=== PATIENT | female | born 1940 | race Caucasian/White ===

== ENCOUNTER → 2016-06-10 | Outpatient (CLI) | payer OTHER ==
[~2016-06-10] MED LIST: ASPI81TA28 PO; CHOL100010 PO; COLE625T PO; CRS/10 PO; CYCL0.05 OP; FAMO20TA11 PO; FEXO1TAB49 PO; FLUT27.5 NAE; HOME1TAB18 PO; HYDR12.55 PO; LEVO112T4 PO; MAGN400T6 PO; MELO7.5T7 PO; MULT-190 PO; MULT-506 PO; PRIM50TA29 PO; RANI300T2 PO
== END | disposition home or self-care (01) ==
LOC: C.LAB1850 12:12
PROVIDERS: ATTEND Internal Medicine
DX: E03.9 Hypothyroidism, unspecified (principal)

== ENCOUNTER → 2016-10-05 | Outpatient (CLI) | payer OTHER ==
[2016-10-05 09:35] LABS: HEMATOCRIT 38.5 % (37-47); MEAN CELL VOLUME 86.3 fL (80-100); MEAN CORPUSCULAR HGB CONC 34.8 g/dl (32-36); MEAN PLATELET VOLUME 10.1 fL (7.4-10.4); PLATELET COUNT 266 K/uL (130-400); RED BLOOD COUNT 4.46 M/uL (4.2-5.4); WHITE BLOOD COUNT 3.59 K/uL (4.8-10.8)
[2016-10-05 09:40] LABS: URINE APPEARANCE CLEAR (CLEAR); URINE BILIRUBIN NEG (NEG); URINE COLOR YELLOW; URINE EPITHELIAL CELL AUTO 0-5 /lpf (0-5); URINE NITRITE NEG (NEG); URINE PH 7.5 (4.5-7.5); URINE SPECIFIC GRAVITY 1.007 (1.000-1.030); UROBILINOGEN NEG (NEG)
[2016-10-05 09:46] LABS: MANUAL MICROSCOPIC REQUIRED? NO; REVIEW REQ? NO
[2016-10-05 10:05] LABS: URINE TOTAL PROTEIN < 5.0 mg/dl (0-11.9)
[2016-10-05 10:10] LABS: AST/SGOT 24 U/L (15-37); BLOOD UREA NITROGEN 15 mg/dl (7-18); BUN/CREATININE RATIO 17.6 (10-20); CALCIUM 9.5 mg/dl (8.5-10.1); CARBON DIOXIDE 32 mmol/L (21-32); CHLORIDE 103 mmol/L (98-107); CREATININE 0.87 mg/dl (0.60-1.20); GLUCOSE 79 mg/dl (70-99); POTASSIUM 4.1 mmol/L (3.5-5.1); SODIUM 138 mmol/L (136-145)
[2016-10-05 10:23] LABS: ALT/SGPT 24 U/L (12-78); CHOLESTEROL 187 mg/dl (0-200); CHOLESTEROL/HDL RATIO 2.4; HDL CHOLESTEROL 77 mg/dl; LDL CHOLESTEROL CALCULATED 96 mg/dl; PHOSPHORUS 3.3 mg/dl (2.5-4.9); TRIGLYCERIDES 71 mg/dl (0-150); VERY LOW DENSITY LIPOPROT CALC 14 mg/dl
== END | disposition home or self-care (01) ==
LOC: C.LAB1850 08:04
PROVIDERS: ATTEND Internal Medicine Nephrology
DX: E03.9 Hypothyroidism, unspecified (principal); E78.5 Hyperlipidemia, unspecified; I10 Essential (primary) hypertension; M32.9 Systemic lupus erythematosus, unspecified; E55.9 Vitamin D deficiency, unspecified; N18.2 Chronic kidney disease, stage 2 (mild)

== ENCOUNTER → 2016-12-14 | Outpatient (CLI) | payer OTHER ==
--- NOTE | 2016-12-14 14:06 | DIAGNOSTIC IMAGING REPORT ---
MRA HEAD WITHOUT CONTRAST HISTORY:76 [id number] SNHL (sensorineural hearing loss)H93.A1 Pulsatile tinnitus prior occipital craniotomy 1995 status post meningioma resection. COMPARISON: MRI of the brain 04/19/2016, carotid Doppler 12/07/2013 TECHNIQUE: MRA of the head was obtained without contrast utilizing 3-D [id number] sequencing with 3-D MIPS reformats. FINDINGS: Midline suboccipital craniotomy changes are redemonstrated. The bilateral internal carotid arteries appear normal and are patent terminating into normal and patent appearing M1 and A1 segments. The right A1 segment is mildly diminutive, likely congenital variation. The left vertebral artery is dominant. Basilar artery is patent and appears normal. There is origin of the left posterior cerebral artery. The bilateral posterior cerebral arteries are patent. There is no high-grade stenosis, aneurysm or proximal branch occlusion. IMPRESSION: 1. No high-grade stenosis, aneurysm or proximal branch occlusion identified. 2. Incidental note is made of origin of the left posterior cerebral artery. 3. Prior suboccipital craniotomy. The above report was generated using voice recognition software. It may contain grammatical, syntax or spelling errors. Electronically signed by: Minh Bolanos M.D. 12/14/2016 2:04 PM Dictated Date/Time: 12/14/2016 1:58 PM
--- NOTE | 2016-12-14 14:45 | DIAGNOSTIC IMAGING REPORT ---
BILATERAL CAROTID DOPPLER STUDY HISTORY: Mental status change H90.5 SNHL (sensorineural hearing loss)H93.A1 Pulsatile tinnitus COMPARISON: None. TECHNIQUE: Real-time, grayscale, and color Doppler sonography of the carotid arteries was performed. Imaging reviewed in the transverse and longitudinal planes. All measurements were calculated based on NASCET criteria. FINDINGS: Antegrade flow is seen in the bilateral vertebral arteries. The brachial pressures are hemodynamically similar. Mild plaque formation bilaterally The peak systolic velocity within the right ICA is 81. The right systolic ratio is 1.2 The peak systolic velocity within the left ICA is 81. The left systolic ratio is 1.2. IMPRESSION: No hemodynamically significant stenosis seen within the carotid arteries. Mild plaque formation bilaterally Electronically signed by: Davidson Kaur M.D. 12/14/2016 2:43 PM Dictated Date/Time: 12/14/2016 2:42 PM
--- NOTE | 2016-12-19 12:05 | CODING QUERY MEDICAL NECESSITY ---
SUPPORTING DIAGNOSIS NEEDED A supporting diagnosis is required for the test/procedure performed on this patient in order for us to be reimbursed by the patient's insurance. Please provide a supporting diagnosis for the following test/procedure listed below next to the test name along with your signature. *If there is no additional diagnosis for this patient that would support the following test/procedure please document that below next to the test/procedure. Test(s)/Procedure(s) that require a supporting diagnosis: * US CAROTID DOPPLER NECK ARTERY DIAGNOSIS: Provider Signature: Date: Thank you Rosi Menjivar [employer] Once completed, please kindly fax back to [phone] For questions please call [phone]
== END | disposition home or self-care (01) ==
LOC: C.MRI 13:09
PROVIDERS: ATTEND Physician Assistant
DX: H93.A1 Pulsatile tinnitus, right ear (principal); H90.5 Unspecified sensorineural hearing loss

== ENCOUNTER → 2017-02-07 | Outpatient (CLI) | payer OTHER ==
[2017-02-07 15:38] LABS: BASO % 0.6 %; BASO ABS # 0.03 K/uL (0-0.2); COMPLETE YES; EOS % 0.8 %; HEMATOCRIT 41.1 % (37-47); IG% 0.2 %; LYMPH % 21.3 %; LYMPH ABS # 1.02 K/uL (1.2-3.4); MEAN CELL VOLUME 84.7 fL (80-100); MEAN CORPUSCULAR HEMOGLOBIN 29.7 pg (25-34); MEAN PLATELET VOLUME 10.9 fL (7.4-10.4); MONO % 7.3 %; NEUT % 69.8 %; PLATELET COUNT 182 K/uL (130-400); RED BLOOD COUNT 4.85 M/uL (4.2-5.4)
[2017-02-07 15:41] LABS: URINE APPEARANCE CLEAR (CLEAR); URINE BILIRUBIN NEG (NEG); URINE COLOR YELLOW; URINE EPITHELIAL CELL AUTO 0-5 /lpf (0-5); URINE NITRITE NEG (NEG); URINE PH 5.5 (4.5-7.5); URINE SPECIFIC GRAVITY 1.012 (1.000-1.030); UROBILINOGEN NEG (NEG)
[2017-02-07 15:44] LABS: MANUAL MICROSCOPIC REQUIRED? NO; REVIEW REQ? NO
[2017-02-07 15:55] LABS: ALT/SGPT 23 U/L (12-78); CREATININE 0.98 mg/dl (0.60-1.20)
[2017-02-07 15:57] LABS: ALKALINE PHOSPHATASE 97 U/L (45-117); AST/SGOT 29 U/L (15-37)
[2017-02-12 05:28] LABS: ANTI-CENTROMERE AB <1.0 NEG AI (<1.0 NEG); ANTI-SS-A <1.0 NEG AI (<1.0 NEG); ANTI-SS-B <1.0 NEG AI (<1.0 NEG); DNA ds CRITHIDIA NEGATIVE (NEGATIVE); Sm Antibody <1.0 NEG AI (<1.0 NEG)
[2017-02-13 14:50] LABS: ANA TITER 1:40 TITER (<1:40)
== END | disposition home or self-care (01) ==
LOC: C.LAB1850 14:20
PROVIDERS: ATTEND Internal Medicine Rheumatology
DX: Z79.899 Other long term (current) drug therapy (principal)

== ENCOUNTER → 2017-04-13 | Outpatient (CLI) | payer OTHER ==
[~2017-04-13] MED LIST changes: +GADAVIST IV PRN
--- NOTE | 2017-04-13 08:54 | DIAGNOSTIC IMAGING REPORT ---
CERVICAL SPINE COMBO HISTORY: HEMANGIOMA,POSSIBLE CERVICAL CORD COMPROMISE TECHNIQUE: Multiplanar multisequence MRI of the cervical spine was performed both before and after the use of intravenous contrast. COMPARISON STUDY: 08/27/2009 FINDINGS: Moderate degenerative disc change throughout. Signal characteristics of the cervical cord are unremarkable. No significant postcontrast enhancement. Reversal of the normal cervical curvature consistent muscular spasm. Multilevel posterior extradural defect consistent with bulging disc components. C2-C3: No significant central canal or neural foraminal narrowing. C3-C4: Minimal central disc bulge. Contact with but no significant deformity of the cervical cord. Mild osteophytic narrowing left neuroforamina similar compared to the prior study. C4-C5: Mild broad-based bulging disc. Minimal impact anterior cervical cord. Moderate narrowing right to lesser extent left neural foramina. C5-C6: Broad-based disc herniation slightly progressive from the prior study. Mild impact anterior cervical cord. Moderate narrowing of the neuroforamina bilaterally. C6-C7: Broad-based disc herniation with mild impact anterior aspect cervical cord. Slightly progressive from the prior study. Moderate osteophytic narrowing of the right neural foramina. Left neural foramen is patent. C7-T1: No significant central canal or neural foraminal narrowing. IMPRESSION: 1. Findings consistent with a suboccipital craniotomy with postoperative encephalomalacia. 2. This is unchanged from the prior study. 3. Reversal of the normal cervical curvature consistent with mild muscular spasm progressive from the prior study. 4. Broad-based disc herniations C6-C7 and C5-C6 slightly increased in prominence in the prior study. 5. Broad-based bulging disc C4-C5 unchanged. 6. Narrowing of multiple neural foramina bilaterally stable to slightly progressive. The above report was generated using voice recognition software. It may contain grammatical, syntax or spelling errors. Electronically signed by: Davidson Kaur M.D. 04/13/2017 8:53 AM Dictated Date/Time: 04/13/2017 8:46 AM
== END | disposition home or self-care (01) ==
LOC: C.MRI 07:36
PROVIDERS: ATTEND Psychiatry & Neurology Neurology
DX: D18.03 Hemangioma of intra-abdominal structures (principal); G93.89 Other specified disorders of brain; Z98.890 Other specified postprocedural states; M50.221 Other cervical disc displacement at C4-C5 level; M50.222 Other cervical disc displacement at C5-C6 level; M50.223 Other cervical disc displacement at C6-C7 level

== ENCOUNTER → 2017-06-19 | Outpatient (CLI) | payer OTHER ==
[~2017-06-19] MED LIST changes: -GADAVIST IV PRN
== END | disposition home or self-care (01) ==
LOC: C.LAB1850 08:32
PROVIDERS: ATTEND Internal Medicine Nephrology
DX: I10 Essential (primary) hypertension (principal); M32.9 Systemic lupus erythematosus, unspecified; E78.5 Hyperlipidemia, unspecified; E55.9 Vitamin D deficiency, unspecified; D50.9 Iron deficiency anemia, unspecified; N18.2 Chronic kidney disease, stage 2 (mild)

== ENCOUNTER → 2017-09-18 | Outpatient (CLI) | payer OTHER | END | disposition home or self-care (01) | LOC: C.LAB1850 15:16 | PROVIDERS: ATTEND Physician Assistant | DX: I10 Essential (primary) hypertension (principal) ==

== ENCOUNTER → 2018-01-04 | Outpatient (CLI) | payer OTHER ==
--- NOTE | 2018-01-04 09:16 | DIAGNOSTIC IMAGING REPORT ---
L-SPINE MIN 4 VIEWS ROUTINE HISTORY: 77 years-old Female M79.605 Left leg [id number] acute left leg and low back pain COMPARISON: Lumbar spine radiographs 08/23/2013 TECHNIQUE: 5 views of the lumbar spine FINDINGS: Mild convex right curvature about the mid lumbar spine. Mildly demineralized appearance of the bones. 6 mm anterolisthesis L4 on L5 and 5 mm anterolisthesis L5 on S1 has slightly progressed from comparison (previously 4 and 3 mm respectively). Severe multilevel facet arthrosis. Multilevel spondylitic spurring. Moderate intervertebral disc space narrowing at L2-L3. No acute fracture and L5. Lumbarization of the S1 vertebral body. Calcifications of the pelvis suggest phleboliths. Moderate formed colonic stool suggests constipation. IMPRESSION: 1. No acute fracture. 2. Multilevel advanced facet arthropathy with mild multilevel spondylitic spurring. Anterolisthesis of L4 on L5 and L5 on S1 is likely secondary to long-standing facet arthropathy. 3. Moderate intervertebral disc space narrowing at L2-L3. The above report was generated using voice recognition software. It may contain grammatical, syntax or spelling errors. Electronically signed by: Minh Bolanos M.D. 01/04/2018 9:14 AM Dictated Date/Time: 01/04/2018 9:11 AM
--- NOTE | 2018-01-04 09:26 | DIAGNOSTIC IMAGING REPORT ---
SI JOINTS 3 OR MORE VIEWS CLINICAL HISTORY: M79.605 Left leg [id number] pain COMPARISON STUDY: No previous studies for comparison. FINDINGS: Mild degenerative changes of the sacroiliac joints bilaterally. Mild vacuum joints are present. No evidence of bony ankylosis. Mild sclerosis of the joint and spaces. IMPRESSION: Mild degenerative change and sclerosis. No acute process. The above report was generated using voice recognition software. It may contain grammatical, syntax or spelling errors. Electronically signed by: Davidson Kaur M.D. 01/04/2018 9:25 AM Dictated Date/Time: 01/04/2018 9:24 AM
--- NOTE | 2018-01-04 09:28 | DIAGNOSTIC IMAGING REPORT ---
LEFT HIP 2 VIEWS HISTORY: M79.605 Left leg [id number] COMPARISON: None. FINDINGS: There is no fracture or dislocation. Soft tissues are unremarkable. Left hip cartilage spaces maintained for age. Hypertrophic changes at the greater trochanter is likely chronic. IMPRESSION: No fracture or dislocation within the left hip. Electronically signed by: Andrés Davis M.D. 01/04/2018 9:27 AM Dictated Date/Time: 01/04/2018 9:26 AM
[2018-01-04 09:54] LABS: BLOOD UREA NITROGEN 20 mg/dl (7-18); CALCIUM 8.9 mg/dl (8.5-10.1); CARBON DIOXIDE 30 mmol/L (21-32); CREATININE 0.96 mg/dl (0.60-1.20); GLUCOSE 89 mg/dl (70-99); SODIUM 136 mmol/L (136-145)
== END | disposition home or self-care (01) ==
LOC: C.RAD1850 08:36
PROVIDERS: ATTEND Internal Medicine
DX: M79.605 Pain in left leg (principal); R26.81 Unsteadiness on feet

== ENCOUNTER 2018-08-31 12:01 | Observation (INO) ==
[2018-08-31 13:38] LABS: Basophils # (auto) 0.02 K/uL (0-0.2); Basophils % (auto) 0.5 %; Eosinophils # (auto) 0.15 K/uL (0-0.5); Eosinophils % (auto) 3.8 %; Hematocrit (blood only) 36.9 % (37-47); Hemoglobin 12.5 g/dL (12.0-16.0); Immature Granulocytes # (auto) 0.01 K/uL (0.00-0.02); Immature Granulocytes % (auto) 0.3 %; Lymphocytes # (auto) 1.11 K/uL (1.2-3.4); Mean Corpuscular Hgb Conc 33.9 g/dL (32-36); Mean Corpuscular Volume 87.4 fL (80-100); Mean Platelet Volume 10.8 fL (7.4-10.4); Monocytes # (auto) 0.46 K/uL (0.11-0.59); Monocytes % (auto) 11.6 %; Neutrophils # (auto) 2.21 K/uL (1.4-6.5); Neutrophils % (auto) 55.8 %; Platelet Count 182 K/uL (130-400); RDW Coefficient of Variation 13.4 % (11.5-14.5); RDW Standard Deviation 43.2 fL (36.4-46.3); Red Blood Count 4.22 M/uL (4.2-5.4); White Blood Count 3.96 K/uL (4.8-10.8)
--- NOTE | 2018-08-31 13:43 | XRay Report ---
XR chest 1V portable CLINICAL HISTORY: Palpitations COMPARISON STUDY: Chest radiograph August 15, 2018. FINDINGS: Lung volumes are normal. There is no pneumothorax or pleural effusion. There is no consolid ation or evidence for pulmonary edema. Cardiomediastinal silhouette is normal. IMPRESSION: No acute cardiopulmonary findings. Electronically signed by: Yariel Sethi M.D. 08/31/2018 1:42 PM
[2018-08-31 13:44] LABS: Partial Thromboplastin Ratio 0.9; Prothrombin Time 10.4 Seconds (9.0-12.0)
[2018-08-31 13:51] LABS: Albumin Level 3.5 gm/dl (3.4-5.0); BUN Creatinine Ratio 25.2 (10-20); Creatinine Clr Calc Pharmacy 61.7 ml/min; Est GFR (African American) 77.7; Potassium 3.6 mmol/L (3.5-5.1)
[2018-08-31 14:08] LABS: Bilirubin,Total 0.4 mg/dl (0.2-1); Globulin 3.3 gm/dl (2.5-4.0); Total Protein 6.8 gm/dl (6.4-8.2)
[2018-08-31 14:11] LABS: Troponin I 0.159 ng/ml (0-0.045)
--- NOTE | 2018-08-31 14:20 | XRay Report ---
XR chest 1V not portable CLINICAL HISTORY: just lateral view eval for pna pneumonia. Pain. COMPARISON STUDY: No previous studies for comparison. FINDINGS: Lateral view of the chest is normal. Moderate degenerative changes thoracic spine. IMPRESSION: Negative lateral film of the chest The above report was generated using voice recognition software. It may contain grammatical, syntax or spelling errors. Electronically signed by: Davidson Kaur M.D. 08/31/2018 2:19 PM
[2018-08-31 14:31] LABS: Magnesium 2.4 mg/dl (1.8-2.4)
[2018-08-31 14:44] LABS: Appearance Urine Clear (Clear); Bilirubin Urine Negative (Negative); Blood Urine Negative (Negative); Color Urine Yellow; Glucose Urine UA Negative (Negative); Ketones Urine Negative (Negative); Leukocyte Esterase Urine Negative (Negative); Nitrite Urine Negative (Negative); Protein Urine Negative (Negative); Specific Gravity Urine <= 1.005 (1.000-1.030); Urobilinogen Urine Negative (Negative)
--- NOTE | 2018-08-31 15:59 | History & Physical Report ---
Date of Service August 31, 2018 Assessment & Plan (1) CAD (coronary artery disease): (2) Chest pain: - Admit to tele for observation for r/o - Trend cardiac biomarkers, initial set was ~0.159. Pt is s/p cardiac cath on 08/[address] Argueta so this is not suprising. - EKG reviewed as above and shows no changes compared to previous. - If negative enzymes can consider a stress test tomorrow morning. - PT/OT consulted - Consult cardiology for further recommendations - PT/OT consults - Follow orthostatics - Continue asa 81 mg daily, HCTZ 12.5 mg daily, Inderal XL 80 mg HS, rosuvastatin 10 mg PO QAM (3) Chronic lumbar radiculopathy: - Stable (4) SLE (systemic lupus erythematosus): - Stable, no current flair (5) Hypothyroidism: - Continue levothyroxine with alternating dosing - Continue mag oxide (6) HTN (hypertension): - Continue inderal XL (7) DVT prophylaxis: - Teds, scds, lovenox subq History of Present Illness Chief Complaint: Chest pain Primary Care Provider: Donald Rand MD This is a 77 yo F with PMHx of mild obstructive CAD, SLE, Raynauds disease, chronic lumbar radiculopathy who presents with increased elevation in chest discomfort substernally and pressure which started this morning on her way [place] the bank. She noticed her apple watch was reading HR at 199 at its highest. She denies lightheadedness, dizziness, chest pain. She notes she has major stress going on in her life including a terminally ill sister, and a mother who is over 100 yo in a nursing facilities. Allergies Allergy/AdvReac Type Severity Reaction Status Date / Time hydroxychloroquine Allergy Intermediate TOXICITY Verified 08/31/18 12:54 OF THE RETINA ibuprofen Allergy Intermediate SWELLING Verified 08/31/18 12:54 atorvastatin AdvReac Mild "UNCOMFORTABLE" Verified 08/31/18 12:54 AND CREATININE INCREASED SLIGHTLY Home Medications Home Medications Medication Instructions Recorded Confirmed Type PreserVision AREDS 1 tab PO BID 06/25/18 08/31/18 History aspirin 81 mg PO QAM 06/25/18 08/31/18 History cholecalciferol (vitamin D3) 1,000 unit PO QAM 06/25/18 08/31/18 History [Vitamin D3] colesevelam [WelChol] 625 mg PO DAILY 06/25/18 08/31/18 History fexofenadine [Norma Allergy] 180 mg PO DAILY 06/25/18 08/31/18 History hydrochlorothiazide 12.5 mg PO DAILY 06/25/18 08/31/18 History levothyroxine 112 mcg PO 3XWK 06/25/18 08/31/18 History magnesium oxide 400 mg PO QPM 06/25/18 08/31/18 History multivitamin 1 tab PO QAM 06/25/18 08/31/18 History rosuvastatin [Crestor] 10 mg PO QPM 06/25/18 08/31/18 History Inderal XL 80 mg PO HS 08/27/18 08/31/18 History levothyroxine 100 mg PO 4XWK 08/27/18 08/31/18 History Past Med/Surg History Medical History CAD (coronary artery disease) HTN (hypertension) SLE (systemic lupus erythematosus) Chest pain (Acute 12/05/13) Chronic lumbar radiculopathy (Acute) Raynaud's disease (Chronic) Sjogren's syndrome (Chronic) Asthma EXERCISE INDUCED; RARELY USES PRN INH Chronic back pain Difficult airway for intubation Essential tremor GERD (gastroesophageal reflux disease) Hemangioma of liver History of brain tumor History of lupus Hypothyroid Idiopathic thrombocytopenia Osteoarthritis Osteoporosis PVC (premature ventricular contraction) Scoliosis Sleep apnea CPAP Temporomandibular joint disorder Valvular heart disease FOLLOWS W/ DR. FULLER Surgical History History of appendectomy (Resolved) History of hysterectomy (Resolved) History of tubal ligation (Resolved) History of brain surgery History of colonoscopy History of esophagogastroduodenoscopy (EGD) History of tonsillectomy S/P UVPP (uvulopalatopharyngoplasty) Family History Aunt Family history of pseudocholinesterase deficiency PATERNAL Social History Communication Ability: Effective Language Instructor Required: Yes Beliefs That Will Affect Care: None Current Living Situation: Spouse Other Information That Helps Us Care for You: No Feels Safe at Home: Yes Safety Concerns: Feels Safe At This Time Smoking Status: Former smoker Hx Alcohol Use: No Hx Substance Use: No Review of Systems Constitutional: No fever, sweats or chills Eyes: No diplopia, no worsening or blurred vision ENT: normal hearing, no trouble swallowing Respiratory: No cough, sputum, dyspnea at rest or on exertion Cardiovascular: As per HPI. Abdomen: No pain, nausea, vomiting, diarrhea or constipation Musculoskeletal: No joint pain, calf pain, swelling Neurologic: No weakness, numbness/tingling, or balance problems Psychiatric: No anxiety or depression Skin: No rash or itch Physical Exam Vital Signs (Past 24 Hours): Last Vital Signs Pulse 50 L 08/31/18 15:04 Resp 19 08/31/18 15:04 BP 162/112 H 08/31/18 15:04 Pulse Ox 98 08/31/18 15:04 Physical Exam: General: awake, alert, no apparent distress Head: Normocephalic, atraumatic ENT: PERRL, EOMI, no pharyngeal exudate, mucous membranes moist Chest: Clear to auscultation, on room air, no adventitious breath sounds Cardiac: Regular rate and rhythm, no murmur, no JVD, normal peripheral pulses, good capillary refill Abdominal: NABS x 4 quadrants, soft, nontender to palpation, no rebound, guarding or tenderness Extremities: Normal inspection, no peripheral edema or erythema, calfs nontender to palpation Psych: Normal mood and affect Neuro: AAO x 3, strength intact bilaterally and related 5/5, no motor deficits, speech is clear, no peripheral sensory deficits Results & Data Diagnostic Findings XR chest 1V not portable CLINICAL HISTORY: just lateral view eval for pna pneumonia. Pain. COMPARISON STUDY: No previous studies for comparison. FINDINGS: Lateral view of the chest is normal. Moderate degenerative changes thoracic spine. IMPRESSION: Negative lateral film of the chest XR chest 1V portable CLINICAL HISTORY: Palpitations COMPARISON STUDY: Chest radiograph August 15, 2018. FINDINGS: Lung volumes are normal. There is no pneumothorax or pleural effusion. There is no consolidation or evidence for pulmonary edema. Cardiomediastinal silhouette is normal. IMPRESSION: No acute cardiopulmonary findings. ECG Additional Comments: 31-AUG-2018 12:42:56 [facility] Sinus bradycardia with marked sinus arrhythmia Right bundle branch block Abnormal ECG When compared with ECG of 20-MAR-2018 12:43, Premature ventricular complexes are no longer Present 25mm/s 10mm/mV 150Hz 8.0 SP2 12SL 241 TREVOR: 10 Referred by: Unconfirmed Vent. rate 58 BPM MA interval 166 ms QRS duration 124 ms QT/QTc 416/408 ms P-R-T axes 50 49 27 Code Status & VTE Plan Code Status Full Supervising Physician Co-Signing Physician Notes Patient seen and examined, chart reviewed, case discussed with BRE David and I agree with her assessment and plan as above. Briefly, patient is a 77yo female with multiple medical problems. She had a cardiac cath recently for workup of SANTANA and decreased exercise tolerance. Found to have nonobstructive CAD. Patient reports episodes of upper chest fullness and feeling her face go numb, multiple times per day, typically associated with an elevated HR per her Apple Watch. She had an episode appx 3 weeks ago where she woke from sleep with a feeling of dread, HR at that time was 38. She denies CP. Denies syncope. On physical exam she is afebrile, bracycardic, normotensive, no respiratory distress HEENT - NC/AT, PERRL, EOMI, MMM, neck supple Heart - +S1/S2, regular with ectopy, bradycardic at 52bpm Lungs - CTA Abd - soft, NT/ND Ext - warm, 2+ pulses, no clubbing/cyanosis or edema Labs and images reviewed. WBC=3.96, pt with h/o lupus. Trop = 0.159 Assessment/Plan: 77yo female with SANTANA/decreased exercise tolerance being worked up for presyncopal event, ?arrhythmia -Observation with telemetry -Trend troponin- suspect her mild elevation is from prior cath -Remainder of plan as above
[2018-08-31] MEDS ORDERED: ONDANSETRON INJ 2 MG/ML 2 ML VIAL IV PRN (16:09)
[2018-08-31] MEDS ORDERED: ACETAMINOPHEN 325 MG TAB PO PRN (16:09)
[2018-08-31] MEDS ORDERED: ENOXAPARIN INJ 40 MG/0.4 ML SYR SQ SCH (19:00)
--- NOTE | 2018-08-31 20:43 | Emergency Department Note ---
Entered by Lima Rosales acting as a scribe for History of Present Illness General Chief complaint: Arrhythmia/Palpitations Stated complaint: IRREGULAR HEART BEAT WITH CATHETER Source: patient Limitations: no limitations History of Present Illness Onset (ago): week(s) 3 Location: chest Pain Consistency: + intermittent Quality: + other (discomfort, "gurgling movement") Associated symptoms: + denies other symptoms ( abdominal pain, difficulty urinating, and diarrhea) and + cough; no chest pain, no fever/chills and no shortness of breath The patient is a 77 year old female who presents to the Emergency Room with complaints of intermittent chest discomfort that began 3 weeks ago. She describes it as a "gurgling movement" in her upper chest and throat. The patient reports that she woke up feeling fine, but she noticed symptoms throughout the day. She states that her heart rate was as high as 160 while resting according to her Apple Watch during morning. She had another episode of the chest discomfort and noted her heart rate was 190 on her watch. The patient notes that her heart rate doesn't normally go that high even when she's exercising. Willie nava complains of episodes of tingling on the left side of her face. 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 She complains of a cough, noting that she is cough up yellow-tinged sputum. She denies any SOB, fever, abdominal pain, difficulty urinating, and diarrhea. The patient notes that she had a cardiac catheterization done 4 days ago. She does state that all her symptoms started 3 weeks ago when she developed dyspnea on exertion which prompted the EKG and consequently led to the cardiac catheterization. Home Medications Home Medications Medication Instructions Recorded Confirmed Type PreserVision AREDS 1 tab PO BID 06/25/18 08/31/18 History aspirin 81 mg PO QAM 06/25/18 08/31/18 History cholecalciferol (vitamin D3) 1,000 unit PO QAM 06/25/18 08/31/18 History [Vitamin D3] colesevelam [WelChol] 625 mg PO DAILY 06/25/18 08/31/18 History fexofenadine [Norma Allergy] 180 mg PO DAILY 06/25/18 08/31/18 History hydrochlorothiazide 12.5 mg PO DAILY 06/25/18 08/31/18 History levothyroxine 112 mcg PO 3XWK 06/25/18 08/31/18 History magnesium oxide 400 mg PO QPM 06/25/18 08/31/18 History multivitamin 1 tab PO QAM 06/25/18 08/31/18 History rosuvastatin [Crestor] 10 mg PO QPM 06/25/18 08/31/18 History Inderal XL 80 mg PO HS 08/27/18 08/31/18 History levothyroxine 100 mg PO 4XWK 08/27/18 08/31/18 History Allergies Allergy/AdvReac Type Severity Reaction Status Date / Time hydroxychloroquine Allergy Intermediate TOXICITY Verified 08/31/18 12:54 OF THE RETINA ibuprofen Allergy Intermediate SWELLING Verified 08/31/18 12:54 atorvastatin AdvReac Mild "UNCOMFORTABLE" Verified 08/31/18 12:54 AND CREATININE INCREASED SLIGHTLY Past Med/Surg History Medical History CAD (coronary artery disease) HTN (hypertension) SLE (systemic lupus erythematosus) Chest pain (Acute 12/05/13) Chronic lumbar radiculopathy (Acute) Raynaud's disease (Chronic) Sjogren's syndrome (Chronic) Asthma EXERCISE INDUCED; RARELY USES PRN INH Chronic back pain Difficult airway for intubation Essential tremor GERD (gastroesophageal reflux disease) Hemangioma of liver History of brain tumor History of lupus Hypothyroid Idiopathic thrombocytopenia Osteoarthritis Osteoporosis PVC (premature ventricular contraction) Scoliosis Sleep apnea CPAP Temporomandibular joint disorder Valvular heart disease FOLLOWS W/ DR. 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 and A total of 10 systems reviewed and were otherwise negative Physical Exam Vital Signs Vital Signs - 24 hr 08/31/18 12:34 08/31/18 12:46 08/31/18 12:47 Temperature Temperature Source Sepsis Recent Fever Within 48 Hours No Sepsis Action Taken by Nursing No Action Required Pulse Rate 58 L 53 L Pulse Rate [Finger] 58 L Pulse Rate from SpO2 Sensor 54 L Pulse Rhythm [Finger] Pulse Strength [Finger] Respiratory Rate 16 16 16 Respiratory Effort / Characteristics Respiratory Depth Respiratory Pattern Blood Pressure 159/81 H 165/81 H Blood Pressure [Left Arm] Blood Pressure [Right Arm] 165/81 H Blood Pressure Mean 107 109 Blood Pressure Mean [Left Arm] Blood Pressure Mean [Right Arm] 109 Blood Pressure Position [Left Arm] Blood Pressure Position [Right Arm] Pulse Oximetry 100 98 98 Oxygen Delivery Method Room Air Room Air 08/31/18 12:55 08/31/18 13:00 08/31/18 13:10 Temperature Temperature Source Sepsis Recent Fever Within 48 Hours Sepsis Action Taken by Nursing Pulse Rate 54 L 50 L 59 L Pulse Rate [Finger] Pulse Rate from SpO2 Sensor 51 L 49 L 59 L Pulse Rhythm [Finger] Pulse Strength [Finger] Respiratory Rate 16 14 12 Respiratory Effort / Characteristics Respiratory Depth Respiratory Pattern Blood Pressure Blood Pressure [Left Arm] Blood Pressure [Right Arm] Blood Pressure Mean Blood Pressure Mean [Left Arm] Blood Pressure Mean [Right Arm] Blood Pressure Position [Left Arm] Blood Pressure Position [Right Arm] Pulse Oximetry 98 98 97 Oxygen Delivery Method 08/31/18 13:18 08/31/18 13:20 08/31/18 13:30 Temperature Temperature Source Sepsis Recent Fever Within 48 Hours Sepsis Action Taken by Nursing Pulse Rate 51 L 53 L Pulse Rate [Finger] 51 L Pulse Rate from SpO2 Sensor 50 L 54 L Pulse Rhythm [Finger] Pulse Strength [Finger] Respiratory Rate 20 14 14 Respiratory Effort / Characteristics Respiratory Depth Respiratory Pattern Blood Pressure Blood Pressure [Left Arm] Blood Pressure [Right Arm] 165/81 H Blood Pressure Mean Blood Pressure Mean [Left Arm] Blood Pressure Mean [Right Arm] 109 Blood Pressure Position [Left Arm] Blood Pressure Position [Right Arm] Pulse Oximetry 98 97 99 Oxygen Delivery Method Room Air 08/31/18 13:40 08/31/18 13:50 08/31/18 14:00 Temperature Temperature Source Sepsis Recent Fever Within 48 Hours Sepsis Action Taken by Nursing Pulse Rate 54 L 51 L 49 L Pulse Rate [Finger] Pulse Rate from SpO2 Sensor 53 L 52 L 49 L Pulse Rhythm [Finger] Pulse Strength [Finger] Respiratory Rate 13 18 13 Respiratory Effort / Characteristics Respiratory Depth Respiratory Pattern Blood Pressure Blood Pressure [Left Arm] Blood Pressure [Right Arm] Blood Pressure Mean Blood Pressure Mean [Left Arm] Blood Pressure Mean [Right Arm] Blood Pressure Position [Left Arm] Blood Pressure Position [Right Arm] Pulse Oximetry 98 99 100 Oxygen Delivery Method 08/31/18 14:15 08/31/18 14:20 08/31/18 14:30 Temperature Temperature Source Sepsis Recent Fever Within 48 Hours Sepsis Action Taken by Nursing Pulse Rate 56 L 52 L 51 L Pulse Rate [Finger] Pulse Rate from SpO2 Sensor Pulse Rhythm [Finger] Pulse Strength [Finger] Respiratory Rate 22 20 15 Respiratory Effort / Characteristics Respiratory Depth Respiratory Pattern Blood Pressure Blood Pressure [Left Arm] Blood Pressure [Right Arm] Blood Pressure Mean Blood Pressure Mean [Left Arm] Blood Pressure Mean [Right Arm] Blood Pressure Position [Left Arm] Blood Pressure Position [Right Arm] Pulse Oximetry Oxygen Delivery Method 08/31/18 14:40 08/31/18 14:50 08/31/18 15:00 Temperature Temperature Source Sepsis Recent Fever Within 48 Hours Sepsis Action Taken by Nursing Pulse Rate 51 L 57 L 57 L Pulse Rate [Finger] Pulse Rate from SpO2 Sensor Pulse Rhythm [Finger] Pulse Strength [Finger] Respiratory Rate 16 13 18 Respiratory Effort / Characteristics Respiratory Depth Respiratory Pattern Blood Pressure Blood Pressure [Left Arm] Blood Pressure [Right Arm] Blood Pressure Mean Blood Pressure Mean [Left Arm] Blood Pressure Mean [Right Arm] Blood Pressure Position [Left Arm] Blood Pressure Position [Right Arm] Pulse Oximetry Oxygen Delivery Method 08/31/18 15:04 08/31/18 15:07 08/31/18 15:10 Temperature Temperature Source Sepsis Recent Fever Within 48 Hours Sepsis Action Taken by Nursing Pulse Rate 52 L 49 L Pulse Rate [Finger] 50 L Pulse Rate from SpO2 Sensor 51 L 51 L Pulse Rhythm [Finger] Pulse Strength [Finger] Respiratory Rate 19 12 17 Respiratory Effort / Characteristics Respiratory Depth Respiratory Pattern Blood Pressure 162/112 H Blood Pressure [Left Arm] Blood Pressure [Right Arm] 162/112 H Blood Pressure Mean 128 Blood Pressure Mean [Left Arm] Blood Pressure Mean [Right Arm] 128 Blood Pressure Position [Left Arm] Blood Pressure Position [Right Arm] Pulse Oximetry 98 98 99 Oxygen Delivery Method Room Air 08/31/18 15:20 08/31/18 15:30 08/31/18 15:40 Temperature Temperature Source Sepsis Recent Fever Within 48 Hours Sepsis Action Taken by Nursing Pulse Rate 51 L 52 L 50 L Pulse Rate [Finger] Pulse Rate from SpO2 Sensor 52 L 51 L 48 L Pulse Rhythm [Finger] Pulse Strength [Finger] Respiratory Rate 17 10 L 9 L Respiratory Effort / Characteristics Respiratory Depth Respiratory Pattern Blood Pressure 156/77 H Blood Pressure [Left Arm] Blood Pressure [Right Arm] Blood Pressure Mean 103 Blood Pressure Mean [Left Arm] Blood Pressure Mean [Right Arm] Blood Pressure Position [Left Arm] Blood Pressure Position [Right Arm] Pulse Oximetry 100 100 100 Oxygen Delivery Method 08/31/18 15:50 08/31/18 16:00 08/31/18 16:01 Temperature Temperature Source Sepsis Recent Fever Within 48 Hours Sepsis Action Taken by Nursing Pulse Rate 52 L 60 48 L Pulse Rate [Finger] Pulse Rate from SpO2 Sensor 53 L 55 L 49 L Pulse Rhythm [Finger] Pulse Strength [Finger] Respiratory Rate 13 14 11 L Respiratory Effort / Characteristics Respiratory Depth Respiratory Pattern Blood Pressure 157/88 H Blood Pressure [Left Arm] Blood Pressure [Right Arm] Blood Pressure Mean 111 Blood Pressure Mean [Left Arm] Blood Pressure Mean [Right Arm] Blood Pressure Position [Left Arm] Blood Pressure Position [Right Arm] Pulse Oximetry 99 98 99 Oxygen Delivery Method 08/31/18 16:10 08/31/18 16:11 08/31/18 16:20 Temperature Temperature Source Sepsis Recent Fever Within 48 Hours Sepsis Action Taken by Nursing Pulse Rate 51 L 56 L Pulse Rate [Finger] 51 L Pulse Rate from SpO2 Sensor 52 L Pulse Rhythm [Finger] Pulse Strength [Finger] Respiratory Rate 14 16 19 Respiratory Effort / Characteristics Respiratory Depth Respiratory Pattern Blood Pressure Blood Pressure [Left Arm] Blood Pressure [Right Arm] 157/88 H Blood Pressure Mean Blood Pressure Mean [Left Arm] Blood Pressure Mean [Right Arm] 111 Blood Pressure Position [Left Arm] Blood Pressure Position [Right Arm] Pulse Oximetry 99 100 Oxygen Delivery Method Room Air 08/31/18 16:30 08/31/18 16:31 08/31/18 16:40 Temperature Temperature Source Sepsis Recent Fever Within 48 Hours Sepsis Action Taken by Nursing Pulse Rate 55 L 51 L 52 L Pulse Rate [Finger] Pulse Rate from SpO2 Sensor Pulse Rhythm [Finger] Pulse Strength [Finger] Respiratory Rate 28 H 12 14 Respiratory Effort / Characteristics Respiratory Depth Respiratory Pattern Blood Pressure 174/100 H Blood Pressure [Left Arm] Blood Pressure [Right Arm] Blood Pressure Mean 124 Blood Pressure Mean [Left Arm] Blood Pressure Mean [Right Arm] Blood Pressure Position [Left Arm] Blood Pressure Position [Right Arm] Pulse Oximetry Oxygen Delivery Method 08/31/18 16:50 08/31/18 17:00 08/31/18 17:01 Temperature Temperature Source Sepsis Recent Fever Within 48 Hours Sepsis Action Taken by Nursing Pulse Rate 50 L 52 L 50 L Pulse Rate [Finger] Pulse Rate from SpO2 Sensor Pulse Rhythm [Finger] Pulse Strength [Finger] Respiratory Rate 17 10 L 17 Respiratory Effort / Characteristics Respiratory Depth Respiratory Pattern Blood Pressure 157/96 H Blood Pressure [Left Arm] Blood Pressure [Right Arm] Blood Pressure Mean 116 Blood Pressure Mean [Left Arm] Blood Pressure Mean [Right Arm] Blood Pressure Position [Left Arm] Blood Pressure Position [Right Arm] Pulse Oximetry Oxygen Delivery Method 08/31/18 17:10 08/31/18 17:20 08/31/18 17:30 Temperature Temperature Source Sepsis Recent Fever Within 48 Hours Sepsis Action Taken by Nursing Pulse Rate 54 L 56 L 97 H Pulse Rate [Finger] Pulse Rate from SpO2 Sensor Pulse Rhythm [Finger] Pulse Strength [Finger] Respiratory Rate 13 18 16 Respiratory Effort / Characteristics Respiratory Depth Respiratory Pattern Blood Pressure Blood Pressure [Left Arm] Blood Pressure [Right Arm] Blood Pressure Mean Blood Pressure Mean [Left Arm] Blood Pressure Mean [Right Arm] Blood Pressure Position [Left Arm] Blood Pressure Position [Right Arm] Pulse Oximetry Oxygen Delivery Method 08/31/18 17:31 08/31/18 17:37 08/31/18 17:39 Temperature Temperature Source Sepsis Recent Fever Within 48 Hours Sepsis Action Taken by Nursing Pulse Rate 59 L Pulse Rate [Finger] 76 Pulse Rate from SpO2 Sensor Pulse Rhythm [Finger] Pulse Strength [Finger] Respiratory Rate 17 23 23 Respiratory Effort / Characteristics Respiratory Depth Respiratory Pattern Blood Pressure 137/76 Blood Pressure [Left Arm] Blood Pressure [Right Arm] 137/76 Blood Pressure Mean 96 Blood Pressure Mean [Left Arm] Blood Pressure Mean [Right Arm] 96 Blood Pressure Position [Left Arm] Blood Pressure Position [Right Arm] Pulse Oximetry 98 98 Oxygen Delivery Method Room Air Room Air 08/31/18 18:05 08/31/18 18:21 08/31/18 19:40 Temperature 36.6 C 36.5 C Temperature Source Oral Oral Sepsis Recent Fever Within 48 Hours Sepsis Action Taken by Nursing Pulse Rate 58 L Pulse Rate [Finger] 57 L 54 L Pulse Rate from SpO2 Sensor Pulse Rhythm [Finger] Regular Pulse Strength [Finger] Normal Respiratory Rate 16 16 Respiratory Effort / Characteristics Non-Labored Spontaneous Non-Labored Respiratory Depth Normal Normal Respiratory Pattern Regular Blood Pressure Blood Pressure [Left Arm] 129/75 Blood Pressure [Right Arm] 136/78 Blood Pressure Mean Blood Pressure Mean [Left Arm] 93 Blood Pressure Mean [Right Arm] 97 Blood Pressure Position [Left Arm] Lying Blood Pressure Position [Right Arm] Lying Pulse Oximetry 96 96 Oxygen Delivery Method Room Air Room Air Constitutional: Vital signs reviewed. Eyes: Pupils are equal round reactive to light. Conjunctiva are noninjected. ENT: Pharynx is clear without erythema or exudate. Mucous membranes are moist. Neck supple without meningeal signs. Respiratory: Clear to auscultation bilaterally. Breath sounds are equal bilaterally. Cardiovascular: Regular rate and rhythm. No rubs or gallops. GI: Soft, nondistended and nontender. Bowel sounds are present. Musculoskeletal: No peripheral edema. No lower extremity tenderness. Integumentary: No cyanosis. Neurological: The patient is awake and alert. No focal deficits. Psychiatric: Normal affect. Course 1342: Past medical records reviewed. The patient was evaluated in room A09A, and a complete history and physical examination were performed. 1426: I spoke with Dr. Parra, cardiology, about the patient's case. He said that he wouldn't give anticoagulants to her. He recommended hospitalizing her and monitoring her for a dysrhythmia. 1431: I spoke with the patient about her results and treatment plan. She said she took an aspirin today. 1437: I spoke with Dr. Monica Christensen, [facility] hospitalist, about the patient's case. She will evaluate the patient further. Consultations Consultation #1: I spoke with Dr. Parra, cardiology, about the patient's case. He said that he wouldn't executive assistant to president anticoagulants to her. He recommended hospitalizing her and monitoring her for a dysrhythmia. Time: 14:26 Consultation #2: I spoke with Dr. Monica Christensen, [facility] hospitalist, about the patient's case. She will evaluate the patient further. Time: 14:37 Administered Medications Enoxaparin Sodium (Lovenox) 40 mg SQ Q24H RILEY Stop: 09/30/18 18:59 Last Admin: 08/31/18 20:22 Dose: 40 mg Documented by: [id number] Magnesium Oxide (Mag-Ox) 400 mg PO QPM RILEY Stop: 09/30/18 20:59 Last Admin: 08/31/18 20:22 Dose: 400 mg Documented by: [id number] Propranolol HCl (Inderal La) 80 mg PO HS RILEY Stop: 09/30/18 20:59 Last Admin: 08/31/18 20:22 Dose: 80 mg Documented by: [id number] Rosuvastatin Calcium (Crestor) 10 mg PO QPM RILEY Stop: 09/30/18 20:59 Last Admin: 08/31/18 20:22 Dose: 10 mg Documented by: [id number] Medical Decision Making Differential Diagnosis The differential diagnosis includes: dysrhythmia, A fib, metabolic derangement, electrolyte abnormality, and PNA. Medical Records Attestation: I reviewed the patient's medical records. The medical records reports that the patient had a cardiac catheterization on 08/27/2018. She has minimal non obstructive coronary artery disease. Home Medications Current Medication List: was personally reviewed by me Laboratory Data Attestation: I reviewed the patient's lab results. Result diagrams: 08/31/18 12:50 08/31/18 12:50 Lab Results 08/31/18 08/31/18 08/31/18 Range/Units 12:50 12:50 12:50 WBC 3.96 L (4.8-10.8) K/uL RBC 4.22 (4.2-5.4) M/uL Hgb 12.5 (12.0-16.0) g/dL Hct 36.9 L (37-47) % MCV 87.4 (80-100) fL MCH 29.6 (25-34) pg MCHC 33.9 (32-36) g/dL RDW Std Deviation 43.2 (36.4-46.3) fL RDW Coeff of Mal 13.4 (11.5-14.5) % Plt Count 182 (130-400) K/uL MPV 10.8 H (7.4-10.4) fL Immature Gran % (Auto) 0.3 % Neut % (Auto) 55.8 % Lymph % (Auto) 28.0 % [place] % (Auto) 11.6 % Eos % (Auto) 3.8 % Baso % (Auto) 0.5 % Immature Gran # (Auto) 0.01 (0.00-0.02) K/uL Neut # (Auto) 2.21 (1.4-6.5) K/uL Lymph # (Auto) 1.11 L (1.2-3.4) K/uL [place] # (Auto) 0.46 (0.11-0.59) K/uL Eos # (Auto) 0.15 (0-0.5) K/uL Baso # (Auto) 0.02 (0-0.2) K/uL PT 10.4 (9.0-12.0) Seconds INR 1.0 (0.9-1.1) APTT 25.0 (21.0-31.0) Seconds PTT Ratio 0.9 Sodium 142 (136-145) mmol/L Potassium 3.6 (3.5-5.1) mmol/L Chloride 109 H (98-107) mmol/L Carbon Dioxide 30 (21-32) mmol/L Anion Gap 3.0 (3-11) BUN 21 H (7-18) mg/dl Creatinine 0.85 (0.6-1.2) mg/dl Est Cr Clr Drug Dosing 61.7 ml/min Est GFR ( Amer) 77.7 Est GFR (Non-Af Amer) 67.0 BUN/Creatinine Ratio 25.2 H (10-20) Glucose 79 (70-99) mg/dl Calcium 9.0 (8.5-10.1) mg/dl Magnesium (1.8-2.4) mg/dl Total Bilirubin 0.4 (0.2-1) mg/dl AST 22 (15-37) U/L ALT 24 (12-78) U/L Alkaline Phosphatase 68 (45-117) U/L Troponin I 0.159 H* (0-0.045) ng/ml Total Protein 6.8 (6.4-8.2) gm/dl Albumin 3.5 (3.4-5.0) gm/dl Globulin 3.3 (2.5-4.0) gm/dl Albumin/Globulin Ratio 1.0 (0.9-2) TSH (0.300-4.500) uIu/ml Urine Color Urine Appearance (Clear) Urine pH (4.5-7.5) Ur Specific Ringle (1.000-1.030) Urine Protein (Negative) Urine Glucose (UA) (Negative) Urine Ketones (Negative) Urine Blood (Negative) Urine Nitrite (Negative) Urine Bilirubin (Negative) Urine Urobilinogen (Negative) Ur Leukocyte Esterase (Negative) 08/31/18 08/31/18 Range/Units 12:50 14:00 WBC (4.8-10.8) K/uL RBC (4.2-5.4) M/uL Hgb (12.0-16.0) g/dL Hct (37-47) % MCV (80-100) fL MCH (25-34) pg MCHC (32-36) g/dL RDW Std Deviation (36.4-46.3) fL RDW Coeff of Mal (11.5-14.5) % Plt Count (130-400) K/uL MPV (7.4-10.4) fL Immature Gran % (Auto) % Neut % (Auto) % Lymph % (Auto) % [place] % (Auto) % Eos % (Auto) % Baso % (Auto) % Immature Gran # (Auto) (0.00-0.02) K/uL Neut # (Auto) (1.4-6.5) K/uL Lymph # (Auto) (1.2-3.4) K/uL [place] # (Auto) (0.11-0.59) K/uL Eos # (Auto) (0-0.5) K/uL Baso # (Auto) (0-0.2) K/uL PT (9.0-12.0) Seconds INR (0.9-1.1) APTT (21.0-31.0) Seconds PTT Ratio Sodium (136-145) mmol/L Potassium (3.5-5.1) mmol/L Chloride (98-107) mmol/L Carbon Dioxide (21-32) mmol/L Anion Gap (3-11) BUN (7-18) mg/dl Creatinine (0.6-1.2) mg/dl Est Cr Clr Drug Dosing ml/min Est GFR ( Amer) Est GFR (Non-Af Amer) BUN/Creatinine Ratio (10-20) Glucose (70-99) mg/dl Calcium (8.5-10.1) mg/dl Magnesium 2.4 (1.8-2.4) mg/dl Total Bilirubin (0.2-1) mg/dl AST (15-37) U/L ALT (12-78) U/L Alkaline Phosphatase (45-117) U/L Troponin I (0-0.045) ng/ml Total Protein (6.4-8.2) gm/dl Albumin (3.4-5.0) gm/dl Globulin (2.5-4.0) gm/dl Albumin/Globulin Ratio (0.9-2) TSH 1.400 (0.300-4.500) uIu/ml Urine Color Yellow Urine Appearance Clear (Clear) Urine pH 7.0 (4.5-7.5) Ur Specific Ringle <= 1.005 (1.000-1.030) Urine Protein Negative (Negative) Urine Glucose (UA) Negative (Negative) Urine Ketones Negative (Negative) Urine Blood Negative (Negative) Urine Nitrite Negative (Negative) Urine Bilirubin Negative (Negative) Urine Urobilinogen Negative (Negative) Ur Leukocyte Esterase Negative (Negative) Imaging Data Radiologist's Impression: Radiology results as stated below per my review and the radiologist's interpretation: XR chest 1V portable CLINICAL HISTORY: Palpitations COMPARISON STUDY: Chest radiograph August 15, 2018. FINDINGS: Lung volumes are normal. There is no pneumothorax or pleural effusion. There is no consolidation or evidence for pulmonary edema. Cardiomediastinal silhouette is normal. IMPRESSION: No acute cardiopulmonary findings. Electronically signed by: Yariel Sethi M.D. 08/31/2018 1:42 PM XR chest 1V not portable CLINICAL HISTORY: just lateral view eval for pna pneumonia. Pain. COMPARISON STUDY: No previous studies for comparison. FINDINGS: Lateral view of the chest is normal. Moderate degenerative changes thoracic spine. IMPRESSION: Negative lateral film of the chest The above report was generated using voice recognition software. It may contain grammatical, syntax or spelling errors. Electronically signed by: Davidson Kaur M.D. 08/31/2018 2:19 PM ECG Data Attestation: I personally reviewed and interpreted this ECG as follows: Indication: palpitations Rate (beats per minute): 58 Rhythm: sinus bradycardia Findings: + RBBB; no PVC Comparison ECG Date: from (March 2018) Change: no significant change Blood Pressure Blood Pressure Findings: Elevated blood pressure Blood Pressure Disposition: Referred to patients primary care provider MDM Narrative I did evaluate the patient as noted above. The patient is presenting with a near syncopal episode. She also had episodes of chest discomfort which she describes as a gurgling movement in her upper chest into her jaw with tingling to her face. She had 2 episodes each associated with tachycardia based on the measurement on her watch. While in the ED she had a near syncopal episode. Currently she is asymptomatic. IV access was established. The patient was placed on a continuous telemetry monitor. I did order and personally review the patient's 12-lead EKG and chest x-ray as described above. Her twelve-lead EKG shows a right bundle branch block. There is no evidence of acute ischemia. I did order and review the patient's blood work as noted in the electronic medical record. Her white count is slightly low. Her troponin is slightly elevated. I did discuss the case with the jewelry bench worker on-call. He did not feel the patient was having a true acute coronary syndrome and did not recommend heparinization. I did discuss the test results with the patient and her family. I did recommend hospitalization for further evaluation of possible dysrhythmia as well as workup for near syncope and repeat cardiac enzymes. I did discuss case with the hospitalist and oil field caser. Impression & Plan Near syncope, Palpitations, Elevated troponin Discharge Plan Visit Data *Final* Discharge Date/Time: 08/31/18 17:39 Chief Complaint: Arrhythmia/Palpitations Stated Complaint: IRREGULAR HEART BEAT WITH CATHETER ED Provider: Pepito Bowles Discharge Problem: Near syncope, Palpitations, Elevated troponin Patient Disposition: Admitted As Inpatient Discharge Instructions Interventions: ED Discharge Assessment Last Done: 08/31/18 17:39 The scribe's documentation has been prepared under my direction and personally reviewed by me in its entirety. I confirm that the note above accurately reflects all work, treatment, procedures, and medical decision making performed by me.
[2018-08-31] MEDS ORDERED: ROSUVASTATIN CALCIUM 10 MG TAB PO SCH (21:00)
[2018-08-31] MEDS ORDERED: MAGNESIUM OXIDE 400 MG TAB PO SCH (21:00)
[2018-08-31] MEDS ORDERED: PROPRANOLOL HCL LA 80 MG CAPCR PO SCH (21:00)
[2018-08-31] MEDS ORDERED: NON-FORMULARY MEDICATION (Vitamins A,C,E-Zinc-Copper [Preservision Areds] 1 TAB) PO SCH (21:00)
[2018-09-01 06:25] LABS: Hematocrit (blood only) 35.4 % (37-47); Hemoglobin 11.9 g/dL (12.0-16.0); Mean Corpuscular Hgb Conc 33.6 g/dL (32-36); Mean Corpuscular Volume 87.4 fL (80-100); Mean Platelet Volume 10.4 fL (7.4-10.4); Platelet Count 163 K/uL (130-400); RDW Coefficient of Variation 13.4 % (11.5-14.5); RDW Standard Deviation 43.2 fL (36.4-46.3); Red Blood Count 4.05 M/uL (4.2-5.4); White Blood Count 3.72 K/uL (4.8-10.8)
[2018-09-01] MEDS ORDERED: LEVOTHYROXINE SODIUM 100 MCG TABLET PO SCH (06:30)
[2018-09-01 07:03] LABS: BUN Creatinine Ratio 22.9 (10-20); Calcium 8.5 mg/dl (8.5-10.1); Creatinine Clr Calc Pharmacy 58.8 ml/min; Est GFR (African American) 70.6; Est GFR (Non-African American) 60.9; Magnesium 2.1 mg/dl (1.8-2.4); Potassium 3.9 mmol/L (3.5-5.1)
[2018-09-01 07:15] LABS: Bilirubin,Total 0.5 mg/dl (0.2-1); Phosphorus 3.9 mg/dl (2.5-4.9); Troponin I 0.152 ng/ml (0-0.045)
[2018-09-01] MEDS ORDERED: MULTIVITAMIN TAB PO SCH (09:00)
[2018-09-01] MEDS ORDERED: FEXOFENADINE HCL 180 MG TAB PO SCH (09:00)
[2018-09-01] MEDS ORDERED: ASPIRIN 81 MG ECTAB PO SCH (09:00)
[2018-09-01] MEDS ORDERED: hydroCHLOROthiazide 25 MG TAB PO SCH (09:00)
[2018-09-01] MEDS ORDERED: CHOLECALCIFEROL 1,000 UNITS TAB PO SCH (09:00)
--- NOTE | 2018-09-01 16:25 | Cardiology Consultation ---
Date of Consultation September 01, 2018 Assessment & Plan (1) Elevated troponin: The patient has a mildly elevated troponin with a peak value of 0.16. If our suspicion is correct, this could be related to her elevated heart rate response noted on her noninvasive monitor. Possibility of an SVT or atrial fibrillation entertained. Fortunately, recent cardiac catheterization showed minimal coronary artery disease. (2) Palpitations: Although the patient did not experience palpitations, she did noted elevated heart rate on her monitor. As above, this could represent a supraventricular tachycardia or paroxysm of atrial fibrillation. Suggest a 7 day event monitor followed by in a plan 1. Loop recorder if necessary. (3) CAD (coronary artery disease): Minimal coronary artery disease noted time for cardiac catheterization on August 27. (4) HTN (hypertension): Blood pressure adequately controlled at this time. History of Present Illness Attending Physician: Brian Lugo DO History of Present Illness Mrs. Hinds is a 77-year-old female admitted yesterday with a chest pain syndrome and elevated heart rate. This consultation was ordered to assist in her management. The patient was in her usual state of health until the day of presentation. While driving to the back, she began to note a vague sensation in her upper chest. She checked her heart rate monitor and noted her pulse to be 150 to 170 beats per minute. She was not experiencing palpitations at that time. She became quite concerned and then traveled home. This occurred several more times throughout the day and therefore, she presented to the emergency room for further care. The patient just underwent a cardiac catheterization with Dr. Argueta on August 27. She was found to have luminal irregularities in the proximal LAD and mid RCA. There is a 20-30% distal RCA stenosis. Results discussed in detail. That catheterization was done because she had an indeterminate stress echocardiogram at 97% of her maximum predicted heart rate with exercise induced chest discomfort. The patient has never been diagnosed with atrial fibrillation. Currently, the patient is resting comfortably in bed without complaints. Past medical and surgical history 1. Nonobstructive coronary artery disease-see above 2. Hypertension 3. Diastolic dysfunction 4. Mild mitral regurgitation 5. Symptomatic PVCs 6. Hypothyroidism 7. GERD 8. Systemic lupus 9. Raynaud's phenomenon 10. Sjogren's syndrome 11. Essential tremor 12. Asthma 13. Liver hemangioma 14. History of brain tumor resection 15. Obstructive sleep apnea 16. Appendectomy 17. Hysterectomy 18. Tonsillectomy 19. Tubal ligation Social history and lives with her No tobacco or alcohol Family history Noncontributory Review of systems A 10 point review of systems was undertaken and negative except for that described above. Allergies Allergy/AdvReac Type Severity Reaction Status Date / Time hydroxychloroquine Allergy Intermediate TOXICITY Verified 08/31/18 12:54 OF THE RETINA ibuprofen Allergy Intermediate SWELLING Verified 08/31/18 12:54 atorvastatin AdvReac Mild "UNCOMFORTABLE" Verified 08/31/18 12:54 AND CREATININE INCREASED SLIGHTLY Home Medications Home Medications Medication Instructions Recorded Confirmed Type PreserVision AREDS 1 tab PO BID 06/25/18 08/31/18 History aspirin 81 mg PO QAM 06/25/18 08/31/18 History cholecalciferol (vitamin D3) 1,000 unit PO QAM 06/25/18 08/31/18 History [Vitamin D3] colesevelam [WelChol] 625 mg PO DAILY 06/25/18 08/31/18 History fexofenadine [Norma Allergy] 180 mg PO DAILY 06/25/18 08/31/18 History hydrochlorothiazide 12.5 mg PO DAILY 06/25/18 08/31/18 History levothyroxine 112 mcg PO 3XWK 06/25/18 08/31/18 History magnesium oxide 400 mg PO QPM 06/25/18 08/31/18 History multivitamin 1 tab PO QAM 06/25/18 08/31/18 History rosuvastatin [Crestor] 10 mg PO QPM 06/25/18 08/31/18 History Inderal XL 80 mg PO HS 08/27/18 08/31/18 History levothyroxine 100 mg PO 4XWK 08/27/18 08/31/18 History Patient History Medical History CAD (coronary artery disease) HTN (hypertension) SLE (systemic lupus erythematosus) Chest pain (Acute 12/05/13) Chronic lumbar radiculopathy (Acute) Raynaud's disease (Chronic) Sjogren's syndrome (Chronic) Asthma EXERCISE INDUCED; RARELY USES PRN INH Chronic back pain Difficult airway for intubation Essential tremor GERD (gastroesophageal reflux disease) Hemangioma of liver History of brain tumor History of lupus Hypothyroid Idiopathic thrombocytopenia Osteoarthritis Osteoporosis PVC (premature ventricular contraction) Scoliosis Sleep apnea CPAP Temporomandibular joint disorder Valvular heart disease FOLLOWS W/ DR. FULLER Surgical History History of appendectomy (Resolved) History of hysterectomy (Resolved) History of tubal ligation (Resolved) History of brain surgery History of colonoscopy History of esophagogastroduodenoscopy (EGD) History of tonsillectomy S/P UVPP (uvulopalatopharyngoplasty) Family History Aunt Family history of pseudocholinesterase deficiency PATERNAL Social History Preferred Language: Mohawk Beliefs That Will Affect Care: None Current Living Situation: Spouse Other Information That Helps Us Care for You: No Feels Safe at Home: Yes Safety Concerns: Feels Safe At This Time Smoking Status: Former smoker Hx Alcohol Use: No Hx Substance Use: No Physical Exam Vital Signs (Past 24 Hours): Last Vital Signs Temp 36.7 C 09/01/18 14:48 Pulse 58 L 09/01/18 14:48 Resp 20 09/01/18 14:48 BP 137/81 09/01/18 14:48 Pulse Ox 95 09/01/18 14:48 Physical Exam: In general this is a well-developed well-nourished white female in no acute distress. HEENT exam is negative. Neck is supple with full carotid upstrokes. There are no carotid bruits. Jugular venous pressure is flat at 90. There is no thyromegaly. Cardiovascular exam reveals a regular rhythm with a normal S1 and S2. No S3, S4, or murmurs are noted. Lungs are clear without rales, rhonchi, or wheezes. Abdomen is soft and nontender without bruits. Extremities reveal intact radial artery and posterior tibial pulses bilaterally. There is no peripheral edema. Results & Data Laboratory Results Laboratory Results - last 24 hr 08/31/18 09/01/18 09/01/18 21:00 05:58 05:58 WBC 3.72 L RBC 4.05 L Hgb 11.9 L Hct 35.4 L MCV 87.4 MCH 29.4 MCHC 33.6 RDW Std Deviation 43.2 RDW Coeff of Mal 13.4 Plt Count 163 MPV 10.4 Sodium 139 Potassium 3.9 Chloride 109 H Carbon Dioxide 29 Anion Gap 1.0 L BUN 21 H Creatinine 0.92 Est Cr Clr Drug Dosing 58.8 Est GFR ( Amer) 70.6 Est GFR (Non-Af Amer) 60.9 BUN/Creatinine Ratio 22.9 H Glucose 99 Calcium 8.5 Phosphorus 3.9 Magnesium 2.1 Total Bilirubin 0.5 AST 16 ALT 19 Alkaline Phosphatase 61 Troponin I 0.160 H* 0.152 H* Total Protein 6.0 L Albumin 3.0 L Globulin 3.0 Albumin/Globulin Ratio 1.0 Diagnostic Findings EKG notes normal sinus rhythm with frequent PACs and incomplete right bundle- branch block. conveyor monitor notes no atrial fibrillation. Chest x-ray shows no acute disease.
--- NOTE | 2018-09-01 16:40 | Discharge Summary ---
Date of Service September 01, 2018 Admission HPI Per Admitting Provider This is a 77 yo F with PMHx of mild obstructive CAD, SLE, Raynauds disease, chronic lumbar radiculopathy who presents with increased elevation in chest discomfort substernally and pressure which started this morning on her way to the bank. She noticed her apple watch was reading HR at 199 at its highest. She denies lightheadedness, dizziness, chest pain. She notes she has major stress going on in her life including a terminally ill sister, and a mother who is over 100 yo in a nursing facilities. Principal Diagnosis Chest discomfort Discharge Exam NSR on monitor, nad breathing unlabored no accessory muscle use, no focal neuro deficits. Discharge Data Allergies Allergy/AdvReac Type Severity Reaction Status Date / Time hydroxychloroquine Allergy Intermediate TOXICITY Verified 08/31/18 12:54 OF THE RETINA ibuprofen Allergy Intermediate SWELLING Verified 08/31/18 12:54 atorvastatin AdvReac Mild "UNCOMFORTABLE" Verified 08/31/18 12:54 AND CREATININE INCREASED SLIGHTLY Consultations 08/31/18 14:37 ED Decision to Admit Stat 08/31/18 16:07 Consult Cardiology Routine 09/01/18 14:43 Consult [facility] [employer] unix engineer Routine Hospital Course (1) Palpitations: Given her relatively clean left heart cath, some sort of tachyarrhythmia appears to be the most likely culprit here. This would explain her chest discomfort, near syncope, palpitations, and based on potentially inappropriately fast rates, a mild demand spill of troponin. Currently she has not shown any arrhythmia on the monitor. She is stable for discharge to home. We will set her up with an event monitor, and ongoing outpatient follow-up. We also discussed how this could potentially tied together with undertreated sleep apnea, she does note its been a while since her CPAP is been adjusted, however she does note that it feels good and she misses it whenever she does not use it (such as when the power goes out) -she has follow-up with pulmonary in the near future, we will ask for this to be moved up so that she can discuss her CPAP settings as well. Otherwise stable for all (2) Near syncope: (3) Elevated troponin: Total Time Total Time Spent Total Time Spent (In Minutes): >30 Discharge Plan Discharge Items Patient Disposition: Home - Self-Care Reason For Visit: CHEST PAIN, ELEVATED TROPONIN Discharge Diagnosis: chest pain - likely a fast heart rhythm (see below) Discharge Goals: Diagnostic testing Activity: Resume your previous activity Non-emergency contact: Primary Care Provider and Director Recreation Call non-emergency contact if: you have any medication questions Follow-up/Referrals: Donald Rand MD [Primary Care Provider] - Diet: Regular Addtl Provider Instructions: it appears that your chest symptoms are most likely due to a fast heart rhythm -- this would fit with the sensation you're getting in your chest (especially if your heart is going inappropriately fast when you're otherwise "supposed" to be at rest) - and also a heart "on a treadmill" too long would easily account for the slight elevations in troponin. the next step will be to capture what the rhythm is so as to better know how to treat it. the main two things we'd be expecting to see are atrial fibrillation (a common racing rhythm that typically is fairly easily managed with medications) or SVT (supraventricular tachycardia - a fast bursting rhythm that can be managed with medications and sometimes requires an ablation procedure) -- because both are typically easily managed, but both are quite different, we'll want to see what rhythm it is to determine what to do next. Dr Heck's office is setting you up with a 7-day environmental monitoring specialist --> if that doesn't capture what is going on (ie if you don't have any events while you're wearing the monitor) the next step would simply be to repeat the monitor (and possibly for a longer period of time). this could all also possibly, in an indirect way, relate to your sleep apnea. untreated sleep apnea can easily lead to these types of heart rhythms, and this, along with a degree of high blood pressure in your lungs, could both suggest a tie to sleep apnea. what is in question with this is whether it is from having had sleep apnea prior to treatment, or if this would be suggestive of needing the settings on your CPAP adjusted. we'll ask Dr Medina to give some insight into this - and will be asking our nurse navigator to get you set up with him for sooner than the previously scheduled november appointment. Prescriptions: Continued multivitamin Tablet 1 tab PO QAM RF: 0 fexofenadine [Norma Allergy] 180 mg Tablet 180 mg PO DAILY RF: 0 aspirin 81 mg Tablet,Delayed Release (Dr/Ec) 81 mg PO QAM RF: 0 colesevelam [WelChol] 625 mg Tablet 625 mg PO DAILY RF: 0 levothyroxine 112 mcg Tablet 112 mcg PO 3XWK RF: 0 rosuvastatin [Crestor] 10 mg Tablet 10 mg PO QPM RF: 0 cholecalciferol (vitamin D3) [Vitamin D3] 1,000 unit Tablet 1,000 unit PO QAM RF: 0 hydrochlorothiazide 12.5 mg Tablet 12.5 mg PO DAILY RF: 0 PreserVision AREDS [id number],160-113-100 [id number] Tablet 1 tab PO BID RF: 0 magnesium oxide 400 mg Capsule 400 mg PO QPM RF: 0 levothyroxine 100 mcg Tablet 100 mg PO 4XWK RF: 0 Inderal XL 80 mg Capsule,Extended Release 24hr 80 mg PO HS RF: 0 Stand-Alone Forms: [facility] Discharge Orders: Discharge Order (Routine); Ordered 09/01/18 Ordered By: Brian Lugo Admission Data Admit Date/Time: 08/31/18 16:06 Attending Provider: Brian Lugo Admit Provider: Reyna Christensen Primary Care Provider: Donald Rand Other Providers: Reyna Christensen ; Sohan Parra Service: Telemetry Other Interventions: Discharge Summary Assessment (RN) Last Done: 09/01/18 14:48 DC Date/Time DO NOT enter until pt leaves facility: 09/01/18 15:23
[2018-09-01] MEDS ORDERED: COLESEVELAM HCL 625 MG PO SCH (17:00)
[2018-09-03] MEDS ORDERED: LEVOTHYROXINE SODIUM 112 MCG TABLET PO SCH (06:30)
== END 2018-09-01 15:23 | disposition home or self-care (01) ==
LOC: 2S 12:01 → ED 12:01 → SUATTDRO 16:06 → 2S 17:39

== ENCOUNTER 2022-04-08 16:15 | Inpatient (IN) ==
[2022-04-08 18:02] LABS: Basophils # (auto) 0.02 K/uL (0-0.2); Basophils % (auto) 0.4 %; Eosinophils # (auto) 0.06 K/uL (0-0.50); Eosinophils % (auto) 1.3 %; Hematocrit (blood only) 37.4 % (34.1-44.9); Hemoglobin 13.7 g/dl (12.0-16.0); Immature Granulocytes # (auto) 0.01 K/uL (0.00-0.02); Immature Granulocytes % (auto) 0.2 %; Lymphocytes % (auto) 26.3 %; Mean Corpuscular Hemoglobin 30.1 pg (25.0-34.0); Mean Corpuscular Hgb Conc 36.6 g/dL (32.0-36.0); Mean Corpuscular Volume 82.2 fL (80.0-100.0); Mean Platelet Volume 10.1 fL (9.4-12.3); Monocytes # (auto) 0.58 K/uL (0.24-0.82); Monocytes % (auto) 12.7 %; Neutrophils # (auto) 2.69 K/uL (1.4-6.5); Neutrophils % (auto) 59.1 %; Platelet Count 232 K/uL (130-400); RDW Coefficient of Variation 12.2 % (11.5-14.5); RDW Standard Deviation 36.9 fL (36.4-46.3); Red Blood Count 4.55 M/uL (3.93-5.22); White Blood Count 4.56 K/ul (4.8-10.8)
--- NOTE | 2022-04-08 18:03 | XRay Report ---
XR chest 1V portable CLINICAL HISTORY: palpitations TECHNIQUE: Single frontal radiograph of the chest was obtained. Comparison: Comparison is made to chest radiograph 03/13/2019 FINDINGS: No lines and tubes are seen. Calcified aortic knob is seen. The lungs are clear and again noted to be mildly hyperinflated. No evidence of pleural effusion or pneumothorax. Degenerative changes are seen in the bilateral shoulder joints. IMPRESSION: No acute chest disease. ACT 112: Negative or not required by law. Electronically signed by: Magen Ceron M.D. 04/08/2022 6:01 PM
[2022-04-08 18:24] LABS: Albumin Globulin Ratio 1.6 (0.9-2); Albumin Level 4.2 gm/dl (3.4-5.0); Bilirubin,Total 0.5 mg/dl (0.2-1.0); Calcium 9.4 mg/dl (8.5-10.1); Creatinine Clr Calc Pharmacy 60.3 ml/min; Est GFR (African American) 76.6 ml/min; Est GFR (Non-African American) 66.1 ml/min; Globulin 2.7 gm/dl (2.5-4.0); Magnesium 2.2 mg/dl (1.7-2.4); Potassium 3.7 mmol/L (3.5-5.1); Total Protein 6.9 gm/dl (6.0-8.3)
[2022-04-08 18:29] LABS: Troponin I High Sensitivity 11.3 pg/ml (0-14)
[2022-04-08] MEDS ORDERED: SODIUM CHLORIDE 0.9% 1000ML 500 ML IV ONE (21:04)
[2022-04-08] MEDS ORDERED: hydroCHLOROthiazide 25 MG TAB PO STA (21:04)
[2022-04-08] MEDS ORDERED: lisinopril 20 MG TAB PO STA (21:04)
[2022-04-08] MEDS ORDERED: carvediloL 3.125 MG TAB PO ONE (21:07)
--- NOTE | 2022-04-08 21:12 | Emergency Department Note ---
Impression & Plan Dizziness, Chest tightness, Acute hyponatremia, Atrial flutter with rapid ventricular response ED Provider Note NAME: DENNYS HILLIARD AGE: 81 SEX: F : 1940 ARRIVES VIA: Walk-In INFORMANT: [Patient] ED PROVIDER(S): [Jose Maria Bueno MD] CHIEF COMPLAINT: Arrhythmia, weakness HISTORY OF PRESENT ILLNESS: The patient is a 81-year-old female who has had issues with her heart rhythm for some time. She states that she has had SVT, V. tach. She has been on some dif ferent medications over time, she is currently on Coreg. The patient states that for the last few months, she has felt unwell intermittently. Things seemed to come and go. In the last several days, she has been dizzy, she has been short of breath and fatigued with any exertion. If she is not active, she does not feel too bad. She has had some tightness in her throat and chest. The chest tightness has been very mild in severity. No fever, no cough or cold. She is not on any blood thinning agents. She was referred today by cardiology REVIEW OF SYSTEMS: See HPI for pertinent positives and negatives. A total of ten systems were reviewed and were otherwise negative. PMHx/PSHx: See Below SOCIAL HISTORY: See Below. PHYSICAL EXAM: GENERAL: Patient is in no acute distress. HEENT: No acute trauma, normocephalic atraumatic, mucous membranes moist, no nasal congestion, no scleral icterus. NECK: No stridor, no adenopathy, no meningismus, trachea is midline. LUNGS: Clear to auscultation bilaterally, no wheeze, no rhonchi, breath sounds equal. HEART: No murmurs, heart tones fairly distant. Mildly tachycardic, rhythm is irregular. ABDOMEN: Soft, nontender, bowel sounds positive, no peritonitis. EXTREMITIES: No cyanosis or edema, full range of motion of all the joints without pain or difficulty, no signs for acute trauma. NEUROLOGIC: Oriented x 3, no acute motor or sensory deficits, no focal weakness. SKIN: No rash, no jaundice, no diaphoresis. DIFFERENTIAL DIAGNOSIS: Atrial fibrillation, atrial flutter, SVT, V. tach, dysrhythmia, electrolyte imbalance, anemia, OH, among others. EMERGENCY DEPARTMENT COURSE/PROCEDURES: ECG: Indication was palpitations and weakness. The ECG shows atrial flutter with a variable AV block. There is a rate of 93. There is a right bundle branch block. No ST elevation. No PVCs. The QTc is 467. Compared to an ECG from 06 September 2018, the a-flutter is new. The rate has increased. Continuous Cardiac Monitoring: An order was placed for continuous cardiac monitoring. The monitor shows a rate of 102 with atrial fibrillation. MEDICAL DECISION MAKING: There is no leukocytosis or concerning anemia. There is a normal platelet count. Sodium was low at 130, this is a drop for her. There was no renal failure. No concerning liver enzyme elevation. The patient appeared to be in a euthyroid state. ECG showed atrial flutter. No acute ischemia. Cardiac enzyme testing x1 is not consistent with acute cardiac injury. COVID test returned negative. Chest x-ray did not show pneumonia or CHF. On exam, the patient was at times tachycardic. She was not in any significant distress. Patient received IV saline, 500 cc. She was due for some nighttime medications. She received oral Coreg, oral hydrochlorothiazide, oral lisinopril. The above medication regimen seemed to keep the heart rate and blood pressure controlled. Given the patient's complaints, given the low sodium, given the new onset atrial flutter/A. fib, I do think a hospital stay is warranted. I did speak with the patient and case management. The on-call hospitalist was consulted. Past Med/Surg History Medical History Asthma EXERCISE INDUCED; RARELY USES PRN INH CAD (coronary artery disease) Chronic back pain Chronic kidney disease, stage II (mild) Chronic lumbar radiculopathy Chronic obstructive pulmonary disease Difficult airway for intubation 1995 when she had brain tumor([facility]) she was told she has small airway and last few times she has not had any trouble Essential tremor GERD (gastroesophageal reflux disease) Hemangioma of liver History of brain tumor HTN (hypertension) Hypothyroid Idiopathic thrombocytopenia Left hip pain Macular degeneration Muscle cramping Near syncope Osteoarthritis Osteoporosis PVC (premature ventricular contraction) Bundle branch block follow Dr Sewell Raynaud's disease Scoliosis Sjogren's syndrome SLE (systemic lupus erythematosus) Sleep apnea CPAP Systemic lupus erythematosus Temporomandibular joint disorder Valvular heart disease FOLLOWS W/ DR. Sewell Vitamin D deficiency Surgical History History of appendectomy History of brain surgery History of colonoscopy History of esophagogastroduodenoscopy (EGD) History of hysterectomy History of tonsillectomy History of tubal ligation S/P UVPP (uvulopalatopharyngoplasty) Family History Aunt Family history of pseudocholinesterase deficiency PATERNAL Breast cancer Father Myocardial infarction Prostate cancer Brother Prostate cancer Denies family history of Ovarian cancer Colorectal cancer Social History Smoking Status: Never smoker Second Hand Exposure: No; Hx Alcohol Use: No Hx Substance Use: No Preferred Language: Hebrew Communication Ability: Effective College Intern Required: No Beliefs That Will Affect Care: None marital status: Current Living Situation: Spouse current occupational status: retired Feels Safe at Home: Yes Childhood Exposure to Second-Hand Smoke: Yes Dental Care, Regularly: Yes Physical Activity Frequency: Daily Seatbelt Use: always Sunscreen Use: Yes Assistive Devices: CPAP and Glasses Allergies Allergies Allergy/AdvReac Type Severity Reaction Status Date / Time hydroxychloroquine Allergy Intermediate TOXICITY Verified 04/08/22 22:29 OF THE RETINA ibuprofen Allergy Intermediate SWELLING Verified 04/08/22 22:29 atorvastatin AdvReac Mild "UNCOMFORTABLE" Verified 04/08/22 22:29 AND CREATININE INCREASED SLIGHTLY Home Meds Home Medications Medication Instructions Recorded Confirmed cholecalciferol (vitamin D3) 25 2,000 unit PO QAM 06/25/18 04/08/22 mcg (1,000 unit) tablet (Vitamin D3) multivitamin 1 tab PO QAM 06/25/18 04/08/22 vitamins A,C,L-jcmq-yincap 2,148 1 tab PO BID 06/25/18 04/08/22 mcg-113 mg-45 mg-17.4 mg tablet (PreserVision AREDS) magnesium citrate 100 mg tablet 100 mg PO DAILY 04/02/19 04/08/22 potassium chloride 10 mEq 10 meq PO QAM 04/02/19 04/08/22 capsule,extended release aspirin 81 mg tablet,delayed 81 mg PO BID 08/17/20 04/08/22 release levothyroxine 112 mcg tablet 112 mcg PO QAM 02/10/21 04/08/22 sucralfate 1 gram tablet (Carafate) 1 g PO UD PRN .. 02/10/21 04/08/22 carvedilol 3.125 mg tablet (Coreg) 3.125 mg PO BID 01/31/22 04/08/22 hydrochlorothiazide 12.5 mg capsule 12.5 mg PO BID 01/31/22 04/08/22 lisinopril 20 mg tablet 20 mg PO BID 01/31/22 04/08/22 primidone 50 mg tablet 25 mg PO BID 01/31/22 04/08/22 Previous Rx's Medication Instructions Recorded montelukast 5 mg chewable tablet 5 mg PO QPM #90 tabs 06/09/21 colesevelam 625 mg tablet (WelChol) 1,875 mg PO BID #540 tabs 12/17/21 rosuvastatin 20 mg tablet 20 mg PO QAM #90 tabs 02/15/22 CPAP Machine See Rx Instructions .Route 03/24/22 .COMPLEX #1 ea Results & Data (ED) Vital Signs Vital Signs - 24 hr 04/08/22 17:04 04/08/22 21:49 04/08/22 20:16 Temperature 36.6 C Temperature Source Temporal Artery Scan Pulse Rate 100 H Pulse Rate [Right Finger] 82 Pulse Rhythm [Right Finger] Irregular Pulse Strength [Right Finger] Normal Respiratory Rate 16 20 Respiratory Effort / Characteristics Non-Labored Spontaneous Non-Labored Respiratory Depth Normal Normal Respiratory Pattern Regular Regular Blood Pressure 112/72 Blood Pressure Mean 85 Blood Pressure Position Sitting Pulse Oximetry 97 98 Oxygen Delivery Method Room Air Room Air Room Air Sepsis Recent Fever Within 48 Hours No Sepsis New/Unexplained Change in Mental Status No Sepsis Action Taken by Nursing No Action Required Home Medications Current Medication List: was personally reviewed by me Laboratory Data Attestation: I reviewed the patient's lab results. Result diagrams: 04/08/22 17:48 04/08/22 17:48 Lab Results 04/08/22 04/08/22 04/08/22 Range/Units 17:48 17:48 17:48 WBC 4.56 L (4.8-10.8) K/ul RBC 4.55 (3.93-5.22) M/uL Hgb 13.7 (12.0-16.0) g/dl Hct 37.4 (34.1-44.9) % MCV 82.2 (80.0-100.0) fL MCH 30.1 (25.0-34.0) pg MCHC 36.6 H (32.0-36.0) g/dL RDW Std Deviation 36.9 (36.4-46.3) fL RDW Coeff of Mal 12.2 (11.5-14.5) % Plt Count 232 (130-400) K/uL MPV 10.1 (9.4-12.3) fL Immature Gran % (Auto) 0.2 % Neut % (Auto) 59.1 % Lymph % (Auto) 26.3 % [place] % (Auto) 12.7 % Eos % (Auto) 1.3 % Baso % (Auto) 0.4 % Neut # (Auto) 2.69 (1.4-6.5) K/uL Lymph # (Auto) 1.20 (1.2-3.4) K/uL [place] # (Auto) 0.58 (0.24-0.82) K/uL Eos # (Auto) 0.06 (0-0.50) K/uL Baso # (Auto) 0.02 (0-0.2) K/uL Immature Gran # (Auto) 0.01 (0.00-0.02) K/uL Sodium 130 L (136-145) mmol/L Potassium 3.7 (3.5-5.1) mmol/L Chloride 99 (98-107) mmol/L Carbon Dioxide 25 (21-32) mmol/L Anion Gap 6 (3-11) BUN 21 (6-23) mg/dl Creatinine 0.84 (0.6-1.2) mg/dl Est Cr Clr Drug Dosing 60.3 ml/min Est GFR ( Amer) 76.6 ml/min Est GFR (Non-Af Amer) 66.1 ml/min BUN/Creatinine Ratio 25.0 H (10-20) Glucose 95 (70-99(Fasting)) mg/dl Calcium 9.4 (8.5-10.1) mg/dl Magnesium 2.2 (1.7-2.4) mg/dl Total Bilirubin 0.5 (0.2-1.0) mg/dl AST 32 (13-39) U/L ALT 19 (7-52) U/L Alkaline Phosphatase 58 (34-104) U/L Troponin I High Sens 11.3 (0-14) pg/ml Total Protein 6.9 (6.0-8.3) gm/dl Albumin 4.2 (3.4-5.0) gm/dl Globulin 2.7 (2.5-4.0) gm/dl Albumin/Globulin Ratio 1.6 (0.9-2) TSH 1.681 (0.300-4.500) uIu/ml SARS-CoV-2, RNA, NAAT (NEGATIVE) 04/08/22 Range/Units 22:15 WBC (4.8-10.8) K/ul RBC (3.93-5.22) M/uL Hgb (12.0-16.0) g/dl Hct (34.1-44.9) % MCV (80.0-100.0) fL MCH (25.0-34.0) pg MCHC (32.0-36.0) g/dL RDW Std Deviation (36.4-46.3) fL RDW Coeff of Mal (11.5-14.5) % Plt Count (130-400) K/uL MPV (9.4-12.3) fL Immature Gran % (Auto) % Neut % (Auto) % Lymph % (Auto) % [place] % (Auto) % Eos % (Auto) % Baso % (Auto) % Neut # (Auto) (1.4-6.5) K/uL Lymph # (Auto) (1.2-3.4) K/uL [place] # (Auto) (0.24-0.82) K/uL Eos # (Auto) (0-0.50) K/uL Baso # (Auto) (0-0.2) K/uL Immature Gran # (Auto) (0.00-0.02) K/uL Sodium (136-145) mmol/L Potassium (3.5-5.1) mmol/L Chloride (98-107) mmol/L Carbon Dioxide (21-32) mmol/L Anion Gap (3-11) BUN (6-23) mg/dl Creatinine (0.6-1.2) mg/dl Est Cr Clr Drug Dosing ml/min Est GFR ( Amer) ml/min Est GFR (Non-Af Amer) ml/min BUN/Creatinine Ratio (10-20) Glucose (70-99(Fasting)) mg/dl Calcium (8.5-10.1) mg/dl Magnesium (1.7-2.4) mg/dl Total Bilirubin (0.2-1.0) mg/dl AST (13-39) U/L ALT (7-52) U/L Alkaline Phosphatase (34-104) U/L Troponin I High Sens (0-14) pg/ml Total Protein (6.0-8.3) gm/dl Albumin (3.4-5.0) gm/dl Globulin (2.5-4.0) gm/dl Albumin/Globulin Ratio (0.9-2) TSH (0.300-4.500) uIu/ml SARS-CoV-2, RNA, NAAT NEGATIVE (NEGATIVE) Administered Medications Discontinued Medications Carvedilol (Carvedilol 3.125 Mg Tab) 3.125 mg PO NOW ONE Stop: 04/08/22 21:08 Last Admin: 04/08/22 21:39 Dose: 3.125 mg Documented By: ASHWINI Hydrochlorothiazide (Hydrochlorothiazide 25 Mg Tab) 12.5 mg PO NOW STA Stop: 04/08/22 21:05 Last Admin: 04/08/22 21:38 Dose: 12.5 mg Documented By: ASHWINI Sodium Chloride (Nss 1000ml) 500 mls @ 999 mls/hr IV .Q31M ONE Stop: 04/08/22 21:34 Last Infusion: 04/08/22 22:51 Dose: 0 mls/hr Documented By: Admin: 04/08/22 21:41 Dose: 999 mls/hr Documented By: ASHWINI Lisinopril (Lisinopril 20 Mg Tab) 20 mg PO NOW STA Stop: 04/08/22 21:05 Last Admin: 04/08/22 21:39 Dose: 20 mg Documented By: ASHWINI Imaging Data Radiologist's Impression: Chest X-Ray 04/08/22 16:49 XR chest 1V portable CLINICAL HISTORY: palpitations TECHNIQUE: Single frontal radiograph of the chest was obtained. Comparison: Comparison is made to chest radiograph 03/13/2019 FINDINGS: No lines and tubes are seen. Calcified aortic knob is seen. The lungs are clear and again noted to be mildly hyperinflated. No evidence of pleural effusion or pneumothorax. Degenerative changes are seen in the bilateral shoulder joints. IMPRESSION: No acute chest disease. ACT 112: Negative or not required by law. Electronically signed by: Magen Cerno M.D. 04/08/2022 6:01 PM Discharge Plan Visit Data Chief Complaint: Arrhythmia/Palpitations Stated Complaint: POSSIBLE AFIB-REF BY ED Provider: Jose Maria Bueno Discharge Problem: Dizziness, Chest tightness, Acute hyponatremia, Atrial flutter with rapid ventricular response Patient Disposition: Admitted As Inpatient Condition: Good Forms Stand Alone Forms: My [employer] Prescriptions Prescriptions: No Action montelukast 5 mg tablet,chewable 5 mg PO QPM Qty: 90 3RF colesevelam [WelChol] 625 mg tablet 1,875 mg PO BID Qty: 540 3RF rosuvastatin 20 mg tablet 20 mg PO QAM Qty: 90 1RF carvedilol [Coreg] 3.125 mg tablet 3.125 mg PO BID CPAP Machine Misc See Rx Instructions .ROUTE .COMPLEX Qty: 1 0RF Rx Instructions: New CPAP unit as the patient's current unit is dysfunctional. 12 cm of water, tubing mask filters and supplies for lifetime need. T&B medical; potassium chloride 10 mEq capsule, extended release 10 meq PO QAM magnesium citrate 100 mg tablet 100 mg PO DAILY primidone 50 mg tablet 25 mg PO BID Rx Instructions: PATIENT STATES SHE TAKES 37.5MG DAILY multivitamin Tablet 1 tab PO QAM cholecalciferol (vitamin D3) [Vitamin D3] 1,000 unit Tablet 2,000 unit PO QAM PreserVision AREDS [id number] [id number] Tablet 1 tab PO BID aspirin 81 mg tablet,delayed release (DR/EC) 81 mg PO BID sucralfate [Carafate] 1 gram tablet 1 g PO UD PRN (Reason: ..) levothyroxine 112 mcg tablet 112 mcg PO QAM hydrochlorothiazide 12.5 mg capsule 12.5 mg PO BID Rx Instructions: PATIENT STATES SHE TAKES THIS BID lisinopril 20 mg tablet 20 mg PO BID Rx Instructions: PATIENT STATES SHE TAKES THIS BID Referrals Referrals: Pro,Donald Swan MD [Primary Care Provider] -
--- NOTE | 2022-04-08 22:11 | History & Physical Report ---
Date of Service April 08, 2022 Assessment & Plan (1) Atrial flutter with rapid ventricular response: Plan: Patient with new atrial flutter. Rate is presently controlled at 90bpm. BP is mildly elevated, 156/90. TSH with WNL. Mild hyponatremia, otherwise electrolytes are WNL. Troponin=11.3 -Admit to medical with telemetry -Check 2D echo -Continue Carvedilol 3.125mg po BID -CHADS-2Vasc score of 4-5. Anticoagulation recommended -Will initiate heparin gtt for now with plan to switch to DOAC tomorrow pending Cardiology input -Cardiology consultation appreciated -Hold ASA for now pending Cardiology review (2) Acute hyponatremia: Plan: Mild hyponatremia, Qg=121. Patient is on HCTZ -Hold HCTZ -Check urine and serum osmolality, urine Na -Repeat chemistry in AM (3) Hypertension: Plan: Blood pressure mildly elevated at present, 156/90. Labile per history -Continue Lisinopril 20mg po BID -Hold HCTZ for mild hyponatremia -Monitor (4) Obstructive sleep apnea syndrome: Plan: Chronic. Patient is compliant with CPAP -CPAP qHS (5) Systemic lupus erythematosus: Plan: Stable. Patient follows with Rheumatology at [facility]. States she has not been on any treatment for lupus for "years" -noted (6) Hypothyroidism: Plan: Normal TSH -Continue Synthroid (7) Tremor: Plan: Chronic -Continue Primidone History of Present Illness Chief Complaint: atrial fibrillation Primary Care Provider: Donald Rand MD Pam Hinds is a pleasant 81yo female with history of HTN, GERD and diastolic CHF presenting with new onset atrial fibrillation. Patient has been worked up for palpitations in the past. She has been told that she has had frequent PVCs and SVT. She is on Carvedilol. No blood thinners. No diagnosis of AF or flutter. 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 She has had recent nuclear stress testing and exercise stress testing 11/17/21 which was negative. She follows with [facility]. They have been adjusting her Carvedilol and Lisinopril for management of labile blood pressures. She reports 3 days of episodic dizziness as well as feeling of fullness and tightness in her throat and head as well as fatigue. Her symptoms have become more severe and constant today. Occasional feeling of near-syncope. She tried to check her pulse on several occasions and noted that it was quite faint, rapid and irregular. Patient is very active. She goes to the [facility] and uses the gym frequently. Also takes [employer] classes. She became concerned when her symptoms made it difficult for her to complete her daily activities. Patient denies chest pain. Denies SOB/orthopnea or edema. In the ER she was found to be in atrial fibrillation. Rates have been fairly well controlled, presently 90bpm ER Course: HCTZ 12.5mg, Lisinopril 20mg, Carvedilol 3.125mg, NSS x 1L Allergies Allergy/AdvReac Type Severity Reaction Status Date / Time hydroxychloroquine Allergy Intermediate TOXICITY Verified 04/08/22 22:29 OF THE RETINA ibuprofen Allergy Intermediate SWELLING Verified 04/08/22 22:29 atorvastatin AdvReac Mild "UNCOMFORTABLE" Verified 04/08/22 22:29 AND CREATININE INCREASED SLIGHTLY Home Medications Medication Instructions Recorded Confirmed Type cholecalciferol (vitamin D3) 25 2,000 unit PO QAM 06/25/18 04/08/22 History mcg (1,000 unit) tablet (Vitamin D3) multivitamin 1 tab PO QAM 06/25/18 04/08/22 History vitamins A,C,R-eaau-rtktxk 2,148 1 tab PO BID 06/25/18 04/08/22 History mcg-113 mg-45 mg-17.4 mg tablet (PreserVision AREDS) magnesium citrate 100 mg tablet 100 mg PO DAILY 04/02/19 04/08/22 History potassium chloride 10 mEq 10 meq PO QAM 04/02/19 04/08/22 History capsule,extended release aspirin 81 mg tablet,delayed 81 mg PO BID 08/17/20 04/08/22 History release levothyroxine 112 mcg tablet 112 mcg PO QAM 02/10/21 04/08/22 History sucralfate 1 gram tablet (Carafate) 1 g PO UD PRN .. 02/10/21 04/08/22 History montelukast 5 mg chewable tablet 5 mg PO QPM #90 tabs 06/09/21 04/08/22 Rx colesevelam 625 mg tablet (WelChol) 1,875 mg PO BID #540 tabs 12/17/21 04/08/22 Rx carvedilol 3.125 mg tablet (Coreg) 3.125 mg PO BID 01/31/22 04/08/22 History hydrochlorothiazide 12.5 mg capsule 12.5 mg PO BID 01/31/22 04/08/22 History lisinopril 20 mg tablet 20 mg PO BID 01/31/22 04/08/22 History primidone 50 mg tablet 25 mg PO BID 01/31/22 04/08/22 History rosuvastatin 20 mg tablet 20 mg PO QAM #90 tabs 02/15/22 04/08/22 Rx CPAP Machine See Rx Instructions .Route 03/24/22 03/24/22 Rx .COMPLEX #1 ea Past Med/Surg History Medical History Asthma EXERCISE INDUCED; RARELY USES PRN INH CAD (coronary artery disease) Chronic back pain Chronic kidney disease, stage II (mild) Chronic lumbar radiculopathy Chronic obstructive pulmonary disease Difficult airway for intubation 1995 when she had brain tumor([facility]) she was told she has small airway and last few times she has not had any trouble Essential tremor GERD (gastroesophageal reflux disease) Hemangioma of liver History of brain tumor HTN (hypertension) Hypothyroid Idiopathic thrombocytopenia Left hip pain Macular degeneration Muscle cramping Near syncope Osteoarthritis Osteoporosis PVC (premature ventricular contraction) Bundle branch block follow Dr Sewell Raynaud's disease Scoliosis Sjogren's syndrome SLE (systemic lupus erythematosus) Sleep apnea CPAP Systemic lupus erythematosus Temporomandibular joint disorder Valvular heart disease FOLLOWS W/ DR. Sewell Vitamin D deficiency Surgical History History of appendectomy History of brain surgery History of colonoscopy History of esophagogastroduodenoscopy (EGD) History of hysterectomy History of tonsillectomy History of tubal ligation S/P UVPP (uvulopalatopharyngoplasty) Family History Aunt Family history of pseudocholinesterase deficiency PATERNAL Breast cancer Father Myocardial infarction Prostate cancer Brother Prostate cancer Denies family history of Ovarian cancer Colorectal cancer Social History Smoking Status: Former smoker Second Hand Exposure: No; Hx Alcohol Use: No Hx Substance Use: No Preferred Language: Uzbek Communication Ability: Effective Senior Javascript Engineer Required: No Beliefs That Will Affect Care: None marital status: Current Living Situation: Spouse current occupational status: retired Feels Safe at Home: Yes Childhood Exposure to Second-Hand Smoke: Yes Dental Care, Regularly: Yes Physical Activity Frequency: Daily Seatbelt Use: always Sunscreen Use: Yes Assistive Devices: CPAP, Glasses and Hearing Aid - Bilateral Review of Systems Review of Systems: All systems reviewed & are unremarkable except as noted in HPI & below Physical Exam Physical Exam: General: patient resting comfortably, NAD, non-toxic in appearance, AA&O x 4 Skin: warm, dry, intact, no rashes or lesions HEENT: NC/AT, PERRL, EOMI, anicteric sclera, conjunctiva without injection, external ear normal to inspection and nontender, nares patent, moist mucus membranes, dentition intact, no oropharyngeal lesions, neck supple, trachea midline, no LAD, no thyromegaly, no JVD Heart: +S1/S2, irregularly irregular, no m/r/g Lungs: equal air entry bilaterally, no rales/rhonchi/wheezes Abd: +BS, soft, NT/ND, no masses/organomegaly/ascites Ext: warm, 2+ pulses in UE/LE bilaterally, no clubbing/cyanosis or edema Neuro: nonfocal, patient AA&O x 4, speech intact, no facial droop, moving all extremities on command with equal strength 5/5 Results & Data Results & Data ([facility]) Vital Signs (Past 12 Hours) Vital Signs Temp Pulse Pulse Resp BP Pulse Ox O2 Del Method 04/08/22 20:16 82 20 98 Room Air 04/08/22 21:49 Room Air 04/08/22 17:04 36.6 C 100 H 16 112/72 97 Room Air Laboratory Results Laboratory Results WBC 4.56 K/ul (4.8-10.8) L 04/08/22 17:48 RBC 4.55 M/uL (3.93-5.22) 04/08/22 17:48 Hgb 13.7 g/dl (12.0-16.0) 04/08/22 17:48 Hct 37.4 % (34.1-44.9) 04/08/22 17:48 MCV 82.2 fL (80.0-100.0) 04/08/22 17:48 MCH 30.1 pg (25.0-34.0) 04/08/22 17:48 MCHC 36.6 g/dL (32.0-36.0) H 04/08/22 17:48 RDW Std Deviation 36.9 fL (36.4-46.3) 04/08/22 17:48 RDW Coeff of Mal 12.2 % (11.5-14.5) 04/08/22 17:48 Plt Count 232 K/uL (130-400) 04/08/22 17:48 MPV 10.1 fL (9.4-12.3) 04/08/22 17:48 Immature Gran % (Auto) 0.2 % 04/08/22 17:48 Neut % (Auto) 59.1 % 04/08/22 17:48 Lymph % (Auto) 26.3 % 04/08/22 17:48 [place] % (Auto) 12.7 % 04/08/22 17:48 Eos % (Auto) 1.3 % 04/08/22 17:48 Baso % (Auto) 0.4 % 04/08/22 17:48 Neut # (Auto) 2.69 K/uL (1.4-6.5) 04/08/22 17:48 Lymph # (Auto) 1.20 K/uL (1.2-3.4) 04/08/22 17:48 [place] # (Auto) 0.58 K/uL (0.24-0.82) 04/08/22 17:48 Eos # (Auto) 0.06 K/uL (0-0.50) 04/08/22 17:48 Baso # (Auto) 0.02 K/uL (0-0.2) 04/08/22 17:48 Immature Gran # (Auto) 0.01 K/uL (0.00-0.02) 04/08/22 17:48 Sodium 130 mmol/L (136-145) L 04/08/22 17:48 Potassium 3.7 mmol/L (3.5-5.1) 04/08/22 17:48 Chloride 99 mmol/L (98-107) 04/08/22 17:48 Carbon Dioxide 25 mmol/L (21-32) 04/08/22 17:48 Anion Gap 6 (3-11) 04/08/22 17:48 BUN 21 mg/dl (6-23) 04/08/22 17:48 Creatinine 0.84 mg/dl (0.6-1.2) 04/08/22 17:48 Est Cr Clr Drug Dosing 60.3 ml/min 04/08/22 17:48 Est GFR ( Amer) 76.6 ml/min 04/08/22 17:48 Est GFR (Non-Af Amer) 66.1 ml/min 04/08/22 17:48 BUN/Creatinine Ratio 25.0 (10-20) H 04/08/22 17:48 Glucose 95 mg/dl (70-99(Fasting)) 04/08/22 17:48 Calcium 9.4 mg/dl (8.5-10.1) 04/08/22 17:48 Magnesium 2.2 mg/dl (1.7-2.4) 04/08/22 17:48 Total Bilirubin 0.5 mg/dl (0.2-1.0) 04/08/22 17:48 AST 32 U/L (13-39) 04/08/22 17:48 ALT 19 U/L (7-52) 04/08/22 17:48 Alkaline Phosphatase 58 U/L (34-104) 04/08/22 17:48 Troponin I High Sens 11.3 pg/ml (0-14) 04/08/22 17:48 Total Protein 6.9 gm/dl (6.0-8.3) 04/08/22 17:48 Albumin 4.2 gm/dl (3.4-5.0) 04/08/22 17:48 Globulin 2.7 gm/dl (2.5-4.0) 04/08/22 17:48 Albumin/Globulin Ratio 1.6 (0.9-2) 04/08/22 17:48 TSH 1.681 uIu/ml (0.300-4.500) 04/08/22 17:48 SARS-CoV-2, RNA, NAAT NEGATIVE (NEGATIVE) 04/08/22 22:15 Impressions Chest X-Ray 04/08/22 16:49 XR chest 1V portable CLINICAL HISTORY: palpitations TECHNIQUE: Single frontal radiograph of the chest was obtained. Comparison: Comparison is made to chest radiograph 03/13/2019 FINDINGS: No lines and tubes are seen. Calcified aortic knob is seen. The lungs are clear and again noted to be mildly hyperinflated. No evidence of pleural effusion or pneumothorax. Degenerative changes are seen in the bilateral shoulder joints. IMPRESSION: No acute chest disease. ACT 112: Negative or not required by law. Electronically signed by: Magen Ceron M.D. 04/08/2022 6:01 PM ECG Additional Comments: EKG with atrial flutter wtih variable AV block, RBBB, rate of 93 PG Care Time/CCT Total # of Minutes Spent Total Time Spent with Patient: Total time spent is greater than 50% in coordination of care (as documented) at patient's floor/unit and/or counseling patient: Coding Level of Care Code 01223 Initial Inpt Care Lvl 3 Diagnoses Atrial flutter with rapid ventricular response I48.92 Acute hyponatremia E87.1 Hypertension I10 Obstructive sleep apnea syndrome G47.33 Systemic lupus erythematosus M32.9 Hypothyroidism E03.9 Tremor R25.1
[2022-04-09] MEDS ORDERED: ONDANSETRON INJ 2 MG/ML 2 ML VIAL IV PRN (00:44)
[2022-04-09] MEDS ORDERED: ACETAMINOPHEN 325 MG TAB PO PRN (00:44)
[2022-04-09] MEDS: Heparin IV Adult Wt-Based Standard *NO* Bolus Protocol IV SCH ×4 (02:44→05:04)
[2022-04-09] MEDS: HEPARIN SODIUM/DEXTROSE 25,000 UNITS/500 ML BAG IV SCH ×2 (03:10→22:47)
[2022-04-09 03:12] LABS: Basophils # (auto) 0.03 K/uL (0-0.2); Basophils % (auto) 0.7 %; Eosinophils # (auto) 0.06 K/uL (0-0.50); Eosinophils % (auto) 1.5 %; Hematocrit (blood only) 36.1 % (34.1-44.9); Hemoglobin 12.7 g/dl (12.0-16.0); Immature Granulocytes # (auto) 0.01 K/uL (0.00-0.02); Immature Granulocytes % (auto) 0.2 %; Lymphocytes # (auto) 1.14 K/uL (1.2-3.4); Lymphocytes % (auto) 28.4 %; Mean Corpuscular Hemoglobin 29.5 pg (25.0-34.0); Mean Corpuscular Hgb Conc 35.2 g/dL (32.0-36.0); Mean Platelet Volume 9.9 fL (9.4-12.3); Monocytes # (auto) 0.45 K/uL (0.24-0.82); Monocytes % (auto) 11.2 %; Neutrophils # (auto) 2.33 K/uL (1.4-6.5); Platelet Count 196 K/uL (130-400); RDW Coefficient of Variation 12.4 % (11.5-14.5); RDW Standard Deviation 37.8 fL (36.4-46.3); White Blood Count 4.02 K/ul (4.8-10.8)
[2022-04-09 03:24] LABS: INR 1.1 (0.9-1.1); Partial Thromboplastin Time 27.9 Seconds (21.0-31.0); Prothrombin Time 11.4 Seconds (9.0-12.0)
[2022-04-09 03:36] LABS: BUN Creatinine Ratio 21.3 (10-20); Creatinine Clr Calc Pharmacy 63.1 ml/min; Est GFR (African American) 81.3 ml/min; Est GFR (Non-African American) 70.1 ml/min; Potassium 3.4 mmol/L (3.5-5.1)
[2022-04-09 03:38] LABS: Troponin I High Sensitivity 11.4 pg/ml (0-14)
[2022-04-09] MEDS: LEVOTHYROXINE SODIUM 112 MCG TABLET PO SCH (05:58)
[2022-04-09] MEDS: carvediloL 3.125 MG TAB PO SCH ×2 (08:18→20:12)
[2022-04-09] MEDS: lisinopril 20 MG TAB PO SCH ×2 (08:19→20:12)
[2022-04-09] MEDS: ROSUVASTATIN CALCIUM 20 MG TAB PO SCH (08:19)
[2022-04-09] MEDS: PRIMIDONE 50 MG TAB PO SCH (08:19)
[2022-04-09 11:21] LABS: Partial Thromboplastin Time 54.4 Seconds (21.0-31.0)
--- NOTE | 2022-04-09 12:14 | Cardiology Consultation ---
Date of Consultation April 09, 2022 Assessment & Plan (1) Hypertension: (2) Obstructive sleep apnea syndrome: (3) Tremor: (4) Gait disturbance: (5) Balance problem: (6) Chronic obstructive pulmonary disease: (7) Systemic lupus erythematosus: (8) Chronic kidney disease, stage II (mild): (9) CAD (coronary artery disease): (10) PAF (paroxysmal atrial fibrillation): Plan It was my pleasure to see the patient in cardiac consultation today. She been having a long course of worsening nonspecific symptoms and an unremarkable outpatient work-up including ambulatory telemetry monitoring. However, upon presentation she was found to be on no onset atrial fibrillation. The pathophysiology and treatment options for which were discussed with her great lengths today. In the short-term: I believe the most prudent course of action would be to continue with IV heparin drip for now and perform a VINAY cardioversion on Monday. Long-term: I believe she would benefit from watchman device placement plus or minus pulmonary vein isolation Given her balance difficulties I do not believe she is a long-term anticoagulation candidate Given her age and balance issues I believe warfarin would be the preferred anticoagulation agents given its ease of reversibility and this will be started today Electrolytes should be followed and repleted as necessary. Will make n.p.o. after midnight for Monday morning anticipation of VINAY and cardioversion. Given the description of her dizzy spells I believe she is also suffering from an element of benign positional vertigo and will ask our physical therapy colleagues to evaluate and treat. History of Present Illness Reason for Consultation: New onset atrial fibrillation Requesting Physician: [facility] hospitalist group Attending Physician: Taqueria Meenzes MD History of Present Illness It was my pleasure to see the patient in cardiac consultation today April 09, 2022. She is a very pleasant 81-year-old woman who is been followed very closely with Belle of our cardiology practice for history of difficult to control hypertension and fatigue. She presented to [facility] emergency department on 04/08/2022 with complaints of worsening fatigue, dizziness and a fullness sensation in her chest. These are very similar symptoms that she is been having off and on for several months now but after attempting to do some yard work yesterday they particularly worsened and she came to the emergency department. Upon arrival, she was found to be in atrial fibrillation rate controlled which is a new diagnosis for her. She was started on heparin anticoagulation and maintained on her outpatient carvedilol dose. Since admission, she still notes that she feels significant dizziness particularly when looking upwards or with certain head movements. Otherwise, she states that she feels well at rest. The patient is a very active lifestyle at baseline including horseback riding but has having worsening issues with balance. She is not had any jaimee falls as of late but she states that she has to be very careful where she might fall. History is very complex which includes: obtained from most recent outpatient cardiology visit. 1. Systemic lupus erythematosus 2. Longstanding labile hypertension, diastolic dysfunction 3. Obstructive sleep apnea on CPAP supplementation 4. Chronic essential tremor 5. Diagnostic cardiac catheterization August 2018 with minimal coronary athero sclerosis and no obstruction, elevated end-diastolic pressure 6. Hyperlipidemia 7. Chronic renal insufficiency stage 3 8. Hypothyroidism Allergies Allergy/AdvReac Type Severity Reaction Status Date / Time hydroxychloroquine Allergy Intermediate TOXICITY Verified 04/08/22 22:29 OF THE RETINA ibuprofen Allergy Intermediate SWELLING Verified 04/08/22 22:29 atorvastatin AdvReac Mild "UNCOMFORTABLE" Verified 04/08/22 22:29 AND CREATININE INCREASED SLIGHTLY Home Medications Medication Instructions Recorded Confirmed Type cholecalciferol (vitamin D3) 25 2,000 unit PO QAM 06/25/18 04/08/22 History mcg (1,000 unit) tablet (Vitamin D3) multivitamin 1 tab PO QAM 06/25/18 04/08/22 History vitamins A,C,G-fela-wfvmaf 2,148 1 tab PO BID 06/25/18 04/08/22 History mcg-113 mg-45 mg-17.4 mg tablet (PreserVision AREDS) magnesium citrate 100 mg tablet 100 mg PO DAILY 04/02/19 04/08/22 History potassium chloride 10 mEq 10 meq PO QAM 04/02/19 04/08/22 History capsule,extended release aspirin 81 mg tablet,delayed 81 mg PO BID 08/17/20 04/08/22 History release levothyroxine 112 mcg tablet 112 mcg PO QAM 02/10/21 04/08/22 History sucralfate 1 gram tablet (Carafate) 1 g PO UD PRN .. 02/10/21 04/08/22 History montelukast 5 mg chewable tablet 5 mg PO QPM #90 tabs 06/09/21 04/08/22 Rx colesevelam 625 mg tablet (WelChol) 1,875 mg PO BID #540 tabs 12/17/21 04/08/22 Rx carvedilol 3.125 mg tablet (Coreg) 3.125 mg PO BID 01/31/22 04/08/22 History hydrochlorothiazide 12.5 mg capsule 12.5 mg PO BID 01/31/22 04/08/22 History lisinopril 20 mg tablet 20 mg PO BID 01/31/22 04/08/22 History primidone 50 mg tablet 25 mg PO BID 01/31/22 04/08/22 History rosuvastatin 20 mg tablet 20 mg PO QAM #90 tabs 02/15/22 04/08/22 Rx CPAP Machine See Rx Instructions .Route 03/24/22 03/24/22 Rx .COMPLEX #1 ea Patient History Medical History Asthma EXERCISE INDUCED; RARELY USES PRN INH CAD (coronary artery disease) NONOBSTRUCTIVE Diagnostic cardiac catheterization August 2018 with minimal coronary atherosclerosis and no obstruction, elevated end-diastolic pressure Chronic back pain Chronic kidney disease, stage II (mild) Chronic lumbar radiculopathy Chronic obstructive pulmonary disease Difficult airway for intubation 1995 when she had brain tumor([facility]) she was told she has small airway and last few times she has not had any trouble Essential tremor GERD (gastroesophageal reflux disease) Hemangioma of liver History of brain tumor HTN (hypertension) Hypothyroid Idiopathic thrombocytopenia Left hip pain Macular degeneration Muscle cramping Near syncope Osteoarthritis Osteoporosis PVC (premature ventricular contraction) Bundle branch block follow Dr Sewell Raynaud's disease Scoliosis Sjogren's syndrome SLE (systemic lupus erythematosus) Sleep apnea CPAP Systemic lupus erythematosus Temporomandibular joint disorder Valvular heart disease FOLLOWS W/ DR. Sewell Vitamin D deficiency Surgical History History of appendectomy History of brain surgery History of colonoscopy History of esophagogastroduodenoscopy (EGD) History of hysterectomy History of tonsillectomy History of tubal ligation S/P UVPP (uvulopalatopharyngoplasty) Family History Aunt Family history of pseudocholinesterase deficiency PATERNAL Breast cancer Father Myocardial infarction Prostate cancer Brother Prostate cancer Denies family history of Ovarian cancer Colorectal cancer Social History Smoking Status: Former smoker Second Hand Exposure: No; Hx Alcohol Use: No Hx Substance Use: No Preferred Language: German Communication Ability: Effective Agricultural Systems Specialist Required: No Beliefs That Will Affect Care: None marital status: Current Living Situation: Spouse current occupational status: retired Feels Safe at Home: Yes Childhood Exposure to Second-Hand Smoke: Yes Dental Care, Regularly: Yes Physical Activity Frequency: Daily Seatbelt Use: always Sunscreen Use: Yes Assistive Devices: CPAP, Glasses and Hearing Aid - Bilateral Review of Systems Review of Systems: All systems reviewed & are unremarkable except as noted in HPI & below Physical Exam Physical Exam: General: Awake, alert and oriented x 3. No acute distress. HEENT: Normocephalic, atraumatic. Pupils equal, round and reactive to light and accommodation. Extraocular muscles are intact. Anicteric sclera. Moist mucous membranes. Neck: No JVD. No bruit. Cardiovascular: irregularly irregular, unable to appreciate murmur, rub or gallop. Pulmonary: Clear to auscultation bilaterally. No rales, rhonchi, or wheezing. Abdomen: Bowel sounds x 4, soft. No rebound, guarding or tenderness. No organomegaly. Extremities: No clubbing, cyanosis or edema. +2 pedal pulses bilaterally. Skin: Warm and dry. Results & Data ([facility]) Vital Signs (Past 12 Hours) Vital Signs Temp Pulse Pulse Resp BP Pulse Ox O2 Del Method 04/09/22 11:41 36.7 C 80 19 111/73 96 Room Air 04/09/22 08:00 85 04/09/22 07:53 36.7 C 80 21 115/73 94 Room Air 04/09/22 00:31 82 04/09/22 03:38 36.7 C 75 18 98/63 L 96 Room Air 04/09/22 01:12 36.4 C L 90 18 156/90 H 98 Room Air Diagnostic Findings Nuclear stress test report reviewed dated Feb 2022: Interpretation Summary The combined low intensity exercise/Lexiscan myocardial perfusion imaging study reveals normal perfusion without evidence of infarction or inducible ischemia. Symptoms noted as described below. Gated SPECT imaging reveals normal myocardial thickening and wall motion. The left ventricular ejection fraction was calculated to be 73% (normal). Exercise stress ECHO report reviewed dated November 17, 2021: Interpretation Summary The primary indication after review was deemed appropriate and the examination was performed. The stress echo is negative for inducible ischemia. No arrhythmias. Hypertensive blood pressure response to exercise. Below average exercise tolerance. At rest, normal LV chamber size and wall thickness. Normal LV systolic function without regional wall motion abnormalities, EF 60 to 65%. Grade 2 diastolic dysfunction. No significant valvular pathology. Mild left atrial enlargement. EKG reviewed from 11/09/21: Normal sinus rhythm with sinus arrhythmia Right bundle branch block ST & T wave abnormality, consider anterolateral ischemia Abnormal ECG When compared with ECG of 02-SEP-2020 14:42, QT has lengthened QT/QTc: 444/461 ms 7 day Zio report from 02/22/22: Patient had a min HR of 44 bpm, max HR of 184 bpm, and avg HR of 62 bpm. Predominant underlying rhythm was Sinus Rhythm. 19 atrial Tachycardia /atrial flutter runs occurred, the run with the fastest interval lasting 18 beats with a max rate of 184 bpm, the longest lasting 18 beats with an avg rate of 115 bpm. Some episodes of Supraventricular Tachycardia may be possible Atrial Tachycardia with variable block. Isolated SVEs were rare (<1.0%), SVE Couplets were rare (<1.0%), and SVE Triplets were rare (<1.0%). Isolated VEs were occasional (3.4%, [id number]), VE Couplets were rare (<1.0%, 50), and no VE Triplets were present. Ventricular Bigeminy and Trigeminy were present. The patient recorded 7 event markers and 12 diary entries which correlated predominantly with sensed ventricular ectopic beats
--- NOTE | 2022-04-09 12:46 | Electrocardiogram Report ---
Test Reason : Blood Pressure : / mmHG Vent. Rate : 093 BPM Atrial Rate : 340 BPM P-R Int : 000 ms QRS Dur : 130 ms QT Int : 376 ms P-R-T Axes : 000 039 -21 degrees QTc Int : 467 ms Atrial fibrillation Right bundle branch block T wave abnormality, consider lateral ischemia Abnormal ECG When compared with ECG of 06-SEP-2018 21:58, afib has replaced Sinus rhythm Vent. rate has increased BY 33 BPM Nonspecific T wave abnormality now evident in Inferior leads and lateral leads Confirmed by Bola Cardenas ([id number]) on 04/09/2022 12:45:50 PM Referred By: Belle Joaquin Confirmed By:Bola Cardenas
--- NOTE | 2022-04-09 13:58 | Hospitalist Progress Note ---
Date of Service April 09, 2022 Assessment & Plan (1) Atrial flutter with rapid ventricular response: Plan: Patient with new atrial flutter. Rate is presently controlled at 90bpm. BP is mildly elevated, 156/90. TSH with WNL. Mild hyponatremia, otherwise electrolytes are WNL. Troponin=11.3 -Admit to medical with telemetry -Check 2D echo -Continue Carvedilol 3.125mg po BID -CHADS-2Vasc score of 4-5. Anticoagulation recommended -Will initiate heparin gtt for now with plan to switch to DOAC tomorrow pending Cardiology input -Cardiology consultation appreciated -Hold ASA for now pending Cardiology review (2) Acute hyponatremia: Plan: Mild hyponatremia, Eo=961. Patient is on HCTZ -Hold HCTZ -Check urine and serum osmolality, urine Na -Repeat chemistry in AM (3) Hypertension: Plan: Blood pressure mildly elevated at present, 156/90. Labile per history -Continue Lisinopril 20mg po BID -Hold HCTZ for mild hyponatremia -Monitor (4) Obstructive sleep apnea syndrome: Plan: Chronic. Patient is compliant with CPAP -CPAP qHS (5) Systemic lupus erythematosus: Plan: Stable. Patient follows with Rheumatology at [facility]. States she has not been on any treatment for lupus for "years" -noted (6) Hypothyroidism: Plan: Normal TSH -Continue Synthroid (7) Tremor: Plan: Chronic -Continue Primidone Admission and Anticipated Discharge Date Admission Date: April 08, 2022 Subjective Patient denies any acute complaints now No chest pain reported reports generalized weakness Physical Exam Physical Exam: Head and ENT no thyroid enlargement trachea midline Cardiovascular S1-S2 are normal no S3 Lungs bilateral air entry fair no wheezing Abdomen soft nondistended positive bowel sounds no rebound tenderness Extremity shows trace edema Neurologically no focal deficits Skin shows no rash no cyanosis Results & Data Results & Data ([facility]) Vital Signs (Past 12 Hours) Vital Signs Temp Pulse Pulse Resp BP Pulse Ox O2 Del Method 04/09/22 11:41 36.7 C 80 19 111/73 96 Room Air 04/09/22 08:00 85 04/09/22 07:53 36.7 C 80 21 115/73 94 Room Air 04/09/22 03:38 36.7 C 75 18 98/63 L 96 Room Air Laboratory Results Short CBC 04/08/22 04/09/22 Range/Units 17:48 02:57 WBC 4.56 L 4.02 L (4.8-10.8) K/ul Hgb 13.7 12.7 (12.0-16.0) g/dl Hct 37.4 36.1 (34.1-44.9) % Plt Count 232 196 (130-400) K/uL BMP 04/08/22 04/09/22 17:48 02:57 Sodium 130 L 134 L Potassium 3.7 3.4 L Chloride 99 103 Carbon Dioxide 25 24 BUN 21 17 Creatinine 0.84 0.80 Glucose 95 100 H Calcium 9.4 9.0 Liver Function 04/08/22 Range/Units 17:48 Total Bilirubin 0.5 (0.2-1.0) mg/dl AST 32 (13-39) U/L ALT 19 (7-52) U/L Alkaline Phosphatase 58 (34-104) U/L Albumin 4.2 (3.4-5.0) gm/dl Diagnostic Findings Chest X-Ray 04/08/22 16:49 XR chest 1V portable CLINICAL HISTORY: palpitations TECHNIQUE: Single frontal radiograph of the chest was obtained. Comparison: Comparison is made to chest radiograph 03/13/2019 FINDINGS: No lines and tubes are seen. Calcified aortic knob is seen. The lungs are clear and again noted to be mildly hyperinflated. No evidence of pleural effusion or pneumothorax. Degenerative changes are seen in the bilateral shoulder joints. IMPRESSION: No acute chest disease. ACT 112: Negative or not required by law. Electronically signed by: Magen Ceron M.D. 04/08/2022 6:01 PM PG Care Time/CCT Total # of Minutes Spent Total Time Spent with Patient: Total time spent is greater than 50% in coordination of care (as documented) at patient's floor/unit and/or counseling patient: Coding Level of Care Code 64192 Subseq Hosp Care Lvl 2 Diagnoses Atrial flutter with rapid ventricular response I48.92 Acute hyponatremia E87.1 Hypertension I10 Obstructive sleep apnea syndrome G47.33 Systemic lupus erythematosus M32.9 Hypothyroidism E03.9 Tremor R25.1
[2022-04-09] MEDS: MONTELUKAST SOD 5 MG CHEWABLE TAB PO SCH (20:12)
[2022-04-10] MEDS: Heparin IV Adult Wt-Based Standard *NO* Bolus Protocol IV SCH (03:35)
[2022-04-10] MEDS: LEVOTHYROXINE SODIUM 112 MCG TABLET PO SCH (06:03)
[2022-04-10 07:28] LABS: Basophils # (auto) 0.04 K/uL (0-0.2); Eosinophils # (auto) 0.08 K/uL (0-0.50); Eosinophils % (auto) 1.9 %; Hemoglobin 13.9 g/dl (12.0-16.0); Immature Granulocytes # (auto) 0.01 K/uL (0.00-0.02); Immature Granulocytes % (auto) 0.2 %; Lymphocytes # (auto) 1.24 K/uL (1.2-3.4); Lymphocytes % (auto) 29.7 %; Mean Corpuscular Hemoglobin 30.1 pg (25.0-34.0); Mean Corpuscular Hgb Conc 35.6 g/dL (32.0-36.0); Mean Corpuscular Volume 84.4 fL (80.0-100.0); Mean Platelet Volume 9.9 fL (9.4-12.3); Monocytes % (auto) 9.6 %; Neutrophils % (auto) 57.6 %; Platelet Count 203 K/uL (130-400); RDW Coefficient of Variation 12.6 % (11.5-14.5); RDW Standard Deviation 38.1 fL (36.4-46.3); Red Blood Count 4.62 M/uL (3.93-5.22); White Blood Count 4.17 K/ul (4.8-10.8)
[2022-04-10 07:49] LABS: BUN Creatinine Ratio 22.3 (10-20); Calcium 9.2 mg/dl (8.5-10.1); Creatinine Clr Calc Pharmacy 53.6 ml/min; Est GFR (African American) 66.9 ml/min; Est GFR (Non-African American) 57.7 ml/min; Potassium 3.8 mmol/L (3.5-5.1)
[2022-04-10] MEDS: PRIMIDONE 50 MG TAB PO SCH (07:55)
[2022-04-10] MEDS: carvediloL 3.125 MG TAB PO SCH ×2 (07:55→21:21)
[2022-04-10] MEDS: lisinopril 20 MG TAB PO SCH ×2 (07:55→21:21)
[2022-04-10] MEDS: ROSUVASTATIN CALCIUM 20 MG TAB PO SCH (07:57)
[2022-04-10 08:21] LABS: Partial Thromboplastin Ratio 3.3
[2022-04-10 08:27] LABS: Partial Thromboplastin Time 91.5 Seconds (21.0-31.0)
--- NOTE | 2022-04-10 14:14 | Cardiology Progress Note ---
Date of Service April 10, 2022 Assessment & Plan (1) Hypertension: (2) Obstructive sleep apnea syndrome: (3) Tremor: (4) Gait disturbance: (5) Balance problem: (6) Chronic obstructive pulmonary disease: (7) Systemic lupus erythematosus: (8) Chronic kidney disease, stage II (mild): (9) CAD (coronary artery disease): (10) PAF (paroxysmal atrial fibrillation): Plan Patient remains in rate controlled atrial fibrillation but feeling well. We will proceed with VINAY guided cardioversion in the a.m. Long-term: I believe she would benefit from watchman device placement plus or minus pulmonary vein isolation Given her balance difficulties I do not believe she is a long-term a nticoagulation candidate Given her age and balance issues I believe warfarin would be the preferred anticoagulation agents given its ease of reversibility and this will be started today Electrolytes should be followed and repleted as necessary. Will make n.p.o. after midnight for VINAY and cardioversion. Given the description of her dizzy spells I believe she is also suffering from an element of benign positional vertigo and will ask our physical therapy colleagues to evaluate and treat. Admission and Anticipated Discharge Date Admission Date: April 08, 2022 Subjective Patient seen and examined. Chart reviewed. Telemetry reviewed. States that she is feeling better today. Feels more steady on her feet. Has not been seen by physical therapy as of yet. Review of Systems Review of Systems: All systems reviewed & are unremarkable except as noted in HPI & below Physical Exam Physical Exam: General: Awake, alert and oriented x 3. No acute distress. HEENT: Normocephalic, atraumatic. Pupils equal, round and reactive to light and accommodation. Extraocular muscles are intact. Anicteric sclera. Moist mucous membranes. Neck: No JVD. No bruit. Cardiovascular: irregularly irregular, unable to appreciate murmur, rub or gallop. Pulmonary: Clear to auscultation bilaterally. No rales, rhonchi, or wheezing. Abdomen: Bowel sounds x 4, soft. No rebound, guarding or tenderness. No organomegaly. Extremities: No clubbing, cyanosis or edema. +2 pedal pulses bilaterally. Skin: Warm and dry. Results & Data ([facility]) Vital Signs (Past 12 Hours) Vital Signs Temp Pulse Pulse Resp BP BP Pulse Ox 04/10/22 11:50 36.9 C 68 20 103/69 91 04/10/22 08:00 73 04/10/22 07:51 36.5 C 80 20 118/75 99 04/10/22 03:00 80 18 95/62 L 97 04/10/22 03:11 79 16 97 O2 Del Method FiO2 04/10/22 11:50 Room Air 04/10/22 08:00 04/10/22 07:51 Room Air 04/10/22 03:00 CPAP 04/10/22 03:11 21
[2022-04-10 16:42] LABS: Partial Thromboplastin Ratio 2.1
[2022-04-10 16:49] LABS: Partial Thromboplastin Time 58.8 Seconds (21.0-31.0)
--- NOTE | 2022-04-10 19:46 | Hospitalist Progress Note ---
Date of Service April 10, 2022 Assessment & Plan (1) Atrial flutter with rapid ventricular response: Plan: Patient with new onset A. fib with controlled heart rate between 80-110 TSH with WNL. Mild hyponatremia, otherwise electrolytes are WNL. Troponin=11.3 -Continue Carvedilol 3.125mg po BID -CHADS-2Vasc score of 4-5. Anticoagulation recommended -Cardiology consultation appreciated patient for cardioversion in a.m. Watchman procedure to be done as an outpatient Discussed with cardiology and they want the patient to be started on anticoagulation with Coumadin today Patient chosen on Coumadin compared to DOAC's due to patient's instability occasionally and need for reversal of anticoagulation as needed Risk of benefits discussed with patient by cardiology regarding anticoagulation and patient agrees to it (2) Acute hyponatremia: Plan: Mild hyponatremia continue to monitor -Hold HCTZ -Check urine and serum osmolality, urine Na -Repeat chemistry in AM (3) Hypertension: Plan: Blood pressure mildly elevated at present, 156/90. Labile per history -Continue Lisinopril 20mg po BID -Hold HCTZ for mild hyponatremia -Monitor (4) Obstructive sleep apnea syndrome: Plan: Chronic. Patient is compliant with CPAP -CPAP qHS (5) Systemic lupus erythematosus: Plan: Stable. Patient follows with Rheumatology at [facility]. States she has not been on any treatment for lupus for "years" -noted (6) Hypothyroidism: Plan: Normal TSH -Continue Synthroid (7) Tremor: Plan: Chronic -Continue Primidone Admission and Anticipated Discharge Date Admission Date: April 08, 2022 Subjective Patient seen and examined. Chart reviewed. Telemetry reviewed. Patient maintained on IV heparin No chest pain reports that she is feeling better today. For cardioversion in a.m. Physical Exam Physical Exam: Head and ENT no thyroid enlargement trachea midline Cardiovascular S1-S2 are normal no S3 irregular heartbeat Lungs bilateral air entry fair no wheezing Abdomen soft nondistended positive bowel sounds no rebound tenderness Extremity shows trace edema Neurologically no focal deficits Skin shows no rash no cyanosis Results & Data Results & Data ([facility]) Vital Signs (Past 12 Hours) Vital Signs Temp Pulse Pulse Resp BP BP Pulse Ox 04/10/22 16:00 89 04/10/22 15:41 36.9 C 111 H 20 105/71 95 04/10/22 11:50 36.9 C 68 20 103/69 91 04/10/22 08:00 73 04/10/22 07:51 36.5 C 80 20 118/75 99 O2 Del Method 04/10/22 16:00 04/10/22 15:41 Room Air 04/10/22 11:50 Room Air 04/10/22 08:00 04/10/22 07:51 Room Air PG Care Time/CCT Total # of Minutes Spent Total Time Spent with Patient: Total time spent is greater than 50% in coordination of care (as documented) at patient's floor/unit and/or counseling patient: Coding Level of Care Code 13141 Subseq Hosp Care Lvl 2 Diagnoses Atrial flutter with rapid ventricular response I48.92 Acute hyponatremia E87.1 Hypertension I10 Obstructive sleep apnea syndrome G47.33 Systemic lupus erythematosus M32.9 Hypothyroidism E03.9 Tremor R25.1
[2022-04-10] MEDS: HEPARIN SODIUM/DEXTROSE 25,000 UNITS/500 ML BAG IV SCH (21:16)
[2022-04-10] MEDS: MONTELUKAST SOD 5 MG CHEWABLE TAB PO SCH (21:17)
[2022-04-10] MEDS ORDERED: WARFARIN SOD 5 MG TAB PO ONE ×2 (21:21→21:30)
[2022-04-11] MEDS: LEVOTHYROXINE SODIUM 112 MCG TABLET PO SCH (06:18)
[2022-04-11 07:19] LABS: Hemoglobin 12.7 g/dl (12.0-16.0); Mean Corpuscular Hgb Conc 35.3 g/dL (32.0-36.0); Mean Corpuscular Volume 84.9 fL (80.0-100.0); Mean Platelet Volume 10.2 fL (9.4-12.3); Platelet Count 203 K/uL (130-400); RDW Coefficient of Variation 12.7 % (11.5-14.5); RDW Standard Deviation 38.6 fL (36.4-46.3); Red Blood Count 4.24 M/uL (3.93-5.22); White Blood Count 3.61 K/ul (4.8-10.8)
[2022-04-11 07:50] LABS: Partial Thromboplastin Ratio 2.5
[2022-04-11 07:56] LABS: BUN Creatinine Ratio 23.4 (10-20); Calcium 8.9 mg/dl (8.5-10.1); Creatinine Clr Calc Pharmacy 53.6 ml/min; Est GFR (African American) 66.9 ml/min; Est GFR (Non-African American) 57.7 ml/min; Potassium 4.1 mmol/L (3.5-5.1)
--- NOTE | 2022-04-11 08:00 | Electrocardiogram Report ---
Test Reason : Blood Pressure : / mmHG Vent. Rate : 090 BPM Atrial Rate : 340 BPM P-R Int : 000 ms QRS Dur : 132 ms QT Int : 396 ms P-R-T Axes : 000 008 060 degrees QTc Int : 484 ms Atrial fibrillation with premature ventricular or aberrantly conducted complexes Right bundle branch block Abnormal ECG When compared with ECG of 08-APR-2022 17:19, No significant change was found Confirmed by Geoffrey Hummel ([id number]) on 04/11/2022 8:00:28 AM Referred By: Belle Joaquin Confirmed By:Geoffrey Hummel
--- NOTE | 2022-04-11 08:14 | Electrocardiogram Report ---
Test Reason : Blood Pressure : / mmHG Vent. Rate : 092 BPM Atrial Rate : 166 BPM P-R Int : 000 ms QRS Dur : 134 ms QT Int : 402 ms P-R-T Axes : 000 020 -04 degrees QTc Int : 497 ms Atrial fibrillation Right bundle branch block Abnormal ECG When compared with ECG of 10-APR-2022 13:05, No significant change was found Confirmed by Geoffrey Hummel ([id number]) on 04/11/2022 8:14:28 AM Referred By: Belle Joaquin Confirmed By:Geoffrey Hummel
[2022-04-11] MEDS: PRIMIDONE 50 MG TAB PO SCH (08:29)
[2022-04-11] MEDS: carvediloL 3.125 MG TAB PO SCH ×2 (08:29→20:14)
[2022-04-11] MEDS: ROSUVASTATIN CALCIUM 20 MG TAB PO SCH (08:29)
[2022-04-11] MEDS: lisinopril 20 MG TAB PO SCH ×2 (08:30→20:14)
[2022-04-11] MEDS ORDERED: MIDAZOLAM HCL 5 MG/ML 1 ML VIAL ONE ×2 (09:46→10:06)
[2022-04-11] MEDS ORDERED: fentaNYL citrate 100 MCG/2 ML VIAL ONE ×3 (09:47→10:57)
[2022-04-11] MEDS ORDERED: BENZOCAINE/TETRACAIN/BUTAM 50 APPLN/5 GM CAN EXT ONE (09:47)
--- NOTE | 2022-04-11 10:27 | Pre Anesthesia Assessment ---
Date of Service April 11, 2022 Pre Sedation Assessment Vital Signs Temp Pulse Pulse Resp BP BP Pulse Ox 04/11/22 08:31 85 04/11/22 07:36 36.4 C L 56 L 18 108/72 95 04/11/22 07:20 101 H 04/11/22 04:26 36.6 C 53 L 18 98/64 L 96 04/11/22 03:20 79 16 98 04/10/22 22:20 92 H 04/10/22 22:45 36.3 C L 90 18 105/70 96 04/10/22 23:08 88 23 97 04/10/22 21:07 101 H 101/69 04/10/22 19:32 36.8 C 88 20 90/60 L 94 04/10/22 16:00 89 04/10/22 15:41 36.9 C 111 H 20 105/71 95 04/10/22 11:50 36.9 C 68 20 103/69 91 O2 Del Method FiO2 04/11/22 08:31 04/11/22 07:36 Room Air 04/11/22 07:20 04/11/22 04:26 CPAP 04/11/22 03:20 21 04/10/22 22:20 04/10/22 22:45 Room Air 04/10/22 23:08 21 04/10/22 21:07 04/10/22 19:32 Room Air 04/10/22 16:00 04/10/22 15:41 Room Air 04/10/22 11:50 Room Air Pre-Sedation Airway Assessment Smoking Status: Former smoker Hx Sleep Apnea: No Hx Difficult Intubation: No Short, Thick Neck: No Thyromental Distance: > or= 3.5 Finger Breadths Oral Cavity: + WNL Mallampati Class: III ASA: ASA3 NPO Status Date of Last Intake of Fluids: 04/10/22 Date of Last Intake of Solid Food: 04/10/22 Notes The planned sedation has been discussed with the patient. Informed Consent was obtained. I have identified the patient, determined the appropriateness of sedation and have assessed the patient immediately prior to the procedure. All medicine(s) and interventions are by my order.
--- NOTE | 2022-04-11 11:13 | Post Anesthesia Assessment ---
Date of Service April 11, 2022 Post Sedation Assessment Vital Signs Temp Pulse Pulse Resp BP BP Pulse Ox 04/11/22 08:31 85 04/11/22 07:36 36.4 C L 56 L 18 108/72 95 04/11/22 07:20 101 H 04/11/22 04:26 36.6 C 53 L 18 98/64 L 96 04/11/22 03:20 79 16 98 04/10/22 22:20 92 H 04/10/22 22:45 36.3 C L 90 18 105/70 96 04/10/22 23:08 88 23 97 04/10/22 21:07 101 H 101/69 04/10/22 19:32 36.8 C 88 20 90/60 L 94 04/10/22 16:00 89 04/10/22 15:41 36.9 C 111 H 20 105/71 95 04/10/22 11:50 36.9 C 68 20 103/69 91 O2 Del Method FiO2 04/11/22 08:31 04/11/22 07:36 Room Air 04/11/22 07:20 04/11/22 04:26 CPAP 04/11/22 03:20 21 04/10/22 22:20 04/10/22 22:45 Room Air 04/10/22 23:08 21 04/10/22 21:07 04/10/22 19:32 Room Air 04/10/22 16:00 04/10/22 15:41 Room Air 04/10/22 11:50 Room Air Discharge Sedation Level of Care: Fast Track Phase II Post Sedation Plan On clinical assessment, the patient appears to have tolerated the sedation without complications. Patient is recovering as anticipated. Patient will continue to be monitored by nursing and may be discharged when sedation discharge criteria are met per below protocol. Upon Completions of procedure up to 15 minutes continue every 5 minute vital signs and the P.A.R. score; then discharge to a Phase I or Fast Track to Phase II per the following guidelines: * Discharge Patient to appropriate Phase II area if PAR is 8 or greater or return to pre- procedure baseline. The post - procedure orders will be as directed. * If PAR score is less than 8 or not return to pre-procedure baseline then patient will follow Phase I monitoring till PAR is reached for Phase II. The Phase I may be done in procedure room or may call to secure a Phase I area. * If naloxone or flumazenil are used for reversal, hold in Phase I for continued monitoring from when last reversal dose was given for a minimum of 60 minutes or longer pending the nurse and/or physician discretion of patient condition before discharge to Phase II. Please call the Sedation Physician to re-evaluate and complete post-note for discharge to Phase II area. Do NOT discharge from procedure sedation or Phase 1 until post- sedation evaluation note is complete by procedure /sedation MD Sedation Discharge Instructions to be given to the patient at discharge to home.
--- NOTE | 2022-04-11 12:10 | Operative Report ---
Post Operative Report Pre & Post Diagnosis Operation Date: 04/11/22 10:00 <No data on this case meets the specified criteria> I identified the patient and participated in the time-out.: Yes Procedure Operation Date: 04/11/22 10:00 Actual Procedures p Echo Transesophageal - Abhi Webb DO s Echo Color Flow - DO gavin James Doppler Echo Limited/Follow Up - DO gavin James Cardioversion - Abhi Webb DO Surgeon Abhi Webb DO [employer] Lance HANSEN Estimated Blood Loss 0 Findings Consistent with Post-Op Diagnosis as above Specimens none Description of Procedure Informed consent obtained. Patient prepped. Adequate moderate sedation achieved with a total of 4 mg of Versed and 125 mcg of fentanyl. VINAY performed which revealed no left atrial appendage thrombus. VINAY completed, patient repositioned and further sedated. 360 J of synchronized energy was delivered with successful cardioversion to normal sinus rhythm. Patient tolerated well. To be recovered per protocol. Plan: Return to telemetry and continue heparin bridge along with Coumadin I attest to the content of the Intraoperative Record and any orders documented therein. Any exceptions are noted below.
--- NOTE | 2022-04-11 13:11 | Cardiology Progress Note ---
Date of Service April 11, 2022 Assessment & Plan (1) Hypertension: (2) Obstructive sleep apnea syndrome: (3) Tremor: (4) Gait disturbance: (5) Balance problem: (6) Chronic obstructive pulmonary disease: (7) Systemic lupus erythematosus: (8) Chronic kidney disease, stage II (mild): (9) CAD (coronary artery disease): (10) PAF (paroxysmal atrial fibrillation): Plan Status post successful cardioversion to normal sinus rhythm. Patient tolerated well. Will likely monitor overnight. Will ask case management for their aid in obtaining home Lovenox bridging until INR therapeutic Long-term: I believe she would benefit from watchman device placement plus or minus pulmonary vein isolation Given the description of her dizzy spells I believe she is also suffering from an element of benign positional vertigo and will ask our physical therapy colleagues to evaluate and treat. Admission and Anticipated Discharge Date Admission Date: April 08, 2022 Subjective Patient seen and examined. Chart reviewed. Telemetry reviewed. States that she feels well. Review of Systems Review of Systems: All systems reviewed & are unremarkable except as noted in HPI & below Physical Exam Physical Exam: General: Awake, alert and oriented x 3. No acute distress. HEENT: Normocephalic, atraumatic. Pupils equal, round and reactive to light and accommodation. Extraocular muscles are intact. Anicteric sclera. Moist mucous membranes. Neck: No JVD. No bruit. Cardiovascular: irregularly irregular, unable to appreciate murmur, rub or gallop. Pulmonary: Clear to auscultation bilaterally. No rales, rhonchi, or wheezing. Abdomen: Bowel sounds x 4, soft. No rebound, guarding or tenderness. No organomegaly. Extremities: No clubbing, cyanosis or edema. +2 pedal pulses bilaterally. Skin: Warm and dry. Results & Data ([facility]) Vital Signs (Past 12 Hours) Vital Signs Temp Pulse Pulse Resp BP BP Pulse Ox 04/11/22 12:23 62 04/11/22 11:38 57 L 18 92/58 L 94 04/11/22 11:30 60 18 105/66 93 04/11/22 11:20 60 18 91/55 L 93 04/11/22 11:12 69 18 108/78 99 04/11/22 11:08 68 18 129/90 99 04/11/22 08:31 85 04/11/22 07:36 36.4 C L 56 L 18 108/72 95 04/11/22 07:20 101 H 04/11/22 04:26 36.6 C 53 L 18 98/64 L 96 04/11/22 03:20 79 16 98 O2 Del Method FiO2 04/11/22 12:23 04/11/22 11:38 Room Air 04/11/22 11:30 Room Air 04/11/22 11:20 Room Air 04/11/22 11:12 Room Air 04/11/22 11:08 Room Air 04/11/22 08:31 04/11/22 07:36 Room Air 04/11/22 07:20 04/11/22 04:26 CPAP 04/11/22 03:20 21
[2022-04-11 15:13] LABS: Partial Thromboplastin Ratio 1.9
[2022-04-11 15:59] LABS: Partial Thromboplastin Time 53.4 Seconds (21.0-31.0)
--- NOTE | 2022-04-11 16:07 | Electrocardiogram Report ---
Test Reason : Blood Pressure : / mmHG Vent. Rate : 064 BPM Atrial Rate : 064 BPM P-R Int : 168 ms QRS Dur : 134 ms QT Int : 458 ms P-R-T Axes : 032 016 016 degrees QTc Int : 472 ms Sinus rhythm with occasional Premature ventricular complexes Right bundle branch block T wave abnormality, consider lateral ischemia Abnormal ECG When compared with ECG of 10-APR-2022 22:23, Sinus rhythm has replaced Atrial fibrillation Confirmed by Geoffrey Hummel ([id number]) on 04/11/2022 4:07:02 PM Referred By: Belle Joaquin Confirmed By:Geoffrey Hummel
[2022-04-11] MEDS: WARFARIN SOD 5 MG TAB PO SCH (16:37)
[2022-04-11] MEDS: MONTELUKAST SOD 5 MG CHEWABLE TAB PO SCH (20:13)
--- NOTE | 2022-04-11 21:14 | Hospitalist Progress Note ---
Date of Service April 11, 2022 Assessment & Plan (1) Atrial flutter with rapid ventricular response: Plan: Patient with new onset A. fib with controlled heart rate between 80-110 TSH with WNL. Mild hyponatremia, otherwise electrolytes are WNL. Troponin=11.3 -Continue Carvedilol 3.125mg po BID -CHADS-2Vasc score of 4-5. Anticoagulation recommended -Cardioverted today Watchman procedure to be done as an outpatient Discussed with cardiology and they want the patient to be started on anticoagulation with Coumadin with bridging. Warfarin 5 mg today daily PTs plan discharge home tomorrow after Lovenox bridge arranged by case management Patient chosen on Coumadin compared to DOAC's due to patient's instability occasionally and need for reversal of anticoagulation as needed Risk of benefits discussed with patient by cardiology regarding anticoagulation and patient agrees to it (2) Acute hyponatremia: Plan: Mild hyponatremia continue to monitor STOPPED HCTZ. -Check urine and serum osmolality, urine Na -Repeat chemistry in AM (3) Hypertension: Plan: Blood pressure mildly elevated at present, 156/90. Labile per history -Continue Lisinopril 20mg po BID -Hold HCTZ for mild hyponatremia -Monitor (4) Obstructive sleep apnea syndrome: Plan: Chronic. Patient is compliant with CPAP -CPAP 14 CM qHS (5) Systemic lupus erythematosus: Plan: Stable. Patient follows with Rheumatology at [facility]. States she has not been on any treatment for lupus for "years" -noted Mild baseline leukopenia 3-4000 since 2020 (6) Hypothyroidism: Plan: Normal TSH -Continue Synthroid (7) Tremor: Plan: Chronic -Continue Primidone . Has an outpatient neurologist who is retiring and is getting a new one. Plan Discharge home anticipated tomorrow after Lovenox bridge arranged by case management. Patient and daughter as well as explained the plan Admission and Anticipated Discharge Date Admission Date: April 08, 2022 Subjective Seen around 5 PM. at bedside. Patient feels well and clear after cardioversion. Ambulating to the bathroom on her own. Mood is good. No palpitations or chest pain. No shortness of breath. 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 gait not tested Results & Data Results & Data ([facility]) Vital Signs (Past 12 Hours) Vital Signs Temp Pulse Pulse Resp BP BP Pulse Ox 04/11/22 19:25 36.6 C 70 18 103/60 98 04/11/22 16:47 69 04/11/22 16:10 62 112/67 04/11/22 15:43 36.5 C 83 18 84/50 L 78/45 L 93 04/11/22 12:23 62 04/11/22 11:38 57 L 18 92/58 L 94 04/11/22 11:30 60 18 105/66 93 04/11/22 11:20 60 18 91/55 L 93 04/11/22 11:12 69 18 108/78 99 04/11/22 11:08 68 18 129/90 99 O2 Del Method 04/11/22 19:25 Room Air 04/11/22 16:47 04/11/22 16:10 04/11/22 15:43 Room Air 04/11/22 12:23 04/11/22 11:38 Room Air 04/11/22 11:30 Room Air 04/11/22 11:20 Room Air 04/11/22 11:12 Room Air 04/11/22 11:08 Room Air Laboratory Results Abnormal lab results 04/11/22 04/11/22 04/11/22 Range/Units 06:52 06:52 06:52 WBC 3.61 L (4.8-10.8) K/ul APTT 69.0 H* (21.0-31.0) Seconds Sodium 133 L (136-145) mmol/L BUN/Creatinine Ratio 23.4 H (10-20) Glucose 108 H (70-99(Fasting)) mg/dl 04/11/22 Range/Units 14:33 WBC (4.8-10.8) K/ul APTT 53.4 H* (21.0-31.0) Seconds Sodium (136-145) mmol/L BUN/Creatinine Ratio (10-20) Glucose (70-99(Fasting)) mg/dl PG Care Time/CCT Total # of Minutes Spent Total Time Spent with Patient: Total time spent is greater than 50% in coordination of care (as documented) at patient's floor/unit and/or counseling patient: Coding Level of Care Code 62336 Subseq Hosp Care Lvl 3 Diagnoses Atrial flutter with rapid ventricular response I48.92 Acute hyponatremia E87.1 Hypertension I10 Obstructive sleep apnea syndrome G47.33 Systemic lupus erythematosus M32.9 Hypothyroidism E03.9 Tremor R25.1
[2022-04-11] MEDS: HEPARIN SODIUM/DEXTROSE 25,000 UNITS/500 ML BAG IV SCH (21:27)
[2022-04-12] MEDS: LEVOTHYROXINE SODIUM 112 MCG TABLET PO SCH (06:19)
[2022-04-12 07:36] LABS: Hematocrit (blood only) 35.9 % (34.1-44.9); Hemoglobin 12.2 g/dl (12.0-16.0); Mean Corpuscular Hemoglobin 29.9 pg (25.0-34.0); Mean Platelet Volume 10.2 fL (9.4-12.3); Platelet Count 188 K/uL (130-400); RDW Standard Deviation 41.7 fL (36.4-46.3); Red Blood Count 4.08 M/uL (3.93-5.22); White Blood Count 4.34 K/ul (4.8-10.8)
[2022-04-12 08:03] LABS: INR 1.4 (0.9-1.1); Partial Thromboplastin Ratio 2.3; Prothrombin Time 14.4 Seconds (9.0-12.0)
[2022-04-12 08:04] LABS: Partial Thromboplastin Time 63.6 Seconds (21.0-31.0)
[2022-04-12 08:05] LABS: BUN Creatinine Ratio 20.3 (10-20); Creatinine Clr Calc Pharmacy 39.4 ml/min; Est GFR (Non-African American) 39.7 ml/min; Potassium 4.5 mmol/L (3.5-5.1)
[2022-04-12] MEDS: lisinopril 20 MG TAB PO SCH (08:18)
[2022-04-12] MEDS: ROSUVASTATIN CALCIUM 20 MG TAB PO SCH (08:18)
[2022-04-12] MEDS: PRIMIDONE 50 MG TAB PO SCH (08:18)
[2022-04-12] MEDS: carvediloL 3.125 MG TAB PO SCH ×2 (08:18→19:27)
--- NOTE | 2022-04-12 14:17 | Cardiology Progress Note ---
Date of Service April 12, 2022 Assessment & Plan (1) Hypertension: (2) Obstructive sleep apnea syndrome: (3) Tremor: (4) Gait disturbance: (5) Balance problem: (6) Chronic obstructive pulmonary disease: (7) Systemic lupus erythematosus: (8) Chronic kidney disease, stage II (mild): (9) CAD (coronary artery disease): (10) PAF (paroxysmal atrial fibrillation): Plan Status post successful cardioversion to normal sinus rhythm. Okay to DC to home. Will require Lovenox bridge until INR is therapeutic and outpatient consultation with [facility] clinic. Slight bump in renal function today along with relative hypotension so I have decreased her lisinopril to 20 mg daily. Continue current carvedilol dose. Long-term: I believe she would benefit from watchman device placement plus or minus pulmonary vein isolation My office will call to arrange cardiac follow-up as an outpatient in 1 month. Given the description of her dizzy spells I believe she is also suffering from an element of benign positional vertigo and will ask our physical therapy colleagues to evaluate and treat. Admission and Anticipated Discharge Date Admission Date: April 08, 2022 Subjective Patient seen and examined. Chart reviewed. Telemetry reviewed. States that she feels well. Actually states that she feels better than she has in a long time Review of Systems Review of Systems: All systems reviewed & are unremarkable except as noted in HPI & below Physical Exam Physical Exam: General: Awake, alert and oriented x 3. No acute distress. HEENT: Normocephalic, atraumatic. Pupils equal, round and reactive to light and accommodation. Extraocular muscles are intact. Anicteric sclera. Moist mucous membranes. Neck: No JVD. No bruit. Cardiovascular: Regular. Positive S4. Normal S1 and S2. No S3. No murmurs or rubs Pulmonary: Clear to auscultation bilaterally. No rales, rhonchi, or wheezing. Abdomen: Bowel sounds x 4, soft. No rebound, guarding or tenderness. No organomegaly. Extremities: No clubbing, cyanosis or edema. +2 pedal pulses bilaterally. Skin: Warm and dry. Results & Data ([facility]) Vital Signs (Past 12 Hours) Vital Signs Temp Pulse Pulse Resp BP BP Pulse Ox 04/12/22 11:16 36 C L 78 18 101/62 92 04/12/22 07:50 63 04/12/22 07:29 36.7 C 82 20 106/66 93 04/12/22 04:00 36.9 C 62 18 109/67 98 04/12/22 04:05 16 04/12/22 03:08 66 O2 Del Method FiO2 04/12/22 11:16 Room Air 04/12/22 07:50 04/12/22 07:29 Room Air 04/12/22 04:00 CPAP 04/12/22 04:05 21 04/12/22 03:08
--- NOTE | 2022-04-12 14:40 | Electrocardiogram Report ---
Test Reason : Blood Pressure : / mmHG Vent. Rate : 067 BPM Atrial Rate : 067 BPM P-R Int : 154 ms QRS Dur : 124 ms QT Int : 448 ms P-R-T Axes : 077 043 041 degrees QTc Int : 473 ms Poor data quality, interpretation may be adversely affected Sinus rhythm with occasional Premature ventricular complexes Right bundle branch block Abnormal ECG When compared with ECG of 11-APR-2022 11:19, No significant change was found Confirmed by Donald Heck ([id number]) on 04/12/2022 2:40:40 PM Referred By: Belle Joaquin Confirmed By:Donald Heck
[2022-04-12] MEDS: HEPARIN SODIUM/DEXTROSE 25,000 UNITS/500 ML BAG IV SCH ×2 (14:52→20:33)
[2022-04-12] MEDS: WARFARIN SOD 5 MG TAB PO SCH (16:08)
[2022-04-12] MEDS ORDERED: WARFARIN SOD 2 MG TAB PO STA (19:05)
--- NOTE | 2022-04-12 19:18 | Hospitalist Progress Note ---
Date of Service April 12, 2022 Assessment & Plan (1) Atrial flutter with rapid ventricular response: Plan: Patient with new onset A. fib with controlled heart rate between 80-110 TSH with WNL. Troponin=11.3 -Continue Carvedilol 3.125mg po BID -CHADS-2Vasc score of 4-5. Anticoagulation begun w chelsie, now status post cardioversion and rate controlled. INR 1.4 today. Continue IV heparin till INR gets to 2. 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 (2) Acute hyponatremia: Plan: Hypoosmolar hyponatremia in euvolemic state. Hyponatremia continue to monitor- has had a low sodium in the past. Has been fluid restricted but does not follow it because starts to cramp. STOPPED HCTZ. Impaired thirst mechanism and excessive thirst likely related to cerebellar surgery for tumor excision in 1995. (3) Hypertension: Plan: Generally normotensive. Labile per history -Continue Lisinopril 20mg po BID Hydrochlorothiazide stopped -Monitor (4) Obstructive sleep apnea syndrome: Plan: Chronic. Patient is compliant with CPAP -CPAP 14 CM qHS (5) Systemic lupus erythematosus: Plan: Stable. Patient follows with Rheumatology at [facility]. States she has not been on any treatment for lupus for "years" -noted Mild baseline leukopenia 3-4000 since 2020 (6) Hypothyroidism: Plan: Normal TSH -Continue Synthroid (7) Tremor: Plan: Chronic -Continue Primidone . Has an outpatient neurologist who is retiring and is getting a new one. Plan Plan was to discharge today with a Lovenox bridge at home but patient prefers side INR, up to optimum here because it is already creeping up. Given 7 mg of Coumadin today instead of 5. Admission and Anticipated Discharge Date Admission Date: April 08, 2022 Subjective Patient seen and examined at 1345 today. Chart reviewed. Telemetry reviewed at 930 am. States that she feels well. Has had balance problems for many years. 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 Has been doing line dancing and Adriana in the gym 3-4 times a week fort many years. Walks unassisted. Says lying down and standing helps her balance. Fell few days ago. Has had recurrent falls. Tries to be careful Says her fluid restriction was restricted in November of this year after an abnormal lab and does not know which lab that was. has always felt quite thirsty for many years and has been told by her doctor to check her fluid intake. She gets crampy. 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 gait not tested Psych normal affect, excellent insight Results & Data Results & Data ([facility]) Vital Signs (Past 12 Hours) Vital Signs Temp Pulse Pulse Resp BP BP Pulse Ox 04/12/22 15:00 68 04/12/22 15:42 36.9 C 93 H 18 128/73 93 04/12/22 11:16 36 C L 78 18 101/62 92 04/12/22 07:50 63 04/12/22 07:29 36.7 C 82 20 106/66 93 O2 Del Method 04/12/22 15:00 04/12/22 15:42 Room Air 04/12/22 11:16 Room Air 04/12/22 07:50 04/12/22 07:29 Room Air Laboratory Results Abnormal lab results 04/12/22 04/12/22 04/12/22 Range/Units 06:51 06:51 06:51 WBC 4.34 L (4.8-10.8) K/ul PT 14.4 H (9.0-12.0) Seconds INR 1.4 H (0.9-1.1) APTT 63.6 H* (21.0-31.0) Seconds Sodium 131 L (136-145) mmol/L BUN 26 H (6-23) mg/dl Creatinine 1.28 H D (0.6-1.2) mg/dl BUN/Creatinine Ratio 20.3 H (10-20) PG Care Time/CCT Total # of Minutes Spent Total Time Spent with Patient: Total time spent is greater than 50% in coordination of care (as documented) at patient's floor/unit and/or counseling patient: Coding Level of Care Code 62063 Subseq Hosp Care Lvl 3 Diagnoses Atrial flutter with rapid ventricular response I48.92 Acute hyponatremia E87.1 Hypertension I10 Obstructive sleep apnea syndrome G47.33 Systemic lupus erythematosus M32.9 Hypothyroidism E03.9 Tremor R25.1
[2022-04-12] MEDS: MONTELUKAST SOD 5 MG CHEWABLE TAB PO SCH (19:27)
[2022-04-13] MEDS: LEVOTHYROXINE SODIUM 112 MCG TABLET PO SCH (06:19)
[2022-04-13 06:58] LABS: Basophils # (auto) 0.03 K/uL (0-0.2); Basophils % (auto) 0.8 %; Eosinophils # (auto) 0.08 K/uL (0-0.50); Hematocrit (blood only) 32.6 % (34.1-44.9); Hemoglobin 11.2 g/dl (12.0-16.0); Immature Granulocytes # (auto) 0.01 K/uL (0.00-0.02); Immature Granulocytes % (auto) 0.3 %; Lymphocytes # (auto) 0.89 K/uL (1.2-3.4); Lymphocytes % (auto) 22.6 %; Mean Corpuscular Hgb Conc 34.4 g/dL (32.0-36.0); Mean Corpuscular Volume 87.4 fL (80.0-100.0); Mean Platelet Volume 10.3 fL (9.4-12.3); Monocytes # (auto) 0.37 K/uL (0.24-0.82); Monocytes % (auto) 9.4 %; Neutrophils # (auto) 2.56 K/uL (1.4-6.5); Neutrophils % (auto) 64.9 %; Platelet Count 191 K/uL (130-400); RDW Coefficient of Variation 13.2 % (11.5-14.5); RDW Standard Deviation 41.8 fL (36.4-46.3); Red Blood Count 3.73 M/uL (3.93-5.22); White Blood Count 3.94 K/ul (4.8-10.8)
[2022-04-13 07:20] LABS: INR 2.5 (0.9-1.1); Partial Thromboplastin Ratio 3.1; Prothrombin Time 25.1 Seconds (9.0-12.0)
[2022-04-13 07:25] LABS: Partial Thromboplastin Time 84.8 Seconds (21.0-31.0)
[2022-04-13 07:35] LABS: BUN Creatinine Ratio 25.5 (10-20); Calcium 8.7 mg/dl (8.5-10.1); Creatinine Clr Calc Pharmacy 53.9 ml/min; Est GFR (African American) 66.9 ml/min; Est GFR (Non-African American) 57.7 ml/min; Potassium 4.5 mmol/L (3.5-5.1)
[2022-04-13] MEDS: carvediloL 3.125 MG TAB PO SCH (08:32)
[2022-04-13] MEDS: ROSUVASTATIN CALCIUM 20 MG TAB PO SCH (08:33)
[2022-04-13] MEDS: PRIMIDONE 50 MG TAB PO SCH (08:33)
[2022-04-13] MEDS ORDERED: lisinopril 20 MG TAB PO SCH (09:00)
--- NOTE | 2022-04-13 14:10 | Cardiology Progress Note ---
Date of Service April 13, 2022 Assessment & Plan (1) Hypertension: (2) Obstructive sleep apnea syndrome: (3) Tremor: (4) Gait disturbance: (5) Balance problem: (6) Chronic obstructive pulmonary disease: (7) Systemic lupus erythematosus: (8) Chronic kidney disease, stage II (mild): (9) CAD (coronary artery disease): (10) PAF (paroxysmal atrial fibrillation): Plan Status post successful cardioversion to normal sinus rhythm. Okay to DC to home. INR therapeutic at 2.5 today. Will need referral to [facility] clinic as an outpatient Continue current carvedilol dose. Long-term: I believe she would benefit from watchman device placement plus or minus pulmonary vein isolation My office will call to arrange cardiac follow-up as an outpatient in 1 month and EP referral for watchman device. Admission and Anticipated Discharge Date Admission Date: April 08, 2022 Subjective Patient seen and examined. Chart reviewed. Telemetry reviewed. States that she feels well. Review of Systems Review of Systems: All systems reviewed & are unremarkable except as noted in HPI & below Physical Exam Physical Exam: General: Awake, alert and oriented x 3. No acute distress. HEENT: Normocephalic, atraumatic. Pupils equal, round and reactive to light and accommodation. Extraocular muscles are intact. Anicteric sclera. Moist mucous membranes. Neck: No JVD. No bruit. Cardiovascular: Regular. Positive S4. Normal S1 and S2. No S3. No murmurs or rubs Pulmonary: Clear to auscultation bilaterally. No rales, rhonchi, or wheezing. Abdomen: Bowel sounds x 4, soft. No rebound, guarding or tenderness. No organomegaly. Extremities: No clubbing, cyanosis or edema. +2 pedal pulses bilaterally. Skin: Warm and dry. ENMT: Mallampati Class: III Results & Data ([facility]) Vital Signs (Past 12 Hours) Vital Signs Temp Pulse Pulse Resp BP BP Pulse Ox 04/13/22 11:28 36.7 C 66 20 104/63 97 04/13/22 11:08 04/13/22 07:32 55 L 04/13/22 06:25 36.4 C L 92 H 18 117/62 94 04/13/22 04:04 36.5 C 63 16 116/66 97 11/09/22 03:47 60 17 95 O2 Del Method 04/13/22 11:28 Room Air 04/13/22 11:08 Room Air 04/13/22 07:32 04/13/22 06:25 Room Air 04/13/22 04:04 BiPAP 04/13/22 03:47
[2022-04-13 15:10] LABS: Partial Thromboplastin Ratio 1.2; Partial Thromboplastin Time 34.2 Seconds (21.0-31.0)
[2022-04-13] MEDS: WARFARIN SOD 5 MG TAB PO SCH (16:21)
--- NOTE | 2022-04-13 17:41 | Discharge Summary ---
Date of Service April 13, 2022 Admission HPI Per Admitting Provider Pam Hinds is a pleasant 81yo female with history of HTN, GERD and diastolic CHF presenting with new onset atrial fibrillation. Patient has been worked up for palpitations in the past. She has been told that she has had frequent PVCs and SVT. She is on Carvedilol. No blood thinners. No diagnosis of AF or flutter. 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 She has had recent nuclear stress testing and exercise stress testing 11/17/21 which was negative. She follows with [facility]. They have been adjusting her Carvedilol and Lisinopril for management of labile blood pressures. She reports 3 days of episodic dizziness as well as feeling of fullness and tightness in her throat and head as well as fatigue. Her symptoms have become more severe and constant today. Occasional feeling of near-syncope. She tried to check her pulse on several occasions and noted that it was quite faint, rapid and irregular. Patient is very active. She goes to the [facility] and uses the gym frequently. Also takes [employer] classes. She became concerned when her symptoms made it difficult for her to complete her daily activities. Patient denies chest pain. Denies SOB/orthopnea or edema. In the ER she was found to be in atrial fibrillation. Rates have been fairly well controlled, presently 90bpm ER Course: HCTZ 12.5mg, Lisinopril 20mg, Carvedilol 3.125mg, NSS x 1L Principal Diagnosis Atrial fibrillation new diagnosis status post cardioversion, watchman procedure planned in future Chronic mild hyponatremia SLE Discharge Exam Alert pleasant and conversant, excellent insight and recalls a detailed history . 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 Psych cheerful, excellent insight Discharge Data Allergies Allergy/AdvReac Type Severity Reaction Status Date / Time hydroxychloroquine Allergy Intermediate TOXICITY Verified 04/08/22 22:29 OF THE RETINA ibuprofen Allergy Intermediate SWELLING Verified 04/08/22 22:29 atorvastatin AdvReac Mild "UNCOMFORTABLE" Verified 04/08/22 22:29 AND CREATININE INCREASED SLIGHTLY Consultations 04/08/22 21:08 ED Decision to Admit Stat 04/09/22 00:44 Consult Cardiology Routine Procedures Performed Operation Date: 04/11/22 10:00 Actual Procedures p Echo Transesophageal - DO gavin James Echo Color Flow - DO gavin James Doppler Echo Limited/Follow Up - DO gavin James Cardioversion - Abhi Webb DO Hospital Course (1) Atrial flutter with rapid ventricular response: Patient with new onset A. fib with controlled heart rate between 80-110 TSH with WNL. Troponin=11.3 -Continue Carvedilol 3.125mg po BID -CHADS-2Vasc score of 4-5. Anticoagulation begun w chelsie, now status post cardioversion and rate controlled. Feels clearer in her head after cardioversion. INR 2.5-7 mg Coumadin yesterday. Will get 6 mg starting tomorrow. I have given her 6 pills. Anticoagulation clinic referral made but I saw the patient after 4:30 PM. She is to ensure she gets an INR in a couple of days. 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 (2) Acute hyponatremia: Hypoosmolar hyponatremia in euvolemic state- has had a low sodium dating back to chanel this year in February 2021 had a sodium of 138. Has been fluid restricted but does not follow it because starts to cramp. STOPPED HCTZ here. Impaired thirst mechanism and excessive thirst likely related to cerebellar surgery for tumor excision in 1995. We had a detailed discussion the day before discharge Advised total of 1500 mL a day fluid restriction out of visual not more than 1 L of water to be drunk. Sodium was normal in February 2021 but has been low after that between 07 05-1 34. TSH 1.68 here. (3) Hypertension: Generally normotensive. Labile per history -Continue Lisinopril 20mg po BID Hydrochlorothiazide stopped -Monitor (4) Obstructive sleep apnea syndrome: Chronic. Patient is compliant with CPAP -CPAP 14 CM qHS (5) Systemic lupus erythematosus: Stable. Patient follows with Rheumatology at [facility]. States she has not been on any treatment for lupus for "years" -noted Mild baseline leukopenia 3-4000 since 2020 (6) Hypothyroidism: Normal TSH 1.68. -Continue Synthroid (7) Tremor: Chronic -Continue Primidone home dose 25 3 times daily. Has an outpatient neurologist who is retiring and is getting a new one. Plan Follow-up with PCP within a week to check BMP. Keep fluid restriction 1500 ml which was just started yesterday. She is quite hesitant because she cramps when she does not drink a lot of water but has been drinking up to a gallon of water a day for several years. Euvolemic here and not orthostatic last night. Well educated about atrial fibrillation and upcoming versus watchman procedure. 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 Discharge home. Avoid line line dancing because she is now on warfarin and has fallen while dancing in the past. She does the distancing to maintain her balance since she had a cerebellar tumor removed in 1995. Total Time Total Time Spent Total Time Spent (In Minutes): 45 Discharge Plan Discharge Items Patient Disposition: Home - Self-Care Reason For Visit: AF Discharge Diagnosis: Newly diagnosed atrial fibrillation status post cardioversion Chronic hyponatremiafluid restriction 1500 mL started SLE Status post cerebellar tumor excision 1995 with ongoing balance problems occasionally Chronic tremor on primidone and under the care of a neurologist Condition on Discharge: Good Activity: Resume your previous activity Activity Comment: but no line dancing as fall risk needs minimised with warfarin Bathing: No limitations Non-emergency contact: Primary Care Provider Call non-emergency contact if: you have any medication questions Follow-up/Referrals: ProDonald MD [Primary Care Provider] - (needs BMP and INR checks. Being referred to anticoagulation clinic See patient by Apr 20 please.) Diet: Heart Healthy Fluids: 1500ml (6 cups) Diet Comment: not more than one litre free water, rest solute drinks. Addtl Attending Provider Instructions: As discussed, please get INR checked by MondayApr 15 keep May 2022 appointment with cardiology Pending Studies at Discharge: No Stand-Alone Forms: My [facility] Skilled Items Patient informed of condition?: Yes DNR: No Discharge Level of Care: Other Communicable Disease: No Discharge Prognosis: Stable Medications and DC Order Prescriptions: New warfarin 5 mg Tablet 6 mg PO DAILY@1600 Qty: 5 1RF Continued montelukast 5 mg tablet,chewable 5 mg PO QPM Qty: 90 3RF colesevelam [WelChol] 625 mg tablet 1,875 mg PO BID Qty: 540 3RF rosuvastatin 20 mg tablet 20 mg PO QAM Qty: 90 1RF carvedilol [Coreg] 3.125 mg tablet 3.125 mg PO BID CPAP Machine Misc See Rx Instructions .ROUTE .COMPLEX Qty: 1 0RF Rx Instructions: New CPAP unit as the patient's current unit is dysfunctional. 12 cm of water, tubing mask filters and supplies for lifetime need. T&B medical; primidone 50 mg tablet 25 mg PO BID Rx Instructions: PATIENT STATES SHE TAKES 37.5MG DAILY multivitamin Tablet 1 tab PO QAM cholecalciferol (vitamin D3) [Vitamin D3] 1,000 unit Tablet 2,000 unit PO QAM PreserVision AREDS [id number] Tablet 1 tab PO BID aspirin 81 mg tablet,delayed release (DR/EC) 81 mg PO BID sucralfate [Carafate] 1 gram tablet 1 g PO UD PRN (Reason: ..) levothyroxine 112 mcg tablet 112 mcg PO QAM lisinopril 20 mg tablet 20 mg PO BID Rx Instructions: PATIENT STATES SHE TAKES THIS BID Discontinued potassium chloride 10 mEq capsule, extended release 10 meq PO QAM magnesium citrate 100 mg tablet 100 mg PO DAILY hydrochlorothiazide 12.5 mg capsule 12.5 mg PO BID Rx Instructions: PATIENT STATES SHE TAKES THIS BID Discharge Orders: Discharge Order (Routine); Ordered 04/13/22 Ordered By: José Miguel Chris Admission Data Admit Date/Time: 04/08/22 22:11 Attending Provider: José Miguel Chris Admit Provider: Reyna Christensen Primary Care Provider: Donald Rand Other Providers: Reyna Christensen ; Abhi Webb Coding Level of Care Code D/C DAY MANAGEMENT >30 MINS Diagnoses Atrial flutter with rapid ventricular response I48.92 Acute hyponatremia E87.1 Hypertension I10 Obstructive sleep apnea syndrome G47.33 Systemic lupus erythematosus M32.9 Hypothyroidism E03.9 Tremor R25.1
--- NOTE | 2022-04-14 12:40 | Communication Note ---
Date of Service: April 14, 2022 Notified by coagulation clinic that referral for coagulation clinic did not go through. Patient with rising INR, but no INR check/follow-up until Monday. Reviewed case, given anticoagulation but rising INR with therapeutic range yesterday and relatively high-dose will order an INR check today and hold 1 dose if supratherapeutic. INR ordered, discussed with coagulation clinic. Completed coagulation referral form and faxed to clinic. Message left with PCP Dr. Rand's office with an update on care, dosing, and INR check.
== END 2022-04-13 19:22 | disposition home or self-care (01) | DRG 309 ==
LOC: ED 16:15 → 2N 22:11 → SUATTDRO 22:11 → 2N 23:44

== ENCOUNTER 2024-01-07 08:52 | Inpatient (IN) ==
--- OUTSIDE RECORDS SUMMARY | 2024-01-07 08:57 | External Medical Summary | Summary of Care ---
Author Name Unknown Organization [facility] Address [address] [place] [address] Phone [phone] Care Team Providers Care Transformer Mechanic Name Role Phone Diane Montenegro MD Primary Care Provider [phone] Reason for Visit * Reason Comments Emergency Department Follow-Up [facility] ED . This morning when waking to use bathroom her watch alerted her she may be in Afib. HR was high. Was not having any symptoms at that time. Encounter Details Date Type Department Care Team (Late st Contact Info) Description 01/05/2024 3:30 PM EDT Office Visit Cardiology, [facility] [address] [place] [address] Marko Estrada, [address] [place] [address] Paroxysmal atrial fibrillation (HCC)*; RBBB (right bundle branch block); Chronic diastolic congestive heart failure (HCC) Allergies Active Allergy Reactions Criticality Noted Date Comments Ibuprofen 07/31/2007 Atorvastatin Muscle pain 09/18/2014 Naproxen Sodium High 12/10/2012 Other reaction(s): Other (see comments), Shortness of breath, Swelling Neck and Chest Pain dizziness nausea, severe cramping Hydroxychloroquine Sulfate Other (Please comment) 03/19/2014 Visual disturbance with peripheral vision, eye damage documented as of this encounter (statuses as of 01/05/2024) Medications Medication Sig Dispensed Refills Start Date End Date Status MULTIVITAMINS PO TABSIndications:Heman gioma of intra-abdominal structure once daily Active ICAPS AREDS FORMULA PO TABSIndications:Heman gioma of intra-abdominal structure 1 tablet twice daily Active Cholecalciferol (VITAMIN D-3) 5000 units Tablet Take 1,000 Units by mouth daily. Active Probiotic Acidophilus BioBeads Oral Capsule Take 1 Capsule by mouth in the morning. Active CPAP every night at bedtime. Active B-12 500 MCG Oral Tablet Take 1 Tablet by mouth at bedtime. Active Warfarin Sodium 1 MG Oral Tablet (Coumadin) Take 1 Tablet by mouth every evening. As directed by coumadin clinic 90 Tablet 3 10/28/2022 Active Spironolactone 25 MG Oral Tablet (Aldactone)Indication s:Heart failure, diastolic, with acute decompensation (HCC) TAKE 1/2 TABLET BY MOUTH ON MONDAY, MONDAY AND MONDAY ONLY 40 Tablet 3 03/27/2023 Active Baclofen 10 MG Oral Tablet (Lioresal)Indications :Spastic quadriparesis (HCC) TAKE 1 TABLET BY MOUTH TWICE A DAY 60 Tablet 3 05/11/2023 Active Primidone 50 MG Oral Tablet (Mysoline)Indications :Tremor TAKE 1 TABLET BY MOUTH IN THE MORNING AND 1 TABLET BY MOUTH IN THE AFTERNOON 180 Tablet 1 05/31/2023 Active Rosuvastatin Calcium 40 MG Oral Tablet (Crestor)Indications: Dyslipidemia, goal to be determined TAKE 1 TABLET BY MOUTH IN THE MORNING 90 Tablet 3 05/31/2023 Active Furosemide 20 MG Oral Tablet (Lasix)Indications:Pa roxysmal atrial fibrillation (HCC) TAKE 1 TABLET BY MOUTH IN THE MORNING 90 Tablet 3 07/31/2023 Active Flecainide Acetate 50 MG Oral Tablet (Tambocor)Indications :Paroxysmal atrial fibrillation (HCC) TAKE 1 TABLET BY MOUTH IN THE MORNING AND 1 TABLET BEFORE BEDTIME 180 Tablet 3 07/31/2023 Active Levothyroxine Sodium 88 MCG Oral Tablet (Levoxyl) Take 1 Tablet by mouth daily first thing in the morning. 10/14/2023 Active Montelukast Sodium 5 MG Oral Tablet Chewable (Singulair) Take 1 Tablet by mouth at bedtime. 09/21/2023 Active Lisinopril 10 MG Oral Tablet (Prinivil)Indications :Essential hypertension with goal blood pressure less than 140/90 Take 1 Tablet by mouth 2 times a day. 180 Tablet 3 11/02/2023 Active Metoprolol Succinate ER 25 MG Oral Tablet Extended Release 24 Hour (toPROL XL)Indications:Paroxy smal atrial fibrillation (HCC),HTN, goal below 140/90 Take 1 Tablet by mouth in the morning. 11/27/2023 Active Warfarin Sodium 3 MG Oral Tablet (Coumadin) Take 1 Tablet by mouth. As directed by anti coag clinic 11/22/2023 Active documented as of this encounter (statuses as of 01/05/2024) Active Problems Problem Noted Date Diagnosed Date Chronic diastolic congestive heart failure 06/07 Bradycardia, sinus 04/19/2022 Paroxysmal atrial fibrillation 04/19/2022 PVC (premature ventricular contraction) 06/22/19 22 RAINER (obstructive sleep apnea) 10/04/2020 Dyslipidemia, goal LDL below 70 09/06/2019 Essential hypertension with goal blood pressure less than 140/90 09/06/2019 Closed fracture of nasal bone 03/21/2018 Deviated nasal septum 03/21/2018 Hypothyroidism 07/31/2007 Dyslipidemia, goal to be determined 07/31/2007 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 SUMMARY: Goal: Establish test characteristics (sensitivity, specificity, PPV, NPV) of a circulating tumor DNA (ctDNA)-based test for cancer. Hypothesis: Circulating tumor DNA (ctDNA) and elevated protein biomarkers (together, the marker panel) can be detected in asymptomatic individuals with early cancer. Specific Aim 1: Determine the prevalence of a positive marker panel test in a prospective clinical cohort of 10,000 asymptomatic women ages 65 to 75 years. Specific Aim 2: Determine the sensitivity, specificity, positive predictive value (PPV) and negative predictive value (NPV) of a marker panel test to identify histologically proven cancers that develop within 5-years of the marker panel evaluation. CONTACTS: During normal business hours, contact study staff at ; after hours Continuous Improvement Facilitator via the [facility] rubber production machine operator . Please contact study team before resolving/deleting from patients problem list. Study phone number: [phone]. Diagnosis changed due to Research Module. Go to Snapshot for study details. Encounter for examination fo r normal comparison and control in clinical research program 02/26/2018 02/03/2022 Overview: DO NOT DELETE - [facility] Study: Project # [id number], Continuous Improvement Facilitator: Jered Robertson, MS, MPH. SUMMARY: Goal: Establish test characteristics (sensitivity, specificity, PPV, NPV) of a circulating tumor DNA (ctDNA)-based test for cancer. - Hypothesis: Circulating tumor DNA (ctDNA) and elevated protein biomarkers (together, the marker panel) can be detected in asymptomatic individuals with early cancer. - Specific Aim 1: Determine the prevalence of a positive marker panel test in a prospective clinical cohort of 10,000 asymptomatic women ages 65 to 75 years. - Specific Aim 2: Determine the sensitivity, specificity, positive predictive value (PPV) and negative predictive value (NPV) of a marker panel test to identify histologically proven cancers that develop within 5-years of the marker panel evaluation. - CONTACTS: During normal business hours, contact study staff at ; after hours Continuous Improvement Facilitator via the [facility] rubber production machine operator . - Please contact study team before resolving/deleting from patients problem list. Study phone number: [phone]. Diagnosis changed due to Research Module. Go to YourStreet for study details. 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 10/28/2010 documented as of this encounter (statuses as of 01/05/2024) Immunizations Name Administration Dates Next Due COVID-19 mRNA, LNP-s, No Pre serve, 2-Dose Series (Moderna) 08/03/2020,06/30/2020 Pneumococcal Polysaccharide PPV23 (Pneumovax) Seasonal Influenza, Quadrivalent Hd (Fluzone Hd) 03/02/2022 Seasonal Influenza, Split, IIV3, With Preserve, Inj 03/19/2013 documented as of this encounter Social History Tobacco Use Types Packs/Day Years Used Date Smoking Tobacco: Former Cigarettes 1 2 0 07/31/1962 - 07/31/1964 Smokeless Tobacco: Never Alcohol Use Standard Drinks/Week Comments No 0 (1 standard drink = 0.6 oz pur e alcohol) Sex and Gender Information Value Date Recorded Sex Assigned at Not on file Gender Identity Not on file Sexual Orientation Not on file Job Start Date Occupation Industry Not on file Not on file Not on file documented as of this encounter Last Filed Vital Signs Vital Sign Reading Time Taken Comments Blood Pressure 132/74 01/05/2024 3:43 PM EDT Pulse 88 01/05/2024 3:43 PM EDT Temperature - - Respiratory Rate 15 01/05/2024 3:43 PM EDT Oxygen Saturation 96% 01/05/2024 3:43 PM EDT Room Air Inhaled Oxygen Concentration - - Weight 83.9 kg (185 lb) 01/05/2024 3:43 PM EDT Height - - Body Mass Index 30.32 02/20/2020 12:20 PM EDT documented in this encounter Progress Notes * Marko Estrada, - 01/05/2024 4:06 PM EDT 01/05/2024 Cardiology Follow Up PCP: DIANE MONTENEGRO [address] [place] [address] [phone] CHIEF COMPLAINT: paroxysmal atrial fibrillation , fatigue, dyspnea on exertion, transient visual disturbances SUBJECTIVE: 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 She was accompanied by her daughter. She was seen for similar concernsby the undersigned on 12/04/2023. She was states that in the aorta in the morning hours this morning she got up to use the restroom. She felt fine. Her Apple watch however allergic to her that she was in atrial fibrillation and that her heart rate was 120 beats per minute. She waited and this did not improve. Although she was asymptomatic, she sought the advice of the nursing staff at [facility] and subsequently was seen in the emergency department. On arrival, an EKG performed in the emergency department at 4:26 a.m. this morning revealed atrial fibrillation at 106 beats per minute with right bundle branch block morphology. Lab work reveals stable findings including therapeutic INR of 2.5. Her heart rate improved without intervention with the exception of administration of normal saline solution and she was discharged with follow-up today. During my assessment, her heart rate was regular in the 80s. She is on anticoagulation utilizing Coumadin, managed by the [facility] anticoagulation clinic. As previously noted, she has a past history of falling episodes, and she has a tentative consultation planned with the structural heart Disease Clinic to discuss percutaneous left atrial appendage occlusion/Watchman device. History: Systemic lupus erythematosus Longstanding labile hypertension, diastolic dysfunction Obstructive sleep apnea on CPAP supplementation Chronic essential tremor Diagnostic cardiac catheterization August 2018 with minimal coronary atherosclerosis and no obstruction, elevated end-diastolic pressure Hyperlipidemia Chronic renal insufficiency stage 3 Hypothyroidism Paroxysmal atrial fibrillation Dagnosed in April 2022 requiring VINAY/CV. Beta faith limited due to sinus bradycardia. Anticoagulated with coumadin, managed via [facility] EP visit with [facility]/Dr. Albarran on 05/11/2022, RE: treatment options for PAF, ? Watchman implantation. Ongoing beta faith was recommended. [facility] opinion at [facility]. Prescribed flecainide 50 mg BID for rhythm control on 05/18/2022. (Multaq was considered but not covered by insurance). Future LINQ recorder discussed along with Watchman implantation 10. 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 Extensive ROS: All systems reviewed & are unremarkable except as noted in HPI & below Cardiovascular (chest pain/palpitations/fluttering/diaphoresis/dyspnea on exertion/paroxysmally nocturnal dyspnea):Negative Review of patient's allergies indicates: Allergen Reactions Naproxen Sodium Other reaction(s): Other (see comments), Shortness of breath, Swelling Neck and Chest Pain dizziness nausea, severe cramping Advil [Ibuprofen] Lipitor [Atorvastatin] Muscle pain Plaquenil [Hydroxychloroquine Sulfate] Other (Please comment) Visual disturbance with peripheral vision, eye damage Current Outpatient Medications Medication Sig Dispense Refill MULTIVITAMINS PO TABS once daily ICAPS AREDS FORMULA PO TABS 1 tablet twice daily Cholecalciferol (VITAMIN D-3) 5000 units Tablet Take 1,000 Units by mouth daily. Probiotic Acidophilus BioBeads Oral Capsule Take 1 Capsule by mouth in the morning. CPAP every night at bedtime. B-12 500 MCG Oral Tablet Take 1 Tablet by mouth at bedtime. Warfarin Sodium 1 MG Oral Tablet (Coumadin) Take 1 Tablet by mouth every evening. As directed by coumadin clinic 90 Tablet 3 Spironolactone 25 MG Oral Tablet (Aldactone) TAKE 1/2 TABLET BY MOUTH ON MONDAY, MONDAY AND MONDAY ONLY 40 Tablet 3 Baclofen 10 MG Oral Tablet (Lioresal) TAKE 1 TABLET BY MOUTH TWICE A DAY 60 Tablet 3 Primidone 50 MG Oral Tablet (Mysoline) TAKE 1 TABLET BY MOUTH IN THE MORNING AND 1 TABLET BY MOUTH IN THE AFTERNOON 180 Tablet 1 Rosuvastatin Calcium 40 MG Oral Tablet (Crestor) TAKE 1 TABLET BY MOUTH IN THE MORNING 90 Tablet 3 Furosemide 20 MG Oral Tablet (Lasix) TAKE 1 TABLET BY MOUTH IN THE MORNING 90 Tablet 3 Flecainide Acetate 50 MG Oral Tablet (Tambocor) TAKE 1 TABLET BY MOUTH IN THE MORNING AND 1 TABLET BEFORE BEDTIME 180 Tablet 3 Levothyroxine Sodium 88 MCG Oral Tablet (Levoxyl) Take 1 Tablet by mouth daily first thing in the morning. Montelukast Sodium 5 MG Oral Tablet Chewable (Singulair) Take 1 Tablet by mouth at bedtime. Lisinopril 10 MG Oral Tablet (Prinivil) Take 1 Tablet by mouth 2 times a day. 180 Tablet 3 Metoprolol Succinate ER 25 MG Oral Tablet Extended Release 24 Hour (toPROL XL) Take 1 Tablet by mouth in the morning. Warfarin Sodium 3 MG Oral Tablet (Coumadin) Take 1 Tablet by mouth. As directed by anti coag clinic No current facility-administered medications for this visit. OBJECTIVE/PHYSICAL EXAMINATION: BP 132/74 | Pulse 88 | Resp 15 | Wt 83.9 kg (185 lb) | SpO2 96% Comment: Room Air | BMI 30.32 kg/m | BSA 1.97 m BP Readings from Last 4 Encounters: 01/05/24 132/74 12/05/23 112/58 11/02/23 110/56 04/24/23 132/76 General: no acute distress and stated age Eyes: conjunctiva are pink and non-injected, sclera clear Neck: normal jugular venous pulse, no hepatojugular reflux Chest: normal shape and normal respiratory effort Lungs: clear to auscultation , no rales rhonchi or wheezing Cardiac Exam: - regular heart sounds, no murmurs, rubs, or gallops Abdomen: abdomen soft, non-tender, no abnormal masses and no hepatosplenomegaly Musculoskeletal: no gait disturbance, no weakness Extremities: no edema and no cyanosis Neuro: Resting tremor noted Psych: appropriate affect and insight. Data: EKG performed today 12/05/2023 and interpreted independently: Sinus bradycardia 54 beats per minutewith right bundle branch block, QRS duration 172 milliseconds, T-wave inversions noted in the inferior and lateral leads, unchanged compared to 09/07/2022, also unchanged compared to the previous trac ing dating back to 02/09/2022 with nuclear stress test performed shortly thereafter Summary of Zio patch monitor worn in March, Duration: 6 days, 21 hours Patient had a min HR of 38 bpm, max HR of 171 bpm, and avg HR of 57 bpm. Predominant underlying rhythm was Sinus Rhythm. Bundle Branch Block/IVCD was present. 27 Supraventricular Tachycardia runs occurred, the run with the fastest interval lasting 9 beats with a max rate of 171 bpm, the longest lasting 14 beats with an avg rate of 101 bpm. Isolated SVEs were rare (<1.0%), SVE Couplets were rare (<1.0%), and SVE Triplets were rare (<1.0%). Isolated VEs were occasional (3.4%, [id number]), VE Couplets were rare (<1.0%, 91), and no VE Triplets were present. Ventricular Bigeminy and Trigeminy were present. Symptoms correlate with sensed ventricular ectopy and sinus rhythm. Exercise stress echo November 17, 2021: Interpretation Summary: The stress echo is negative for inducible ischemia. No arrhythmias. Hypertensive blood pressure response to exercise. Below average exercise tolerance. At rest, normal LV chamber size and wall thickness. Normal LV systolic function withoutregional wall motion abnormalities, EF 60 to 65%. Grade 2 diastolic dysfunction. No significant valvular pathology. Mild left atrial enlargement. Echocardiogram completed at [facility] dated April 09, 2022: LV is normal in size. Mild concentric LVH.LV systolic function is normal. Ejection fraction 60-65%. LV wall motion is normal. RV is normal insize and function. Left atrium is mildly dilated. RV systolic pressure is normal. Trace posterior pericardial effusion. Grade 2 diastolic dysfunction. Nuclear stress test report reviewed dated Feb 2022: Interpretation Summary The combined low intensity exercise/Lexiscan myocardial perfusion imaging study reveals normal perfusion without evidence of infarction or inducible ischemia. Symptoms noted as described below. Gated SPECT imaging reveals normal myocardial thickening and wall motion. The left ventricular ejection fraction was calculated to be 73% (normal). Results for orders placed or performed in visit on 09/07/22 LIPID PANEL WITH DIRECT LDL IF TG IS HIGH Result Value Ref Range Triglycerides 127 <=174 mg/dL Cholesterol 150 <200 mg/dL HDL Cholesterol 55 >49 mg/dL Non-HDL Cholesterol 95 <=159 mg/dL LDL Cholesterol 70 <=129 mg/dL ASSESSMENT / PLAN: 82 year old year old female History of paroxysmal atrial fibrillation/flutter, SVT, conduction system disease in the form of underlying right bundle branch block and borderline tachycardia bradycardia syndrome Chronic gait instability, dizziness, falls Nonobstructive coronary heart disease on diagnostic cardiac catheterization, August,, negative nuclear stress test 2021 Preserved LVEF Continue current medications including metoprolol, flecainide, warfarin. The patient's upcoming consultation to discuss Watchman is not until April, she states that she would be willing to drive to [place] if a sooner appointment is available, and I will have scheduling look into this. Otherwise continue current medication for rhythm and rate control with regards to the flecainide and metoprolol. Continue with plan to have a repeat Zio patch monitor next month in advance of her next follow-up visit. DISPOSITION: Follow Up: Return in about 8 weeks (around 03/04/2024) for Clinic Visit. | For: Clinic Visit | Check-out note: Pt to have Zio placed in early February so that data is back for 03/[address] to [place] to see Dr Cifuentes earlier it alternative appointment available before her April visit. Patient is seen in longitudinal follow-up of the above chronic concerns with the assessment and plan as noted. Marko Estrada, DO Cardiology, [address] [place] [address] This chart was completed in part utilizing [employer] Speech Voice Recognition Software. Grammatical errors, random word insertions, prounoun errors, and incomplete sentences are an occasional consequence of this system due to software limitations, ambient noise, and hardware issues. Any formal questions or concerns about the content, text, or information contained within the body of this dictation should be directly addressed to the provider for clarification. documented in this encounter Nursing Notes * Camacho Rojas LPN - 01/05/2024 3:43 PM EDT Patient identified by full name and date of Chief Complaint Patient presents with Emergency Department Follow-Up [facility] ED 01/05/24. This morning when waking to use bathroom her watch alerted her she may be in Afib. HR was high. Was not having any symptoms at that time. Examination Room: 12 Name: Pam Hinds Date of : (1940). Reason for Visit: ED follow up Interim Hospitalization(s): [facility] ED 01/05/24 Problems/Concerns: See chief complaint Chest Pain/SOB: Denies [facility] Discussed: Not applicable [facility] is a way you can talk to your provider online through e-mail. Would you like to sign up? I can activate it for you? ALREADY ACTIVE Patient was instructed to not get up on the exam table until directed and assisted by their provider; patient is to remain seated in the chair/ wheelchair/ exam table for fall prevention and safety reasons. Patient is aware to have assistance to step down off exam table with personnel. Patient voiced full comprehension of instructions. documented in this encounter Plan of Treatment Upcoming Encounters Date Type Department Care Team (Late st Contact Info) Description 02/08/2024 1:00 PM EDT Cardiac Studies Cardiac Studies, [facility] [address] [facility] [place] [address] 02/20/2024 11:20 AM EDT Office Visit Neurology [facility] [address] [facility] [place] [address] Chris Krishnan MD [address] [place] [address] 03/04/2024 2:00 PM EDT Office Visit Cardiology, [facility] [address] [place] [address] Davidson James PA-C [address] [place] [address] 03/08/2024 10:30 AM EDT Office Visit Cardiology, [facility] [address] [place] [address] Marko Estrada DO [address] [place] [address] 04/17/2024 1:00 PM EST Office Visit Cardiology, [facility] [address] [place] [address] Vel Cifuentes MD [address] [place] [address] Health Maintenance Due Date Last Done Comments Depression Screening 1952 DTaP,Tdap,and Td Vaccines (1 - Tdap) 1961 Albumin/Creatinine Ratio 01/14/2011 01/15/2008 COVID-19 Vaccine ( season) 2023 03/22/2023, 08/03/2020, 06/30/2020 TSH 07/28/2023 07/28/2022, 020 07/2020, 09/17/2019, Additional history exists GFR 09/22/2023 09/21/2022, 040 10/2022, 07/28/2022, Additional history exists Influenza Vaccine (FLU shot) (#1) 2024 03/02/2022, 03/19/2013, 03/11/2010, Additional history exists Pneumococcal Vaccine: 65+ Years Completed 03/02/2017, 08/25/2016, 06/09/2015, Additional history exists Zoster Vaccines Completed 08/27/2020, 02/2021, 08/18/2015, Additional history exists HPV (Gardasil) Vaccine Aged Out No lo nger eligible based on patient's age to complete this topic Hepatitis B Vaccine Aged Out No longe r eligible based on patient's age to complete this topic MENINGOCOCCAL (MENACTRA/MENVEO) Aged Out No longer eligible based on patient's age to complete this topic documented as of this encounter Medical Devices Not on filedocumented as of this encounter Visit Diagnoses Diagnosis Paroxysmal atrial fibrillation (HCC)- Primary Atrial fibrillation RBBB (right bundle branch block) Right bundle branch block Chronic diastolic congestive heart failure (HCC) Chronic diastolic heart failure documented in this encounter Care Teams Transformer Mechanic Relationship Specialty Start Date End Date Dinae Montenegro MD [address] [place] [place] [address] PCP - General Internal Medicine 11/27/23 documented as of this encounter"
--- NOTE | 2024-01-07 09:31 | Emergency Department Note ---
Impression & Plan Atrial fibrillation with rapid ventricular response ED Provider Note Name: DENNYS HILLIARD Age: 83 Sex: Female Arrives Via: Walk-In Informant: Patient & Daughter ED Provider: Chandler Foreman MD Chief Complaint: Tachycardia Impression: As per impressions above Medical Decision Makin-year-old female arrives for evaluation of tachycardia. Associated with fatigue and weakness. Ongoing last few days gradually worsening. She did have some right-sided chest discomfort into her arm neck shoulder earlier but that has resolved. Initial troponin within normal range. EKG A-fib without ischemia. She is therapeutic INR 2.5. No evidence of infectious etiology. Reviewed with cardiology who agree with plan for bringing in and further control. Triage/Nursing Notes reviewed by Me Differential:Premature contractions, electrolyte abnormality, cardiac dysrhythmia, thyroid dysfunction, pulmonary embolism, infection, gastrointestinal, as well as other pathologies. Vital Signs: reviewed and remarkable for tachy Interventions: Lopressor 5 mg IV x 2, normal saline bolus Labs:ED labs Reviewed by me and remarkable for INR therapeutic Imagin view chest x-ray mild congestive findings no overt infiltrate appreciated. EKG:As per my interpretation. Indication: Palpitations. A-fib RVR 103 bpm no ischemia noticed. Right bundle branch block. QTc 474. Compared to EKG January 05, 2024 no significant change. Cardiac/Tele Monitoring: Cardiac Monitoring: An Order was placed for continuous cardiac monitoring. The monitor shows a rate of 130 with a afib rvr rhythm. Consults:Dr Donato Cerrato Hospitalist discussed over phone and agrees with plan for hospitalization and further workup and management of rate issues. Discussed with Reggie Velásquez hospitalist will bring in for further management. Plan: Disposition:Hospitalization. Condition: Good History of Present Illness: 83-year-old female arrives for evaluation of tachycardia. Patient notes history of paroxysmal A-fib for which she is on 25 mg daily metoprolol and Coumadin. Patient states that for the last few days increasing episodes of tachycardia, generalized weakness and fatigue. Associate with some shortness of breath on exertion. Did start having some right-sided chest discomfort with radiation to right shoulder and right neck. Pain was more sharp in nature rather than dull. It has resolved currently. She has been seen by PCP, ER, network designer in the last 72 hours for similar symptoms and notes heart rate improved after seeing ER but has once again returned to regular and tachycardic. Though she is feeling quite symptomatic once heart rate increases. Has previously required cardioversion. Currently in the process of determining if pacemaker should be implanted given she gets significant episodes of bradycardia as well. Also currently trying to get a Watchman device but that is not scheduled till April. Past Medical History:See Below Home Medications:See Below Allergies: Hydroxychloroquine, ibuprofen, atorvastatin Vitals:Blood Pressure: 128/95, Pulse 130, RR 20, T 36.6C, O2 98% on RA Physical Exam: GENERAL: Patient is anxious appearing and in minimal distress. RESPIRATORY: No dyspnea. Clear to auscultation and equal bilaterally. CARDIOVASCULAR: Tach and irregular.No murmur appreciated. GASTROINTESTINAL: Abdomen soft, non-tender, no peritonitis. EXTREMITIES: Normal motion all extremities, no cyanosis, no edema. NEUROLOGIC: Alert and oriented. No focal neurologic deficits appreciated SKIN: No rash, no jaundice, no diaphoresis. PSYCH: Appropriate GCS: 15 ED Course: Times/Reassessments: Heart rate has come down significantly though patient is still having some lightheaded symptoms and not feeling right. Agreeable to hospitalization Critical Care: I have personally spent 35 minutes of critical care time in the direct management of this patient. A-fib RVR requiring multiple rounds of rate control medication IV. This was a life/limb threatening event. This 35 minutes is in excess of all separately billable procedures. Chandler Foreman MD Past Med/Surg History Problem List (Updated 01/07/24 @ 18:17 by Chandler Foreman MD) Atrial fibrillation with rapid ventricular response (Acute) Chest pain Atrial fibrillation with rapid ventricular response (Acute) Routine gynecological examination Injury of ear canal Chronic anticoagulation (Acute) Hyponatremia PAF (paroxysmal atrial fibrillation) Dizziness (Acute) Chest tightness (Acute) Acute hyponatremia (Acute) Atrial flutter with rapid ventricular response (Acute) Irritable bowel syndrome with diarrhea Tubular adenoma Diarrhea Encounter for pre-operative examination Kidney stones (Chronic) Hypothyroidism Palpitations (Acute) Vitamin D deficiency (Chronic) Hypertension (Chronic) Anemia (Chronic) Obstructive sleep apnea syndrome cpap Tremor (Acute) Gait disturbance Fall Balance problem Vitamin D deficiency (Acute) Chronic obstructive pulmonary disease Systemic lupus erythematosus (Chronic) Chronic kidney disease, stage II (mild) (Chronic) CAD (coronary artery disease) NONOBSTRUCTIVE Diagnostic cardiac catheterization August 2018 with minimal coronary atherosclerosis and no obstruction, elevated end-diastolic pressure HTN (hypertension) Chronic lumbar radiculopathy (Acute) Raynaud's disease (Chronic) Sjogren's syndrome (Chronic) Medical History Asthma CAD (coronary artery disease) Chronic back pain Chronic kidney disease, stage II (mild) Chronic lumbar radiculopathy Chronic obstructive pulmonary disease Difficult airway for intubation Essential tremor GERD (gastroesophageal reflux disease) Hemangioma of liver History of brain tumor HTN (hypertension) Hypothyroid Idiopathic thrombocytopenia Left hip pain Macular degeneration Muscle cramping Near syncope Osteoarthritis Osteoporosis PVC (premature ventricular contraction) Raynaud's disease Scoliosis Sjogren's syndrome SLE (systemic lupus erythematosus) Sleep apnea Systemic lupus erythematosus Temporomandibular joint disorder Valvular heart disease Vitamin D deficiency Surgical History History of appendectomy History of brain surgery History of colonoscopy History of esophagogastroduodenoscopy (EGD) History of hysterectomy History of tonsillectomy History of tubal ligation S/P UVPP (uvulopalatopharyngoplasty) Family History Aunt Family history of pseudocholinesterase deficiency PATERNAL Breast cancer Father Myocardial infarction Prostate cancer Brother Prostate cancer Denies family history of Ovarian cancer Colorectal cancer Social History Smoking Status: Never smoker Second Hand Exposure: No; Do You Dip or Chew Tobacco: No; Hx Alcohol Use: No Hx Substance Use: No Preferred Language: Kiswahili Communication Ability: Effective Bread 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 Baker Required: No Beliefs That Will Affect Care: None marital status: Current Living Situation Comment: [facility] current occupational status: retired Other Information That Helps Us Care for You: No Feels Safe at Home: Yes Childhood Exposure to Second-Hand Smoke: Yes Dental Care, Regularly: Yes Physical Activity Frequency: Daily Seatbelt Use: always Sunscreen Use: Yes Assistive Devices: Glasses Allergies Allergies Allergy/AdvReac Type Severity Reaction Status Date / Time hydroxychloroquine Allergy Intermediate TOXICITY Verified 06/08/23 08:20 OF THE RETINA ibuprofen Allergy Intermediate SWELLING Verified 06/08/23 08:20 atorvastatin AdvReac Mild "UNCOMFORTABLE" Verified 06/08/23 08:20 AND CREATININE INCREASED SLIGHTLY Home Meds Home Medications Medication Instructions Recorded Confirmed cholecalciferol (vitamin D3) 25 2,000 unit PO QAM 06/25/18 01/07/24 mcg (1,000 unit) tablet (Vitamin D3) multivitamin 1 tab PO QAM 06/25/18 01/07/24 vitamins A,C,P-uizs-cstdup 2,148 1 tab PO BID 06/25/18 01/07/24 mcg-113 mg-45 mg-17.4 mg tablet (PreserVision AREDS) baclofen 10 mg tablet 10 mg PO BID 04/20/22 01/07/24 flecainide 50 mg tablet 50 mg PO BID 05/20/22 01/07/24 metoprolol succinate 25 mg 37.5 mg PO DAILY 08/19/22 01/07/24 tablet,extended release 24 hr furosemide 20 mg tablet 20 mg PO DAILY 09/22/22 01/07/24 primidone 50 mg tablet 50 mg PO BID 09/22/22 01/07/24 rosuvastatin 40 mg tablet 40 mg PO QAM 12/22/22 01/07/24 levothyroxine 88 mcg capsule 88 mcg PO DAILY 04/24/23 01/07/24 acetaminophen 500 mg tablet 500 - 1,000 mg PO HS PRN pain/fever 10/02/23 01/07/24 lisinopril 10 mg tablet 10 mg PO BID 11/14/23 01/07/24 warfarin 3 mg tablet 3 mg PO UD 11/24/23 01/07/24 cyanocobalamin (vitamin B-12) 500 See Rx Instructions PO DAILY 12/04/23 01/07/24 mcg tablet spironolactone 25 mg tablet See Rx Instructions PO MONWEDFRI 12/21/23 01/07/24 Previous Rx's Medication Instructions Recorded montelukast 5 mg chewable tablet 5 mg PO QPM #90 tabs 05/30/23 Results & Data (ED) Vital Signs Vital Signs - 24 hr 01/07/24 08:53 01/07/24 08:53 01/07/24 09:12 Temperature 36.6 C Temperature Source Temporal Artery Scan Pulse Rate 102 H 105 H Pulse Rate [Apical] Pulse Rhythm [Apical] Respiratory Rate 18 Respiratory Effort / Characteristics Respiratory Depth Respiratory Pattern Blood Pressure 120/83 Blood Pressure [Right Arm] Blood Pressure Mean 95 Blood Pressure Mean [Right Arm] Pulse Oximetry 97 Oxygen Delivery Method Room Air Sepsis Recent Fever Within 48 Hours No Sepsis New/Unexplained Change in Mental Status N/A Sepsis Action Taken by Nursing No Action Required 01/07/24 09:14 01/07/24 09:33 01/07/24 09:51 Temperature Temperature Source Pulse Rate 100 H Pulse Rate [Apical] 99 H Pulse Rhythm [Apical] Respiratory Rate 20 Respiratory Effort / Characteristics Non-Labored Spontaneous Spontaneous Respiratory Depth Normal Respiratory Pattern Blood Pressure 122/87 Blood Pressure [Right Arm] 128/95 Blood Pressure Mean Blood Pressure Mean [Right Arm] 106 Pulse Oximetry 98 Oxygen Delivery Method Room Air Room Air Sepsis Recent Fever Within 48 Hours Sepsis New/Unexplained Change in Mental Status Sepsis Action Taken by Nursing 01/07/24 10:00 01/07/24 10:34 01/07/24 10:48 Temperature Temperature Source Pulse Rate 106 H 100 H Pulse Rate [Apical] 88 Pulse Rhythm [Apical] Respiratory Rate 19 Respiratory Effort / Characteristics Non-Labored Spontaneous Respiratory Depth Normal Respiratory Pattern Blood Pressure 125/104 H 161/117 H Blood Pressure [Right Arm] 122/79 Blood Pressure Mean Blood Pressure Mean [Right Arm] 93 Pulse Oximetry 94 Oxygen Delivery Method Room Air Sepsis Recent Fever Within 48 Hours Sepsis New/Unexplained Change in Mental Status Sepsis Action Taken by Nursing 01/07/24 10:48 01/07/24 11:00 01/07/24 11:12 Temperature Temperature Source Pulse Rate 100 H Pulse Rate [Apical] 96 H 108 H Pulse Rhythm [Apical] Irregular Irregular Respiratory Rate 21 21 Respiratory Effort / Characteristics Non-Labored Spontaneous Non-Labored Spontaneous Respiratory Depth Normal Normal Respiratory Pattern Regular Blood Pressure 151/93 H Blood Pressure [Right Arm] 161/117 H 161/116 H Blood Pressure Mean Blood Pressure Mean [Right Arm] 131 131 Pulse Oximetry 96 95 Oxygen Delivery Method Room Air Room Air Sepsis Recent Fever Within 48 Hours Sepsis New/Unexplained Change in Mental Status Sepsis Action Taken by Nursing Laboratory Data 01/07/24 09:14 01/07/24 09:14 Lab Results 01/07/24 01/07/24 01/07/24 Range/Units 09:14 09:37 10:04 WBC 6.02 (4.8-10.8) K/ul RBC 4.38 (4.20-5.40) M/uL Hgb 12.4 (12.0-16.0) g/dl Hct 37.3 (37.0-47.0) % MCV 85.2 (80.0-100.0) fL MCH 28.3 (25.0-34.0) pg MCHC 33.2 (32.0-36.0) g/dL RDW Std Deviation 43.8 (36.4-46.3) fL RDW Coeff of Mal 14.0 (11.5-14.5) % Plt Count 189 (130-400) K/uL MPV 10.7 (9.4-12.4) fL Immature Gran % (Auto) 0.3 % Neut % (Auto) 76.2 % Lymph % (Auto) 13.5 % [place] % (Auto) 9.8 % Eos % (Auto) 0.0 % Baso % (Auto) 0.2 % Neut # (Auto) 4.59 (1.40-6.50) K/uL Lymph # (Auto) 0.81 L (1.20-3.40) K/uL [place] # (Auto) 0.59 (0.11-0.59) K/uL Eos # (Auto) 0.00 (0.00-0.50) K/uL Baso # (Auto) 0.01 (0.00-0.20) K/uL Immature Gran # (Auto) 0.02 (0.01-0.20) K/uL PT 25.2 H (9.0-12.0) Seconds INR 2.5 H (0.9-1.1) Sodium 137 (136-145) mmol/L Potassium 4.0 (3.5-5.1) mmol/L Chloride 103 (98-107) mmol/L Carbon Dioxide 27 (21-32) mmol/L Anion Gap 7 (3-11) BUN 20 (6-23) mg/dl Creatinine 1.17 (0.6-1.2) mg/dl Est Cr Clr Drug Dosing 41.3 ml/min Est GFR ( Amer) 50.6 ml/min Est GFR (Non-Af Amer) 43.7 ml/min BUN/Creatinine Ratio 17.1 (10-20) Glucose 100 H (70-99(Fasting)) mg/dl Calcium 9.5 (8.6-10.3) mg/dl Magnesium 2.1 (1.7-2.4) mg/dl Total Bilirubin 0.7 (0.2-1.0) mg/dl Direct Bilirubin 0.1 (0-0.2) mg/dl AST 20 (13-39) U/L ALT 14 (7-52) U/L Alkaline Phosphatase 83 (34-104) U/L Troponin I High Sens 10.3 (0-14) pg/ml B-Natriuretic Peptide 819 H (0-100) pg/ml Total Protein 7.5 (6.0-8.3) gm/dl Albumin 4.3 (3.4-5.0) gm/dl TSH 3.284 (0.300-4.500) uIu/ml Urine Color Yellow Urine Appearance Clear (Clear) Urine pH 6.5 (4.5-7.5) Ur Specific [place] 1.006 (1.000-1.030) Urine Protein Trace H (Negative) Urine Glucose (UA) Negative (Negative) Urine Ketones Negative (Negative) Urine Blood 3+ H (Negative) Urine Nitrite Negative (Negative) Urine Bilirubin Negative (Negative) Urine Urobilinogen Negative (Negative) Ur Leukocyte Esterase Negative (Negative) Urine WBC (Auto) 0-5 (0-5) /hpf Urine RBC (Auto) >20 H (0-2) /hpf U Hyaline Cast (Auto) 0-2 (0-2) /lpf U Epithel Cells (Auto) 0-2 (0-2) /hpf Urine Bacteria (Auto) None Seen (None Seen) SARS-CoV-2 (PCR) NEGATIVE (Negative) Influenza Type A (PCR) Negative (Neg) Influenza Type B (PCR) Negative (Neg) RSV (RT-PCR) Negative (Neg) Administered Medications Warfarin Sodium (Warfarin Sod 3 Mg Tab) 3 mg PO DAILY@1600 RILEY Stop: 02/06/24 15:59 Last Admin: 01/07/24 16:28 Dose: 3 mg Documented By: KTS Discontinued Medications Sodium Chloride (Nss) 500 mls @ 999 mls/hr IV .Q31M ONE Stop: 01/07/24 09:58 Last Infusion: 01/07/24 10:45 Dose: Infused Documented By: Admin: 01/07/24 09:53 Dose: 999 mls/hr Documented By: CEF Metoprolol Tartrate (Metoprolol Tartrate 1 Mg/Ml Vial) 5 mg IV NOW STA Stop: 01/07/24 09:29 Last Admin: 01/07/24 09:51 Dose: 5 mg Documented By: CEF Metoprolol Tartrate (Metoprolol Tartrate 1 Mg/Ml Vial) 5 mg IV NOW STA Stop: 01/07/24 10:43 Last Admin: 01/07/24 10:48 Dose: 5 mg Documented By: CEF Imaging Data Radiologist's Impression: Chest X-Ray 01/07/24 09:28 XR chest 1V portable HISTORY: tachycardia, sob with exertion COMPARISON: Chest 01/05/2024. FINDINGS: No pneumothorax. The cardiac silhouette is mildly enlarged. A few bibasilar linear densities favor subsegmental atelectasis or scarring. There is mild central pulmonary vascular congestion without overt edema. Suspect trace bilateral pleural effusions. IMPRESSION: Cardiomegaly with mild congestive change and trace bilateral pleural effusions. ACT 112: Negative or not required by law. Electronically signed by: Andrés Davis M.D. 01/07/2024 10:16 AM Discharge Plan Visit Data Chief Complaint: Cardiac Assessment Stated Complaint: CHEST PAIN, A-FIB, TACHYCARDIA ED Provider: Chandler Foreman Discharge Problem: Atrial fibrillation with rapid ventricular response Patient Disposition: Admitted As Inpatient Discharge Instructions Interventions: ED Discharge Assessment Last Done: 01/07/24 13:16
--- NOTE | 2024-01-07 09:45 | Electrocardiogram Report ---
Test Reason : Blood Pressure : / mmHG Vent. Rate : 103 BPM Atrial Rate : 000 BPM P-R Int : 000 ms QRS Dur : 136 ms QT Int : 362 ms P-R-T Axes : 000 032 -20 degrees QTc Int : 474 ms Atrial fibrillation with rapid ventricular response with premature ventricular or aberrantly conducte d complexes Right bundle branch block Abnormal ECG When compared with ECG of 05-JAN-2024 04:36, No significant change was found Confirmed by Fernando Parra ([id number]) on 01/07/2024 9:44:43 AM Referred By: Confirmed By:Chidi Parra
[2024-01-07] MEDS: METOPROLOL TARTRATE 1 MG/ML VIAL IV STA ×2 (09:51→10:48)
[2024-01-07] MEDS: SODIUM CHLORIDE 0.9% 500 ML IV ONE (09:53)
[2024-01-07 09:58] LABS: Appearance Urine Clear (Clear); Bacteria Urine Automated None Seen (None Seen); Bilirubin Urine Negative (Negative); Blood Urine 3+ (Negative); Cast Urine Automated 0-2 /lpf (0-2); Color Urine Yellow; Epithelial Cell Urine Auto 0-2 /hpf (0-2); Glucose Urine UA Negative (Negative); Ketones Urine Negative (Negative); Leukocyte Esterase Urine Negative (Negative); Nitrite Urine Negative (Negative); Protein Urine Trace (Negative); RBC Urine Automated >20 /hpf (0-2); Specific Gravity Urine 1.006 (1.000-1.030); Urobilinogen Urine Negative (Negative); WBC Urine Automated 0-5 /hpf (0-5); pH Urine 6.5 (4.5-7.5)
[2024-01-07 10:02] LABS: Basophils # (auto) 0.01 K/uL (0.00-0.20); Basophils % (auto) 0.2 %; Hematocrit (blood only) 37.3 % (37.0-47.0); Hemoglobin 12.4 g/dl (12.0-16.0); Immature Granulocytes # (auto) 0.02 K/uL (0.01-0.20); Immature Granulocytes % (auto) 0.3 %; Lymphocytes # (auto) 0.81 K/uL (1.20-3.40); Lymphocytes % (auto) 13.5 %; Mean Corpuscular Hemoglobin 28.3 pg (25.0-34.0); Mean Corpuscular Hgb Conc 33.2 g/dL (32.0-36.0); Mean Corpuscular Volume 85.2 fL (80.0-100.0); Mean Platelet Volume 10.7 fL (9.4-12.4); Monocytes # (auto) 0.59 K/uL (0.11-0.59); Monocytes % (auto) 9.8 %; Neutrophils # (auto) 4.59 K/uL (1.40-6.50); Neutrophils % (auto) 76.2 %; Platelet Count 189 K/uL (130-400); RDW Standard Deviation 43.8 fL (36.4-46.3); Red Blood Count 4.38 M/uL (4.20-5.40); White Blood Count 6.02 K/ul (4.8-10.8)
[2024-01-07 10:09] LABS: Albumin Level 4.3 gm/dl (3.4-5.0); BUN Creatinine Ratio 17.1 (10-20); Bilirubin Direct 0.1 mg/dl (0-0.2); Bilirubin,Total 0.7 mg/dl (0.2-1.0); Calcium 9.5 mg/dl (8.6-10.3); Creatinine Clr Calc Pharmacy 41.3 ml/min; Est GFR (African American) 50.6 ml/min; Est GFR (Non-African American) 43.7 ml/min; Magnesium 2.1 mg/dl (1.7-2.4); Total Protein 7.5 gm/dl (6.0-8.3)
[2024-01-07 10:14] LABS: Troponin I High Sensitivity 10.3 pg/ml (0-14)
--- NOTE | 2024-01-07 10:17 | XRay Report ---
XR chest 1V portable HISTORY: tachycardia, sob with exertion COMPARISON: Chest 01/05/2024. FINDINGS: No pneumothorax. The cardiac silhouette is mildly enlarged. A few bibasilar linear densitie s favor subsegmental atelectasis or scarring. There is mild central pulmonary vascular congestion wit hout overt edema. Suspect trace bilateral pleural effusions. IMPRESSION: Cardiomegaly with mild congestive change and trace bilateral pleural effusions. ACT 112: Negative or not required by law. Electronically signed by: Andrés Davis M.D. 01/07/2024 10:16 AM
[2024-01-07 10:24] LABS: Thyroid Stimulating Hormone 3.284 uIu/ml (0.300-4.500)
[2024-01-07 10:32] LABS: INR 2.5 (0.9-1.1); Prothrombin Time 25.2 Seconds (9.0-12.0)
[2024-01-07 10:53] LABS: Influenza A virus by PCR Negative (Neg); Influenza B virus by PCR Negative (Neg); RSV by PCR Negative (Neg); SARS CoV2 RNA(COVID-19) Ceph NEGATIVE (Negative)
--- NOTE | 2024-01-07 11:33 | History & Physical Report ---
Date of Service January 07, 2024 Assessment & Plan (1) Atrial fibrillation with rapid ventricular response: Plan: Patient presented for tachycardia and SANTANA on 01/06 A-fib RVR on arrival TSH WNL Continue flecainide, metoprolol, warfarin Lopressor 5 mg IV q6h as needed for A-fib with RVR >140bpm Patient has reportedly required cardioversion for this in the past; will make n.p.o. at midnight (can discontinue if needed) [facility] Continue telemetry monitoring A.m. CBC, BMP, mag, PT/INR (2) Chest pain: Plan: Patient also notes right-sided chest pain with radiation to the back x 2 days Negative troponin on arrival, repeat pending Given multiple hours of chest pain without concomitant rise of troponin, lower suspicion for cardiac etiology The setting of recent pool exercises, and pain reproducible on palpation, suspect some component of MSK Continuous telemetry monitoring (3) Obstructive sleep apnea syndrome: Plan: CPAP HS Plan Disposition: Admit to PCU telemetry Full code Heart healthy diet VTE PPx: Warfarin History of Present Illness Chief Complaint: Cardiac assessment Primary Care Provider: Horace Lopez MD Pam is a pleasant 83-year-old female with PMH of Sjogren's syndrome, Raynaud's disease, HTN, CAD, systemic lupus erythematous, COPD, tremor, hypothyroidism, kidney stones, IBS, paroxysmal A-fib (on warfarin), and atrial flutter. She presented on 01/06 for SOB and right-sided chest pain. She reports that her pain is located midline at her right breast, with radiation to the right scapula. The pain started 2 days ago, and has been constant but intermittently gets worse. She describes it as a sharp stabbing pain. Worse with movements and deep breaths. She has been taking Tylenol x 4 tablets, which helped with the pain somewhat. She rates the pain 5/10 at present, 8/10 at worst. Patient also reports increased respiratory distress; SOB both at rest and with exertion; worsened with deep breaths and coughing. No orthopnea, or SOB when she lies flat on her back. Patient is a [facility] resident. Patient's daughter is at the bedside and provides additional history. Nursing at [facility] advised patient come in for ongoing right-sided chest pain, tachycardia, and SOB. Patient uses a CPAP at night. No other supplemental oxygen at baseline. She took her regular morning medications. Only recent change was that she cut her metoprolol in half due to bradycardia. No history of DVT/PE. Remote history of 2 UTIs within the past month. No recent injuries to the chest wall. No recent falls. Patient does note she was exercising in the pool last Monday, and thought she might of strained a muscle on her right side. She is up-to-date on her shingles vaccine. She denies noticing any rashes or bruising on the right chest wall. Patient denies smoking, tobacco use, and recent alcohol use. Patient is hypertensive at 151/93 and tachycardic around 100 bpm at time of admission. ED course: Lopressor 5 mg IV x 2 NSS 500 mL IV ROS: Patient endorses mild MOSS, right-sided CP, pleuritic CP, SOB at rest and with exertion, nausea, Patient denies fever, chills, night-sweats, lightheadedness, dizziness, chest palpitations (unable to feel when her heart is racing), coughing, hemoptysis, abdominal pain, vomiting, diarrhea, changes in urinary/bowel habits, burning with urination, blood in the urine/stool, or numbness/tingling in the arms or legs. Allergies Allergy/AdvReac Type Severity Reaction Status Date / Time hydroxychloroquine Allergy Intermediate TOXICITY Verified 06/08/23 08:20 OF THE RETINA ibuprofen Allergy Intermediate SWELLING Verified 06/08/23 08:20 atorvastatin AdvReac Mild "UNCOMFORTABLE" Verified 06/08/23 08:20 AND CREATININE INCREASED SLIGHTLY Home Medications Medication Instructions Recorded Confirmed Type cholecalciferol (vitamin D3) 25 2,000 unit PO QAM 06/25/18 01/07/24 History mcg (1,000 unit) tablet (Vitamin D3) multivitamin 1 tab PO QAM 06/25/18 01/07/24 History vitamins A,C,A-advs-symcsf 2,148 1 tab PO BID 06/25/18 01/07/24 History mcg-113 mg-45 mg-17.4 mg tablet (PreserVision AREDS) baclofen 10 mg tablet 10 mg PO BID 04/20/22 01/07/24 History flecainide 50 mg tablet 50 mg PO BID 05/20/22 01/07/24 History metoprolol succinate 25 mg 37.5 mg PO DAILY 08/19/22 01/07/24 History tablet,extended release 24 hr furosemide 20 mg tablet 20 mg PO DAILY 09/22/22 01/07/24 History primidone 50 mg tablet 50 mg PO BID 09/22/22 01/07/24 History rosuvastatin 40 mg tablet 40 mg PO QAM 12/22/22 01/07/24 History levothyroxine 88 mcg capsule 88 mcg PO DAILY 04/24/23 01/07/24 History montelukast 5 mg chewable tablet 5 mg PO QPM #90 tabs 05/30/23 01/07/24 Rx acetaminophen 500 mg tablet 500 - 1,000 mg PO HS PRN pain/fever 10/02/23 01/07/24 History lisinopril 10 mg tablet 10 mg PO BID 11/14/23 01/07/24 History warfarin 3 mg tablet 3 mg PO UD 11/24/23 01/07/24 History cyanocobalamin (vitamin B-12) 500 See Rx Instructions PO DAILY 12/04/23 01/07/24 History mcg tablet spironolactone 25 mg tablet See Rx Instructions PO MONWEDFRI 12/21/23 01/07/24 History Past Med/Surg History Problem List (Updated 01/07/24 @ 18:17 by Chandler Foreman MD) Atrial fibrillation with rapid ventricular response (Acute) Chest pain Atrial fibrillation with rapid ventricular response (Acute) Routine gynecological examination Injury of ear canal Chronic anticoagulation (Acute) Hyponatremia PAF (paroxysmal atrial fibrillation) Dizziness (Acute) Chest tightness (Acute) Acute hyponatremia (Acute) Atrial flutter with rapid ventricular response (Acute) Irritable bowel syndrome with diarrhea Tubular adenoma Diarrhea Encounter for pre-operative examination Kidney stones (Chronic) Hypothyroidism Palpitations (Acute) Vitamin D deficiency (Chronic) Hypertension (Chronic) Anemia (Chronic) Obstructive sleep apnea syndrome cpap Tremor (Acute) Gait disturbance Fall Balance problem Vitamin D deficiency (Acute) Chronic obstructive pulmonary disease Systemic lupus erythematosus (Chronic) Chronic kidney disease, stage II (mild) (Chronic) CAD (coronary artery disease) NONOBSTRUCTIVE Diagnostic cardiac catheterization August 2018 with minimal coronary atherosclerosis and no obstruction, elevated end-diastolic pressure HTN (hypertension) Chronic lumbar radiculopathy (Acute) Raynaud's disease (Chronic) Sjogren's syndrome (Chronic) Medical History Asthma CAD (coronary artery disease) Chronic back pain Chronic kidney disease, stage II (mild) Chronic lumbar radiculopathy Chronic obstructive pulmonary disease Difficult airway for intubation Essential tremor GERD (gastroesophageal reflux disease) Hemangioma of liver History of brain tumor HTN (hypertension) Hypothyroid Idiopathic thrombocytopenia Left hip pain Macular degeneration Muscle cramping Near syncope Osteoarthritis Osteoporosis PVC (premature ventricular contraction) Raynaud's disease Scoliosis Sjogren's syndrome SLE (systemic lupus erythematosus) Sleep apnea Systemic lupus erythematosus Temporomandibular joint disorder Valvular heart disease Vitamin D deficiency Surgical History History of appendectomy History of brain surgery History of colonoscopy History of esophagogastroduodenoscopy (EGD) History of hysterectomy History of tonsillectomy History of tubal ligation S/P UVPP (uvulopalatopharyngoplasty) Family History Aunt Family history of pseudocholinesterase deficiency PATERNAL Breast cancer Father Myocardial infarction Prostate cancer Brother Prostate cancer Denies family history of Ovarian cancer Colorectal cancer Social History Smoking Status: Never smoker Second Hand Exposure: No; Do You Dip or Chew Tobacco: No; Hx Alcohol Use: No Hx Substance Use: No Preferred Language: Hebrew Communication Ability: Effective Corporate Officer Required: No Beliefs That Will Affect Care: None marital status: Current Living Situation Comment: [facility] current occupational status: retired Other Information That Helps Us Care for You: No Feels Safe at Home: Yes Childhood Exposure to Second-Hand Smoke: Yes Dental Care, Regularly: Yes Physical Activity Frequency: Daily Seatbelt Use: always Sunscreen Use: Yes Assistive Devices: Glasses Review of Systems Review of Systems: See HPI above Physical Exam Physical Exam: General: no acute distress; non-toxic appearing; well-nourished; cooperative; SpO2 95% on RA HEENT: normocephalic, atraumatic; no scleral icterus; PERRLA w/ EOMs intact; vision and hearing grossly intact Neck: supple; no lymphadenopathy; no JVD; trachea midline Skin: warm, dry without signs of tenting; no cyanosis; patient's fingers are white and cold to touch; no rashes, bruising, lesions, or erythema noted CV: chest wall is tender to palpation on the right side just above the right breast; no rashes or vesicles noted along the abdomen, chest wall, or flanks; irregularly irregular rhythm around [id number] bpm; S1/S2 normal; no murmurs/rubs/gallops; pulses intact and symmetric at radial, DP, and PT Lungs: no acute respiratory distress; symmetrical chest wall expansion; clear breath sounds across all lung anderson w/o adventitious sounds; no wheezing ABD: Soft, NTP; BS present; no rebound/guarding; no distention MSK: no tics or fasciculations; no edema noted in the LEs b/l, nonerythematous Neuro: A&Ox3; normal mood and affect; fluent speech; no focal deficits; sensation grossly intact in the LEs b/l Results & Data Results & Data Vital Signs (Past 12 Hours) Vital Signs Temp Pulse Pulse Resp BP BP Pulse Ox 01/07/24 11:12 100 H 151/93 H 01/07/24 11:00 108 H 21 161/116 H 95 01/07/24 10:48 96 H 21 161/117 H 96 01/07/24 10:48 100 H 161/117 H 01/07/24 10:34 106 H 125/104 H 01/07/24 10:00 88 19 122/79 94 01/07/24 09:51 100 H 122/87 01/07/24 09:33 01/07/24 09:14 99 H 20 128/95 98 01/07/24 09:12 105 H 01/07/24 08:53 01/07/24 08:53 36.6 C 102 H 18 120/83 97 O2 Del Method 01/07/24 11:12 01/07/24 11:00 Room Air 01/07/24 10:48 Room Air 01/07/24 10:48 01/07/24 10:34 01/07/24 10:00 Room Air 01/07/24 09:51 01/07/24 09:33 Room Air 01/07/24 09:14 Room Air 01/07/24 09:12 01/07/24 08:53 Room Air 01/07/24 08:53 Laboratory Results Abnormal lab results 01/07/24 01/07/24 Range/Units 09:14 09:37 Lymph # (Auto) 0.81 L (1.20-3.40) K/uL PT 25.2 H (9.0-12.0) Seconds INR 2.5 H (0.9-1.1) Glucose 100 H (70-99(Fasting)) mg/dl B-Natriuretic Peptide 819 H (0-100) pg/ml Urine Protein Trace H (Negative) Urine Blood 3+ H (Negative) Urine RBC (Auto) >20 H (0-2) /hpf Diagnostic Findings Chest X-Ray 01/07/24 09:28 XR chest 1V portable HISTORY: tachycardia, sob with exertion COMPARISON: Chest 01/05/2024. FINDINGS: No pneumothorax. The cardiac silhouette is mildly enlarged. A few bibasilar linear densities favor subsegmental atelectasis or scarring. There is mild central pulmonary vascular congestion without overt edema. Suspect trace bilateral pleural effusions. IMPRESSION: Cardiomegaly with mild congestive change and trace bilateral pleural effusions. ACT 112: Negative or not required by law. Electronically signed by: Andrés Davis M.D. 01/07/2024 10:16 AM ECG Additional Comments: ECG revealed atrial fibrillation with RVR at 103 bpm; QTc 474 Code Status & VTE Plan Code Status Full code VTE Prophylaxis Plan VTE Prophylaxis will be ordered: Yes Supervising Physician Co-Signing Physician Notes Attending addendum: I have physically seen this patient, have supervised the MARIAELENA's activities, and agree with the H&P unless as otherwise noted. Assessment and Plan: Atrial fibrillation with RVR/hypertension- Continue metoprolol succinate, flecainide, warfarin, lisinopril The patient will be admitted to telemetry for serial cardiac enzymes, serial EKG's, cardiac rhythm monitoring Potassium 4.0, magnesium 2.1 Coumadin therapeutic INR 2.5 Consult [facility] cardiology ED conversation with cardiology suggest possible cardioversion tomorrow as during previous admissions RAINER- Continue CPAP at bedtime PG Care Time/CCT Total # of Minutes Spent Total Time Spent with Patient: Total time spent is greater than 50% in coordination of care (as documented) at patient's floor/unit and/or counseling patient: Coding [place] [address] INT INP/OBS CARE 255MIN Patient Type Established Medical Decision Making Moderate Complexity Diagnoses Atrial fibrillation with rapid ventricular response I48.91 Chest pain R07.9 Obstructive sleep apnea syndrome G47.33
[2024-01-07] MEDS ORDERED: METOPROLOL TARTRATE 1 MG/ML VIAL IV PRN (13:10)
[2024-01-07] MEDS ORDERED: ONDANSETRON INJ 2 MG/ML 2 ML VIAL IV PRN (13:10)
[2024-01-07] MEDS: WARFARIN SOD 3 MG TAB PO SCH (16:28)
[2024-01-07] MEDS: MONTELUKAST SOD 5 MG CHEWABLE TAB PO SCH (21:06)
[2024-01-07] MEDS: PRIMIDONE 50 MG TAB PO SCH (21:06)
[2024-01-07] MEDS: FLECAINIDE ACETATE 100 MG TABLET PO SCH (21:07)
[2024-01-07] MEDS: BACLOFEN 10 MG TAB PO SCH (21:07)
[2024-01-07] MEDS: lisinopril 10 MG TAB PO SCH (21:07)
[2024-01-08] MEDS: FUROSEMIDE 40 MG/4 ML VIAL IV ONE (03:18)
[2024-01-08] MEDS: LEVOTHYROXINE SODIUM 88 MCG TABLET PO SCH (05:41)
[2024-01-08 07:39] LABS: Basophils # (auto) 0.01 K/uL (0.00-0.20); Basophils % (auto) 0.1 %; Hematocrit (blood only) 35.6 % (37.0-47.0); Immature Granulocytes # (auto) 0.03 K/uL (0.01-0.20); Immature Granulocytes % (auto) 0.4 %; Lymphocytes # (auto) 0.49 K/uL (1.20-3.40); Lymphocytes % (auto) 6.5 %; Mean Corpuscular Hemoglobin 28.4 pg (25.0-34.0); Mean Corpuscular Hgb Conc 33.7 g/dL (32.0-36.0); Mean Corpuscular Volume 84.4 fL (80.0-100.0); Mean Platelet Volume 11.3 fL (9.4-12.4); Monocytes # (auto) 0.55 K/uL (0.11-0.59); Monocytes % (auto) 7.3 %; Neutrophils # (auto) 6.46 K/uL (1.40-6.50); Neutrophils % (auto) 85.7 %; Platelet Count 180 K/uL (130-400); RDW Coefficient of Variation 13.9 % (11.5-14.5); RDW Standard Deviation 43.1 fL (36.4-46.3); Red Blood Count 4.22 M/uL (4.20-5.40); White Blood Count 7.54 K/ul (4.8-10.8)
[2024-01-08 08:58] LABS: Potassium 3.7 mmol/L (3.5-5.1)
[2024-01-08 09:00] LABS: Prothrombin Time 29.2 Seconds (9.0-12.0)
[2024-01-08 09:03] LABS: BUN Creatinine Ratio 20.7 (10-20); Creatinine Clr Calc Pharmacy 43.6 ml/min; Est GFR (African American) 53.9 ml/min; Est GFR (Non-African American) 46.5 ml/min
[2024-01-08] MEDS: ROSUVASTATIN CALCIUM 20 MG TAB PO SCH (10:37)
[2024-01-08] MEDS: FUROSEMIDE 20 MG TAB PO SCH (10:37)
[2024-01-08] MEDS: SPIRONOLACTONE 25 MG TAB PO SCH (10:38)
[2024-01-08] MEDS: METOPROLOL SUCC 25MG EXT REL TAB PO SCH (10:38)
[2024-01-08 12:36] LABS: C Reactive Protein 18.97 mg/dl (0-0.5)
[2024-01-08] MEDS: ACETAMINOPHEN 325 MG TAB PO PRN (13:04)
--- NOTE | 2024-01-08 15:12 | Cardiology Consultation ---
Date of Consultation January 08, 2024 Assessment & Plan (1) Atrial fibrillation with rapid ventricular response: (2) Pleuritic chest pain: (3) Nonobstructive atherosclerosis of coronary artery: (4) Tachy-donnie syndrome: (5) RAINER on CPAP: (6) Labile hypertension: (7) Lupus: Plan Agree with cautious titration of metoprolol succinate back to 37.5 mg/day Supplement potassium orally, after IV furosemide early this AM One-time dose of flecainide, 100 mg, after ensure normokalemia NPO after midnight for possible direct-current cardioversion in AM. Resting echocardiography pending Possible pacemaker and future Watchman discussed with patient and daughter who was present for the consultation. Supervising Physician Co-Signing Physician Notes Attending attestation: Case reviewed with the advanced practitioner. I have personally performed a history and physical examination on the patient. I have reviewed the advanced practitioner's documentation on the date of service referenced in note, and I agree with, and take responsibility for the plan of care. Subjective: Pleuritic chest discomfort noted this morning, which is new compared to when I had seen her just 3 days ago. Patient definitely has difficulty taking a deep breath in and this reproduces her presenting symptoms. EKG without changes to suggest pericarditis. Exam: Musculoskeletal: No reproduction of chest wall pain on palpitation of the costal sternal margin Cardiovascular: Irregular rhythm, 1/6 systolic murmur, no edema Data: Echocardiogram performed today revealed mild concentric left ventricular perjury, LVEF in the range of 55 to 60%, with no regional wall motion abnormalities, mild aortic valve sclerosis without stenosis C-reactive protein elevated 18.97 mg/dL Mild erythrocyte sedimentation elevation 59 mm/h Impression/ Plan: Patient is chronically anticoagulated, INR on presentation 3, and therefore I think the likelihood of her having pulmonary embolism is low. With noted elevation in inflammatory markers, no EKG evidence of pericarditis, no pericardial effusion, question if her symptoms are related to pleuritis -Proceed with trial of prednisone 20 mg daily, along with Protonix for GI prophylaxis Replace potassium Future considerations include increasing flecainide dose for better rate and rhythm control, holding Coumadin for INR of 3 and possible consideration of pacemaker this admission or near future. Depending upon course, may start heparin bridge for INR less than 2 if pacemaker planned this admission. I spent a total of 20 minutes coordinating, documenting, and providing care for this patient excluding time spent in the performance of separately billed services or time spent by another provider. Marko Estrada, History of Present Illness Reason for Consultation: Atrial fibrillation with a rapid ventricular response, cardiac assessment. Requesting Physician: Andrés Miller PA-C Attending Physician: Kemal Quigley History of Present Illness Monday and Monday she felt well, exercised in the pool both days without difficulty. Started to feel weird on . Evaluated at the [facility] ER on Monday, worried about her heart after being alerted to elevated rates via her Apple Watch. Experiencing increased fatigue, tiredness, a harder time getting around - shortness of breath when walking [place] the [place] (not enough to stop, just slow down) Over the weekend she developed right-sided chest discomfort worse with inspiration and lying down, radiating below the right shoulder Return to the ER on January 07, 2024. EKG revealed atrial fibrillation with a ventricular rate of 103 bpm, without acute ST segment change compared to prior. Chest x-ray with cardiomegaly and mild congestive change, trace bilateral pleural effusions. Received 40 mg of IV furosemide in administrative services assistant hours of January 08, 2024 without expected increased urinary output, without improvement in dyspnea. Laboratory work with normal white blood cell count. H&H were 12.0 and 35.6. INR therapeutic on presentation, 2.5, 3.0 this morning. Metabolic panel with mild hyponatremia (134), low normal potassium (3.7), normal BUN and creatinine. Inflammatory markers elevated with a CRP of 18.97, erythrocyte sedimentation rate 59. High-sensitivity troponin negative x 2 on January 07, 2024 (10.3 then 13.6) Patient denies recent colds or illnesses, sick contacts, subjective fevers, chills, night sweats, dizziness, near-syncope, syncope, rash, overt palpitations, vomiting, or diarrhea Problem List Systemic lupus erythematosus Longstanding labile hypertension, diastolic dysfunction Pulmonary hypertension Obstructive sleep apnea on CPAP supplementation since 1995 Chronic essential tremor Diagnostic cardiac catheterization August 2018 with minimal coronary atherosclerosis and no obstruction, elevated end-diastolic pressure Hyperlipidemia Chronic renal insufficiency stage 3 Hypothyroidism Paroxysmal atrial fibrillation. Dagnosed in April 2022 requiring VINAY/CV. Beta faith limited due to sinus bradycardia. Anticoagulated with coumadin, managed via [facility] with labile INR's, coumadin felt to be anticoagulant of choice noting the chronic use of Primidone. Palpitations documented to occur in association with sinus rhythm, sinus tachycardia, supraventricular ectopy, ventricular ectopy, and paroxysmal atrial fibrillation/flutter. Asymptomatic atrial tachycardia Chronic mild resting bradycardia Borderline Tachy-Donnie Syndrome. EP visit with [facility]/Dr. Albarran on 05/11/2022, RE: treatment options for PAF, ? Watchman implantation. Ongoing beta faith was recommended. Second opinion at [facility]. Prescribed flecainide 50 mg BID for rhythm control on 05/18/2022. (Multaq was considered but not covered by i nsurance). Chronic gait instability/dizziness/falls Anxiety Allergies Allergy/AdvReac Type Severity Reaction Status Date / Time hydroxychloroquine Allergy Intermediate TOXICITY Verified 06/08/23 08:20 OF THE RETINA ibuprofen Allergy Intermediate SWELLING Verified 06/08/23 08:20 atorvastatin AdvReac Mild "UNCOMFORTABLE" Verified 06/08/23 08:20 AND CREATININE INCREASED SLIGHTLY Home Medications Medication Instructions Recorded Confirmed Type cholecalciferol (vitamin D3) 25 2,000 unit PO QAM 06/25/18 01/07/24 History mcg (1,000 unit) tablet (Vitamin D3) multivitamin 1 tab PO QAM 06/25/18 01/07/24 History vitamins A,C,C-ntks-nekeqe 2,148 1 tab PO BID 06/25/18 01/07/24 History mcg-113 mg-45 mg-17.4 mg tablet (PreserVision AREDS) baclofen 10 mg tablet 10 mg PO BID 04/20/22 01/07/24 History flecainide 50 mg tablet 50 mg PO BID 05/20/22 01/07/24 History metoprolol succinate 25 mg 37.5 mg PO DAILY 08/19/22 01/07/24 History tablet,extended release 24 hr furosemide 20 mg tablet 20 mg PO DAILY 09/22/22 01/07/24 History primidone 50 mg tablet 50 mg PO BID 09/22/22 01/07/24 History rosuvastatin 40 mg tablet 40 mg PO QAM 12/22/22 01/07/24 History levothyroxine 88 mcg capsule 88 mcg PO DAILY 04/24/23 01/07/24 History montelukast 5 mg chewable tablet 5 mg PO QPM #90 tabs 05/30/23 01/07/24 Rx acetaminophen 500 mg tablet 500 - 1,000 mg PO HS PRN pain/fever 10/02/23 4 History lisinopril 10 mg tablet 10 mg PO BID 11/14/23 01/07/24 History warfarin 3 mg tablet 3 mg PO UD 11/24/23 01/07/24 History cyanocobalamin (vitamin B-12) 500 See Rx Instructions PO DAILY 12/04/23 01/07/24 History mcg tablet spironolactone 25 mg tablet See Rx Instructions PO MONWEDFRI 12/21/23 01/07/24 History Patient History Medical History Macular degeneration Muscle cramping SLE (systemic lupus erythematosus) Scoliosis Osteoporosis Osteoarthritis Hemangioma of liver Chronic back pain GERD (gastroesophageal reflux disease) Hypothyroid 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 Sewell PVC (premature ventricular contraction) Bundle branch block follow Dr Sewell Near syncope Left hip pain Surgical History History of esophagogastroduodenoscopy (EGD) History of colonoscopy S/P UVPP (uvulopalatopharyngoplasty) History of tonsillectomy History of brain surgery History of tubal ligation History of hysterectomy History of appendectomy Family History Aunt Family history of pseudocholinesterase deficiency PATERNAL Breast cancer Father Myocardial infarction Prostate cancer Brother Prostate cancer Denies family history of Ovarian cancer Colorectal cancer Social History Smoking Status: Never smoker Second Hand Exposure: No; Do You Dip or Chew Tobacco: No; Hx Alcohol Use: No Hx Substance Use: No Preferred Language: Kiswahili Communication Ability: Effective Manager Enrollment Required: No Beliefs That Will Affect Care: None marital status: Current Living Situation Comment: [facility] [employer] current occupational status: retired Other Information That Helps Us Care for You: No Feels Safe at Home: Yes Childhood Exposure to Second-Hand Smoke: Yes Dental Care, Regularly: Yes Physical Activity Frequency: Daily Seatbelt Use: always Sunscreen Use: Yes Assistive Devices: Cane, CPAP and Walker Review of Systems Review of Systems: Complete Review of Systems is as stated above, negative, or noncontributory. Physical Exam Physical Exam: General: Alert, no distress, comfortable and cooperative Eyes: PER. Conjunctiva pink, sclera clear. HENT: Normocephalic. Atraumatic. Neck: No carotid bruits. No JVD. Heart: Irregularly irregular at 100 bpm. Soft systolic murmur. No rub. Lungs: Clear to auscultation. No rales. No wheeze. Abdomen: +BS. Soft. Nontender. No masses. No organomegaly. Extremities: No edema. No clubbing. No cyanosis. Pulses: radial=2/4, posterior tibial=2/4. Limited neurological examination: No focal deficit. Results & Data Vital Signs (Past 12 Hours) Vital Signs Temp Pulse Resp BP Pulse Ox O2 Del Method 01/08/24 11:54 36.6 C 102 H 18 113/76 94 Room Air 01/08/24 09:24 Room Air 01/08/24 07:16 36.8 C 87 18 95/60 L 92 Room Air 01/08/24 04:08 36.6 C 18 106/68 94 CPAP Laboratory Results Cardiac Enzymes 01/07/24 Range/Units 16:49 Troponin I High Sens 13.6 (0-14) pg/ml Coagulation 01/08/24 Range/Units 06:41 PT 29.2 H (9.0-12.0) Seconds CBC 01/08/24 Range/Units 06:41 WBC 7.54 (4.8-10.8) K/ul RBC 4.22 (4.20-5.40) M/uL Hgb 12.0 (12.0-16.0) g/dl Hct 35.6 L (37.0-47.0) % Plt Count 180 (130-400) K/uL Neut # (Auto) 6.46 (1.40-6.50) K/uL Lymph # (Auto) 0.49 L (1.20-3.40) K/uL [place] # (Auto) 0.55 (0.11-0.59) K/uL Eos # (Auto) 0.00 (0.00-0.50) K/uL Baso # (Auto) 0.01 (0.00-0.20) K/uL Comprehensive Metabolic Panel 01/08/24 Range/Units 06:41 Sodium 134 L (136-145) mmol/L Potassium 3.7 (3.5-5.1) mmol/L Chloride 101 (98-107) mmol/L Carbon Dioxide 24 (21-32) mmol/L BUN 23 (6-23) mg/dl Creatinine 1.11 (0.6-1.2) mg/dl Glucose 121 H (70-99(Fasting)) mg/dl Calcium 9.0 (8.6-10.3) mg/dl Intake and Output 01/08/24 01/08/24 01/08/24 06:59 14:59 22:59 Intake Total 240 / 240 Output Total 300 / 1300 Balance -300 / -675 240 / 240 Intake: Oral 240 / 240 Output: Urine 300 / 1300 Diagnostic Findings Cardiac cath report reviewed dated August 2018: findings: LM -angiographically normal LAD -moderate caliber vessel, gives off moderate caliber first diagonal. Luminal irregularities proximally and as wraps around the apex. Circumflex -moderate caliber vessel, gives off large left PLB. Angiographically normal. RCA -dominant, moderate caliber, mid segment luminal irregularities, 20-30% distal disease. Small right PDA with mild diffuse disease. RA 4 RV 43/8 PA 44/11 (26) PAWP 13 LV 14 PaSat 64% AoSat 94% Jean CO/CI 4.4/2.3 Thermo CO/CI 4.6/2.4 TPG 13 PVR 2.88 Summary: Minimal nonobstructive coronary artery disease. Borderline pulmonary hypertension. Normal left and right-sided filling pressures. Normal cardiac output. Exercise stress ECHO report reviewed dated November 17, 2021: Interpretation Summary: The stress echo is negative for inducible ischemia. No arrhythmias. Hypertensive blood pressure response to exercise. Below average exercise tolerance. At rest, normal LV chamber size and wall thickness. Normal LV systolic function without regional wall motion abnormalities, EF 60 to 65%. Grade 2 diastolic dysfunction. No significant valvular pathology. Mild left atrial enlargement. Echocardiogram completed at [facility] dated April 09, 2022: LV is normal in size. Mild concentric LVH. LV systolic function is normal. Ejection fraction 60- 65%. LV wall motion is normal. RV is normal in size and function. Left atrium is mildly dilated. RV systolic pressure is normal. Trace posterior pericardial effusion. Grade 2 diastolic dysfunction. Nuclear stress test report reviewed dated Feb 2022: Interpretation Summary The combined low intensity exercise/Lexiscan myocardial perfusion imaging study reveals normal perfusion without evidence of infarction or inducible ischemia. Symptoms noted as described below. Gated SPECT imaging reveals normal myocardial thickening and wall motion. The left ventricular ejection fraction was calculated to be 73% (normal). July 2022 Zio Monitor: Patient had a min HR of 43 bpm, max HR of 167 bpm, and avg HR of 65 bpm. Predominant underlying rhythm was Sinus Rhythm. Bundle Branch Block/IVCD was present. 1 run of Ventricular Tachycardia occurred lasting 9 beats with a max rate of 111 bpm (avg 103 bpm). 39 Supraventricular Tachycardia runs occurred, the run with the fastest interval lasting 9 beats with a max rate of 167 bpm, the longest lasting 16.1 secs with an avg rate of 125 bpm. Some episodes of Supraventricular Tachycardia may be possible Atrial Tachycardia with variable block. Isolated SVEs were rare (<1.0%), SVE Couplets were rare (<1.0%), and SVE Triplets were rare (<1.0%). Isolated VEs were occasional (2.8%, [id number]), VE Couplets were rare (<1.0%, 177), and VE Triplets were rare (<1.0%, 29). Ventricular Bigeminy and Trigeminy were present. March 2023 7-day Zio Monitor (while on metoprolol 37.5 mg/day and Flecainide): Patient had a min HR of 38 bpm, max HR of 171 bpm, and avg HR of 57 bpm. Predominant underlying rhythm was Sinus Rhythm. Bundle Branch Block/IVCD was present. 27 Supraventricular Tachycardia runs occurred, the run with the fastest interval lasting 9 beats with a max rate of 171 bpm, the longest lasting 14 beats with an avg rate of 101 bpm. Isolated SVEs were rare (<1.0%), SVE Couplets were rare (<1.0%), and SVE Triplets were rare (<1.0%). Isolated VEs were occasional (3.4%, [id number]), VE Couplets were rare (<1.0%, 91), and no VE Triplets were present. Ventricular bigeminy and Trigeminy were present. Symptoms correlate with sensed ventricular ectopy and sinus rhythm. EKG on January 07, 2024 revealed atrial fibrillation with with a ventricular rate of 103 bpm with premature ventricular or aberrantly conducted complexes, right bundle branch block, QTc of 474 ms Telemetry: Atrial fibrillation with heart rates predominantly in the 1 teens, ranging from 90 to 140 bpm. TTE: Pending this admission
[2024-01-08] MEDS: POTASSIUM CHLORIDE CRTAB 20 MEQ TABCR PO ONE (16:30)
[2024-01-08 16:32] LABS: BUN Creatinine Ratio 20.5 (10-20); Creatinine Clr Calc Pharmacy 38.1 ml/min; Est GFR (African American) 45.8 ml/min; Est GFR (Non-African American) 39.5 ml/min; Potassium 3.2 mmol/L (3.5-5.1)
[2024-01-08] MEDS: predniSONE 20 MG TAB PO SCH (17:32)
[2024-01-08] MEDS: POTASSIUM CHLORIDE CRTAB 20 MEQ TABCR PO STA (17:32)
[2024-01-08] MEDS: PANTOprazole 40 MG TAB PO SCH (17:32)
--- NOTE | 2024-01-08 22:01 | Hospitalist Progress Note ---
Date of Service January 08, 2024 Assessment & Plan (1) Atrial fibrillation with rapid ventricular response: Plan: Patient presented for tachycardia and SANTANA on 01/06 A-fib RVR on arrival TSH WNL Continue flecainide, metoprolol, warfarin Lopressor 5 mg IV q6h as needed for A-fib with RVR >140bpm Patient has reportedly required cardioversion for this in the past; [facility] cardiology consulted Continue telemetry monitoring appreciate input. holding off cardioversion. (2) Chest pain: Plan: Patient also notes right-sided chest pain with radiation to the back x 2 days Negative troponin on arrival, repeat pending Given multiple hours of chest pain without concomitant rise of troponin, lower suspicion for cardiac etiology The setting of recent pool exercises, and pain reproducible on palpation, s uspect some component of MSK Continuous telemetry monitoring Unsure of cause of pleuritis chest pain. WIll monitor inflammatory markers. (3) Obstructive sleep apnea syndrome: Plan: CPAP HS Plan Disposition: Admit to PCU telemetry Full code Heart healthy diet VTE PPx: Warfarin Admission and Anticipated Discharge Date Admission Date: January 07, 2024 Subjective 83 yo female reports breathing slightly better today. She continues to have pain when she takes deep breaths and reports not being close to baseline. Review of Systems Review of Systems: All systems reviewed & are unremarkable except as noted in HPI & below Physical Exam 2 Physical Exam: General: no acute distress; non-toxic appearing; well-nourished; cooperative; eating dinner Head: NC/AT Chest: not using accessory muscles to breath. Results & Data Results & Data Vital Signs (Past 12 Hours) Vital Signs Temp Pulse Resp BP Pulse Ox O2 Del Method 01/08/24 21:58 36.7 C 105 H 18 130/87 94 Room Air 01/08/24 19:10 36.6 C 101 H 18 102/68 93 Room Air 01/08/24 16:39 36.7 C 106 H 18 102/70 94 Room Air 01/08/24 11:54 36.6 C 102 H 18 113/76 94 Room Air PG Care Time/CCT Total # of Minutes Spent Total Time Spent with Patient: Total time spent is greater than 50% in coordination of care (as documented) at patient's floor/unit and/or counseling patient: Coding Level of Care Code 23718 SUB INP/OBS CARE 2/35MIN Diagnoses Atrial fibrillation with rapid ventricular response I48.91 Chest pain R07.9 Obstructive sleep apnea syndrome G47.33
[2024-01-09 06:35] LABS: Hemoglobin 11.7 g/dl (12.0-16.0); Immature Granulocytes # (auto) 0.01 K/uL (0.01-0.20); Immature Granulocytes % (auto) 0.2 %; Lymphocytes # (auto) 0.59 K/uL (1.20-3.40); Lymphocytes % (auto) 10.9 %; Mean Corpuscular Hemoglobin 28.3 pg (25.0-34.0); Mean Corpuscular Hgb Conc 33.4 g/dL (32.0-36.0); Mean Corpuscular Volume 84.7 fL (80.0-100.0); Mean Platelet Volume 11.1 fL (9.4-12.4); Monocytes # (auto) 0.49 K/uL (0.11-0.59); Neutrophils # (auto) 4.34 K/uL (1.40-6.50); Neutrophils % (auto) 79.9 %; Platelet Count 204 K/uL (130-400); RDW Coefficient of Variation 13.9 % (11.5-14.5); RDW Standard Deviation 43.2 fL (36.4-46.3); Red Blood Count 4.13 M/uL (4.20-5.40); White Blood Count 5.43 K/ul (4.8-10.8)
[2024-01-09 06:47] LABS: BUN Creatinine Ratio 21.1 (10-20); C Reactive Protein 20.9 mg/dl (0-0.5); Calcium 9.1 mg/dl (8.6-10.3); Creatinine Clr Calc Pharmacy 43.2 ml/min; Est GFR (African American) 52.2 ml/min; Est GFR (Non-African American) 45.1 ml/min; Magnesium 2.2 mg/dl (1.7-2.4); Potassium 3.9 mmol/L (3.5-5.1)
[2024-01-09 06:57] LABS: INR 3.2 (0.9-1.1); Prothrombin Time 31.7 Seconds (9.0-12.0)
--- NOTE | 2024-01-09 12:34 | Cardiology Progress Note ---
Date of Service January 09, 2024 Assessment & Plan (1) Atrial fibrillation with rapid ventricular response: (2) Pleuritic chest pain: (3) Nonobstructive atherosclerosis of coronary artery: (4) Tachy-jj syndrome: (5) RAINER on CPAP: (6) Labile hypertension: (7) Lupus: Plan Chest discomfort noted on presentation consistent with pleuritis. Continue prednisone 20 mg with plans of a tapering dose over 3 weeks. Continue Protonix for GI prophylaxis while on prednisone. Patient is tolerated mild increase in metoprolol dose. While on telemetry, I think it is reasonable to proceed with increasing her flecainide to 100 mg twice daily for rate and rhythm control. First dose of 50 mg now, for a total of 100 mg this morning, and then 100 mg tonight at 2100. Continue to hold Coumadin for now, INR still above 3. Daughter at bedside during visit today. Questions answered to her satisfaction. Admission and Anticipated Discharge Date Admission Date: January 07, 2024 Subjective Patient seen in cardiology follow-up. Pleuritic chest pain has not resolved completely, but certainly much better. Telemetry reveals atrial fibrillation, ventricular rate for the most part between 80 and 110 bpm, brief episode with rate up to 160 bpm with activity. Underlying right bundle branch block noted. Physical Exam Physical Exam: General: Alert, no distress, comfortable and cooperative Eyes: PER. Conjunctiva pink, sclera clear. HENT: Normocephalic. Atraumatic. Neck: No carotid bruits. No JVD. Heart: Irregularly irregular at 100 bpm. Soft systolic murmur. No rub. Lungs: Clear to auscultation. No rales. No wheeze. Abdomen: +BS. Soft. Nontender. No masses. No organomegaly. Extremities: No edema. No clubbing. No cyanosis. Limited neurological examination: No focal deficit. Results & Data Vital Signs (Past 12 Hours) Vital Signs Temp Pulse Pulse Resp BP Pulse Ox O2 Del Method 01/09/24 10:48 36.6 C 93 H 18 154/98 H 92 Room Air 01/09/24 08:10 79 01/09/24 07:35 36.2 C L 91 H 20 119/77 98 CPAP 01/09/24 04:26 36.7 C 91 H 18 102/73 95 BiPAP Laboratory Results Cardiac Enzymes 01/09/24 Range/Units 05:23 B-Natriuretic Peptide 312 H (0-100) pg/ml Coagulation 01/09/24 Range/Units 05:23 PT 31.7 H (9.0-12.0) Seconds B-Natriuretic Peptide 312 H (0-100) pg/ml INR: 3.2 CBC 01/09/24 Range/Units 05:23 WBC 5.43 (4.8-10.8) K/ul RBC 4.13 L (4.20-5.40) M/uL Hgb 11.7 L (12.0-16.0) g/dl Hct 35.0 L (37.0-47.0) % Plt Count 204 (130-400) K/uL Neut # (Auto) 4.34 (1.40-6.50) K/uL Lymph # (Auto) 0.59 L (1.20-3.40) K/uL [place] # (Auto) 0.49 (0.11-0.59) K/uL Eos # (Auto) 0.00 (0.00-0.50) K/uL Baso # (Auto) 0.00 (0.00-0.20) K/uL Comprehensive Metabolic Panel 01/08/24 01/09/24 Range/Units 15:56 05:23 Sodium 135 L 135 L (136-145) mmol/L Potassium 3.2 L 3.9 D (3.5-5.1) mmol/L Chloride 99 102 (98-107) mmol/L Carbon Dioxide 28 27 (21-32) mmol/L BUN 26 H 24 H (6-23) mg/dl Creatinine 1.27 H 1.14 (0.6-1.2) mg/dl Glucose 99 135 H (70-99(Fasting)) mg/dl Calcium 9.0 9.1 (8.6-10.3) mg/dl Intake and Output 01/08/24 01/09/24 01/09/24 22:59 06:59 14:59 Intake Total 400 / 740 100 / 740 Balance 400 / 740 100 / 740 Intake: Oral 400 / 740 100 / 740 Other: # Unmeasured Voids 1 Weight 87.7 kg
[2024-01-09] MEDS: FLECAINIDE ACETATE 100 MG TABLET PO ONE (13:42)
[2024-01-09] MEDS: FLECAINIDE ACETATE 100 MG TABLET PO SCH (19:54)
--- NOTE | 2024-01-09 21:14 | Hospitalist Progress Note ---
Date of Service January 09, 2024 Assessment & Plan (1) Atrial fibrillation with rapid ventricular response: Plan: Patient presented for tachycardia and SANTANA on 01/06 A-fib RVR on arrival TSH WNL Continue flecainide, metoprolol, warfarin Lopressor 5 mg IV q6h as needed for A-fib with RVR >140bpm Patient has reportedly required cardioversion for this in the past; [facility] cardiology consulted Continue telemetry monitoring appreciate input. holding off cardioversion. Increased flecainide (2) Chest pain: Plan: Patient also notes right-sided chest pain with radiation to the back x 2 days Negative troponin on arrival, repeat pending Given multiple hours of chest pain without concomitant rise of troponin, lower suspicion for cardiac etiology The setting of recent pool exercises, and pain reproducible on palpation, suspect some component of MSK Continuous telemetry monitoring Unsure of cause of pleuritis chest pain. WIll monitor inflammatory markers. continue prednisone (3) Obstructive sleep apnea syndrome: Plan: CPAP HS Plan Disposition: Admit to PCU telemetry Full code Heart healthy diet VTE PPx: Warfarin Admission and Anticipated Discharge Date Admission Date: January 07, 2024 Subjective 83 yo female reports feeling better. Still not at baseline, and continues to have pleuritic chest pain, but the intensity has improved. Review of Systems Review of Systems: All systems reviewed & are unremarkable except as noted in HPI & below Physical Exam Physical Exam: General: no acute distress; non-toxic appearing; well-nourished; cooperative; eating dinner Head: NC/AT Chest: not using accessory muscles to breath. Results & Data Results & Data Vital Signs (Past 12 Hours) Vital Signs Temp Pulse Pulse Resp BP Pulse Ox O2 Del Method 01/09/24 19:25 36.9 C 94 H 18 128/91 95 Room Air 01/09/24 15:14 93 H 01/09/24 14:20 100 H 18 129/81 94 Room Air 01/09/24 10:48 36.6 C 93 H 18 154/98 H 92 Room Air PG Care Time/CCT Total # of Minutes Spent Total Time Spent with Patient: Total time spent is greater than 50% in coordination of care (as documented) at patient's floor/unit and/or counseling patient: Coding Level of Care Code 29451 SUB INP/OBS CARE 2/35MIN Diagnoses Atrial fibrillation with rapid ventricular response I48.91 Chest pain R07.9 Obstructive sleep apnea syndrome G47.33
[2024-01-10 06:06] LABS: Basophils # (auto) 0.01 K/uL (0.00-0.20); Basophils % (auto) 0.2 %; Eosinophils # (auto) 0.01 K/uL (0.00-0.50); Eosinophils % (auto) 0.2 %; Hematocrit (blood only) 31.5 % (37.0-47.0); Hemoglobin 10.5 g/dl (12.0-16.0); Immature Granulocytes # (auto) 0.02 K/uL (0.01-0.20); Immature Granulocytes % (auto) 0.4 %; Lymphocytes # (auto) 1.26 K/uL (1.20-3.40); Lymphocytes % (auto) 22.2 %; Mean Corpuscular Hemoglobin 28.3 pg (25.0-34.0); Mean Corpuscular Hgb Conc 33.3 g/dL (32.0-36.0); Mean Corpuscular Volume 84.9 fL (80.0-100.0); Mean Platelet Volume 10.9 fL (9.4-12.4); Monocytes # (auto) 0.51 K/uL (0.11-0.59); Neutrophils # (auto) 3.87 K/uL (1.40-6.50); Platelet Count 238 K/uL (130-400); RDW Coefficient of Variation 13.9 % (11.5-14.5); RDW Standard Deviation 43.3 fL (36.4-46.3); Red Blood Count 3.71 M/uL (4.20-5.40); White Blood Count 5.68 K/ul (4.8-10.8)
[2024-01-10 06:10] LABS: BUN Creatinine Ratio 24.3 (10-20); C Reactive Protein 10.01 mg/dl (0-0.5); Calcium 8.9 mg/dl (8.6-10.3); Creatinine Clr Calc Pharmacy 34.4 ml/min; Est GFR (African American) 39.4 ml/min; Magnesium 2.2 mg/dl (1.7-2.4); Potassium 3.9 mmol/L (3.5-5.1)
[2024-01-10 06:23] LABS: INR 3.1 (0.9-1.1); Prothrombin Time 30.1 Seconds (9.0-12.0)
--- NOTE | 2024-01-10 11:26 | Cardiology Progress Note ---
Date of Service January 10, 2024 Assessment & Plan (1) Pleuritis: Plan: * Today is day 3 of a planned tapering dose of prednisone. She is currently on 20 mg daily, and will reduce down to 15 mg after 7 days. * Continue Protonix for GI prophylaxis (2) Atrial fibrillation with rapid ventricular response: Plan: * Patient has remained in atrial fibrillation since the babbitter hours of 01/05/2024. * Doses of metoprolol succinate and flecainide consciously increased given age, kidney function, and history of borderline tachycardia-bradycardia syndrome, but remains in atrial fibrillation. * INR remains Therapeutic at 3.1, Coumadin has been on hold. * Plan for direct-current cardioversion tomorrow Admission and Anticipated Discharge Date Admission Date: January 07, 2024 Subjective Patient seen in cardiology follow-up. Her chest discomfort with deep inspiration has improved significantly on prednisone, but she is not back to her normal baseline as of yet. She remains in atrial fibrillation. Rates are in the 80s at rest, and faster up to about 150 bpm with ambulation to the restroom. Physical Exam Physical Exam: General: Alert, no distress, comfortable and cooperative Eyes: PER. Conjunctiva pink, sclera clear. HENT: Normocephalic. Atraumatic. Neck: No carotid bruits. No JVD. Heart: Irregularly irregular at 100 bpm. Soft systolic murmur. No rub. Lungs: Clear to auscultation. No rales. No wheeze. Abdomen: +BS. Soft. Nontender. No masses. No organomegaly. Extremities: No edema. No clubbing. No cyanosis. Limited neurological examination: No focal deficit. Results & Data Vital Signs (Past 12 Hours) Vital Signs Temp Pulse Resp BP Pulse Ox O2 Del Method 01/10/24 10:29 36.4 C L 107 H 17 120/75 96 Room Air 01/10/24 07:54 36.5 C 87 18 122/87 97 Room Air 01/10/24 02:58 36.7 C 71 18 122/83 96 CPAP 01/09/24 23:45 36.7 C 91 H 18 118/83 96 Nasal Cannula, CPAP
--- NOTE | 2024-01-10 20:37 | Hospitalist Progress Note ---
Date of Service January 10, 2024 Assessment & Plan (1) Atrial fibrillation with rapid ventricular response: Plan: Patient presented for tachycardia and SANTANA on 01/06 A-fib RVR on arrival TSH WNL Continue flecainide, metoprolol, warfarin Lopressor 5 mg IV q6h as needed for A-fib with RVR >140bpm Patient has reportedly required cardioversion for this in the past; [facility] cardiology consulted Continue telemetry monitoring appreciate input. cardioversion scheduled for tomorrow. Increased flecainide (2) Chest pain: Plan: Patient also notes right-sided chest pain with radiation to the back x 2 days Negative troponin on arrival, repeat pending Given multiple hours of chest pain without concomitant rise of troponin, lower suspicion for cardiac etiology The setting of recent pool exercises, and pain reproducible on palpation, suspect some component of MSK Continuous telemetry monitoring Unsure of cause of pleuritis chest pain. WIll monitor inflammatory markers. continue prednisone (3) Obstructive sleep apnea syndrome: Plan: CPAP HS Plan Disposition: Admit to PCU telemetry Full code Heart healthy diet VTE PPx: Warfarin Admission and Anticipated Discharge Date Admission Date: January 07, 2024 Subjective 83 yo female reports feeling even better. Continues to have pain but it is much better. Review of Systems Review of Systems: All systems reviewed & are unremarkable except as noted in HPI & below Physical Exam Physical Exam: General: no acute distress; non-toxic appearing; well-nourished; cooperative; eating dinner Head: NC/AT Chest: not using accessory muscles to breath. Heart: irregularly, irregular. Results & Data Results & Data Vital Signs (Past 12 Hours) Vital Signs Temp Pulse Resp BP Pulse Ox O2 Del Method 01/10/24 19:01 36.5 C 98 H 18 132/89 94 Room Air 01/10/24 14:31 36.6 C 85 18 130/84 93 Room Air 01/10/24 10:29 36.4 C L 107 H 17 120/75 96 Room Air PG Care Time/CCT Total # of Minutes Spent Total Time Spent with Patient: Total time spent is greater than 50% in coordination of care (as documented) at patient's floor/unit and/or counseling patient: Coding Level of Care Code 11686 SUB INP/OBS CARE 2/35MIN Diagnoses Atrial fibrillation with rapid ventricular response I48.91 Chest pain R07.9 Obstructive sleep apnea syndrome G47.33
[2024-01-10 21:27] LABS: Hematocrit (blood only) 37.6 % (37.0-47.0); Hemoglobin 12.2 g/dl (12.0-16.0)
[2024-01-11 06:29] LABS: Hematocrit (blood only) 33.1 % (37.0-47.0); Hemoglobin 11.1 g/dl (12.0-16.0); Mean Corpuscular Hemoglobin 28.4 pg (25.0-34.0); Mean Corpuscular Hgb Conc 33.5 g/dL (32.0-36.0); Mean Corpuscular Volume 84.7 fL (80.0-100.0); Mean Platelet Volume 10.1 fL (9.4-12.4); Platelet Count 233 K/uL (130-400); RDW Coefficient of Variation 14.1 % (11.5-14.5); RDW Standard Deviation 43.6 fL (36.4-46.3); Red Blood Count 3.91 M/uL (4.20-5.40); White Blood Count 5.22 K/ul (4.8-10.8)
[2024-01-11 06:52] LABS: BUN Creatinine Ratio 28.2 (10-20); Creatinine Clr Calc Pharmacy 37.4 ml/min; Est GFR (African American) 44.1 ml/min; Est GFR (Non-African American) 38.1 ml/min; Potassium 3.8 mmol/L (3.5-5.1)
[2024-01-11] MEDS ORDERED: PROPOFOL IV EMULSION 10 MG/ML 20 ML VIAL IV ONE (06:59)
--- NOTE | 2024-01-11 07:16 | History & Physical Bridge Note ---
Date of Service January 11, 2024 History & Physical Bridge Note I have examined the patient, reviewed the History & Physical and in the interval since the performance of the History & Physical I have noted the following changes of clinical significance: no changes noted. Proceed with direct current cardioversion.
--- NOTE | 2024-01-11 07:32 | Anesthesiology Consultation ---
Date of Service January 11, 2024 Assessment & Plan Chart Review Chart Review: Acceptable Risk for Surgery and Patient NOT seen in Pre Admission Testing Consults Requested none ASA ASA3 Proposed Anesthesia Anesthesia Type: MAC Risk / Benefits Reviewed With: PT / POA / Parent / Guardian, Accepts Plan and Informed Consent Obtained History Surgery Operation Date: 01/11/24 07:30 Proposed Procedures p Cardioversion w/Anesthesia Sedation - Marko Estrada DO Height/Weight Height: 5 ft 6 in Weight: 86.8 kg Allergies Allergy/AdvReac Type Severity Reaction Status Date / Time hydroxychloroquine Allergy Intermediate TOXICITY Verified 06/08/23 08:20 OF THE RETINA ibuprofen Allergy Intermediate SWELLING Verified 06/08/23 08:20 atorvastatin AdvReac Mild "UNCOMFORTABLE" Verified 06/08/23 08:20 AND CREATININE INCREASED SLIGHTLY Medications Home Medications Medication Instructions Recorded Confirmed Last Taken cholecalciferol (vitamin D3) 25 2,000 unit PO QAM 06/25/18 01/07/24 02/14/21 18:00 mcg (1,000 unit) tablet (Vitamin D3) multivitamin 1 tab PO QAM 06/25/18 01/07/24 02/14/21 08:00 vitamins A,C,Y-tail-oefegi 2,148 1 tab PO BID 06/25/18 01/07/24 02/14/21 18:00 mcg-113 mg-45 mg-17.4 mg tablet (PreserVision AREDS) baclofen 10 mg tablet 10 mg PO BID 04/20/22 01/07/24 Unknown flecainide 50 mg tablet 50 mg PO BID 05/20/22 01/07/24 Unknown metoprolol succinate 25 mg 37.5 mg PO DAILY 08/19/22 01/07/24 Unknown tablet,extended release 24 hr furosemide 20 mg tablet 20 mg PO DAILY 09/22/22 01/07/24 Unknown primidone 50 mg tablet 50 mg PO BID 09/22/22 01/07/24 Unknown rosuvastatin 40 mg tablet 40 mg PO QAM 12/22/22 01/07/24 Unknown levothyroxine 88 mcg capsule 88 mcg PO DAILY 04/24/23 01/07/24 Unknown montelukast 5 mg chewable tablet 5 mg PO QPM #90 tabs 05/30/23 01/07/24 Unknown acetaminophen 500 mg tablet 500 - 1,000 mg PO HS PRN pain/fever 10/02/23 01/07/24 Unknown lisinopril 10 mg tablet 10 mg PO BID 11/14/23 01/07/24 Unknown warfarin 3 mg tablet 3 mg PO UD 11/24/23 01/07/24 Unknown cyanocobalamin (vitamin B-12) 500 See Rx Instructions PO DAILY 12/04/23 01/07/24 Unknown mcg tablet spironolactone 25 mg tablet See Rx Instructions PO MONWEDFRI 12/21/23 01/07/24 Unknown Active Medications Generic Name Dose Route Start Last Admin Trade Name Freq PRN Reason Stop Dose Admin Acetaminophen 650 mg 01/07/24 13:10 01/11/24 06:55 Acetaminophen 325 Mg Tab PO 02/06/24 13:09 650 mg Q4H PRN Administration Pain or Fever Baclofen 10 mg 01/07/24 21:00 01/10/24 21:09 Baclofen 10 Mg Tab PO 02/06/24 20:59 10 mg BID RILEY Administration Flecainide Acetate 100 mg 01/09/24 21:00 01/10/24 21:09 Flecainide Acetate 100 Mg Tablet PO 02/08/24 20:59 100 mg Q12 RILEY Administration Furosemide 20 mg 01/08/24 09:00 01/10/24 08:17 Furosemide 20 Mg Tab PO 02/07/24 08:59 20 mg DAILY RILEY Administration Levothyroxine Sodium 88 mcg 01/08/24 06:30 01/11/24 06:27 Levothyroxine Sodium 88 Mcg Tablet PO 02/07/24 06:29 88 mcg DAILYBB RILEY Administration Lisinopril 10 mg 01/07/24 21:00 01/10/24 21:10 Lisinopril 10 Mg Tab PO 02/06/24 20:59 10 mg BID RILEY Administration Metoprolol Succinate 37.5 mg 01/08/24 09:00 01/10/24 08:18 Metoprolol Succ 25mg Ext Rel Tab PO 02/07/24 08:59 37.5 mg DAILY RILEY Administration Montelukast Sodium 5 mg 01/07/24 21:00 01/10/24 21:10 Montelukast Sod 5 Mg Chewable Tab PO 02/06/24 20:59 5 mg QPM RILEY Administration Pantoprazole Sodium 40 mg 01/08/24 16:45 01/10/24 08:18 Pantoprazole 40 Mg Tab PO 02/07/24 16:44 40 mg QAM RILEY Administration Prednisone 20 mg 01/08/24 16:45 01/10/24 08:18 Prednisone 20 Mg Tab PO 02/07/24 16:44 20 mg DAILY RILEY Administration Primidone 50 mg 01/07/24 21:00 01/10/24 21:10 Primidone 50 Mg Tab PO 02/06/24 20:59 50 mg BID RILEY Administration Rosuvastatin Calcium 40 mg 01/08/24 09:00 01/10/24 08:19 Rosuvastatin Calcium 20 Mg Tab PO 02/07/24 08:59 40 mg QAM RILEY Administration Spironolactone 12.5 mg 01/08/24 09:00 01/10/24 08:19 Spironolactone 25 Mg Tab PO 02/07/24 08:59 12.5 mg [id number] RILEY Administration NPO Date Last Intake of Fluids: 01/11/24 Time Last Intake of Fluids: 06:00 Date Last Intake of Solids: 01/10/24 Time Last Intake of Solids: 19:00 Past Medical History Medical History Macular degeneration Muscle cramping SLE (systemic lupus erythematosus) Scoliosis Osteoporosis Osteoarthritis Hemangioma of liver Chronic back pain GERD (gastroesophageal reflux disease) Hypothyroid 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 Sewell PVC (premature ventricular contraction) Bundle branch block follow Dr Sewell Near syncope Left hip pain Exercise / Class Metabolic Activity III < 4 Walking/Shop/Light housework Past Family History Family History Aunt Family history of pseudocholinesterase deficiency PATERNAL Breast cancer Father Myocardial infarction Prostate cancer Brother Prostate cancer Denies family history of Ovarian cancer Colorectal cancer Past Surgical History Surgical History History of esophagogastroduodenoscopy (EGD) History of colonoscopy S/P UVPP (uvulopalatopharyngoplasty) History of tonsillectomy History of brain surgery History of tubal ligation History of hysterectomy History of appendectomy Past Anesthesia History No Hx of Anesthesia Complications and No Family Hx of Anesthesia Complications History of PONV No Hx of PONV and No Hx of Motion Sickness Social History Smoking Status: Never smoker tobacco type: cigarettes Do You Dip or Chew Tobacco: No Hx Alcohol Use: No Hx Substance Use: No substance use type: does not use Review of Systems ROS Unobtainable: All systems reviewed & are unremarkable except as noted in HPI & below Physical Exam Vital Signs Last Vital Signs Temp 36.7 C 01/11/24 07:04 Pulse 70 01/11/24 07:20 Resp 18 01/11/24 07:20 BP 154/85 H 01/11/24 07:20 Pulse Ox 92 01/11/24 07:20 O2 Del Method Room Air 01/11/24 07:20 ENMT Mouth: no TMJ abnormality Thyromental Distance: > or= 3.5 Finger Breadths Mallampati Class: II Neck normal visual inspection and trachea midline; neck extension not limited Respiratory normal respiratory effort Auscultation: lungs clear to auscultation bilaterally Cardiovascular Rate/Rhythm: regular rate and regular rhythm Heart Sounds: no murmur Musculoskeletal Spine: normal cervical ROM Extremities: full ROM of extremities Neurologic moves all extremities Psychiatric Orientation: alert and oriented x 3 Testing Laboratory Results 01/11/24 06:16 01/11/24 06:16 PT 30.1 Seconds (9.0-12.0) H 01/10/24 05:25 INR 3.1 (0.9-1.1) H 01/10/24 05:25 Urine Color Yellow 01/07/24 09:37 Urine Appearance Clear (Clear) 01/07/24 09:37 Urine pH 6.5 (4.5-7.5) 01/07/24 09:37 Ur Specific [place] 1.006 (1.000-1.030) 01/07/24 09:37 Urine Protein Trace (Negative) H 01/07/24 09:37 Urine Glucose (UA) Negative (Negative) 01/07/24 09:37 Urine Ketones Negative (Negative) 01/07/24 09:37 Urine Nitrite Negative (Negative) 01/07/24 09:37 Ur Leukocyte Esterase Negative (Negative) 01/07/24 09:37 Urine WBC (Auto) 0-5 /hpf (0-5) 01/07/24 09:37 Urine RBC (Auto) >20 /hpf (0-2) H 01/07/24 09:37 U Hyaline Cast (Auto) 0-2 /lpf (0-2) 01/07/24 09:37 U Epithel Cells (Auto) 0-2 /hpf (0-2) 01/07/24 09:37 Urine Bacteria (Auto) None Seen (None Seen) 01/07/24 09:37 Electrocardiogram Date: 01/07/24 Atrial fibrillation with rapid ventricular response with premature ventricular or aberrantly conducted complexes Right bundle branch block Abnormal ECG When compared with ECG of 05-JAN-2024 04:36, No significant change was found Confirmed by Fernando Parra ([id number]) on 01/07/2024 9:44:43 AM Echocardiogram Date: 01/08/24 EF: 55-60 LV Function: normal
[2024-01-11] MEDS: METOPROLOL TARTRATE 1 MG/ML VIAL IV STA (08:10)
--- NOTE | 2024-01-11 08:24 | Anesthesiology Progress Note ---
Date of Service January 11, 2024 Anesthesia Post Procedure Vital Signs Vital Signs: Temp Pulse Resp BP Pulse Ox O2 Del Method 01/11/24 08:00 107 H 18 106/85 96 Room Air 01/11/24 07:20 70 18 154/85 H 92 Room Air 01/11/24 07:04 36.7 C 86 19 148/99 H 93 Room Air 01/11/24 04:21 74 18 132/85 95 Room Air 01/10/24 22:58 36.6 C 87 18 111/71 95 Room Air 01/10/24 19:01 36.5 C 98 H 18 132/89 94 Room Air 01/10/24 14:31 36.6 C 85 18 130/84 93 Room Air 01/10/24 10:29 36.4 C L 107 H 17 120/75 96 Room Air Pain Intensity Medial Chest: Pain Intensity: 4 Transfer of Care Handoff Completed per policy Notes Mental Status: alert / awake / arousable Patient Amnestic to Procedure: Yes Nausea / Vomiting: adequately controlled Pain: adequately controlled Airway Patency, RR, SpO2: stable & adequate BP & HR: stable & adequate Hydration State: stable & adequate Anesthetic Complications: no major complications apparent and Pt Satisfied with anesthetic care
[2024-01-11] MEDS ORDERED: PHENYLEPHRINE HCL 10 MG/ML VIAL ONE (08:36)
--- NOTE | 2024-01-11 08:54 | Post Operative Brief Note ---
Cardiology Brief Post Op Date of Surgery January 11, 2024 Pre & Post Diagnosis Operation Date: 01/11/24 07:30 Procedure Preprocedure diagnosis: Symptomatic atrial fibrillation Postprocedure diagnosis: Unsuccessful direct-current cardioversion Direct-current cardioversion procedure: The patient's vital signs were monitored via the standard fashion. After informed consent was obtained a timeout was performed the patient underwent attempts at direct-current cardioversion receiving doses of synchronized biphasic energy of 150 J and 200 J respectively. After each dose of energy, patient was transiently in sinus rhythm for a brief amount of time and then reverted to a rate controlled atrial fibrillation. [employer] Marko Estrada, DO Se[employer] None Estimated Blood Loss 0 Findings Consistent with Post-Op Diagnosis As noted above Anesthesia Type MAC Complications No complications were immediately apparent
--- NOTE | 2024-01-11 14:47 | Electrocardiogram Report ---
Test Reason : Blood Pressure : */* mmHG Vent. Rate : 73 BPM Atrial Rate : * BPM P-R Int : * ms QRS Dur : 140 ms QT Int : 416 ms P-R-T Axes : * 62 -62 degrees QTcB Int : 458 ms Atrial fibrillation transitioning to sinus bradycardia Right bundle branch block T wave abnormality, consider inferolateral ischemia Abnormal ECG When compared with ECG of 07-Jan-2024 09:04, No significant change was found Confirmed by Fernando Parra ([id number]) on 01/11/2024 2:46:58 PM Referred By: REFERRED SELF Confirmed By: Fernando Parra
[2024-01-11 16:38] LABS: INR 1.6 (0.9-1.1); Prothrombin Time 16.9 Seconds (9.0-12.0)
--- NOTE | 2024-01-11 17:17 | Cardiology Progress Note ---
Date of Service January 11, 2024 Assessment & Plan (1) Pleuritis: Plan: * Today is day 4 of a planned tapering dose of prednisone. She is currently on 20 mg daily, and will reduce down to 15 mg after 7 days. * Continue Protonix for GI prophylaxis (2) Atrial fibrillation with rapid ventricular response: Plan: * tachy / jj syndrome noted. Two doses of energy delivered for cardioversion. Briefly , sinus jj noted then reverted to AF RVR. * INR was 2 this am, 1.6 on repeat. * Start heparin infusion for bridge therapy, hold 01/12/24 at 2 am * coumadin 3 mg tonight * Repeat INR in am * for dual chamber pacemaker in am. * Pt and daughter agreeable to pacemaker. Admission and Anticipated Discharge Date Admission Date: January 07, 2024 Subjective Patient reassessed s/p unsuccessful cardioversion this am. Currently in AF with ventricular rates in the 80s at rest. Physical Exam Physical Exam: General: Alert, no distress, comfortable and cooperative Eyes: PER. Conjunctiva pink, sclera clear. HENT: Normocephalic. Atraumatic. Neck: No carotid bruits. No JVD. Heart: Irregularly irregular at 100 bpm. Soft systolic murmur. No rub. Lungs: Clear to auscultation. No rales. No wheeze. Abdomen: +BS. Soft. Nontender. No masses. No organomegaly. Extremities: No edema. No clubbing. No cyanosis. Limited neurological examination: No focal deficit. Results & Data Vital Signs (Past 12 Hours) Vital Signs Temp Pulse Pulse Resp BP BP Pulse Ox 01/11/24 14:31 36.6 C 90 19 108/71 92 01/11/24 11:53 89 18 96/62 L 92 01/11/24 11:26 36.7 C 96 H 18 100/63 93 01/11/24 10:57 114 H 17 116/81 94 01/11/24 10:30 36.6 C 73 17 125/87 98 01/11/24 09:54 112 H 18 155/80 H 93 01/11/24 09:40 85 18 140/90 94 01/11/24 09:24 86 18 139/84 96 01/11/24 09:01 88 17 144/84 H 92 01/11/24 08:30 64 18 142/86 H 98 01/11/24 08:15 72 18 139/83 96 01/11/24 08:10 107 H 136/88 01/11/24 08:00 107 H 18 106/85 96 01/11/24 07:20 70 18 154/85 H 92 01/11/24 07:04 36.7 C 86 19 148/99 H 93 O2 Del Method 01/11/24 14:31 Room Air 01/11/24 11:53 Room Air 01/11/24 11:26 Room Air 01/11/24 10:57 Room Air 01/11/24 10:30 Room Air 01/11/24 09:54 Room Air 01/11/24 09:40 Room Air 01/11/24 09:24 Room Air 01/11/24 09:01 Room Air 01/11/24 08:30 Room Air 01/11/24 08:15 Room Air 01/11/24 08:10 01/11/24 08:00 Room Air 01/11/24 07:20 Room Air 01/11/24 07:04 Room Air Laboratory Results Coagulation 01/11/24 Range/Units 15:43 PT 16.9 H (9.0-12.0) Seconds CBC 01/10/24 01/11/24 Range/Units 21:02 06:16 WBC 5.22 (4.8-10.8) K/ul RBC 3.91 L (4.20-5.40) M/uL Hgb 12.2 11.1 L (12.0-16.0) g/dl Hct 37.6 33.1 L (37.0-47.0) % Plt Count 233 (130-400) K/uL Comprehensive Metabolic Panel 01/11/24 Range/Units 06:16 Sodium 139 (136-145) mmol/L Potassium 3.8 (3.5-5.1) mmol/L Chloride 107 (98-107) mmol/L Carbon Dioxide 26 (21-32) mmol/L BUN 37 H (6-23) mg/dl Creatinine 1.31 H (0.6-1.2) mg/dl Glucose 85 (70-99(Fasting)) mg/dl Calcium 9.0 (8.6-10.3) mg/dl Intake and Output 01/11/24 01/11/24 01/11/24 06:59 14:59 22:59 Intake Total 480 / 480 Balance 480 / 480 Intake: Oral 480 / 480 Other: Other Intake Source npo Weight 86.8 kg 86.8 kg Weight Measurement Method Built in [facility] Patient Weight 01/12/24 06:59 Weight 86.8 kg
[2024-01-11] MEDS: WARFARIN SOD 3 MG TAB PO ONE (17:40)
[2024-01-11] MEDS: HEPARIN SODIUM/DEXTROSE 25,000 UNITS/500 ML BAG IV SCH (17:49)
[2024-01-11] MEDS: Heparin IV Adult Wt-Based Standard *NO* INITIAL Bolus Protocol IV STA (17:50)
--- NOTE | 2024-01-11 22:42 | Hospitalist Progress Note ---
Date of Service January 11, 2024 Assessment & Plan (1) Atrial fibrillation with rapid ventricular response: Plan: Patient presented for tachycardia and SANTANA on 01/06 A-fib RVR on arrival TSH WNL Continue flecainide, metoprolol, warfarin Lopressor 5 mg IV q6h as needed for A-fib with RVR >140bpm Patient has reportedly required cardioversion for this in the past; [facility] cardiology consulted Continue telemetry monitoring appreciate input. cardioversion failed on 01/10. continue flecainide will have pacemaker placed on 01/11 (2) Chest pain: Plan: Patient also notes right-sided chest pain with radiation to the back x 2 days Negative troponin on arrival, repeat pending Given multiple hours of chest pain without concomitant rise of troponin, lower suspicion for cardiac etiology The setting of recent pool exercises, and pain reproducible on palpation, suspect some component of MSK Continuous telemetry monitoring Unsure of cause of pleuritis chest pain. WIll monitor inflammatory markers. continue prednisone (3) Obstructive sleep apnea syndrome: Plan: CPAP HS Plan Disposition: Admit to PCU telemetry Full code Heart healthy diet VTE PPx: Warfarin Admission and Anticipated Discharge Date Admission Date: January 07, 2024 Subjective Patient reports having intermittent pain. Patient states though it is less frequent. Review of Systems Review of Systems: All systems reviewed & are unremarkable except as noted in HPI & below Physical Exam Physical Exam: General: no acute distress; non-toxic appearing; well-nourished; cooperative; eating dinner Head: NC/AT Chest: not using accessory muscles to breath. Heart: irregularly, irregular. Results & Data Results & Data Vital Signs (Past 12 Hours) Vital Signs Temp Pulse Pulse Resp BP Pulse Ox O2 Del Method 01/11/24 19:00 36.7 C 71 18 127/84 94 Room Air 01/11/24 14:31 36.6 C 90 19 108/71 92 Room Air 01/11/24 11:53 89 18 96/62 L 92 Room Air 01/11/24 11:26 36.7 C 96 H 18 100/63 93 Room Air 01/11/24 10:57 114 H 17 116/81 94 Room Air PG Care Time/CCT Total # of Minutes Spent Total Time Spent with Patient: Total time spent is greater than 50% in coordination of care (as documented) at patient's floor/unit and/or counseling patient: Coding Level of Care Code 28255 SUB INP/OBS CARE 2/35MIN Diagnoses Atrial fibrillation with rapid ventricular response I48.91 Chest pain R07.9 Obstructive sleep apnea syndrome G47.33
[2024-01-12] MEDS: HOLD HEPARIN DRIP ORDER ONE (02:00)
[2024-01-12 05:21] LABS: Hematocrit (blood only) 32.9 % (37.0-47.0); Hemoglobin 10.9 g/dl (12.0-16.0); Mean Corpuscular Hemoglobin 28.5 pg (25.0-34.0); Mean Corpuscular Hgb Conc 33.1 g/dL (32.0-36.0); Mean Corpuscular Volume 85.9 fL (80.0-100.0); Platelet Count 251 K/uL (130-400); RDW Coefficient of Variation 13.9 % (11.5-14.5); RDW Standard Deviation 43.5 fL (36.4-46.3); Red Blood Count 3.83 M/uL (4.20-5.40); White Blood Count 5.05 K/ul (4.8-10.8)
[2024-01-12 05:25] LABS: Calcium 8.9 mg/dl (8.6-10.3); Creatinine Clr Calc Pharmacy 37.4 ml/min; Est GFR (African American) 44.1 ml/min; Est GFR (Non-African American) 38.1 ml/min; Potassium 3.9 mmol/L (3.5-5.1)
[2024-01-12 05:31] LABS: INR 1.5 (0.9-1.1); Prothrombin Time 15.8 Seconds (9.0-12.0)
--- NOTE | 2024-01-12 07:23 | History & Physical Bridge Note ---
Date of Service January 12, 2024 History & Physical Bridge Note I have examined the patient, reviewed the History & Physical and in the interval since the performance of the History & Physical I have noted the following changes of clinical significance: Pt with TBS and recommended a ppm prior to hospital discharge; discussed the procedure and potential risks with the pt she expressed an understanding and consents signed.
--- NOTE | 2024-01-12 07:23 | Pre Anesthesia Assessment ---
Date of Service January 12, 2024 Pre Sedation Assessment Vital Signs Temp Pulse Pulse Pulse Resp BP BP 01/12/24 07:20 72 14 146/96 H 01/12/24 03:00 36.6 C 68 16 149/75 H 01/11/24 22:34 36.4 C L 69 17 113/78 01/11/24 22:05 86 01/11/24 19:00 36.7 C 71 18 127/84 01/11/24 14:31 36.6 C 90 19 108/71 01/11/24 11:53 89 18 96/62 L 01/11/24 11:26 36.7 C 96 H 18 100/63 01/11/24 10:57 114 H 17 116/81 01/11/24 10:30 36.6 C 73 17 125/87 01/11/24 09:54 112 H 18 155/80 H 01/11/24 09:40 85 18 140/90 01/11/24 09:24 86 18 139/84 01/11/24 09:01 88 17 144/84 H 01/11/24 08:30 64 18 142/86 H 01/11/24 08:15 72 18 139/83 01/11/24 08:10 107 H 136/88 01/11/24 08:00 107 H 18 106/85 Pulse Ox O2 Del Method 01/12/24 07:20 94 Room Air 01/12/24 03:00 95 Room Air 01/11/24 22:34 94 Room Air 01/11/24 22:05 01/11/24 19:00 94 Room Air 01/11/24 14:31 92 Room Air 01/11/24 11:53 92 Room Air 01/11/24 11:26 93 Room Air 01/11/24 10:57 94 Room Air 01/11/24 10:30 98 Room Air 01/11/24 09:54 93 Room Air 01/11/24 09:40 94 Room Air 01/11/24 09:24 96 Room Air 01/11/24 09:01 92 Room Air 01/11/24 08:30 98 Room Air 01/11/24 08:15 96 Room Air 01/11/24 08:10 01/11/24 08:00 96 Room Air Cardiovascular RRR, no murmur, no edema Respiratory normal respiratory effort, lungs clear to auscultation Pre-Sedation Airway Assessment Smoking Status: Never smoker Hx Sleep Apnea: No Hx Difficult Intubation: No Short, Thick Neck: No Thyromental Distance: > or= 3.5 Finger Breadths Oral Cavity: + WNL Mallampati Class: II ASA: ASA2 NPO Status Date of Last Intake of Fluids: 01/11/24 Time of Last Intake of Fluids: 22:00 Date of Last Intake of Solid Food: 01/11/24 Time of Last Intake of Solid Foods: 22:00 Procedure Planning Contraindications for Sedation: none Current Medications Reviewed: Yes Notes The planned sedation has been discussed with the patient. Informed Consent was obtained. I have identified the patient, determined the appropriateness of sedation and have assessed the patient immediately prior to the procedure. All medicine(s) and interventions are by my order.
[2024-01-12] MEDS: LIDOCAINE 1% LOCAL 20 ML VIAL ONE (08:28)
[2024-01-12] MEDS: BUPIVACAINE 0.25% PF 30 ML VIAL ONE (08:28)
[2024-01-12] MEDS: ceFAZolin 330 MG/ML 1 GM VIAL ONE (08:29)
[2024-01-12] MEDS: VANCOMYCIN HCL 1000MG/20ML VIAL ONE (08:29)
[2024-01-12] MEDS: fentaNYL citrate PF 100 MCG/2 ML VIAL ONE (08:29)
[2024-01-12] MEDS: WATER, STERILE FOR INJ 10 ML VIAL ONE (08:29)
[2024-01-12] MEDS: MIDAZOLAM HCL 5 MG/ML 1 ML VIAL ONE (08:30)
--- NOTE | 2024-01-12 08:58 | Communication Note ---
Date of Service: January 12, 2024 s/p dual chamber PPM. Remains in AF. Flecainide discontinued. Increase metoprolol. Metoprolol tartrate 50 mg x 1 now, then succinate 100 mg BID starting tonight. INR down to 1.5 today. Avoiding additional heparin infusion, lovenox or SQ heparin to reduce risk of pocket hematoma. Will prescribe dose of coumadin for today after results of post device CXR are available to ensure no pneumothorax. Reduce prednisone to 15 mg daily. Pt to be reassessed after CXR. Inder Estrada DO
[2024-01-12] MEDS: METOPROLOL TARTRATE 50 MG TAB PO STA (10:02)
[2024-01-12] MEDS: predniSONE 5 MG TAB PO SCH (10:02)
--- NOTE | 2024-01-12 10:54 | XRay Report ---
XR chest 1V not portable CLINICAL HISTORY: s/p ppm ensure no ptx TECHNIQUE: Single frontal radiograph of the chest was obtained. Comparison: Comparison is made to chest radiograph 01/07/2024 FINDINGS: Interval placement of a pacemaker with the leads in satisfactory position. Cardiomegaly is noted. Mil d atelectasis is in the left lower lobe. No evidence of pleural effusion or pneumothorax. IMPRESSION: Interval placement of a pacemaker with the leads in satisfactory position. No evidence of pneumothora x. ACT 112: Negative or not required by law. Electronically signed by: Magen Ceron M.D. 01/12/2024 10:53 AM
[2024-01-12] MEDS: METOPROLOL SUCC 50MG EXT REL TAB PO SCH (11:28)
[2024-01-12] MEDS: WARFARIN SOD 5 MG TAB PO ONE (13:52)
--- NOTE | 2024-01-12 14:45 | Electrocardiogram Report ---
Test Reason : Blood Pressure : */* mmHG Vent. Rate : 90 BPM Atrial Rate : 394 BPM P-R Int : * ms QRS Dur : 152 ms QT Int : 424 ms P-R-T Axes : * 50 -71 degrees QTcB Int : 518 ms Atrial fibrillation with occasional ventricular-paced complexes and with premature ventricular or jaimee rrantly conducted complexes Right bundle branch block T wave abnormality, consider inferolateral ischemia Abnormal ECG When compared with ECG of 11-Jan-2024 08:01, Electronic ventricular pacemaker has replaced Atrial fibrillation Confirmed by Fernando Parra ([id number]) on 01/12/2024 2:45:27 PM Referred By: REFERRED SELF Confirmed By: Fernando Parra
--- NOTE | 2024-01-12 18:41 | Cardiology Progress Note ---
Date of Service January 12, 2024 Assessment & Plan (1) Pleuritis: Plan: * Today is day 5 of a planned tapering dose of prednisone. Reduce dose to 15 mg. * Will taper down to 10 mg, 5 mg, and then off over 2 weeks. * Continue Protonix for GI prophylaxis (2) Tachy-jj syndrome: (3) Atrial fibrillation with rapid ventricular response: Plan: * tachy / jj syndrome noted. Two doses of energy delivered for cardioversion on 01/11/24. Briefly , sinus jj noted then reverted to AF RVR. * s/p dual chamber Zimmer pacemaker on 01/11/24 * Avoid additional heparin infusion, lovenox or SQ heparin to reduce risk of pocket hematoma. * INR 1.5 today, 5 mg coumadin today, then resume SUPER[employer]OR TILE [employer] MOTTLE dose of 3 mg daily.Check daily INR level x 3. * Increase metoprolol succinate to 100 mg daily on 01/13/24 (SUPER[employer] TILE [employer] MOTTLE dose was 25 mg , titrated to 37.5 mg prior to pacemaker) * last dose of flecainide was on am of 01/11/24 * consider adding amiodarone as an outpatient on evening of 01/14/24 after she has been off flecainide x 72 hours * she is on levothyroxine with normal TSH on 01/06, normal LFTs on 01/06, CXR stable * Coumadin managed [facility] anticoagulation clinic * Has upcoming oupt consult to discuss Watchman , due to fall risk. * Pt preferred to stay in hospital today for PT, reassess candidacy for discharge on 01/12. * Dr Toussaint non cdl driver for cardiology this weekend. Admission and Anticipated Discharge Date Admission Date: January 07, 2024 Subjective Patient seen in cardiology follow-up. Tolerated pacemaker procedure well. Postprocedure chest x-ray without evidence of pneumothorax. Telemetry reveals atrial fibrillation in the 80s. Very rare paced QRS complexes. Pleuritic chest discomfort that prompted her to come to the hospital has improved. Atrial fibrillation symptom is generalized weakness especially leg weakness. Review of Systems Review of Systems: All systems reviewed & are unremarkable except as noted in HPI & below Physical Exam Physical Exam: General: Alert, no distress, comfortable and cooperative Eyes: PER. Conjunctiva pink, sclera clear. HENT: Normocephalic. Atraumatic. Neck: No carotid bruits. No JVD. Heart: Irregularly irregular at 85 bpm. Soft systolic murmur. No rub. -Left chest, bandage over the pacemaker pocket Lungs: Clear to auscultation. No rales. No wheeze. Abdomen: +BS. Soft. Nontender. No masses. No organomegaly. Extremities: No edema. No clubbing. No cyanosis. Limited neurological examination: No focal deficit. Results & Data Vital Signs (Past 12 Hours) Vital Signs Temp Pulse Pulse Resp BP Pulse Ox O2 Del Method 01/12/24 15:59 36.7 C 89 18 128/63 94 Room Air 01/12/24 13:00 36.6 C 74 18 123/87 92 Room Air 01/12/24 11:31 36.7 C 80 18 111/72 94 Room Air 01/12/24 10:23 82 18 142/87 H 95 Room Air 01/12/24 09:25 36.6 C 68 18 144/86 H 95 Room Air 01/12/24 09:05 68 12 144/95 H 94 Room Air 01/12/24 08:50 67 16 143/93 H 94 Room Air 01/12/24 07:20 72 14 146/96 H 94 Room Air Laboratory Results Coagulation 01/12/24 Range/Units 04:00 PT 15.8 H (9.0-12.0) Seconds CBC 01/12/24 Range/Units 04:00 WBC 5.05 (4.8-10.8) K/ul RBC 3.83 L (4.20-5.40) M/uL Hgb 10.9 L (12.0-16.0) g/dl Hct 32.9 L (37.0-47.0) % Plt Count 251 (130-400) K/uL Comprehensive Metabolic Panel 01/12/24 Range/Units 04:00 Sodium 138 (136-145) mmol/L Potassium 3.9 (3.5-5.1) mmol/L Chloride 106 (98-107) mmol/L Carbon Dioxide 24 (21-32) mmol/L BUN 38 H (6-23) mg/dl Creatinine 1.31 H (0.6-1.2) mg/dl Glucose 92 (70-99(Fasting)) mg/dl Calcium 8.9 (8.6-10.3) mg/dl Intake and Output 08/02/2601/12/24 01/12/24 06:59 14:59 22:59 Intake Total 172.083 / 1134.583 0 / 0 Balance 172.083 / 1134.583 0 / 0 Intake: IV 172.083 / 204.583 0 / 0 Heparin Sodium/Dextrose 25,000 172.083 / 204.583 0 / 0 units In 500 ml @ 0 UNITS/HR IV .Q0M RILEY Rx#:[id number] Oral 0 930 Other: Other Intake Source NPO # Unmeasured Voids 2 1 Weight 85.7 kg 85.7 kg Weight Measurement Method Built in [facility] Patient Weight 01/13/24 06:59 Weight 85.7 kg
[2024-01-12] MEDS: METOPROLOL TARTRATE 50 MG TAB PO ONE (20:03)
[2024-01-12] MEDS ORDERED: METOPROLOL SUCC 50MG EXT REL TAB PO SCH (21:00)
--- NOTE | 2024-01-12 21:57 | Hospitalist Progress Note ---
Date of Service January 12, 2024 Assessment & Plan (1) Atrial fibrillation with rapid ventricular response: Plan: Patient presented for tachycardia and SANTANA on 01/06 A-fib RVR on arrival TSH WNL Continue flecainide, metoprolol, warfarin Lopressor 5 mg IV q6h as needed for A-fib with RVR >140bpm Patient has reportedly required cardioversion for this in the past; [facility] cardiology consulted Continue telemetry monitoring appreciate input. cardioversion failed on 01/10. continue flecainide pacemaker placed on 01/11 increased warfarin to 5 mg. (2) Chest pain: Plan: Patient also notes right-sided chest pain with radiation to the back x 2 days Negative troponin on arrival, repeat pending Given multiple hours of chest pain without concomitant rise of troponin, lower suspicion for cardiac etiology The setting of recent pool exercises, and pain reproducible on palpation, suspect some component of MSK Continuous telemetry monitoring Unsure of cause of pleuritis chest pain. WIll monitor inflammatory markers. continue prednisone now titrated down to 15 mg. (3) Obstructive sleep apnea syndrome: Plan: CPAP HS Plan Disposition: Admit to PCU telemetry Full code Heart healthy diet VTE PPx: Warfarin Admission and Anticipated Discharge Date Admission Date: January 07, 2024 Subjective 83 yo female reports no new symptoms. She continues to have chest pain, but again is showing improvement. Review of Systems Review of Systems: All systems reviewed & are unremarkable except as noted in HPI & below Physical Exam Physical Exam: General: no acute distress; non-toxic appearing; well-nourished; cooperative; eating dinner Head: NC/AT Chest: not using accessory muscles to breath. Heart: irregularly, irregular. Results & Data Results & Data Vital Signs (Past 12 Hours) Vital Signs Temp Pulse Pulse Resp BP Pulse Ox O2 Del Method 01/12/24 19:26 36.9 C 96 H 20 113/74 93 Room Air 01/12/24 15:59 36.7 C 89 18 128/63 94 Room Air 01/12/24 13:00 36.6 C 74 18 123/87 92 Room Air 01/12/24 11:31 36.7 C 80 18 111/72 94 Room Air 01/12/24 10:23 82 18 142/87 H 95 Room Air PG Care Time/CCT Total # of Minutes Spent Total Time Spent with Patient: Total time spent is greater than 50% in coordination of care (as documented) at patient's floor/unit and/or counseling patient: Coding Level of Care Code 01617 SUB INP/OBS CARE 2/35MIN Diagnoses Atrial fibrillation with rapid ventricular response I48.91 Chest pain R07.9 Obstructive sleep apnea syndrome G47.33
[2024-01-13 04:56] LABS: Hematocrit (blood only) 33.9 % (37.0-47.0); Hemoglobin 11.4 g/dl (12.0-16.0); Mean Corpuscular Hemoglobin 28.8 pg (25.0-34.0); Mean Corpuscular Hgb Conc 33.6 g/dL (32.0-36.0); Mean Corpuscular Volume 85.6 fL (80.0-100.0); Mean Platelet Volume 10.1 fL (9.4-12.4); Platelet Count 254 K/uL (130-400); RDW Coefficient of Variation 13.7 % (11.5-14.5); RDW Standard Deviation 42.9 fL (36.4-46.3); Red Blood Count 3.96 M/uL (4.20-5.40); White Blood Count 5.94 K/ul (4.8-10.8)
[2024-01-13 05:13] LABS: BUN Creatinine Ratio 28.5 (10-20); Calcium 8.9 mg/dl (8.6-10.3); Creatinine Clr Calc Pharmacy 33.8 ml/min; Est GFR (African American) 39.4 ml/min; Potassium 3.9 mmol/L (3.5-5.1)
[2024-01-13 05:26] LABS: INR 2.3 (0.9-1.1); Prothrombin Time 23.2 Seconds (9.0-12.0)
[2024-01-13 07:58] VITALS: RESP 16
[2024-01-13] MEDS: METOPROLOL SUCC 50MG EXT REL TAB PO SCH (08:51)
[2024-01-13 11:10] VITALS: BP 119/83; PULSE 81; TEMP 97.7; O2SAT 94
[2024-01-13] MEDS ORDERED: WARFARIN SOD 3 MG TAB PO SCH (16:00)
--- NOTE | 2024-01-14 08:52 | Discharge Summary ---
Discharge Summary Date of Service January 13, 2024 Principal Dx & Hospital Course #1 = Principal Diagnosis (1) Atrial fibrillation with rapid ventricular response: Patient presented for tachycardia and SANTANA on 01/06 A-fib RVR on arrival TSH SANDRO Cerrato was consulted. Two doses of energy delivered for cardioversion: only breifly in jj but then cardioverted back to AF RVR. Last dose of flecainide was 01/10 s/p dual chamber Zimmer pacemaker on 01/11/24 Increased metoprolol t0 100mg after pacemaker. Concern over using amiodarone as this interacts with warfarin and may make it difficult to maintain her INR in therapeutic range. * Coumadin managed [facility] anticoagulation clinic * Has upcoming oupt consult to discuss Watchman , due to fall risk. (2) Chest pain: Patient also notes right-sided chest pain with radiation to the back x 2 days Negative troponin Given multiple hours of chest pain without concomitant rise of troponin, lower suspicion for cardiac etiology The setting of recent pool exercises, and pain reproducible on palpation, suspect some component of MSK Patient symptoms for pleuritic chest pain improved with corticosteroids, will complete 2 week taper. (3) Obstructive sleep apnea syndrome: CPAP HS Notes For Next Care Provider Increase beta faith if needed as patient has pacemaker. Admission HPI Per Admitting Provider Pam is a pleasant 83-year-old female with PMH of Sjogren's syndrome, Raynaud's disease, HTN, CAD, systemic lupus erythematous, COPD, tremor, hypothyroidism, kidney stones, IBS, paroxysmal A-fib (on warfarin), and atrial flutter. She presented on 01/06 for SOB and right-sided chest pain. She reports that her pain is located midline at her right breast, with radiation to the right scapula. The pain started 2 days ago, and has been constant but intermittently gets worse. She describes it as a sharp stabbing pain. Worse with movements and deep breaths. She has been taking Tylenol x 4 tablets, which helped with the pain somewhat. She rates the pain 5/10 at present, 8/10 at worst. Patient also reports increased respiratory distress; SOB both at rest and with exertion; worsened with deep breaths and coughing. No orthopnea, or SOB when she lies flat on her back. Patient is a [facility] resident. Patient's daughter is at the bedside and provides additional history. Nursing at [facility] advised patient come in for ongoing right-sided chest pain, tachycardia, and SOB. Patient uses a CPAP at night. No other supplemental oxygen at baseline. She took her regular morning medications. Only recent change was that she cut her metoprolol in half due to bradycardia. No history of DVT/PE. Remote history of 2 UTIs within the past month. No recent injuries to the chest wall. No recent falls. Patient does note she was exercising in the pool last Monday, and thought she might of strained a muscle on her right side. She is up-to-date on her shingles vaccine. She denies noticing any rashes or bruising on the right chest wall. Patient denies smoking, tobacco use, and recent alcohol use. Patient is hypertensive at 151/93 and tachycardic around 100 bpm at time of admission. ED course: Lopressor 5 mg IV x 2 NSS 500 mL IV ROS: Patient endorses mild MOSS, right-sided CP, pleuritic CP, SOB at rest and with exertion, nausea, Patient denies fever, chills, night-sweats, lightheadedness, dizziness, chest palpitations (unable to feel when her heart is racing), coughing, hemoptysis, abdominal pain, vomiting, diarrhea, changes in urinary/bowel habits, burning with urination, blood in the urine/stool, or numbness/tingling in the arms or legs. Discharge Exam General: no acute distress; non-toxic appearing; well-nourished; cooperative; eating dinner Head: NC/AT Chest: not using accessory muscles to breath. Heart: irregularly, irregular. Updated Medication List Medication Instructions Recorded Confirmed Type cholecalciferol (vitamin D3) 25 2,000 unit PO QAM 06/25/18 01/07/24 History mcg (1,000 unit) tablet (Vitamin D3) multivitamin 1 tab PO QAM 06/25/18 01/07/24 History vitamins A,C,V-sziz-lxdmpv 2,148 1 tab PO BID 06/25/18 01/07/24 History mcg-113 mg-45 mg-17.4 mg tablet (PreserVision AREDS) baclofen 10 mg tablet 10 mg PO BID 04/20/22 01/07/24 History furosemide 20 mg tablet 20 mg PO DAILY 09/22/22 01/07/24 History primidone 50 mg tablet 50 mg PO BID 09/22/22 01/07/24 History rosuvastatin 40 mg tablet 40 mg PO QAM 12/22/22 01/07/24 History levothyroxine 88 mcg capsule 88 mcg PO DAILY 04/24/23 01/07/24 History montelukast 5 mg chewable tablet 5 mg PO QPM #90 tabs 05/30/23 01/07/24 Rx acetaminophen 500 mg tablet 500 - 1,000 mg PO HS PRN pain/fever 10/02/23 01/07/24 History lisinopril 10 mg tablet 10 mg PO BID 11/14/23 01/07/24 History warfarin 3 mg tablet 3 mg PO UD 11/24/23 01/07/24 History cyanocobalamin (vitamin B-12) 500 See Rx Instructions PO DAILY 12/04/23 01/07/24 History mcg tablet spironolactone 25 mg tablet See Rx Instructions PO MONWEDFRI 12/21/23 01/07/24 History metoprolol succinate 100 mg 100 mg PO DAILY #30 tabs 01/13/24 Rx tablet,extended release 24 hr pantoprazole 40 mg tablet,delayed 40 mg PO QAM #30 tabs 01/13/24 Rx release prednisone 5 mg tablet See Rx Instructions .Route 01/13/24 Rx .COMPLEX #18 tabs Hospital Stay Data Consultations 01/07/24 11:32 ED Decision to Admit Stat 01/07/24 13:10 Consult Cardiology Routine 01/10/24 11:20 Consult Anesthesiology Routine Procedures Performed Operation Date: 01/12/24 07:30 Actual Procedures p Pacer with A/V Leads (Dual) - Radha Toussaint DO s Venogram, Unilateral - Radha Toussaint DO Diagnostic Imagining Performed 01/12/24 06:45 EP Lab Images for PACS ONCE Pending Results Patient Have Any Pending Studies at Discharge: No Discharge Instructions Given to Patient (Per Discharging Provider) device and wound check at [facility] cardiology next week if you notice any swelling at the device site call [facility] cardiology immediately Recommend followup with PCP in 1-2 weeks. Continue pantoprazole while on prednisone. Total Time Total Time Spent Total Time Spent (In Minutes): 32 Coding Level of Care Code 95072 INP/OBS DISCH >30 MIN Diagnoses Atrial fibrillation with rapid ventricular response I48.91 Chest pain R07.9 Obstructive sleep apnea syndrome G47.33
--- NOTE | 2024-01-31 13:29 | Operative Report ---
Post Operative Report DICTATED BY:Radha Toussaint D.O. DATE OF PROCEDURE: 01/12/2024. PREOPERATIVE DIAGNOSES: TBS POSTOPERATIVE DIAGNOSIS: Same PROCEDURE: A dual-chamber rate responsive permanent pacemaker and along with a peripheral venogram under fluoroscopic guidance. SURGEON: Radha Toussaint DO ASSISTANTS: None. ANESTHESIA: Monitored conscious sedation administered under my supervision by Lamont Guerrero. Start time 07:40, end time 08:39, a total of 5 mg of Versed and 100 mcg of fentanyl. INTRAVENOUS FLUIDS: 112 mL. CONTRAST: 12 mL. ANTIBIOTICS: 2 grams of Ancef. ADDITIONAL MEDICATIONS: none BLOOD LOSS: 50 mL. URINE OUTPUT: Not applicable. SPECIMENS: None. FINDINGS: See below. DRAINS: None. COMPLICATIONS: None. CONDITION: Stable. INDICATIONS: This is a 83-year-old female who has a past medical history Systemic lupus erythematosus Longstanding labile hypertension, diastolic dysfunction, Pulmonary hypertension, Obstructive sleep apnea on CPAP supplementation since 1995, Chronic essential tremor, Diagnostic cardiac catheterization August 2018 with minimal coronary atherosclerosis and no obstruction, elevated end-diastolic pressure, Hyperlipidemia, Chronic renal insufficiency stage 3, Hypothyroidism, Paroxysmal atrial fibrillation. Diagnosed in April 2022 requiring VINAY/CV. Beta faith limited due to sinus bradycardia. Anticoagulated with coumadin, managed via [facility] with labile INR's, coumadin felt to be anticoagulant of choice noting the chronic use of Primidone, PAT, TBS, Chronic gait instability/dizziness/falls, Anxiety. Pt is admitted to [facility] and having evidence of TBS and recommended a ppm prior to discharge. CONSENT: Consent was obtained prior to the patient going into the electrophysiology lab. The patient was informed of the risks, benefits, and alternatives to the procedure. Risks include, but not limited to, sudden cardiac , cardiac arrhythmias, cerebrovascular accident, myocardial infarction, injury to his blood vessels, chamber of the heart and lung, bleeding and infection. The patient understood these risks and agreed to the procedure as planned. Informed consent was obtained. DESCRIPTION OF PROCEDURE: The patient was brought into electrophysiology lab in a fasting state. She was connected to continuous cardiac monitoring. A timeout was performed to ensure the patient's identity and procedure correctly. She was prepped and draped in the left infraclavicular space in normal surgical standard fashion. Monitored conscious sedation was given throughout the procedure for the patient's comfort level. [place] precautions were maintained throughout the procedure. Prophylactic antibiotics were given prior to incision. A 20 mL of 1% lidocaine and bupivacaine mixture were given in the left deltopectoral groove. An incision was made in the left deltopectoral groove. Blunt dissection was performed down to the pectoralis muscle. Then, using blunt dissection over the pectoralis muscle within the pectoral fascia, a pacemaker pocket was created. Then, a peripheral venogram was performed to identify the axillary vein. Venous axillary access was obtained through a needlestick without any problems. A guidewire was inserted without any resistance. A 6- Stateless sheath was inserted over the guidewire without any resistance. Dilator was removed and a second guidewire was inserted through the sheath to allow for retained venous access. Then a 9 Stateless sheath was inserted over one of the guidewires. The guidewire and dilator were removed. Then, the [employer] Worker 3D medium sheath was inserted through the 9-Stateless sheath over a Glidewire into the right ventricle. The Glidewire and dilator were removed. Then, the left bundle lead was advanced through the sheath and intracardiac electrogram His bundle recordings were estimated as pt was in AF/flutter during the procedure so no distinct HIS was found. I then moved the camera to ARDON 30 and marked where I believed the His bundle was on my fluoroscopy screen. I came down about 2 cm from this in a line that would extend out to the apex and then started coming on pacing. Once I found an area where I had a nice W formed pace complex in my lead V1, I then moved the camera to SYRIAC 30. Then the helix was extended into the septum. Then the helix locking tool was placed. Then the lead was screwed further into the septum while pacing by giving slow clockwise turns. The paced complex changed to a nice R' in V1 and the pacing stim to peak QRS in V6 was good. I then gave contrast through the sheath to see how far the lead was into the septum and then I slit the [employer] Worker 3D medium sheath under fluoroscopic guidance and left the 9-Stateless sheath in while I positioned the right atrial lead. A 6-Stateless sheath was inserted over the retained guidewire, the guidewire and dilator removed. The right atrial lead was then advanced into right atrium and positioned into right atrial appendage under fluoroscopic guidance. There was adequate sensing of the fib waves. The 6-Stateless sheath was peeled away and the lead was fixated to the pectoralis muscle using 0 silk suture. The 9-Stateless sheath around the left bundle lead was peeled away and the lead was fixated to pectoralis muscle using 0 silk suture. The pocket was flushed with copious amounts of vancomycin and saline wash and inspected for hemostasis. The leads were then attached to the pulse generator m aking sure the pins were in appropriate position, passed set screws, and set screws were all tightened. Pulse generator was then placed in the pocket, making sure the leads were lying flat beneath the device. The incision was closed in a 3-layer fashion using 2-0 Vicryl interrupted suture, followed by 3-0 Vicryl interrupted suture, followed by 4-0 Monocryl running stitch. Then a primaseal dressing was placed EQUIPMENT: 1. Pulse generator is a [employer] MRI Model Number [id number] SN: [id number]. 2. Right atrial lead, Zimmer SJM Tendril STS [id number] SN: [id number] 3. Left bundle lead, Zimmer SJM Tendril STS [id number] SN: [id number] INTRAPROCEDURAL FINDINGS: 1. Right atrial lead, flutter waves 3.7 millivolts, impedance 450 ohms, threshold N/A pt in flutter. 3. Left bundle lead, R waves 5.9 millivolts, impedance 941 ohms, threshold 0.8 volts at 0.4 milliseconds. FINAL MEASUREMENTS THROUGH THE DEVICE: 1. Right atrial lead, flutter waves 4.1 millivolts, impedance 550 ohms, thresh old N/A pt in flutter 2. Left bundle lead, R waves 9.6 millivolts, impedance 790 ohms, threshold 0.75 volts at 0.4 milliseconds. FINAL PARAMETERS: DDD 60/120, right atrial amplitude 3.5 volts, pulse width 0.4 milliseconds, sensitivity 0.5 millivolts. Left bundle lead amplitude 3.5 volts, pulse width 0.4 milliseconds, sensitivity 2 millivolts. IMPRESSION: Successful dual chamber rate responsive permanent pacemaker under fluoroscopic guidance along with peripheral venogram , all under fluoroscopic guidance secondary to TBS PLAN: Monitor the patient post-procedure. A 12-lead ECG, chest x-ray. She is not to lift the left elbow or left shoulder for 1 month. She cannot lift more than 10 pounds with the left arm for 2 weeks. She is to keep the dressing on and dry until her wound check next week.
== END 2024-01-13 12:58 | disposition home or self-care (01) | DRG 244 ==
LOC: ED 08:52 → SUATTDRO 11:59 → 4W 11:59

== ENCOUNTER 2024-02-27 09:47 | Inpatient (IN) ==
[2024-02-27 10:36] LABS: Basophils # (auto) 0.01 K/uL (0.00-0.20); Basophils % (auto) 0.2 %; Hematocrit (blood only) 31.7 % (37.0-47.0); Hemoglobin 10.7 g/dl (12.0-16.0); Immature Granulocytes # (auto) 0.02 K/uL (0.01-0.20); Immature Granulocytes % (auto) 0.3 %; Lymphocytes # (auto) 0.73 K/uL (1.20-3.40); Lymphocytes % (auto) 11.1 %; Mean Corpuscular Hemoglobin 28.7 pg (25.0-34.0); Mean Corpuscular Hgb Conc 33.8 g/dL (32.0-36.0); Mean Platelet Volume 10.6 fL (9.4-12.4); Monocytes # (auto) 0.73 K/uL (0.11-0.59); Monocytes % (auto) 11.1 %; Neutrophils # (auto) 5.11 K/uL (1.40-6.50); Neutrophils % (auto) 77.3 %; Platelet Count 243 K/uL (130-400); RDW Coefficient of Variation 14.8 % (11.5-14.5); Red Blood Count 3.73 M/uL (4.20-5.40)
--- NOTE | 2024-02-27 10:36 | XRay Report ---
SINGLE VIEW CHEST CLINICAL HISTORY: Atypical chest pain. FINDINGS: A PA chest radiograph is compared to study dated 02/26/2024 and correlated with chest CT víctor ed 01/29/2024. A 2-lead cardiac pacemaker is unchanged in position and partially obscures the left mid chest. The heart is enlarged. The pulmonary vasculature is noncongested. There are small pleural eff usions with dependent atelectasis. There is no pneumothorax. The skeletal structures are osteopenic. The bony thorax is grossly intact. Degenerative change is noted in the shoulders and spine. IMPRESSION: 1. Cardiomegaly and cardiac pacemaker without radiographic evidence of congestive failure. 2. Small pleural effusions with dependent atelectasis. ACT 112: Negative or not required by law. Electronically signed by: Jose Maria Joe M.D. 02/27/2024 10:34 AM
[2024-02-27 10:56] LABS: Albumin Globulin Ratio 1.4 (0.9-2); Albumin Level 4.3 gm/dl (3.4-5.0); BUN Creatinine Ratio 18.6 (10-20); Bilirubin,Total 0.6 mg/dl (0.2-1.0); Calcium 9.4 mg/dl (8.6-10.3); Creatinine Clr Calc Pharmacy 41.6 ml/min; Est GFR (African American) 50.1 ml/min; Est GFR (Non-African American) 43.2 ml/min; Total Protein 7.3 gm/dl (6.0-8.3)
[2024-02-27 11:01] LABS: Troponin I High Sensitivity 6.8 pg/ml (0-14)
[2024-02-27 11:06] LABS: INR 3.4 (0.9-1.1); Partial Thromboplastin Ratio 1.6; Partial Thromboplastin Time 42 Seconds (21-31); Prothrombin Time 32.9 Seconds (9.0-12.0)
[2024-02-27 11:11] LABS: Influenza A virus by PCR Negative (Neg); Influenza B virus by PCR Negative (Neg); RSV by PCR Negative (Neg); SARS CoV2 RNA(COVID-19) Ceph NEGATIVE (Negative)
--- NOTE | 2024-02-27 12:14 | Emergency Department Note ---
History of Present Illness General Chief Complaint: Cardiac Assessment Stated Complaint: REF BY DOC, SUSPECTED CONGESTIVE HEART FAILURE Time Seen by Provider: 02/27/24 11:29 History of Present Illness Provider Complaint: + palpitations Onset (ago): month(s) (2) Duration: + Intermittent Severity: similar to previous episodes Maximum Pain Intensity: 2 Arrhythmia history: + atrial fibrillation and + on anti-coagulants (coumadin) Associated symptoms: no chest pain, no shortness of breath, no syncope, no nausea, no vomiting or no cough HPI narrative: Patient reports she was sent here by her cardiology team at [facility] Dr. Sutton's team who stated she might need to be admitted for IV amiodarone. Home Medications Medication Instructions Recorded Confirmed Type vitamins A,C,R-[id number] 2,148 1 tab PO BID 06/25/18 02/27/24 History mcg-113 mg-45 mg-17.4 mg tablet (PreserVision AREDS) baclofen 10 mg tablet 10 mg PO BID 04/20/22 02/27/24 History primidone 50 mg tablet 50 mg PO BID 09/22/22 02/27/24 History rosuvastatin 40 mg tablet 40 mg PO QAM 12/22/22 02/27/24 History levothyroxine 88 mcg capsule 88 mcg PO QAM 04/24/23 02/27/24 History pantoprazole 40 mg tablet,delayed 40 mg PO QAM #30 tabs 01/13/24 02/27/24 Rx release digoxin 125 mcg (0.125 mg) tablet 125 mcg PO QAM 02/15/24 02/27/24 History cholecalciferol (vitamin D3) 25 1,000 unit PO BID 02/16/24 02/27/24 History mcg (1,000 unit) tablet (Vitamin D3) montelukast 10 mg tablet 10 mg PO HS 02/16/24 02/27/24 History ferrous sulfate 325 mg (65 mg 325 mg PO QAM 02/22/24 02/27/24 History iron) tablet metoprolol succinate 100 mg 100 mg PO QAM 02/22/24 02/27/24 History tablet,extended release 24 hr warfarin 3 mg tablet 0 mg PO HS 02/26/24 02/27/24 History cyanocobalamin (vitamin B-12) 2,000 mcg PO HS 02/27/24 02/27/24 History 2,000 mcg tablet,extended release (Vitamin B-12 ER) furosemide 20 mg tablet (Lasix) 20 mg PO QAM 02/27/24 02/27/24 History magnesium 250 mg tablet 250 mg PO HS 02/27/24 02/27/24 History metoprolol succinate 50 mg 50 mg PO HS 02/27/24 02/27/24 History tablet,extended release 24 hr multivitamin with minerals-folic 1 tab PO QAM 02/27/24 02/27/24 History acid 12 mcg chewable tablet (Centrum Adults) potassium chloride 20 mEq 20 meq PO QAM 02/27/24 02/27/24 History tablet,extended release psyllium husk 0.4 gram capsule 0.4 g PO BID 02/27/24 02/27/24 History (Fiber (psyllium husk)) Allergies Allergy/AdvReac Type Severity Reaction Status Date / Time hydroxychloroquine Allergy Intermediate TOXICITY Verified 02/27/24 15:05 OF THE RETINA ibuprofen Allergy Intermediate SWELLING Verified 02/27/24 15:05 atorvastatin AdvReac Mild "UNCOMFORTABLE" Verified 02/27/24 15:05 AND CREATININE INCREASED SLIGHTLY Past Med/Surg History Problem List (Updated 02/27/24 @ 15:02 by Andrés Miller PA-C) Lower extremity edema Status cardiac pacemaker Hypokalemia A-fib (Acute) Pleuritis Lupus Labile hypertension RAINER on CPAP Tachy-jj syndrome Nonobstructive atherosclerosis of coronary artery Pleuritic chest pain Atrial fibrillation with rapid ventricular response (Acute) Chest pain Routine gynecological examination Injury of ear canal Chronic anticoagulation (Chronic) Hyponatremia PAF (paroxysmal atrial fibrillation) Dizziness (Acute) Chest tightness (Acute) Acute hyponatremia (Acute) Atrial flutter with rapid ventricular response (Acute) Irritable bowel syndrome with diarrhea Tubular adenoma Diarrhea Encounter for pre-operative examination Kidney stones (Chronic) Hypothyroidism Palpitations (Acute) Vitamin D deficiency (Chronic) Hypertension (Chronic) Anemia (Chronic) Obstructive sleep apnea syndrome cpap Tremor (Acute) Gait disturbance Fall Balance problem Vitamin D deficiency (Acute) Chronic obstructive pulmonary disease Systemic lupus erythematosus (Chronic) Chronic kidney disease, stage II (mild) (Chronic) CAD (coronary artery disease) NONOBSTRUCTIVE Diagnostic cardiac catheterization August 2018 with minimal coronary atherosclerosis and no obstruction, elevated end-diastolic pressure HTN (hypertension) Chronic lumbar radiculopathy (Acute) Raynaud's disease (Chronic) Sjogren's syndrome (Chronic) Medical History Macular degeneration Muscle cramping SLE (systemic lupus erythematosus) Scoliosis Osteoporosis Osteoarthritis Hemangioma of liver Chronic back pain GERD (gastroesophageal reflux disease) Hypothyroid 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 Sewell PVC (premature ventricular contraction) Bundle branch block follow Dr Donato Colby syncope Left hip pain Surgical History History of esophagogastroduodenoscopy (EGD) History of colonoscopy S/P UVPP (uvulopalatopharyngoplasty) History of tonsillectomy History of brain surgery History of tubal ligation History of hysterectomy History of appendectomy Family History Aunt Family history of pseudocholinesterase deficiency PATERNAL Breast cancer Father Myocardial infarction Prostate cancer Brother Prostate cancer Denies family history of Ovarian cancer Colorectal cancer Social History Smoking Status: Former smoker Tobacco Type: Cigarettes Second Hand Exposure: No; Do You Dip or Chew Tobacco: No; Hx Alcohol Use: No Hx Substance Use: No Preferred Language: Azerbaijani Communication Ability: Effective Nutrition And Dietetics Instructor Required: No Beliefs That Will Affect Care: None marital status: Current Living Situation Comment: [facility] current occupational status: retired Feels Safe at Home: Yes Childhood Exposure to Second-Hand Smoke: Yes Dental Care, Regularly: Yes Physical Activity Frequency: Daily Seatbelt Use: always Sunscreen Use: Yes Assistive Devices: Cane, CPAP and Walker Physical Exam 2 Vital Signs: Vital Signs - 24 hr 02/27/24 09:51 02/27/24 09:54 02/27/24 11:27 Temperature 36.6 C Temperature Source Temporal Artery Sc an Pulse Rate 84 Pulse Rate [Apical ] Pulse Rate from Sp O2 Sensor Pulse Rhythm [Apic al] Respiratory Rate 20 Respiratory Effort / Characteristics Non-Labored Sponta neous Non-Labored Sponta neous Respiratory Depth Normal Blood Pressure 131/84 Blood Pressure [Le ft Arm] Blood Pressure Karyn n 99 Blood Pressure Karyn n [Left Arm] Pulse Oximetry 97 95 Oxygen Delivery Me thod Room Air Room Air Sepsis Recent Feve r Within 48 Hours No Sepsis New/Unexpla ined Change in Men tierra Status N/A Sepsis Action Take n by Nursing No Action Required 02/27/24 11:27 02/27/24 11:28 02/27/24 11:32 Temperature Temperature Source Pulse Rate Pulse Rate [Apical ] 129 H Pulse Rate from Sp O2 Sensor Pulse Rhythm [Apic al] Irregular Respiratory Rate 27 H Respiratory Effort / Characteristics Respiratory Depth Blood Pressure 126/90 122/83 Blood Pressure [Le ft Arm] 126/90 Blood Pressure Karyn n 93 96 Blood Pressure Karyn n [Left Arm] 102 Pulse Oximetry 95 Oxygen Delivery Me thod Room Air Sepsis Recent Feve r Within 48 Hours Sepsis New/Unexpla ined Change in Men tierra Status Sepsis Action Take n by Nursing 02/27/24 11:32 02/27/24 11:33 02/27/24 11:51 Temperature Temperature Source Pulse Rate 113 H 125 H Pulse Rate [Apical ] Pulse Rate from Sp O2 Sensor 97 H Pulse Rhythm [Apic al] Respiratory Rate 22 22 Respiratory Effort / Characteristics Respiratory Depth Blood Pressure 122/83 Blood Pressure [Le ft Arm] Blood Pressure Karyn n 96 Blood Pressure Karyn n [Left Arm] Pulse Oximetry 83 L Oxygen Delivery Me thod Sepsis Recent Feve r Within 48 Hours Sepsis New/Unexpla ined Change in Men tierra Status Sepsis Action Take n by Nursing 02/27/24 12:00 02/27/24 12:00 02/27/24 12:31 Temperature Temperature Source Pulse Rate 108 H Pulse Rate [Apical ] Pulse Rate from Sp O2 Sensor 106 H Pulse Rhythm [Apic al] Respiratory Rate 26 H Respiratory Effort / Characteristics Respiratory Depth Blood Pressure 119/81 129/91 Blood Pressure [Le ft Arm] Blood Pressure Karyn n 92 99 Blood Pressure Karyn n [Left Arm] Pulse Oximetry 95 Oxygen Delivery Me thod Sepsis Recent Feve r Within 48 Hours Sepsis New/Unexpla ined Change in Men tierra Status Sepsis Action Take n by Nursing 02/27/24 12:31 02/27/24 12:31 02/27/24 12:33 Temperature Temperature Source Pulse Rate 100 H Pulse Rate [Apical ] Pulse Rate from Sp O2 Sensor Pulse Rhythm [Apic al] Respiratory Rate 15 Respiratory Effort / Characteristics Respiratory Depth Blood Pressure 129/91 129/91 Blood Pressure [Le ft Arm] Blood Pressure Karyn n 99 99 Blood Pressure Karyn n [Left Arm] Pulse Oximetry 81 L Oxygen Delivery Me thod Sepsis Recent Feve r Within 48 Hours Sepsis New/Unexpla ined Change in Men tierra Status Sepsis Action Take n by Nursing 02/27/24 12:42 02/27/24 12:42 02/27/24 12:51 Temperature Temperature Source Pulse Rate 116 H 109 H 112 H Pulse Rate [Apical ] Pulse Rate from Sp O2 Sensor 126 H Pulse Rhythm [Apic al] Respiratory Rate 24 21 Respiratory Effort / Characteristics Respiratory Depth Blood Pressure Blood Pressure [Le ft Arm] Blood Pressure Karyn n Blood Pressure Karyn n [Left Arm] Pulse Oximetry 79 L 94 Oxygen Delivery Me thod Sepsis Recent Feve r Within 48 Hours Sepsis New/Unexpla ined Change in Men tierra Status Sepsis Action Take n by Nursing 02/27/24 12:54 02/27/24 13:01 02/27/24 13:09 Temperature Temperature Source Pulse Rate 110 H 117 H Pulse Rate [Apical ] Pulse Rate from Sp O2 Sensor 104 H 110 H Pulse Rhythm [Apic al] Respiratory Rate 20 23 Respiratory Effort / Characteristics Respiratory Depth Blood Pressure 126/97 Blood Pressure [Le ft Arm] Blood Pressure Karyn n 117 Blood Pressure Karyn n [Left Arm] Pulse Oximetry 78 L 85 L Oxygen Delivery Me thod Sepsis Recent Feve r Within 48 Hours Sepsis New/Unexpla ined Change in Men tierra Status Sepsis Action Take n by Nursing 02/27/24 13:12 02/27/24 15:05 Temperature Temperature Source Pulse Rate 123 H Pulse Rate [Apical ] 115 H Pulse Rate from Sp O2 Sensor 117 H Pulse Rhythm [Apic al] Irregular Respiratory Rate 21 20 Respiratory Effort / Characteristics Non-Labored Sponta neous Respiratory Depth Normal Blood Pressure Blood Pressure [Le ft Arm] 102/80 Blood Pressure Karyn n Blood Pressure Karyn n [Left Arm] 87 Pulse Oximetry 94 95 Oxygen Delivery Me thod Room Air Sepsis Recent Feve r Within 48 Hours Sepsis New/Unexpla ined Change in Men tierra Status Sepsis Action Take n by Nursing Physical Exam: Physical Exam GENERAL: oriented to person, place, and time. appears well-developed and well- nourished. HENT: Exam performed. - Head: Normocephalic and atraumatic. EYES: Conjunctivae and EOM are normal. Right eye exhibits no discharge. Left eye exhibits no discharge. No scleral icterus. NECK: Normal range of motion. Neck supple. No JVD present. CV: Normal rate, irregular rhythm, normal heart sounds and intact distal pulses. There is no peripheral edema. Palpable radial pulses bue. PULM/CHEST: Effort normal and breath sounds normal. No respiratory distress. No stridor. no wheezes. no rales. ABD: The abdomen is soft. There is no tenderness. NEURO: Motor and sensation grossly intact. SKIN: Skin is warm and dry. He is not diaphoretic. PSYCH: normal mood and affect. Behavior is normal. Judgment and thought content normal. Course Course 1129: The patient was evaluated in room A12B. A complete history and physical exam was performed Cardiac monitoring: An order was placed for continuous cardiac monitoring. The monitor shows a rate of 110 with atrial fibrilation rhythm interpreted by me Patient was seen during a time of extreme volume and extreme acuity. Nursing triage protocols were initiated labs and imaging was conducted by protocol in the triage area. Potassium of 3. Potassium replaced in the emergency department. Will page [place] cardiology to see if they want the patient admitted. 1306: Vital signs stable. Patient remains in atrial fibrillation with a rate between 90-120. Spoke with Dr. Bonner and he is unaware of the patient. He states that the patient recently had her metoprolol increased and was recently started on digoxin according to their epic system. He states that he will call Dr. Sutton and then contact me back with the plan. 1335: Received a message from Dr. Bonner and he stated Dr. Sutton did not refer the patient to the emergency department and he does not recommend amiodarone at this time. 1345: Spoke with Dr. Bonner. He stated that he would not recommend administration of DOAC or amiodarone given her other medications. He stated that if the patient did not feel comfortable going home and wanted to be admitted he would evaluate the patient while admitted to the hospitalist team. He stated he would be unable to evaluate the patient in the emergency department at this time as he is busy with other procedures. Discussed the case with the daughter and the patient and they do not feel comfortable going home and would like to be evaluated by cardiology and admitted overnight. [facility] Hospitalist team will be consulted. Administered Medications Discontinued Medications Potassium Chloride (K Skip / Wtr) 10 meq in 100 mls @ 100 mls/hr IV ONE ONE Stop: 02/27/24 15:59 Last Admin: 02/27/24 16:08 Dose: Not Given Documented By: MICAH Potassium Chloride (Potassium Chloride 10 Meq Tabcr) 40 meq PO NOW STA Stop: 02/27/24 12:15 Last Admin: 02/27/24 12:24 Dose: 40 meq Documented By: JACKIE Medical Decision Making Laboratory Data Attestation: I reviewed the patient's lab results. 02/27/24 10:05 02/27/24 10:05 Lab Results 02/27/24 02/27/24 02/27/24 Range/Units 10:05 10:10 13:57 WBC 6.60 (4.8-10.8) K/ul RBC 3.73 L (4.20-5.40) M/uL Hgb 10.7 L (12.0-16.0) g/dl Hct 31.7 L (37.0-47.0) % MCV 85.0 (80.0-100.0) fL MCH 28.7 (25.0-34.0) pg MCHC 33.8 (32.0-36.0) g/dL RDW Std Deviation 46.0 (36.4-46.3) fL RDW Coeff of Mal 14.8 H (11.5-14.5) % Plt Count 243 (130-400) K/uL MPV 10.6 (9.4-12.4) fL Immature Gran % (Auto) 0.3 % Neut % (Auto) 77.3 % Lymph % (Auto) 11.1 % Pike % (Auto) 11.1 % Eos % (Auto) 0.0 % Baso % (Auto) 0.2 % Neut # (Auto) 5.11 (1.40-6.50) K/uL Lymph # (Auto) 0.73 L (1.20-3.40) K/uL Pike # (Auto) 0.73 H (0.11-0.59) K/uL Eos # (Auto) 0.00 (0.00-0.50) K/uL Baso # (Auto) 0.01 (0.00-0.20) K/uL Immature Gran # (Auto) 0.02 (0.01-0.20) K/uL PT 32.9 H (9.0-12.0) Seconds INR 3.4 H (0.9-1.1) APTT 42 H (21-31) Seconds PTT Ratio 1.6 Sodium 136 (136-145) mmol/L Potassium 3.0 L (3.5-5.1) mmol/L Chloride 99 (98-107) mmol/L Carbon Dioxide 28 (21-32) mmol/L Anion Gap 9 (3-11) BUN 22 (6-23) mg/dl Creatinine 1.18 (0.6-1.2) mg/dl Est Cr Clr Drug Dosing 41.6 ml/min Est GFR ( Amer) 50.1 ml/min Est GFR (Non-Af Amer) 43.2 ml/min BUN/Creatinine Ratio 18.6 (10-20) Glucose 124 H (70-99(Fasting)) mg/dl Calcium 9.4 (8.6-10.3) mg/dl Magnesium 1.9 (1.7-2.4) mg/dl Total Bilirubin 0.6 (0.2-1.0) mg/dl AST 20 (13-39) U/L ALT 16 (7-52) U/L Alkaline Phosphatase 82 (34-104) U/L Troponin I High Sens 6.8 (0-14) pg/ml Total Protein 7.3 (6.0-8.3) gm/dl Albumin 4.3 (3.4-5.0) gm/dl Globulin 3.0 (2.5-4.0) gm/dl Albumin/Globulin Ratio 1.4 (0.9-2) Digoxin 0.8 (0.8-2.0) ng/ml SARS-CoV-2 (PCR) NEGATIVE (Negative) Influenza Type A (PCR) Negative (Neg) Influenza Type B (PCR) Negative (Neg) RSV (RT-PCR) Negative (Neg) Imaging Data Attestation: I personally reviewed and interpreted this imaging study as follows: My Impression: Chest x-ray: Cardiomegaly without fluid overload Radiologist's Impression: Chest X-Ray 02/27/24 09:55 SINGLE VIEW CHEST CLINICAL HISTORY: Atypical chest pain. FINDINGS: A PA chest radiograph is compared to study dated 02/26/2024 and correlated with chest CT dated 01/29/2024. A 2-lead cardiac pacemaker is unchanged in position and partially obscures the left mid chest. The heart is enlarged. The pulmonary vasculature is noncongested. There are small pleural effusions with dependent atelectasis. There is no pneumothorax. The skeletal structures are osteopenic. The bony thorax is grossly intact. Degenerative change is noted in the shoulders and spine. IMPRESSION: 1. Cardiomegaly and cardiac pacemaker without radiographic evidence of congestive failure. 2. Small pleural effusions with dependent atelectasis. ACT 112: Negative or not required by law. Electronically signed by: Jose Maria Joe M.D. 02/27/2024 10:34 AM ECG Data Attestation: I personally reviewed and interpreted this ECG as follows: Indication: palpitations Rate (beats per minute): 114 Rhythm: atrial fibrillation Findings: no ST depression, no ST elevation or no prolonged QT MDM Narrative 1129: The patient was evaluated in room A12B. A complete history and physical exam was performed Cardiac monitoring: An order was placed for continuous cardiac monitoring. The monitor shows a rate of 110 with atrial fibrilation rhythm interpreted by me Patient was seen during a time of extreme volume and extreme acuity. Nursing triage protocols were initiated labs and imaging was conducted by protocol in the triage area. Potassium of 3. Potassium replaced in the emergency department. Will page [place] cardiology to see if they want the patient admitted. 1306: Vital signs stable. Patient remains in atrial fibrillation with a rate between 90-120. Spoke with Dr. Bonner and he is unaware of the patient. He states that the patient recently had her metoprolol increased and was recently started on digoxin according to their epic system. He states that he will call Dr. Sutton and then contact me back with the plan. 1335: Received a message from Dr. Bonner and he stated Dr. Sutton did not refer the patient to the emergency department and he does not recommend amiodarone at this time. 1345: Spoke with Dr. Bonner. He stated that he would not recommend administration of DOAC or amiodarone given her other medications. He stated that if the patient did not feel comfortable going home and wanted to be admitted he would evaluate the patient while admitted to the hospitalist team. He stated he would be unable to evaluate the patient in the emergency department at this time as he is busy with other procedures. Discussed the case with the daughter and the patient and they do not feel comfortable going home and would like to be evaluated by cardiology and admitted overnight. [facility] hospitalist team will be consulted. Impression & Plan A-fib Discharge Plan Visit Data Chief Complaint: Cardiac Assessment Stated Complaint: REF BY DOC, SUSPECTED CONGESTIVE HEART FAILURE ED Provider: Gopi Tovar Discharge Problem: A-fib Patient Disposition: Being Evaluated by Hospitalist Forms Stand Alone Forms: My [facility] Prescriptions Prescriptions: No Action digoxin 125 mcg (0.125 mg) tablet 125 mcg PO QAM montelukast 10 mg tablet 10 mg PO HS baclofen 10 mg tablet 10 mg PO BID levothyroxine 88 mcg capsule 88 mcg PO QAM warfarin 3 mg tablet 0 mg PO HS Rx Instructions: 02/25 - On hold until RTC on 03/01; (Not listed as on hold on AUG from SNF, but placed as on hold by other medical staff) Original Directions: 3mg by mouth at bedtime metoprolol succinate 100 mg tablet extended release 24 hr 100 mg PO QAM ferrous sulfate 325 mg (65 mg iron) tablet 325 mg PO QAM primidone 50 mg tablet 50 mg PO BID PreserVision AREDS [id number] [id number] Tablet 1 tab PO BID cholecalciferol (vitamin D3) [Vitamin D3] 25 mcg (1,000 unit) tablet 1,000 unit PO BID rosuvastatin 40 mg tablet 40 mg PO QAM pantoprazole 40 mg Tablet,Delayed Release (Dr/Ec) 40 mg PO QAM Qty: 30 0RF metoprolol succinate 50 mg Tablet Extended Release 24 Hr 50 mg PO HS magnesium 250 mg Tablet 250 mg PO HS cyanocobalamin (vitamin B-12) [Vitamin B-12] 2,000 mcg Tablet Extended Release 2,000 mcg PO HS psyllium husk [Fiber (psyllium husk)] 0.4 gram Capsule 0.4 g PO BID Centrum Adults 12 mcg Tablet,Chewable 1 tab PO QAM furosemide [Lasix] 20 mg tablet 20 mg PO QAM potassium chloride 20 mEq tablet extended release 20 meq PO QAM Referrals Referrals: Horace Lopez MD [Primary Care Provider] - Discharge Problem: A-fib Qualifiers: Atrial fibrillation type: unspecified Qualified Code(s): I48.91 - Unspecified atrial fibrillation
[2024-02-27] MEDS: POTASSIUM CHLORIDE 10 MEQ TABCR PO STA (12:24)
--- NOTE | 2024-02-27 13:59 | History & Physical Report ---
Date of Service February 27, 2024 Assessment & Plan (1) Atrial fibrillation with rapid ventricular response: Plan: Conversational dyspnea, and acute worsening of SOB at rest/with exertion the evening of 02/25 A-fib with RVR around 120 bpm on arrival Patient recently increased to metoprolol supinate 125 mg BID in January; digoxin was also added At anticoagulation clinic on 02/25, patient's INR was supratherapeutic at 6.2 She was given vitamin K 200mcg p.o., and advised to hold warfarin until 03/01 INR okay at 3.5 on arrival; will hold warfarin the evening of 02/26 and recheck a.m. PT/INR Continue metoprolol, digoxin Metoprolol 5 mg IV q6h as needed for A-fib with RVR >130bpm Cardiology consult appreciated AM CBC, BMP, PT/INR, TSH (2) Hypokalemia: Plan: K 3.0 on arrival Patient reports she did take an additional dose of Lasix on 02/25 prior to coming in Potassium chloride 60mEq p.o. given Continue daily potassium supplementation A.m. BMP (3) Lower extremity edema: Plan: +1 pitting edema in the ankles bilaterally 12lb weight gain x 2 weeks prior to arrival CXR did not show evidence of heart failure BNP elevated at 284, however this is down from prior (was previously 608 on 01/28) Last echocardiogram on 01/08/2024 revealed LVEF at 55-60% Hold a.m. Lasix on 02/27, and okay to give if potassium is WNL Daily weights Strict I&O monitoring (4) Anemia: Plan: Chronic; Hgb 10.7 on arrival Clinically, no signs of active bleeding on physical exam Recheck a.m. CBC (5) Status cardiac pacemaker: Plan: S/p dual-chamber Zimmer pacemaker on 01/11/2024 (6) RAINER on CPAP: Plan: CPAP HS (7) Tachy-jj syndrome: Plan Disposition: Admit to PCU telemetry Full code Heart healthy, low-sodium diet VTE PPx: On warfarin History of Present Illness Chief Complaint: SOB at rest and with exertion, conversational dyspnea Primary Care Provider: Horace Lopez MD Pam is an 83-year-old female with PMH of RAINER, SLE, CAD, HTN, Sjogren's, Raynaud's, tremor, and paroxysmal atrial fibrillation (on warfarin). She presented on 02/26 for chest tightness and SOB at rest. She is experiencing both SOB at rest and with exertion (worse with exertion). SOB at rest is new for her; so is conversational dyspnea. She also endorses significant orthopnea. She had significant difficulty sleeping last night, and reports that despite taking a double dose of Lasix yesterday, she has not been producing as much urine. She first noticed decreased urine production last Monday, but does note that the Lasix will occasionally kick in when she takes it. Patient took her regular morning medications today; she reports that there have been changes in her medication dosages (they have recently been titrating up on her rate control medications). Patient does not manage her own medicine at home; managed by the nursing office at [facility]. She was told to hold her Coumadin yesterday after her INR came back at 6.1; she was also given 2 tablets of vitamin K yesterday. Patient uses a CPAP at night; no supplemental oxygen at baseline. No sick contacts. Patient reports that her legs are slightly swollen, and she has been experiencing significant lower extremity weakness. She describes her legs as "jelly worms" and reports that she can no longer walk. In regard to her shortness of breath, this has been ongoing, waxing/waning since her last admission in January. She does not have chest palpitations that signal her A-fib with RVR, but does report "night sweats" and difficulty breathing whenever she develops it at night. She reports a 12 pound weight gain over the past 2 weeks; has been taking her weight daily. No recent change in diet, and she does watch her salt intake, but she is concerned that there may be more salt in the [facility] cafeteria than if she cooked at home. Other than Lasix, patient has not been taking additional medications or inhalers for her SOB; she has been trying breathing exercises/techniques without significant improvement. No history of DVT/PE. Patient denies smoking, tobacco use, recent alcohol use. She does have a home pulse ox, and reports that has been around 92 to 98% at home on room air. Patient is tachycardic at 123 bpm at time of admission; vitals otherwise stable. ED course: Potassium chloride 40mEq p.o. ROS: Patient endorses SOB at rest and with exertion, chest fullness/tightness (which patient attributes to a fib), night-sweats (which patient attributes to a fib at night), conversational dyspnea, orthopnea, dry cough, pleuritic CP (can not take deep breath in and out), nausea, and leg swelling at night. Patient denies fever, chills, chest pain, chest palpitations, hemoptysis, abdominal pain, vomitng, diarrhea, burning with urination, or blood in the urine/stool. Allergies Allergy/AdvReac Type Severity Reaction Status Date / Time hydroxychloroquine Allergy Intermediate TOXICITY Verified 02/27/24 15:05 OF THE RETINA ibuprofen Allergy Intermediate SWELLING Verified 02/27/24 15:05 atorvastatin AdvReac Mild "UNCOMFORTABLE" Verified 02/27/24 15:05 AND CREATININE INCREASED SLIGHTLY Home Medications Medication Instructions Recorded Confirmed Type vitamins A,C,T-dagi-dkliwq 2,148 1 tab PO BID 06/25/18 02/27/24 History mcg-113 mg-45 mg-17.4 mg tablet (PreserVision AREDS) baclofen 10 mg tablet 10 mg PO BID 04/20/22 02/27/24 History primidone 50 mg tablet 50 mg PO BID 09/22/22 02/27/24 History rosuvastatin 40 mg tablet 40 mg PO QAM 12/22/22 02/27/24 History levothyroxine 88 mcg capsule 88 mcg PO QAM 04/24/23 02/27/24 History pantoprazole 40 mg tablet,delayed 40 mg PO QAM #30 tabs 01/13/24 02/27/24 Rx release digoxin 125 mcg (0.125 mg) tablet 125 mcg PO QAM 02/15/24 02/27/24 History cholecalciferol (vitamin D3) 25 1,000 unit PO BID 02/16/24 02/27/24 History mcg (1,000 unit) tablet (Vitamin D3) montelukast 10 mg tablet 10 mg PO HS 02/16/24 02/27/24 History ferrous sulfate 325 mg (65 mg 325 mg PO QAM 02/22/24 02/27/24 History iron) tablet metoprolol succinate 100 mg 100 mg PO QAM 02/22/24 02/27/24 History tablet,extended release 24 hr warfarin 3 mg tablet 0 mg PO HS 02/26/24 02/27/24 History cyanocobalamin (vitamin B-12) 2,000 mcg PO HS 02/27/24 02/27/24 History 2,000 mcg tablet,extended release (Vitamin B-12 ER) furosemide 20 mg tablet (Lasix) 20 mg PO QAM 02/27/24 02/27/24 History magnesium 250 mg tablet 250 mg PO HS 02/27/24 02/27/24 History metoprolol succinate 50 mg 50 mg PO HS 02/27/24 02/27/24 History tablet,extended release 24 hr multivitamin with minerals-folic 1 tab PO QAM 02/27/24 02/27/24 History acid 12 mcg chewable tablet (Centrum Adults) potassium chloride 20 mEq 20 meq PO QAM 02/27/24 02/27/24 History tablet,extended release psyllium husk 0.4 gram capsule 0.4 g PO BID 02/27/24 02/27/24 History (Fiber (psyllium husk)) Past Med/Surg History Problem List (Updated 02/27/24 @ 15:02 by Andrés Miller PA-C) Lower extremity edema Status cardiac pacemaker Hypokalemia A-fib (Acute) Pleuritis Lupus Labile hypertension RAINER on CPAP Tachy-jj syndrome Nonobstructive atherosclerosis of coronary artery Pleuritic chest pain Atrial fibrillation with rapid ventricular response (Acute) Chest pain Routine gynecological examination Injury of ear canal Chronic anticoagulation (Chronic) Hyponatremia PAF (paroxysmal atrial fibrillation) Dizziness (Acute) Chest tightness (Acute) Acute hyponatremia (Acute) Atrial flutter with rapid ventricular response (Acute) Irritable bowel syndrome with diarrhea Tubular adenoma Diarrhea Encounter for pre-operative examination Kidney stones (Chronic) Hypothyroidism Palpitations (Acute) Vitamin D deficiency (Chronic) Hypertension (Chronic) Anemia (Chronic) Obstructive sleep apnea syndrome cpap Tremor (Acute) Gait disturbance Fall Balance problem Vitamin D deficiency (Acute) Chronic obstructive pulmonary disease Systemic lupus erythematosus (Chronic) Chronic kidney disease, stage II (mild) (Chronic) CAD (coronary artery disease) NONOBSTRUCTIVE Diagnostic cardiac catheterization August 2018 with minimal coronary atherosclerosis and no obstruction, elevated end-diastolic pressure HTN (hypertension) Chronic lumbar radiculopathy (Acute) Raynaud's disease (Chronic) Sjogren's syndrome (Chronic) Medical History Macular degeneration Muscle cramping SLE (systemic lupus erythematosus) Scoliosis Osteoporosis Osteoarthritis Hemangioma of liver Chronic back pain GERD (gastroesophageal reflux disease) Hypothyroid 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 Sewell PVC (premature ventricular contraction) Bundle branch block follow Dr Sewell Near syncope Left hip pain Surgical History History of esophagogastroduodenoscopy (EGD) History of colonoscopy S/P UVPP (uvulopalatopharyngoplasty) History of tonsillectomy History of brain surgery History of tubal ligation History of hysterectomy History of appendectomy Family History Aunt Family history of pseudocholinesterase deficiency PATERNAL Breast cancer Father Myocardial infarction Prostate cancer Brother Prostate cancer Denies family history of Ovarian cancer Colorectal cancer Social History Smoking Status: Former smoker Tobacco Type: Cigarettes Second Hand Exposure: No; Do You Dip or Chew Tobacco: No; Hx Alcohol Use: No Hx Substance Use: No Preferred Language: Portuguese Communication Ability: Effective 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: No Beliefs That Will Affect Care: None marital status: Current Living Situation: Alone Current Living Situation Comment: [place] current occupational status: retired Feels Safe at Home: Yes Childhood Exposure to Second-Hand Smoke: Yes Dental Care, Regularly: Yes Physical Activity Frequency: Daily Seatbelt Use: always Sunscreen Use: Yes Assistive Devices: Cane, CPAP and Walker Review of Systems Review of Systems: See HPI above Physical Exam Physical Exam: General: Mild respiratory distress; pleasant affect; non-toxic appearing; cooperative; SpO2 94% on RA HEENT: normocephalic, atraumatic; no scleral icterus; PERRLA; vision and hearing grossly intact Neck: supple; no lymphadenopathy; trachea midline Skin: Cyanotic lips; warm, dry without signs of tenting; no rashes, bruising, lesions, or erythema noted CV: chest wall NTP; irregularly irregular rhythm tachycardic around 123 bpm; S1/S2 normal; no murmurs/rubs/gallops; pulses intact and symmetric at radial, DP, and PT Lungs: Mild respiratory distress; conversational dyspnea; symmetrical chest wall expansion; clear breath sounds across all lung anderson w/o adventitious sounds; no wheezing ABD: Soft, NTP; BS present; no rebound/guarding; no distention MSK: no tics or fasciculations; +1 pitting edema around the ankles bilaterally, nonerythematous Neuro: A&Ox3; normal mood and affect; fluent speech; no focal deficits; sensation grossly intact in the LEs b/l Results & Data Results & Data Vital Signs (Past 12 Hours) Vital Signs Temp Pulse Pulse Resp BP BP Pulse Ox 02/27/24 13:12 123 H 21 94 02/27/24 13:09 117 H 23 85 L 02/27/24 13:01 126/97 02/27/24 12:54 110 H 20 78 L 02/27/24 12:51 112 H 21 94 02/27/24 12:42 109 H 24 79 L 02/27/24 12:42 116 H 02/27/24 12:33 100 H 15 81 L 02/27/24 12:31 129/91 02/27/24 12:31 129/91 02/27/24 12:31 129/91 02/27/24 12:00 119/81 02/27/24 12:00 108 H 26 H 95 02/27/24 11:51 125 H 22 83 L 02/27/24 11:33 113 H 22 02/27/24 11:32 122/83 02/27/24 11:32 122/83 02/27/24 11:28 126/90 02/27/24 11:27 129 H 27 H 126/90 95 02/27/24 11:27 95 02/27/24 09:51 36.6 C 84 20 131/84 97 O2 Del Method 02/27/24 13:12 02/27/24 13:09 02/27/24 13:01 02/27/24 12:54 02/27/24 12:51 02/27/24 12:42 02/27/24 12:42 02/27/24 12:33 02/27/24 12:31 02/27/24 12:31 02/27/24 12:31 02/27/24 12:00 02/27/24 12:00 02/27/24 11:51 02/27/24 11:33 02/27/24 11:32 02/27/24 11:32 02/27/24 11:28 02/27/24 11:27 Room Air 02/27/24 11:27 Room Air 02/27/24 09:51 Room Air Laboratory Results Abnormal lab results 02/27/24 Range/Units 10:05 RBC 3.73 L (4.20-5.40) M/uL Hgb 10.7 L (12.0-16.0) g/dl Hct 31.7 L (37.0-47.0) % RDW Coeff of Mal 14.8 H (11.5-14.5) % Lymph # (Auto) 0.73 L (1.20-3.40) K/uL [place] # (Auto) 0.73 H (0.11-0.59) K/uL PT 32.9 H (9.0-12.0) Seconds INR 3.4 H (0.9-1.1) APTT 42 H (21-31) Seconds Potassium 3.0 L (3.5-5.1) mmol/L Glucose 124 H (70-99(Fasting)) mg/dl Diagnostic Findings Chest X-Ray 02/27/24 09:55 SINGLE VIEW CHEST CLINICAL HISTORY: Atypical chest pain. FINDINGS: A PA chest radiograph is compared to study dated 02/26/2024 and correlated with chest CT dated 01/29/2024. A 2-lead cardiac pacemaker is unchanged in position and partially obscures the left mid chest. The heart is enlarged. The pulmonary vasculature is noncongested. There are small pleural effusions with dependent atelectasis. There is no pneumothorax. The skeletal structures are osteopenic. The bony thorax is grossly intact. Degenerative change is noted in the shoulders and spine. IMPRESSION: 1. Cardiomegaly and cardiac pacemaker without radiographic evidence of congestive failure. 2. Small pleural effusions with dependent atelectasis. ACT 112: Negative or not required by law. Electronically signed by: Jose Maria Joe M.D. 02/27/2024 10:34 AM ECG Additional Comments: ECG revealed atrial fibrillation with RVR at 114 bpm; QTc 430; RBBB Code Status & VTE Plan Code Status Full code (discussed with patient at bedside) VTE Prophylaxis Plan VTE Prophylaxis will be ordered: Yes Supervising Physician Co-Signing Physician Notes I personally saw and examined the patient. I independently reviewed the labs, EKG, imaging, problem list, medication list, past medical history and family history. I verified all murray points and agree with Andrés Miller PA-C with the following exceptions and/or additions: 83 year old presents to the ER with shortness of breath on light exertion. Ongoing difficulty with a. fib RVR with recent addition of digoxin. O/E HS increased rate, irregular rhythm, no murmurs, Chest bibasal crackles, no wheezing, Abdo SNT A/P A. fib with RVR - I am not clear on the plan from cardiology but appears we are limited with BB up titration due to her BP. Digoxin was recently started (currently in therapeutic range). She isn't sudden acutely worse but appears reasonable to admit her to hospital at this point to help with better rate control as this seems to be the main cause of her shortness of breath rather than overt pulmonary edema (lack of significant B lines on POCUS US except at her lung bases) or pleural effusions (trace). With regards to ongoing plan for rate control however I will leave that up to cardiology tomorrow as no urgent need to slow her down overnight. We will just use metoprolol as needed for HR > 130. Possible pericardial effusion on POCUS US therefore will get formal limited TTE to assess this better as not present on echo in January. Consult [facility] cardiology. PG Care Time/CCT Total # of Minutes Spent Total Time Spent with Patient: Total time spent is greater than 50% in coordination of care (as documented) at patient's floor/unit and/or counseling patient: Coding [place] [address] INT INP/OBS CARE 3/75MIN Patient Type Established Medical Decision Making High Complexity Diagnoses Atrial fibrillation with rapid ventricular response I48.91 Hypokalemia E87.6 Lower extremity edema R60.0 Anemia D64.9 Status cardiac pacemaker Z95.0 RAINER on CPAP G47.33 Tachy-jj syndrome I49.5
[2024-02-27] MEDS: POTASSIUM CHLORIDE / WTR 10 MEQ/100 ML PLCT IV ONE (16:08)
[2024-02-27] MEDS: POTASSIUM CHLORIDE CRTAB 20 MEQ TABCR PO STA (17:05)
[2024-02-27] MEDS: METOPROLOL TARTRATE 1 MG/ML VIAL IV PRN (18:37)
[2024-02-27] MEDS: PRIMIDONE 50 MG TAB PO SCH (20:05)
[2024-02-27] MEDS: METOPROLOL SUCC 50MG EXT REL TAB PO SCH (20:06)
[2024-02-27] MEDS: MAGNESIUM OXIDE 400 MG TAB PO SCH (20:06)
[2024-02-27] MEDS: MONTELUKAST SODIUM 10 MG TABLET PO SCH (20:06)
[2024-02-27] MEDS: BACLOFEN 10 MG TAB PO SCH (20:12)
--- NOTE | 2024-02-27 20:56 | Electrocardiogram Report ---
Test Reason : Blood Pressure : */* mmHG Vent. Rate : 114 BPM Atrial Rate : * BPM P-R Int : * ms QRS Dur : 120 ms QT Int : 312 ms P-R-T Axes : * 31 263 degrees QTcB Int : 430 ms Poor data quality, interpretation may be adversely affected Atrial fibrillation with rapid ventricular response Right bundle branch block Abnormal ECG When compared with ECG of 29-Jan-2024 04:31, No significant change was found Confirmed by Navdeep Hughes ([id number] on 02/27/2024 8:56:10 PM Referred By: Confirmed By: Navdeep Hughes
[2024-02-28] MEDS: LEVOTHYROXINE SODIUM 88 MCG TABLET PO SCH (06:15)
[2024-02-28 07:57] LABS: Basophils # (auto) 0.01 K/uL (0.00-0.20); Basophils % (auto) 0.2 %; Hematocrit (blood only) 28.3 % (37.0-47.0); Hemoglobin 9.2 g/dl (12.0-16.0); Immature Granulocytes # (auto) 0.02 K/uL (0.01-0.20); Immature Granulocytes % (auto) 0.4 %; Lymphocytes # (auto) 0.82 K/uL (1.20-3.40); Lymphocytes % (auto) 15.3 %; Mean Corpuscular Hgb Conc 32.5 g/dL (32.0-36.0); Mean Corpuscular Volume 86.3 fL (80.0-100.0); Mean Platelet Volume 10.8 fL (9.4-12.4); Monocytes # (auto) 0.72 K/uL (0.11-0.59); Monocytes % (auto) 13.4 %; Neutrophils # (auto) 3.79 K/uL (1.40-6.50); Neutrophils % (auto) 70.7 %; Platelet Count 205 K/uL (130-400); RDW Coefficient of Variation 14.8 % (11.5-14.5); RDW Standard Deviation 46.6 fL (36.4-46.3); Red Blood Count 3.28 M/uL (4.20-5.40); White Blood Count 5.36 K/ul (4.8-10.8)
[2024-02-28 08:15] LABS: INR 2.3 (0.9-1.1); Prothrombin Time 23.2 Seconds (9.0-12.0)
[2024-02-28 08:22] LABS: BUN Creatinine Ratio 19.8 (10-20); Calcium 8.7 mg/dl (8.6-10.3); Creatinine Clr Calc Pharmacy 48.6 ml/min; Est GFR (African American) 60.5 ml/min; Est GFR (Non-African American) 52.2 ml/min; Magnesium 1.9 mg/dl (1.7-2.4); Potassium 3.7 mmol/L (3.5-5.1)
[2024-02-28 08:38] LABS: Thyroid Stimulating Hormone 8.348 uIu/ml (0.300-4.500)
[2024-02-28 09:16] LABS: T4 Free Thyroxine 1.06 ng/dl (0.61-1.60)
[2024-02-28] MEDS: ROSUVASTATIN CALCIUM 20 MG TAB PO SCH (09:33)
[2024-02-28] MEDS: CEROVITE ADV FORMULA TAB PO SCH (09:33)
[2024-02-28] MEDS: DIGOXIN 0.125 MG TAB PO SCH (09:34)
[2024-02-28] MEDS: FERROUS SULFATE 325 MG TAB PO SCH (09:35)
[2024-02-28] MEDS: METOPROLOL SUCC 50MG EXT REL TAB PO SCH (09:38)
[2024-02-28] MEDS: POTASSIUM CHLORIDE CRTAB 20 MEQ TABCR PO SCH (09:39)
[2024-02-28] MEDS: PANTOprazole 40 MG TAB PO SCH (09:59)
--- NOTE | 2024-02-28 10:42 | Cardiology Consultation ---
Date of Consultation February 28, 2024 Assessment & Plan (1) Pericardial effusion: (2) Atrial fibrillation with rapid ventricular response: (3) Cardiac pacemaker in situ: (4) Tachy-donnie syndrome: (5) Pleuritic chest pain: (6) CAD (coronary artery disease): Plan Symptomatic pericardial effusion, pericarditis Hospitalization in early January with pleuritis Persistent atrial fibrillation with a rapid ventricular response likely being driven by the above. 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 Minimal coronary atherosclerosis and no obstruction via August 2018 cardiac catheterization Longstanding labile hypertension, diastolic dysfunction Pulmonary hypertension, obstructive sleep apnea on CPAP supplementation since 1995 Chronic essential tremor, on Primidone Chronic renal insufficiency stage 3 Systemic lupus erythematosus Hypothyroidism Hyperlipidemia Recommendations: Hold Coumadin anticoagulation Administer Vitamin K 2.5 mg by mouth now Refer for possible pericardiocentesis Initiate glucocorticoid therapy with prednisone 40 mg/day, tapering by 5-10 mg every week Initiate colchicine 0.6 mg twice per day for now, decreasing to 0.6 mg daily on discharge given renal dysfunction Decrease rosuvastatin dosing given addition of colchicine Continue pantoprazole for GI prophylaxis Continue metoprolol and digoxin at current dosing Hold furosemide for now Supervising Physician Co-Signing Physician Notes I have personally performed a history and physical examination on the patient. I have reviewed the advance practitioner's documentation, and I agree with, and take responsibility for the plan of care. 83-year-old female admitted secondary to progressive shortness of breath and atrial fibrillation with rapid ventricular response. Recent history significant for pacemaker implantation early January. Progressive dyspnea and uncontrolled atrial fibrillation noted over the past 8 weeks. Echocardiogram performed today demonstrating large circumferential pericardial effusion with evidence of tamponade physiology. Currently patient is hemodynamically stable. Her INR is 2.4. Recommend proceeding with pericardiocentesis when INR below 2.0. Patient will receive 2.5 mg of oral vitamin K. Repeat INR at approximately 3 PM. Will proceed with pericardiocentesis this afternoon if possible. Otherwise, patient will be made n.p.o. except medications after midnight for procedure in a.m. 02/29/2024. Clinical findings and recommendations discussed with patient and daughter at bedside. All questions answered to their satisfaction. Pepito Bonner DO, [facility] History of Present Illness Reason for Consultation: Atrial fibrillation Requesting Physician: Dr. Gopi Tovar Attending Physician: Dr. Leland Aguila MD History of Present Illness 83-year-old female referred by Dr. Tovar. 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 Over the last few weeks patient has been experiencing shortness of breath and chest pressure attributed to atrial fibrillation with a rapid ventricular response Metoprolol succinate dosing increased and digoxin added for rate control Lisinopril discontinued due to intermittent hypotension Chest CTA on January 29, 2024 with mild congestive change, small bilateral effusions, possible pneumonia, mild mediastinal and bilateral hilar lymphadenopathy, small pericardial effusion INR supratherapeutic on February 26, 2024 at 6.2 for which Coumadin was held and vitamin K administered INR 3.5 on February 27, 2024 Referred for admission on February 27, 2024, possible initiation of amiodarone, symptomatic atrial fibrillation with RVR Patient notes limiting dyspnea and chest discomfort that precludes ADLs, worse when lying down, worse with inspiration. EKG with atrial fibrillation with a rapid ventricular response, right bundle branch block. Chest x-ray with significant enlargement of the cardiac silhouette compared to prior. Preliminary resting echocardiography with significant pericardial effusion Problem List Systemic lupus erythematosus Longstanding labile hypertension, diastolic dysfunction Pulmonary hypertension Obstructive sleep apnea on CPAP supplementation since 1995 Chronic essential tremor Diagnostic cardiac catheterization August 2018 with minimal coronary atherosclerosis and no obstruction, elevated end-diastolic pressure Hyperlipidemia Chronic renal insufficiency stage 3 Hypothyroidism Paroxysmal atrial fibrillation. Dagnosed in April 2022 requiring VINAY/CV. Beta faith limited due to sinus bradycardia. Anticoagulated with coumadin, managed via [facility]; coumadin felt to be anticoagulant of choice noting the chronic use of Primidone. Palpitations documented to occur in association with sinus rhythm, sinus tachycardia, supraventricular ectopy, ventricular ectopy, and paroxysmal atrial fibrillation/flutter. Asymptomatic atrial tachycardia Chronic mild resting bradycardia Tachy-Donnie Syndrome. Status post January 11, 2020 for direct-current cardioversion, unsuccessful Status post January 12, 2024 dual-chamber pacemaker implantation [facility] MRI Model Number [id number] SN: [id number]. Right atrial lead: [facility] Tendril STS 2087TC SN: [id number] Left bundle lead: [facility] Tendril STS 2087TC SN: [id number] Chronic gait instability/dizziness/falls Anxiety Allergies Allergy/AdvReac Type Severity Reaction Status Date / Time hydroxychloroquine Allergy Intermediate TOXICITY Verified 02/27/24 15:05 OF THE RETINA ibuprofen Allergy Intermediate SWELLING Verified 02/27/24 15:05 atorvastatin AdvReac Mild "UNCOMFORTABLE" Verified 02/27/24 15:05 AND CREATININE INCREASED SLIGHTLY Home Medications Medication Instructions Recorded Confirmed Type vitamins A,C,I-igoo-asqpru 2,148 1 tab PO BID 06/25/18 02/27/24 History mcg-113 mg-45 mg-17.4 mg tablet (PreserVision AREDS) baclofen 10 mg tablet 10 mg PO BID 04/20/22 02/27/24 History primidone 50 mg tablet 50 mg PO BID 09/22/22 02/27/24 History rosuvastatin 40 mg tablet 40 mg PO QAM 12/22/22 02/27/24 History levothyroxine 88 mcg capsule 88 mcg PO QAM 04/24/23 02/27/24 History pantoprazole 40 mg tablet,delayed 40 mg PO QAM #30 tabs 01/13/24 02/27/24 Rx release digoxin 125 mcg (0.125 mg) tablet 125 mcg PO QAM 02/15/24 02/27/24 History cholecalciferol (vitamin D3) 25 1,000 unit PO BID 02/16/24 02/27/24 History mcg (1,000 unit) tablet (Vitamin D3) montelukast 10 mg tablet 10 mg PO HS 02/16/24 02/27/24 History ferrous sulfate 325 mg (65 mg 325 mg PO QAM 02/22/24 02/27/24 History iron) tablet metoprolol succinate 100 mg 100 mg PO QAM 02/22/24 02/27/24 History tablet,extended release 24 hr warfarin 3 mg tablet 0 mg PO HS 02/26/24 02/27/24 History cyanocobalamin (vitamin B-12) 2,000 mcg PO HS 02/27/24 02/27/24 History 2,000 mcg tablet,extended release (Vitamin B-12 ER) furosemide 20 mg tablet (Lasix) 20 mg PO QAM 02/27/24 02/27/24 History magnesium 250 mg tablet 250 mg PO HS 02/27/24 02/27/24 History metoprolol succinate 50 mg 50 mg PO HS 02/27/24 02/27/24 History tablet,extended release 24 hr multivitamin with minerals-folic 1 tab PO QAM 02/27/24 02/27/24 History acid 12 mcg chewable tablet (Centrum Adults) potassium chloride 20 mEq 20 meq PO QAM 02/27/24 02/27/24 History tablet,extended release psyllium husk 0.4 gram capsule 0.4 g PO BID 02/27/24 02/27/24 History (Fiber (psyllium husk)) Patient History Medical History Macular degeneration Muscle cramping SLE (systemic lupus erythematosus) Scoliosis Osteoporosis Osteoarthritis Hemangioma of liver Chronic back pain GERD (gastroesophageal reflux disease) Hypothyroid 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 Sewell PVC (premature ventricular contraction) Bundle branch block follow Dr Sewell Near syncope Left hip pain Surgical History History of esophagogastroduodenoscopy (EGD) History of colonoscopy S/P UVPP (uvulopalatopharyngoplasty) History of tonsillectomy History of brain surgery History of tubal ligation History of hysterectomy History of appendectomy Family History Aunt Family history of pseudocholinesterase deficiency PATERNAL Breast cancer Father Myocardial infarction Prostate cancer Brother Prostate cancer Denies family history of Ovarian cancer Colorectal cancer Social History Smoking Status: Former smoker Tobacco Type: Cigarettes Second Hand Exposure: No; Do You Dip or Chew Tobacco: No; Hx Alcohol Use: No Hx Substance Use: No Preferred Language: Tajik Communication Ability: Effective Stage Rigger Required: No Beliefs That Will Affect Care: None marital status: Current Living Situation: Alone Current Living Situation Comment: [place] current occupational status: retired Feels Safe at Home: Yes Childhood Exposure to Second-Hand Smoke: Yes Dental Care, Regularly: Yes Physical Activity Frequency: Daily Seatbelt Use: always Sunscreen Use: Yes Assistive Devices: Cane, CPAP and Walker Review of Systems Review of Systems: Complete Review of Systems is as stated above, negative, or noncontributory. Physical Exam Physical Exam: General: Alert. Conversational dyspnea. Eyes: PER. Conjunctiva pink, sclera clear. HENT: Normocephalic. Atraumatic. Neck: JVD. Heart: Distant heart sounds. Irregularly irregular at 130 bpm. No rub. Lungs: Diminished. Bibasilar rales. No wheeze. Abdomen: +BS. Soft. Nontender. No masses. No organomegaly. Extremities: Mild edema. No clubbing. No cyanosis. Pulses: radial=2/4, posterior tibial=2/4. Limited neurological examination: No focal deficit. Results & Data Vital Signs (Past 12 Hours) Vital Signs Temp Pulse Pulse Resp BP Pulse Ox O2 Del Method 02/28/24 10:22 102 H 02/28/24 09:34 118 H 02/28/24 09:19 Room Air 02/28/24 07:34 37.1 C 118 H 20 113/71 96 CPAP 02/28/24 03:06 36.6 C 101 H 20 123/86 94 CPAP 02/27/24 22:36 36.5 C 113 H 20 105/67 93 CPAP Laboratory Results Cardiac Enzymes 02/27/24 Range/Units 10:05 AST 20 (13-39) U/L Troponin I High Sens 6.8 (0-14) pg/ml Coagulation 02/27/24 02/28/24 Range/Units 10:05 07:19 PT 32.9 H 23.2 H (9.0-12.0) Seconds APTT 42 H (21-31) Seconds CBC 02/27/24 02/28/24 Range/Units 10:05 07:19 WBC 6.60 5.36 (4.8-10.8) K/ul RBC 3.28 L (4.20-5.40) M/uL Hgb 10.7 L 9.2 L (12.0-16.0) g/dl Hct 28.3 L (37.0-47.0) % Plt Count 243 205 (130-400) K/uL Neut # (Auto) 3.79 (1.40-6.50) K/uL Lymph # (Auto) 0.82 L (1.20-3.40) K/uL [place] # (Auto) 0.72 H (0.11-0.59) K/uL Eos # (Auto) 0.00 (0.00-0.50) K/uL Baso # (Auto) 0.01 (0.00-0.20) K/uL Comprehensive Metabolic Panel 02/27/24 02/28/24 Range/Units 10:05 07:19 Sodium 136 134 L (136-145) mmol/L Potassium 3.0 L 3.7 D (3.5-5.1) mmol/L Chloride 99 102 (98-107) mmol/L Carbon Dioxide 28 26 (21-32) mmol/L BUN 22 20 (6-23) mg/dl Creatinine 1.18 1.01 (0.6-1.2) mg/dl Glucose 124 H 111 H (70-99(Fasting)) mg/dl Calcium 9.4 8.7 (8.6-10.3) mg/dl AST 20 (13-39) U/L ALT 16 (7-52) U/L Alkaline Phosphatase 82 (34-104) U/L Total Protein 7.3 (6.0-8.3) gm/dl Albumin 4.3 (3.4-5.0) gm/dl Intake and Output 02/27/24 02/28/24 02/28/24 22:59 06:59 14:59 Intake Total 150 / 150 Output Total 175 / 625 450 / 625 Balance -25 / -475 -450 / -475 Intake: Oral 150 / 150 Output: Urine 175 / 625 450 / 625 Other: # Unmeasured Voids 1 Weight 87.2 kg 87.3 kg Weight Measurement Method Chair Scale Standing Scale
[2024-02-28] MEDS: PHYTONADIONE 5 MG TAB PO ONE (11:35)
[2024-02-28] MEDS: COLCHICINE 0.6 MG TAB PO SCH (11:35)
[2024-02-28] MEDS: predniSONE 20 MG TAB PO SCH (11:36)
--- NOTE | 2024-02-28 12:41 | Hospitalist Progress Note ---
Date of Service February 28, 2024 Assessment & Plan (1) Atrial fibrillation with rapid ventricular response: Plan: Admitted with A-fib with RVR Heart rates in the 130s Patient on metoprolol and 150 mg in the morning and 50mg at night. Add IV metoprolol prn Cardiology on consult, appreciate recommendation. (2) Pericardial effusion: Plan: Symptomatic pericardial effusion plan is for pericardiocentesis hold warfarin give Vitamin K (3) Pleuritis: Plan: Continue prednisone 40 mg daily Also colchicine 0.6mg BID (4) Hypokalemia: Plan: replaced (5) Lower extremity edema: Plan: +1 pitting edema in the ankles bilaterally 12lb weight gain x 2 weeks prior to arrival CXR did not show evidence of heart failure BNP elevated at 284, however this is down from prior (was previously 608 on 01/28) Last echocardiogram on 01/08/2024 revealed LVEF at 55-60% Hold a.m. Lasix on 02/27, and okay to give if potassium is WNL Daily weights Strict I&O monitoring (6) Anemia: Plan: Chronic; Hgb 10.7 on arrival Clinically, no signs of active bleeding on physical exam Recheck a.m. CBC (7) Status cardiac pacemaker: Plan: S/p dual-chamber Zimmer pacemaker on 01/11/2024 (8) RAINER on CPAP: Plan: CPAP HS (9) Tachy-jj syndrome: Plan Disposition: Admit to PCU telemetry Full code Heart healthy, low-sodium diet VTE PPx: On warfarin Admission and Anticipated Discharge Date Admission Date: February 27, 2024 Subjective patient seen and examined, complained of Chest pressure radiating to her neck Review of Systems Review of Systems: All systems reviewed are negative, apart from the ones contained in the history. Physical Exam Physical Exam: The patient is awake, alert and oriented 3, well developed and well nourished, normocephalic and atraumatic, lying in bed and in no acute distress. HEENT--PERRL, EOMI, mucous membranes and oropharynx mildly dry Neck--supple. No JVD. No bruits. Thyroid normal, trachea midline, no adenopathy. Heart--normal S1 and S2. No murmurs, rubs or gallops. Lungs--clear bilaterally, no respiratory distress, no accessory muscle use. Abdomen--normal bowel sounds and soft. Extremities--no cyanosis or clubbing. No edema. Dermatologic--normal skin turgor, normal color, no abnormal lymph nodes, no rash. Neurologic--cranial nerves II through XII grossly intact. Rheumatologic--normal range of motion. Psychiatric--normal affect. Results & Data Results & Data Vital Signs (Past 12 Hours) Vital Signs Temp Pulse Pulse Resp BP Pulse Ox O2 Del Method 02/28/24 11:28 98.4 F 88 18 112/78 94 Room Air 02/28/24 11:07 174 H 02/28/24 10:22 102 H 02/28/24 09:34 118 H 02/28/24 09:19 Room Air 02/28/24 07:34 98.8 F 118 H 20 113/71 96 CPAP 02/28/24 03:06 97.9 F 101 H 20 123/86 94 CPAP PG Care Time/CCT Total # of Minutes Spent Total Time Spent with Patient: Total time spent is greater than 50% in coordination of care (as documented) at patient's floor/unit and/or counseling patient: Coding Level of Care Code 05318 SUB INP/OBS CARE 2/35MIN Diagnoses Atrial fibrillation with rapid ventricular response I48.91 Pericardial effusion I31.39 Pleuritis R09.1 Hypokalemia E87.6 Lower extremity edema R60.0 Anemia D64.9 Status cardiac pacemaker Z95.0 RAINER on CPAP G47.33 Tachy-jj syndrome I49.5 Time Spent (min) 35
[2024-02-28 16:32] LABS: INR 2.1 (0.9-1.1); Prothrombin Time 20.9 Seconds (9.0-12.0)
[2024-02-29 07:39] LABS: Basophils # (auto) 0.02 K/uL (0.00-0.20); Basophils % (auto) 0.3 %; Hemoglobin 9.3 g/dl (12.0-16.0); Immature Granulocytes # (auto) 0.02 K/uL (0.01-0.20); Immature Granulocytes % (auto) 0.3 %; Lymphocytes # (auto) 0.86 K/uL (1.20-3.40); Mean Corpuscular Hemoglobin 27.5 pg (25.0-34.0); Mean Corpuscular Hgb Conc 32.1 g/dL (32.0-36.0); Mean Corpuscular Volume 85.8 fL (80.0-100.0); Mean Platelet Volume 10.5 fL (9.4-12.4); Monocytes # (auto) 0.79 K/uL (0.11-0.59); Monocytes % (auto) 11.1 %; Neutrophils # (auto) 5.45 K/uL (1.40-6.50); Neutrophils % (auto) 76.3 %; Platelet Count 236 K/uL (130-400); RDW Coefficient of Variation 14.8 % (11.5-14.5); RDW Standard Deviation 46.3 fL (36.4-46.3); Red Blood Count 3.38 M/uL (4.20-5.40); White Blood Count 7.14 K/ul (4.8-10.8)
[2024-02-29 08:23] LABS: INR 1.4 (0.9-1.1)
--- NOTE | 2024-02-29 08:34 | Pre Anesthesia Assessment ---
Date of Service February 29, 2024 Pre Sedation Assessment Vital Signs Temp Pulse Pulse Pulse Resp BP Pulse Ox 02/29/24 07:36 78 14 117/74 96 02/29/24 07:15 97.7 F 96 H 16 101/61 98 02/29/24 03:42 97.5 F L 102 H 14 97/65 L 96 02/28/24 23:25 118 H 02/28/24 22:33 97.3 F L 110 H 14 116/65 92 02/28/24 22:26 02/28/24 19:39 98.4 F 117 H 14 122/72 91 02/28/24 16:03 99.0 F 113 H 18 135/91 92 02/28/24 14:39 131 H 02/28/24 11:28 98.4 F 88 18 112/78 94 02/28/24 11:07 174 H 02/28/24 10:22 102 H 02/28/24 09:34 118 H 02/28/24 09:19 O2 Del Method 02/29/24 07:36 Room Air 02/29/24 07:15 Room Air, CPAP 02/29/24 03:42 CPAP 02/28/24 23:25 02/28/24 22:33 CPAP 02/28/24 22:26 Room Air, CPAP 02/28/24 19:39 Room Air 02/28/24 16:03 Room Air 02/28/24 14:39 02/28/24 11:28 Room Air 02/28/24 11:07 02/28/24 10:22 02/28/24 09:34 02/28/24 09:19 Room Air Cardiovascular + regular rate Respiratory + respiratory effort normal Pre-Sedation Airway Assessment Smoking Status: Former smoker Hx Sleep Apnea: No Hx Difficult Intubation: No Short, Thick Neck: No Thyromental Distance: > or= 3.5 Finger Breadths Oral Cavity: + WNL Mallampati Class: III ASA: ASA3 NPO Status Date of Last Intake of Fluids: 02/28/24 Time of Last Intake of Fluids: 20:00 Date of Last Intake of Solid Food: 02/28/24 Time of Last Intake of Solid Foods: 20:00 Procedure Planning Contraindications for Sedation: none Current Medications Reviewed: Yes Notes The planned sedation has been discussed with the patient. Informed Consent was obtained. I have identified the patient, determined the appropriateness of sedation and have assessed the patient immediately prior to the procedure. All medicine(s) and interventions are by my order.
[2024-02-29] MEDS: fentaNYL citrate PF 100 MCG/2 ML VIAL ONE (09:35)
[2024-02-29] MEDS: MIDAZOLAM HCL 1 MG/ML 2ML VIAL ONE (09:35)
--- NOTE | 2024-02-29 09:56 | Post Anesthesia Assessment ---
Date of Service February 29, 2024 Post Sedation Assessment Vital Signs Temp Pulse Pulse Pulse Resp BP Pulse Ox 02/29/24 09:35 108 H 16 149/112 H 98 02/29/24 07:36 78 14 117/74 96 02/29/24 07:15 97.7 F 96 H 16 101/61 98 02/29/24 03:42 97.5 F L 102 H 14 97/65 L 96 02/28/24 23:25 118 H 02/28/24 22:33 97.3 F L 110 H 14 116/65 92 02/28/24 22:26 02/28/24 19:39 98.4 F 117 H 14 122/72 91 02/28/24 16:03 99.0 F 113 H 18 135/91 92 02/28/24 14:39 131 H 02/28/24 11:28 98.4 F 88 18 112/78 94 02/28/24 11:07 174 H 02/28/24 10:22 102 H O2 Del Method 02/29/24 09:35 Nasal Cannula 02/29/24 07:36 Room Air 02/29/24 07:15 Room Air, CPAP 02/29/24 03:42 CPAP 02/28/24 23:25 02/28/24 22:33 CPAP 02/28/24 22:26 Room Air, CPAP 02/28/24 19:39 Room Air 02/28/24 16:03 Room Air 02/28/24 14:39 02/28/24 11:28 Room Air 02/28/24 11:07 02/28/24 10:22 Recovery Score Activity: Moves 4 extremities Respiration: Deep Breath/Cough Circulation: +/-20% PreAnes Value Consciousness: Fully Awake Oxygen Saturation: > 92% On Room Air Post Anesthesia Score: 10 Discharge Sedation Level of Care: Fast Track Phase II Post Sedation Plan On clinical assessment, the patient appears to have tolerated the sedation without complications. Patient is recovering as anticipated. Patient will continue to be monitored by nursing and may be discharged when sedation discharge criteria are met per below protocol. Upon Completions of procedure up to 15 minutes continue every 5 minute vital signs and the P.A.R. score; then discharge to a Phase I or Fast Track to Phase II per the following guidelines: * Discharge Patient to appropriate Phase II area if PAR is 8 or greater or return to pre- procedure baseline. The post - procedure orders will be as directed. * If PAR score is less than 8 or not return to pre-procedure baseline then patient will follow Phase I monitoring till PAR is reached for Phase II. The Phase I may be done in procedure room or may call to secure a Phase I area. * If naloxone or flumazenil are used for reversal, hold in Phase I for continued monitoring from when last reversal dose was given for a minimum of 60 minutes or longer pending the nurse and/or physician discretion of patient condition before discharge to Phase II. Please call the Sedation Physician to re-evaluate and complete post-note for discharge to Phase II area. Do NOT discharge from procedure sedation or Phase 1 until post- sedation evaluation note is complete by procedure /sedation MD Sedation Discharge Instructions to be given to the patient at discharge to home.
[2024-02-29] MEDS: ALBUT/IPRATROP 3MG/0.5MG NEB 3 ML VIAL NEB STA (10:03)
--- NOTE | 2024-02-29 10:09 | Cardiac Catheterization ---
[facility] Data: Criminal Analyst Cardiac Status Clinical evaluation leading to the procedure CAD Presenation: Sx unlikely to be ischemic Diagnostic Physicians Name: Fernando Argueta MD Closure Device Recommendations: Medical Therapy and/or Counseling Cardiac Cath Procedure Full Procedure Date February 29, 2024 Pre-Procedure Diagnosis Pre-Procedure Diagnosis: Pericardial Disease AUC Score AUC Score: 7 Post-Procedure Diagnosis Post-Procedure Diagnosis: Cardiothoracic Finding (Pericardial effusion) Procedure(s) Performed Procedure(s) Performed: Pericardiocentesis Lace Finisher Fernando Argueta MD 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 Pericardial space position confirmed via bubble study 6 Fr sheath placed to pericardial space 6 Fr pigtail catheter placed through sheath into pericardial space Manual aspiration of 750 mL of grossly bloody fluid Post procedure echocardiogram showed minimal residual pericardial fluid Sheath and pericardial drain sutured in place and left to suction. Opening pericardial pressure: 13 Closing pericardial pressure: 0 Summary: 1. Successful ultrasound-guided pericardiocentesis with removal of 750 mL of bloody fluid. Recommendations: Pericardial drain to suction overnight. Repeat limited echo in a.m. Continue colchicine, prednisone Follow-up cell counts, cultures, cytology Hemodynamics Rest Ao:: -- Final Ao: -- LV: -- Recommendations Recommendations: Medical Therapy and/or Counseling Radiation Exposure (mGy) 109 Contrast (mls) -- Drains Drains: pericardial drain Anesthesia moderate [id number] Procedural Complication(s) None Disposition ICU I attest to the content of the Intraoperative Record and any orders documented therein. Any exceptions are noted below. [facility] Card Cath Procedure Codes Therapeutic Services & Ancillary Procedure 1: Cardiovascular Tx and Anc Procedures: 27217 Pericardiocentesis w / Imaging Moderate Sedation Procedure 1: Sedation/Anesthesia: 13520 Mod Sedation by the same physician;Init15 Min Child Age 5 & Up Procedure 2: Sedation/Anesthesia: 55011 Mod Sedation by the same physician; Ea [id number] Minutes PG Care Time/CCT Total # of Minutes Spent Total Time Spent with Patient: Total time spent is greater than 50% in coordination of care (as documented) at patient's floor/unit and/or counseling patient:
--- NOTE | 2024-02-29 10:18 | XRay Report ---
XR chest 1V portable CLINICAL HISTORY: Pericardiocentesis. COMPARISON STUDY: Chest CT January 29, 2024. Chest radiograph February 27, 2024 FINDINGS: Left subclavian pacer is in place. A pericardial drain is in place. Enlargement of the card iac silhouette is similar to prior exam. There is no pneumothorax. There are small bilateral pleural effusions. Mild interstitial thickening. Mild opacity along the left heart border has increased. IMPRESSION: 1. Pericardial drain in place. No significant change in enlargement of the cardiac silhouette. 2. Mild interstitial pulmonary edema with small bilateral pleural effusions. 3. Increase in left lower lung opacity which favors atelectasis. ACT 112: Negative or not required by law. Electronically signed by: Yariel Sethi M.D. 02/29/2024 10:15 AM
[2024-02-29 10:22] LABS: BUN Creatinine Ratio 26.6 (10-20); Creatinine Clr Calc Pharmacy 52.1 ml/min; Est GFR (African American) 65.9 ml/min; Est GFR (Non-African American) 56.9 ml/min
--- NOTE | 2024-02-29 11:08 | Critical Care Consultation ---
Date of Consultation February 29, 2024 Assessment & Plan (1) Pericardial effusion: Unclear etiology. Possibly inflammatory related to lupus. Other possibilities include malignancy and infection. Continue pericardial drain. Follow-up telemetry. She is hemodynamically stable. Defer anti-inflammatory medications including prednisone and colchicine to cardiology. Defer cardiac medication including metoprolol and digoxin to cardiology as well. (2) Atrial fibrillation with rapid ventricular response: Holding anticoagulation due to bloody effusion noted from pericardial sac. Plan Patient remained in ICU as long as she has a pericardial drain in place. Thank you for the consult. Please call questions. History of Present Illness Reason for Consultation: Pericardial drain requiring ICU monitoring Attending Physician: Leland Aguila MD History of Present Illness 83-year-old male with a past medical history of tachybradycardia syndrome, coronary artery disease, pulmonary hypertension, RAINER, CKD stage III, systemic lupus, hypothyroidism and hyperlipidemia who presented due to shortness of breath and chest pain. Cardiology evaluated the patient 02/27 I felt that the patient had a symptomatic large pericardial effusion. Echo 02/28/2024 revealed a large circumferential pericardial effusion with mild organization. Interventional cardiology remove 750 mL of bloody fluid. Plan is for repeat limited echocardiogram. Plan is also to continue cold she was seen and follow cell counts, cultures and cytology. Allergies Allergy/AdvReac Type Severity Reaction Status Date / Time hydroxychloroquine Allergy Intermediate TOXICITY Verified 02/27/24 15:05 OF THE RETINA ibuprofen Allergy Intermediate SWELLING Verified 02/27/24 15:05 atorvastatin AdvReac Mild "UNCOMFORTABLE" Verified 02/27/24 15:05 AND CREATININE INCREASED SLIGHTLY Home Medications Medication Instructions Recorded Confirmed Type vitamins A,C,I-yccb-igiotb 2,148 1 tab PO BID 06/25/18 02/27/24 History mcg-113 mg-45 mg-17.4 mg tablet (PreserVision AREDS) baclofen 10 mg tablet 10 mg PO BID 04/20/22 02/27/24 History primidone 50 mg tablet 50 mg PO BID 09/22/22 02/27/24 History rosuvastatin 40 mg tablet 40 mg PO QAM 12/22/22 02/27/24 History levothyroxine 88 mcg capsule 88 mcg PO QAM 04/24/23 02/27/24 History pantoprazole 40 mg tablet,delayed 40 mg PO QAM #30 tabs 01/13/24 02/27/24 Rx release digoxin 125 mcg (0.125 mg) tablet 125 mcg PO QAM 02/15/24 02/27/24 History cholecalciferol (vitamin D3) 25 1,000 unit PO BID 02/16/24 02/27/24 History mcg (1,000 unit) tablet (Vitamin D3) montelukast 10 mg tablet 10 mg PO HS 02/16/24 02/27/24 History ferrous sulfate 325 mg (65 mg 325 mg PO QAM 02/22/24 02/27/24 History iron) tablet metoprolol succinate 100 mg 100 mg PO QAM 02/22/24 02/27/24 History tablet,extended release 24 hr warfarin 3 mg tablet 0 mg PO HS 02/26/24 02/27/24 History cyanocobalamin (vitamin B-12) 2,000 mcg PO HS 02/27/24 02/27/24 History 2,000 mcg tablet,extended release (Vitamin B-12 ER) furosemide 20 mg tablet (Lasix) 20 mg PO QAM 02/27/24 02/27/24 History magnesium 250 mg tablet 250 mg PO HS 02/27/24 02/27/24 History metoprolol succinate 50 mg 50 mg PO HS 02/27/24 02/27/24 History tablet,extended release 24 hr multivitamin with minerals-folic 1 tab PO QAM 02/27/24 02/27/24 History acid 12 mcg chewable tablet (Centrum Adults) potassium chloride 20 mEq 20 meq PO QAM 02/27/24 02/27/24 History tablet,extended release psyllium husk 0.4 gram capsule 0.4 g PO BID 02/27/24 02/27/24 History (Fiber (psyllium husk)) Patient History Medical History Macular degeneration Muscle cramping SLE (systemic lupus erythematosus) Scoliosis Osteoporosis Osteoarthritis Hemangioma of liver Chronic back pain GERD (gastroesophageal reflux disease) Hypothyroid 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 Sewell PVC (premature ventricular contraction) Bundle branch block follow Dr Donato Near syncope Left hip pain Surgical History History of esophagogastroduodenoscopy (EGD) History of colonoscopy S/P UVPP (uvulopalatopharyngoplasty) History of tonsillectomy History of brain surgery History of tubal ligation History of hysterectomy History of appendectomy Family History Aunt Family history of pseudocholinesterase deficiency PATERNAL Breast cancer Father Myocardial infarction Prostate cancer Brother Prostate cancer Denies family history of Ovarian cancer Colorectal cancer Social History Smoking Status: Former smoker Tobacco Type: Cigarettes Second Hand Exposure: No; Do You Dip or Chew Tobacco: No; Hx Alcohol Use: No Hx Substance Use: No Preferred Language: Cambodian Communication Ability: Effective Counselor Supervisor Required: No Beliefs That Will Affect Care: None marital status: Current Living Situation: Alone Current Living Situation Comment: [place] current occupational status: retired Feels Safe at Home: Yes Childhood Exposure to Second-Hand Smoke: Yes Dental Care, Regularly: Yes Physical Activity Frequency: Daily Seatbelt Use: always Sunscreen Use: Yes Assistive Devices: Cane, CPAP and Walker Review of Systems Review of Systems: All systems reviewed & are unremarkable except as noted in HPI & below Physical Exam Physical Exam: Constitutional: Patient appears to be of their stated age. Patient is in no apparent distress. Patient is well-developed. Eyes: Pupils are equal round and reactive to light. Conjunctivae are normal. Anicteric sclera. Ears nose, mouth and throat: Mallampati class 2. Normal posterior oropharynx. Uvula is midline. Neck: Trachea is midline. Visual inspection is normal. Respiratory: Clear to auscultation bilaterally. No use of accessory muscles. No significant clubbing noted. Cardiovascular: Regular rate and rhythm. No murmurs. No edema. Pericardial drain noted Gastrointestinal: Normal bowel sounds, soft, nontender and nondistended. No hepatosplenomegaly noted. Musculoskeletal: No cyanosis. Patient is able to move all extremities. Strength is 5 out of 5 in the upper and lower extremities. Skin: No rashes, warm dry and intact. Neurologic: No obvious focal neurological deficits seen. Psychiatric: Alert and oriented x3 with a euthymic affect. Results & Data Results & Data Vital Signs (Past 12 Hours) Vital Signs Temp Pulse Pulse Pulse Resp BP Pulse Ox 02/29/24 10:05 91 H 22 131/86 98 02/29/24 10:03 88 18 97 02/29/24 09:50 93 H 22 155/91 H 98 02/29/24 09:35 108 H 16 149/112 H 98 02/29/24 07:36 78 14 117/74 96 02/29/24 07:15 36.5 C 96 H 16 101/61 98 02/29/24 03:42 36.4 C L 102 H 14 97/65 L 96 02/28/24 23:25 118 H O2 Del Method O2 Flow Rate 02/29/24 10:05 Nasal Cannula 3 02/29/24 10:03 Nasal Cannula 3 02/29/24 09:50 Nasal Cannula 3 02/29/24 09:35 Nasal Cannula 02/29/24 07:36 Room Air 02/29/24 07:15 Room Air, CPAP 02/29/24 03:42 CPAP 02/28/24 23:25 Coding Level of Care Code 66815 IN/OBS CONSULT LVL 4,60M Diagnoses Pericardial effusion I31.39 Atrial fibrillation with rapid ventricular response I48.91
[2024-02-29] MEDS: ROSUVASTATIN CALCIUM 20 MG TAB PO SCH (11:50)
--- NOTE | 2024-02-29 13:10 | Hospitalist Progress Note ---
Date of Service February 29, 2024 Assessment & Plan (1) Pericardial effusion: Plan: Symptomatic pericardial effusion with tamponade, unclear etiology Patient is now post pericardiocentesis with drainage of about 750cc of bloody fluid Pericardial drain is in situ Continue to hold warfarin given bloody drainage (2) Atrial fibrillation with rapid ventricular response: Plan: Was Admitted with A-fib with RVR Heart rates still in the 120's and 130s Patient on metoprolol and 150 mg in the morning and 50mg at night. Digoxin, Add IV metoprolol prn Cardiology on consult, appreciate recommendation. (3) Pleuritis: Plan: Continue prednisone 40 mg daily Also colchicine 0.6mg BID (4) Hypokalemia: Plan: replaced (5) Lower extremity edema: Plan: +1 pitting edema in the ankles bilaterally 12lb weight gain x 2 weeks prior to arrival CXR did not show evidence of heart failure BNP elevated at 284, however this is down from prior (was previously 608 on 01/28) Last echocardiogram on 01/08/2024 revealed LVEF at 55-60% (6) Anemia: Plan: Chronic; Hgb 10.7 on arrival Clinically, no signs of active bleeding on physical exam Recheck a.m. CBC (7) Status cardiac pacemaker: Plan: S/p dual-chamber Zimmer pacemaker on 01/11/2024 (8) RAINER on CPAP: Plan: CPAP HS (9) Tachy-jj syndrome: Plan Disposition: Monitor in ICU as long as patient has pericardial drain Full code Heart healthy, low-sodium diet VTE PPx: On warfarin Admission and Anticipated Discharge Date Admission Date: February 27, 2024 Subjective patient seen and examined, stable post pericardiocentesis Review of Systems Review of Systems: All systems reviewed are negative, apart from the ones contained in the history. Physical Exam Physical Exam: The patient is awake, alert and oriented 3, well developed and well nourished, normocephalic and atraumatic, lying in bed and in no acute distress. HEENT--PERRL, EOMI, mucous membranes and oropharynx mildly dry Neck--supple. No JVD. No bruits. Thyroid normal, trachea midline, no adenopathy. Heart--normal S1 and S2. No murmurs, rubs or gallops. pericardial drain in situ Lungs--clear bilaterally, no respiratory distress, no accessory muscle use. Abdomen--normal bowel sounds and soft. Extremities--no cyanosis or clubbing. No edema. Dermatologic--normal skin turgor, normal color, no abnormal lymph nodes, no rash. Neurologic--cranial nerves II through XII grossly intact. Rheumatologic--normal range of motion. Psychiatric--normal affect. Results & Data Results & Data Vital Signs (Past 12 Hours) Vital Signs Temp Pulse Pulse Pulse Resp BP BP 02/29/24 12:02 126/78 02/29/24 12:00 124 H 19 02/29/24 11:50 140 H 02/29/24 11:10 98.1 F 02/29/24 11:00 98 H 24 02/29/24 10:26 157/91 H 02/29/24 10:26 157/91 H 02/29/24 10:05 91 H 22 131/86 02/29/24 10:03 88 18 02/29/24 09:50 93 H 22 155/91 H 02/29/24 09:35 108 H 16 149/112 H 02/29/24 07:36 78 14 117/74 02/29/24 07:15 97.7 F 96 H 16 101/61 02/29/24 03:42 97.5 F L 102 H 14 97/65 L Pulse Ox O2 Del Method O2 Flow Rate 02/29/24 12:02 02/29/24 12:00 91 Nasal Cannula 3 02/29/24 11:50 02/29/24 11:10 02/29/24 11:00 92 02/29/24 10:26 02/29/24 10:26 02/29/24 10:05 98 Nasal Cannula 3 02/29/24 10:03 97 Nasal Cannula 3 02/29/24 09:50 98 Nasal Cannula 3 02/29/24 09:35 98 Nasal Cannula 02/29/24 07:36 96 Room Air 02/29/24 07:15 98 Room Air, CPAP 02/29/24 03:42 96 CPAP PG Care Time/CCT Total # of Minutes Spent Total Time Spent with Patient: Total time spent is greater than 50% in coordination of care (as documented) at patient's floor/unit and/or counseling patient: Coding Level of Care Code 02827 SUB INP/OBS CARE 2/35MIN Diagnoses Pericardial effusion I31.39 Atrial fibrillation with rapid ventricular response I48.91 Pleuritis R09.1 Hypokalemia E87.6 Lower extremity edema R60.0 Anemia D64.9 Status cardiac pacemaker Z95.0 RAINER on CPAP G47.33 Tachy-jj syndrome I49.5 Time Spent (min) 35
--- NOTE | 2024-02-29 13:41 | Cardiology Progress Note ---
Date of Service February 29, 2024 Assessment & Plan (1) Pericardial effusion: (2) Atrial fibrillation with rapid ventricular response: (3) Cardiac pacemaker in situ: (4) Tachy-jj syndrome: (5) Pleuritic chest pain: (6) CAD (coronary artery disease): Plan Chart history of systemic lupus erythematosus Hospitalization in early January with pleuritis Tachy-Jj Syndrome status post January 12, 2024 dual-chamber pacemaker implantation Persistent atrial fibrillation Admission with symptomatic pericardial effusion, pericarditis, status post February 29, 2024 successful ultrasound-guided pericardiocentesis with removal of 750 mL of bloody fluid Minimal coronary atherosclerosis and no obstruction via August 2018 cardiac catheterization Longstanding labile hypertension, diastolic dysfunction Pulmonary hypertension, obstructive sleep apnea on CPAP supplementation since 1995 Chronic essential tremor, on Primidone Chronic renal insufficiency stage 3 Hypothyroidism Hyperlipidemia Recommendations: Continue to hold anticoagulation Pericardial drain to remain in place overnight Repeat limited resting echocardiography in AM Continue prednisone 40 mg/day, tapering by 10 mg every week Continue colchicine 0.6 mg twice per day for now, decreasing to 0.6 mg daily on discharge given renal dysfunction Interrogate pacemaker (Zimmer) to ensure lead impedance Continue pantoprazole for GI prophylaxis Continue metoprolol and digoxin Rosuvastatin dosing decreased with the addition of colchicine Hold furosemide Admission and Anticipated Discharge Date Admission Date: February 27, 2024 Supervising Physician Co-Signing Physician Notes I have personally performed a history and physical examination on the patient. I have reviewed the advance practitioner's documentation, and I agree with, and take responsibility for the plan of care. 83-year-old female admitted secondary to progressive shortness of breath and atrial fibrillation with rapid ventricular response. Echocardiogram demonstrating large pericardial effusion with tamponade physiology. Pericardiocentesis performed this a.m. without complication. 750 cc of bloody fluid removed. Drain remains in place. Patient denies chest pain or shortness of breath currently. Heart rate improved. Continue prednisone taper and colchicine 0.6 mg twice daily at this time. Will reduce to single 0.6 mg once daily at discharge. Obtain pacemaker interrogation for lead impedance (Zimmer device). Metoprolol and digoxin will be continued as previously ordered. An ticoagulation currently on hold. Pepito Bonner DO, [facility] Subjective Patient seen and examined. Chart, medications, and telemetry reviewed. Daug hter at bedside. Status post pericardiocentesis with removal of 750 mL of bloody fluid Feeling okay. Telemetry: Atrial fibrillation with variable ventricular rates, currently in the 80s Review of Systems Review of Systems: Complete Review of Systems is as stated above, negative, or noncontributory. Physical Exam Physical Exam: General: A&Ox3. NAD. Eyes: PER. Conjunctiva pink, sclera clear. HENT: Normocephalic. Atraumatic. Neck: No overt JVD Chest: + Pericardial drain Heart: Irregular irregular at 90 bpm. Lungs: Clear anteriorly. Abdomen: +BS. Extremities: No significant edema. Limited neurological examination: No focal deficit. Results & Data Vital Signs (Past 12 Hours) Vital Signs Temp Pulse Pulse Pulse Resp BP BP 02/29/24 12:02 126/78 02/29/24 12:00 124 H 19 02/29/24 11:50 140 H 02/29/24 11:10 36.7 C 02/29/24 11:00 98 H 24 02/29/24 10:26 157/91 H 02/29/24 10:26 157/91 H 02/29/24 10:05 91 H 22 131/86 02/29/24 10:03 88 18 02/29/24 09:50 93 H 22 155/91 H 02/29/24 09:35 108 H 16 149/112 H 02/29/24 07:36 78 14 117/74 02/29/24 07:15 36.5 C 96 H 16 101/61 02/29/24 03:42 36.4 C L 102 H 14 97/65 L Pulse Ox O2 Del Method O2 Flow Rate 02/29/24 12:02 02/29/24 12:00 91 Nasal Cannula 3 02/29/24 11:50 02/29/24 11:10 02/29/24 11:00 92 02/29/24 10:26 02/29/24 10:26 02/29/24 10:05 98 Nasal Cannula 3 02/29/24 10:03 97 Nasal Cannula 3 02/29/24 09:50 98 Nasal Cannula 3 02/29/24 09:35 98 Nasal Cannula 02/29/24 07:36 96 Room Air 02/29/24 07:15 98 Room Air, CPAP 02/29/24 03:42 96 CPAP Laboratory Results Coagulation 02/28/24 02/29/24 Range/Units 15:38 07:06 PT 20.9 H 15.0 H (9.0-12.0) Seconds CBC 02/29/24 Range/Units 07:06 WBC 7.14 (4.8-10.8) K/ul RBC 3.38 L (4.20-5.40) M/uL Hgb 9.3 L (12.0-16.0) g/dl Hct 29.0 L (37.0-47.0) % Plt Count 236 (130-400) K/uL Neut # (Auto) 5.45 (1.40-6.50) K/uL Lymph # (Auto) 0.86 L (1.20-3.40) K/uL [place] # (Auto) 0.79 H (0.11-0.59) K/uL Eos # (Auto) 0.00 (0.00-0.50) K/uL Baso # (Auto) 0.02 (0.00-0.20) K/uL Comprehensive Metabolic Panel 02/29/24 Range/Units 07:06 Sodium 138 (136-145) mmol/L Potassium 4.0 (3.5-5.1) mmol/L Chloride 106 (98-107) mmol/L Carbon Dioxide 27 (21-32) mmol/L BUN 25 H (6-23) mg/dl Creatinine 0.94 (0.6-1.2) mg/dl Glucose 104 H (70-99(Fasting)) mg/dl Calcium 9.0 (8.6-10.3) mg/dl Intake and Output 02/28/24 02/29/24 02/29/24 22:59 06:59 14:59 Intake Total 350 / 530 Output Total Balance 349 / 529 Intake: Oral 350 / 530 Output: # Bowel Movements Other: Other Intake Source NPO # Unmeasured Voids 2 Weight 86.7 kg Weight Measurement Method Standing Scale
[2024-02-29 15:43] LABS: INR 1.4 (0.9-1.1); Prothrombin Time 14.3 Seconds (9.0-12.0)
--- NOTE | 2024-02-29 16:23 | XCELERA ---
[id number] \\[email or web address]\[id number]___[id number]
[2024-03-01 03:49] LABS: Basophils # (auto) 0.01 K/uL (0.00-0.20); Basophils % (auto) 0.2 %; Hematocrit (blood only) 27.2 % (37.0-47.0); Hemoglobin 8.7 g/dl (12.0-16.0); Immature Granulocytes # (auto) 0.02 K/uL (0.01-0.20); Immature Granulocytes % (auto) 0.3 %; Lymphocytes # (auto) 0.65 K/uL (1.20-3.40); Lymphocytes % (auto) 10.5 %; Mean Corpuscular Hemoglobin 27.6 pg (25.0-34.0); Mean Corpuscular Volume 86.3 fL (80.0-100.0); Monocytes # (auto) 0.47 K/uL (0.11-0.59); Monocytes % (auto) 7.6 %; Neutrophils # (auto) 5.07 K/uL (1.40-6.50); Neutrophils % (auto) 81.4 %; Platelet Count 254 K/uL (130-400); RDW Coefficient of Variation 14.7 % (11.5-14.5); RDW Standard Deviation 46.5 fL (36.4-46.3); Red Blood Count 3.15 M/uL (4.20-5.40); White Blood Count 6.22 K/ul (4.8-10.8)
[2024-03-01 04:04] LABS: BUN Creatinine Ratio 25.3 (10-20); Calcium 8.5 mg/dl (8.6-10.3); Creatinine Clr Calc Pharmacy 51.5 ml/min; Est GFR (African American) 65.1 ml/min; Est GFR (Non-African American) 56.2 ml/min; Potassium 4.4 mmol/L (3.5-5.1)
[2024-03-01 05:04] LABS: INR 1.3 (0.9-1.1); Prothrombin Time 13.5 Seconds (9.0-12.0)
--- NOTE | 2024-03-01 06:04 | Electrocardiogram Report ---
Test Reason : Blood Pressure : */* mmHG Vent. Rate : 93 BPM Atrial Rate : * BPM P-R Int : * ms QRS Dur : 128 ms QT Int : 400 ms P-R-T Axes : * 53 -21 degrees QTcB Int : 497 ms Atrial fibrillation with premature ventricular or aberrantly conducted complexes Right bundle branch block Abnormal ECG When compared with ECG of 27-Feb-2024 10:00, No significant change was found Confirmed by Navdeep Hughes ([id number] on 03/01/2024 6:04:19 AM Referred By: Horace Lopez Confirmed By: Navdeep Hughes
[2024-03-01] MEDS: ACETAMINOPHEN 325 MG TAB PO PRN (06:39)
--- NOTE | 2024-03-01 12:11 | Hospitalist Progress Note ---
Date of Service March 01, 2024 Assessment & Plan (1) Pericardial effusion: Plan: Symptomatic pericardial effusion with tamponade, unclear etiology Patient is now post pericardiocentesis with drainage of about 750cc of bloody fluid Pericardial drain is in situ Continue to hold warfarin given bloody drainage Post Procedure echo showed minimal residual pericardial effusion with well- expanded right ventricle left ventricular size and function. (2) Atrial fibrillation with rapid ventricular response: Plan: Was Admitted with A-fib with RVR Patient on metoprolol and 150 mg in the morning and 50mg at night. Digoxin, Add IV metoprolol prn Cardiology on consult, appreciate recommendation. Now under better control (3) Pleuritis: Plan: Continue prednisone 40 mg daily Also colchicine 0.6mg BID (4) Hypokalemia: Plan: replaced (5) Lower extremity edema: Plan: +1 pitting edema in the ankles bilaterally 12lb weight gain x 2 weeks prior to arrival CXR did not show evidence of heart failure BNP elevated at 284, Last echocardiogram on 01/08/2024 revealed LVEF at 55-60% (6) Anemia: Plan: Chronic; Hgb 10.7 on arrival Clinically, no signs of active bleeding on physical exam Recheck a.m. CBC (7) Status cardiac pacemaker: Plan: S/p dual-chamber Zimmer pacemaker on 01/11/2024 (8) RAINER on CPAP: Plan: CPAP HS (9) Tachy-jj syndrome: Plan Disposition: Monitor in ICU as long as patient has pericardial drain Full code Heart healthy, low-sodium diet VTE PPx: On warfarin Admission and Anticipated Discharge Date Admission Date: February 27, 2024 Subjective Patient seen and examined, states that chest pressure is much improved following her procedure, still some bloody drainage in the pericardial drain Review of Systems Review of Systems: All systems reviewed are negative, apart from the ones contained in the history. Physical Exam Physical Exam: The patient is awake, alert and oriented 3, well developed and well nourished, normocephalic and atraumatic, lying in bed and in no acute distress. HEENT--PERRL, EOMI, mucous membranes and oropharynx mildly dry Neck--supple. No JVD. No bruits. Thyroid normal, trachea midline, no adenopathy. Heart--normal S1 and S2. No murmurs, rubs or gallops. pericardial drain in situ Lungs--clear bilaterally, no respiratory distress, no accessory muscle use. Abdomen--normal bowel sounds and soft. Extremities--no cyanosis or clubbing. No edema. Dermatologic--normal skin turgor, normal color, no abnormal lymph nodes, no rash. Neurologic--cranial nerves II through XII grossly intact. Rheumatologic--normal range of motion. Psychiatric--normal affect. Results & Data Results & Data Vital Signs (Past 12 Hours) Vital Signs Temp Pulse Resp BP Pulse Ox O2 Del Method 03/01/24 08:03 85 03/01/24 08:00 Room Air 03/01/24 08:00 97.9 F 03/01/24 05:03 72 16 97 03/01/24 05:00 99/58 L 03/01/24 04:00 98.1 F 03/01/24 04:00 99/65 L 03/01/24 04:00 79 15 96 03/01/24 03:03 79 16 95 03/01/24 03:00 97/61 L 03/01/24 02:06 74 18 92 03/01/24 02:00 110/54 L 03/01/24 01:15 95 H 21 94 03/01/24 01:00 109/67 03/01/24 00:09 87 23 95/61 L 98 CPAP PG Care Time/CCT Total # of Minutes Spent Total Time Spent with Patient: Total time spent is greater than 50% in coordination of care (as documented) at patient's floor/unit and/or counseling patient: Coding Level of Care Code 27589 SUB INP/OBS CARE 2/35MIN Diagnoses Pericardial effusion I31.39 Atrial fibrillation with rapid ventricular response I48.91 Pleuritis R09.1 Hypokalemia E87.6 Lower extremity edema R60.0 Anemia D64.9 Status cardiac pacemaker Z95.0 RAINER on CPAP G47.33 Tachy-jj syndrome I49.5 Time Spent (min) 35
--- NOTE | 2024-03-01 13:38 | Cardiology Progress Note ---
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 Persistent atrial fibrillation Admission on 02/26 with symptomatic pericardial effusion, pericarditis Status post February 29, 2024 successful ultrasound-guided pericardiocentesis with removal of 750 mL of bloody fluid Minimal coronary atherosclerosis and no obstruction via August 2018 cardiac catheterization Longstanding labile hypertension, diastolic dysfunction Pulmonary hypertension, obstructive sleep apnea on CPAP supplementation since 1995 Chronic essential tremor, on Primidone Chronic renal insufficiency stage 3 Hypothyroidism Hyperlipidemia Recommendations: * Probable pericardial drain removal by Interventional Cardiology later today * Continue to hold anticoagulation * Prednisone 40 mg/day x 7 days then 30 mg/day x 7 days then 20 mg/day x 7 days then 10 mg/day x 7 days then 5 mg/day x 7 days then stop * Colchicine 0.6 mg twice per day for now, decreasing to 0.6 mg daily on discharge given renal dysfunction. Rosuvastatin dosing decreased with the addition of colchicine * Continue pantoprazole for GI prophylaxis * Continue metoprolol and digoxin * Resume furosemide today Admission and Anticipated Discharge Date Admission Date: February 27, 2024 Supervising Physician Co-Signing Physician Notes I have personally performed a history and physical examination on the patient. I have reviewed the advance practitioner's documentation, and I agree with, and take responsibility for the plan of care. 83-year-old female admitted secondary to progressive shortness of breath and atrial fibrillation with rapid ventricular response. Echocardiogram demonstrating large pericardial effusion with tamponade physiology. Pericardiocentesis performed this 02/29/2024 without complication. 750 cc of bloody fluid removed. Drain remains in place with minimal output. Heart rate improved. Continue prednisone taper and colchicine 0.6 mg twice daily at this time. Will reduce to single 0.6 mg once daily at discharge. Pacemaker interrogation demonstrates normal function/impedance. Metoprolol and digoxin continued as previously ordered. Pericardial drain to be removed today. Will discuss restarting anticoagulation with interventional cardiology. Pepito Bonner DO, [facility] Subjective Patient seen and examined. Chart, medications, and telemetry reviewed. Pericardial drain remains in place, with minimal output. Follow-up TTE performed, pending formal interpretation. Complaints: Maybe a little bit of shortness of breath, abdominal bloating Telemetry: Rate controlled atrial fibrillation, heart rates currently in the 70s, intermittently ventricular paced Review of Systems Review of Systems: Complete Review of Systems is as stated above, negative, or noncontributory. Physical Exam Physical Exam: General: A&Ox3. NAD. Eyes: PER. Conjunctiva pink, sclera clear. HENT: Normocephalic. Atraumatic. Neck: No overt JVD Chest: + Pericardial drain Heart: Irregular irregular at 70 bpm. Lungs: Clear anteriorly. Abdomen: +BS. Somewhat distended, relatively soft. No tenderness. No organomegaly. Extremities: No significant edema. Limited neurological examination: No focal deficit. Results & Data Vital Signs (Past 12 Hours) Vital Signs Temp Pulse Resp BP Pulse Ox O2 Del Method 03/01/24 12:01 130/97 03/01/24 12:01 130/97 03/01/24 12:00 84 16 03/01/24 11:12 79 21 03/01/24 11:10 108/87 03/01/24 11:10 108/87 03/01/24 11:10 108/87 03/01/24 11:10 108/87 03/01/24 10:51 73 19 03/01/24 10:00 78 18 03/01/24 09:00 97 H 21 03/01/24 08:09 122/82 03/01/24 08:09 122/82 03/01/24 08:09 122/82 03/01/24 08:03 80 18 87 L 03/01/24 08:03 85 03/01/24 08:00 Room Air 03/01/24 08:00 36.6 C 03/01/24 07:09 73 17 96 03/01/24 07:00 123/75 03/01/24 07:00 123/75 03/01/24 05:03 72 16 97 03/01/24 05:00 99/58 L 03/01/24 04:00 36.7 C 03/01/24 04:00 99/65 L 03/01/24 04:00 79 15 96 03/01/24 03:03 79 16 95 03/01/24 03:00 97/61 L 03/01/24 02:06 74 18 92 03/01/24 02:00 110/54 L Laboratory Results Coagulation 02/29/24 03/01/24 Range/Units 15:03 03:33 PT 14.3 H 13.5 H (9.0-12.0) Seconds CBC 03/01/24 Range/Units 03:33 WBC 6.22 (4.8-10.8) K/ul RBC 3.15 L (4.20-5.40) M/uL Hgb 8.7 L (12.0-16.0) g/dl Hct 27.2 L (37.0-47.0) % Plt Count 254 (130-400) K/uL Neut # (Auto) 5.07 (1.40-6.50) K/uL Lymph # (Auto) 0.65 L (1.20-3.40) K/uL [place] # (Auto) 0.47 (0.11-0.59) K/uL Eos # (Auto) 0.00 (0.00-0.50) K/uL Baso # (Auto) 0.01 (0.00-0.20) K/uL Comprehensive Metabolic Panel 03/01/24 Range/Units 03:33 Sodium 138 (136-145) mmol/L Potassium 4.4 (3.5-5.1) mmol/L Chloride 108 H (98-107) mmol/L Carbon Dioxide 24 (21-32) mmol/L BUN 24 H (6-23) mg/dl Creatinine 0.95 (0.6-1.2) mg/dl Glucose 122 H (70-99(Fasting)) mg/dl Calcium 8.5 L (8.6-10.3) mg/dl Intake and Output 02/29/24 03/01/24 03/01/24 22:59 06:59 14:59 Intake Total 600 / 600 Output Total Balance - 599 / 593 Intake: Oral 600 / 600 Output: # Bowel Movements 1 / 2 1 / 2 Other: # Unmeasured Voids 1 1 3 Diagnostic Findings Pacemaker interrogation on February 29, 2024 Appropriate function. Longevity 5.6 to 10.2 years Atrial paced less than 1%. Ventricular paced 3.6% Atrial lead impedance 490 ohms Ventricular lead impedance 410 ohms Bipolar pacing lead impedance within range
--- NOTE | 2024-03-01 14:12 | Communication Note ---
Date of Service: March 01, 2024 Echo reviewed - trace residual pericardial effusion. Minimal drainage from pericardial drain overnight. No additional drainage with manual aspiration. Pericardial drain removed without issue. Dressing placed. Ok to transfer out of ICU. Additional surveillance imaging per Dr. Bonner.
[2024-03-01] MEDS: FUROSEMIDE 20 MG TAB PO ONE (15:23)
[2024-03-02 05:18] LABS: Hematocrit (blood only) 26.8 % (37.0-47.0); Hemoglobin 8.7 g/dl (12.0-16.0); Mean Corpuscular Hemoglobin 27.7 pg (25.0-34.0); Mean Corpuscular Hgb Conc 32.5 g/dL (32.0-36.0); Mean Corpuscular Volume 85.4 fL (80.0-100.0); Mean Platelet Volume 10.2 fL (9.4-12.4); Platelet Count 303 K/uL (130-400); RDW Coefficient of Variation 14.6 % (11.5-14.5); RDW Standard Deviation 44.9 fL (36.4-46.3); Red Blood Count 3.14 M/uL (4.20-5.40); White Blood Count 5.86 K/ul (4.8-10.8)
[2024-03-02 05:32] LABS: BUN Creatinine Ratio 26.1 (10-20); Calcium 8.8 mg/dl (8.6-10.3); Creatinine Clr Calc Pharmacy 44.1 ml/min; Est GFR (African American) 53.9 ml/min; Est GFR (Non-African American) 46.5 ml/min; Potassium 4.1 mmol/L (3.5-5.1)
--- NOTE | 2024-03-02 08:25 | Cardiology Progress Note ---
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, 2024 dual-chamber pacemaker implantation Persistent atrial fibrillation Admission on 02/26 with symptomatic pericardial effusion, pericarditis Status post February 29, 2024 successful ultrasound-guided pericardiocentesis with removal of 750 mL of bloody fluid TTE on 01/29 with a trivial loculated pericardial effusion adjacent to the right atrium with no echocardiographic indications of cardiac tamponade Pericardial drain removed in the afternoon of 03/01/2024 Loose stools, likely secondary to mediation(s), colchicine Minimal coronary atherosclerosis and no obstruction via August 2018 cardiac catheterization Longstanding labile hypertension, diastolic dysfunction Pulmonary hypertension, obstructive sleep apnea on CPAP supplementation since 1995 Chronic essential tremor, on Primidone Chronic renal insufficiency stage 3 Hypothyroidism Hyperlipidemia Recommendations: * Chest x-ray today * Decrease Colchicine to once daily, RE: GI issues. * Continue to hold anticoagulation; possibly restart (Coumadin) in 1-2 days * Prednisone 40 mg/day x 7 days then 30 mg/day x 7 days then 20 mg/day x 7 days then 10 mg/day x 7 days then 5 mg/day x 7 days then stop * Rosuvastatin dosing decreased while on colchicine * Continue metoprolol and digoxin * Continue pantoprazole for GI prophylaxis * Follow-up limited TTE TBD, pending ongoing hospital course, perhaps at cardiology follow-up next week if all goes well. Admission and Anticipated Discharge Date Admission Date: February 27, 2024 Supervising Physician Co-Signing Physician Notes I have personally performed a history and physical examination on the patient. I have reviewed the advance practitioner's documentation, and I agree with, and take responsibility for the plan of care. 83-year-old female admitted secondary to progressive shortness of breath and atrial fibrillation with rapid ventricular response. Echocardiogram demonstrating large pericardial effusion with tamponade physiology. Pericardiocentesis performed this 02/29/2024 without complication. 750 cc of bloody fluid removed. Pericardial drain removed 03/01/2024. Clinically improved today. Reporting loose stools associated with prescription of colchicine. Denies chest pain or shortness of breath. Reduce colchicine to 0.6 mg once daily. Continue prednisone taper as ordered. Restart warfarin and 24-48 hours. Repeat chest x-ray pending. Pepito Bonner DO [facility] Subjective Patient seen and examined. Chart, medications, and telemetry reviewed. TTE on 01/29 with a trivial loculated pericardial effusion adjacent to the right atrium with no echocardiographic indications of cardiac tamponade Pericardial drain removed in the afternoon of 03/01/2024 Complaints: Explosive bowel movements. Breathing and inspiration have considerably improved. Slept OK with CPAP therapy. No chest pain or palpitations. No peripheral edema. No fevers or chills Telemetry: Rate controlled atrial fibrillation, heart rates currently in the 80s Review of Systems Review of Systems: Complete Review of Systems is as stated above, negative, or noncontributory. Physical Exam Physical Exam: General: A&Ox3. NAD. Eyes: PER. Conjunctiva pink, sclera clear. HENT: Normocephalic. Atraumatic. Neck: No overt JVD Chest: + Pericardial drain Heart: Irregular irregular at 90 bpm. Lungs: Clear anteriorly. Abdomen: +BS. Soft. No tenderness. No organomegaly. Extremities: No edema. Limited neurological examination: No focal deficit. Results & Data Vital Signs (Past 12 Hours) Vital Signs Temp Pulse Resp BP BP Pulse Ox O2 Del Method 03/02/24 08:11 83 03/02/24 06:00 67 14 97 03/02/24 05:36 74 16 94 03/02/24 04:12 76 16 129/80 95 03/02/24 04:00 36.6 C 03/02/24 04:00 129/80 03/02/24 03:51 66 16 95 03/02/24 03:06 87 15 114/78 97 03/02/24 02:03 77 15 95 03/02/24 02:00 115/76 03/02/24 01:03 75 15 94 03/02/24 01:00 110/77 03/02/24 00:00 36.8 C 03/02/24 00:00 118/72 03/02/24 00:00 75 15 118/72 96 03/01/24 23:42 89 16 96 03/01/24 23:00 83 03/01/24 23:00 82 15 95 03/01/24 23:00 116/70 03/01/24 22:24 81 24 96 03/01/24 22:13 36.6 C 110/62 03/01/24 20:50 36.6 C 130/97 03/01/24 20:36 91 H 19 98 Room Air Laboratory Results CBC 03/02/24 Range/Units 04:41 WBC 5.86 (4.8-10.8) K/ul RBC 3.14 L (4.20-5.40) M/uL Hgb 8.7 L (12.0-16.0) g/dl Hct 26.8 L (37.0-47.0) % Plt Count 303 (130-400) K/uL Comprehensive Metabolic Panel 03/02/24 Range/Units 04:41 Sodium 138 (136-145) mmol/L Potassium 4.1 (3.5-5.1) mmol/L Chloride 108 H (98-107) mmol/L Carbon Dioxide 23 (21-32) mmol/L BUN 29 H (6-23) mg/dl Creatinine 1.11 (0.6-1.2) mg/dl Glucose 99 (70-99(Fasting)) mg/dl Calcium 8.8 (8.6-10.3) mg/dl Intake and Output 03/01/24 03/02/24 03/02/24 22:59 06:59 14:59 Intake Total 300 / 300 Balance 300 / 300 Intake: Oral 300 / 300 Other: # Unmeasured Voids 2 1 Weight 86.6 kg Weight Measurement Method Built in [facility]
--- NOTE | 2024-03-02 11:03 | Hospitalist Progress Note ---
Date of Service March 02, 2024 Assessment & Plan (1) Pericardial effusion: Plan: Symptomatic pericardial effusion with tamponade, unclear etiology Patient is now post pericardiocentesis with drainage of about 750cc of bloody fluid Pericardial drain has been removed on 03/01 Continue to hold warfarin per cardiology, resume upon discharge on Monday Post Procedure echo x2 showed minimal residual pericardial effusion with well- expanded right ventricle left ventricular size and function. Appreciate cardiology recs (2) Pleuritis: Plan: Continue prednisone 40 mg daily, Taper Prednisone 40 mg/day x 7 days then 30 mg/day x 7 days then 20 mg/day x 7 days then 10 mg/day x 7 days then 5 mg/day x 7 days then stop Also colchicine 0.6mg BID, changed to daily on account of diarrhea (3) Hypokalemia: Plan: replaced (4) Atrial fibrillation with rapid ventricular response: Plan: Was Admitted with A-fib with RVR Patient on metoprolol and 150 mg in the morning and 50mg at night. Digoxin, Add IV metoprolol prn Cardiology on consult, appreciate recommendation. Now under better control (5) Anemia: Plan: Chronic; Hgb 10.7 on arrival Clinically, no signs of active bleeding on physical exam Recheck a.m. CBC (6) Status cardiac pacemaker: Plan: S/p dual-chamber Zimmer pacemaker on 01/11/2024 (7) RAINER on CPAP: Plan: CPAP HS (8) Lower extremity edema: Plan: Resolved (9) Tachy-jj syndrome: Plan Disposition: Hopefully discharge on Monday per cardiology Full code Heart healthy, low-sodium diet VTE PPx: On warfarin Admission and Anticipated Discharge Date Admission Date: February 27, 2024 Subjective patient seen and examined, feels better, no chest pain Review of Systems Review of Systems: All systems reviewed are negative, apart from the ones contained in the history. Physical Exam Physical Exam: The patient is awake, alert and oriented 3, well developed and well nourished, normocephalic and atraumatic, lying in bed and in no acute distress. HEENT--PERRL, EOMI, mucous membranes and oropharynx mildly dry Neck--supple. No JVD. No bruits. Thyroid normal, trachea midline, no adenopathy. Heart--normal S1 and S2. No murmurs, rubs or gallops. pericardial drain in situ Lungs--clear bilaterally, no respiratory distress, no accessory muscle use. Abdomen--normal bowel sounds and soft. Extremities--no cyanosis or clubbing. No edema. Dermatologic--normal skin turgor, normal color, no abnormal lymph nodes, no rash. Neurologic--cranial nerves II through XII grossly intact. Rheumatologic--normal range of motion. Psychiatric--normal affect. Results & Data Results & Data Vital Signs (Past 12 Hours) Vital Signs Temp Pulse Resp BP Pulse Ox O2 Del Method 03/02/24 08:15 84 12 145/82 H 97 Room Air 03/02/24 08:11 83 03/02/24 08:00 81 03/02/24 08:00 97.7 F 03/02/24 07:06 78 13 93 03/02/24 06:00 67 14 97 03/02/24 05:36 74 16 94 03/02/24 04:12 76 16 129/80 95 03/02/24 04:00 97.9 F 03/02/24 04:00 129/80 03/02/24 03:51 66 16 95 03/02/24 03:06 87 15 114/78 97 03/02/24 02:03 77 15 95 03/02/24 02:00 115/76 03/02/24 01:03 75 15 94 03/02/24 01:00 110/77 03/02/24 00:00 98.2 F 03/02/24 00:00 118/72 03/02/24 00:00 75 15 118/72 96 03/01/24 23:42 89 16 96 03/01/24 23:00 83 03/01/24 23:00 82 15 95 03/01/24 23:00 116/70 PG Care Time/CCT Total # of Minutes Spent Total Time Spent with Patient: Total time spent is greater than 50% in coordination of care (as documented) at patient's floor/unit and/or counseling patient: Coding Level of Care Code 73056 SUB INP/OBS CARE 2/35MIN Diagnoses Pericardial effusion I31.39 Pleuritis R09.1 Hypokalemia E87.6 Atrial fibrillation with rapid ventricular response I48.91 Anemia D64.9 Status cardiac pacemaker Z95.0 RAINER on CPAP G47.33 Lower extremity edema R60.0 Tachy-jj syndrome I49.5 Time Spent (min) 35
[2024-03-02 14:18] LABS: Fluid Appearance BLOODY; Fluid Basophil % 0 %; Fluid Color RED; Fluid Comment DNR; Fluid Eosinophil % 0 %; Fluid Lymphocytes % 21 %; Fluid Mesothelial % 0 %; Fluid Monocyte/Macrophage % 2 %; Fluid Neutrophil % 77 %; Fluid Total Nucleated Cell Ct 10625 cells/uL; Fluid Type PERICARDIAL FLUID
[2024-03-03 05:09] LABS: Hematocrit (blood only) 27.9 % (37.0-47.0); Mean Corpuscular Hemoglobin 27.4 pg (25.0-34.0); Mean Corpuscular Hgb Conc 32.3 g/dL (32.0-36.0); Mean Corpuscular Volume 84.8 fL (80.0-100.0); Mean Platelet Volume 10.2 fL (9.4-12.4); Platelet Count 324 K/uL (130-400); RDW Coefficient of Variation 14.3 % (11.5-14.5); RDW Standard Deviation 44.4 fL (36.4-46.3); Red Blood Count 3.29 M/uL (4.20-5.40)
[2024-03-03 05:12] LABS: BUN Creatinine Ratio 29.6 (10-20); Calcium 8.8 mg/dl (8.6-10.3); Creatinine Clr Calc Pharmacy 45.3 ml/min; Est GFR (African American) 55.8 ml/min; Est GFR (Non-African American) 48.1 ml/min; Potassium 4.1 mmol/L (3.5-5.1)
[2024-03-03] MEDS: COLCHICINE 0.6 MG TAB PO SCH (08:34)
--- NOTE | 2024-03-03 08:43 | Cardiology Progress Note ---
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, 2024 dual-chamber pacemaker implantation Persistent atrial fibrillation Admission on 02/26 with symptomatic pericardial effusion, pericarditis Status post February 29, 2024 successful ultrasound-guided pericardiocentesis with removal of 750 mL of bloody fluid TTE on 01/29 with a trivial loculated pericardial effusion adjacent to the right atrium with no echocardiographic indications of cardiac tamponade Pericardial drain removed in the afternoon of 03/01/2024 Minimal coronary atherosclerosis and no obstruction via August 2018 cardiac catheterization Longstanding labile hypertension, diastolic dysfunction Pulmonary hypertension, obstructive sleep apnea on CPAP supplementation since 1995 Chronic essential tremor, on Primidone Chronic renal insufficiency stage 3 Hypothyroidism Hyperlipidemia Recommendations: * Increase metoprolol succinate dosing to 100 mg twice a day * Discontinue digoxin * Resume anticoagulation with Coumadin, cautiously, on 03/04/2024 * Prednisone 40 mg/day x 7 days then 30 mg/day x 7 days then 20 mg/day x 7 days then 10 mg/day x 7 days then 5 mg/day x 7 days then stop * Continue Colchicine 0.6 mg once daily for at least 3 months * Rosuvastatin dosing decreased with addition of colchicine * Continue pantoprazole for GI prophylaxis * Limited TTE on March 08, 2024 at [facility] * Cardiology follow-up with Dr. Estrada on March 08, 2024 at 10:30 AM Admission and Anticipated Discharge Date Admission Date: February 27, 2024 Supervising Physician Co-Signing Physician Notes I have personally performed a history and physical examination on the patient. I have reviewed the advance practitioner's documentation, and I agree with, and take responsibility for the plan of care. 83-year-old female admitted secondary to progressive shortness of breath and atrial fibrillation with rapid ventricular response. Echocardiogram demonstrating large pericardial effusion with tamponade physiology. Pericardiocentesis performed this 02/29/2024 without complication. 750 cc of bloody fluid removed. Pericardial drain removed 03/01/2024. Patient reporting ongoing loose stools and abdominal discomfort. Agree with discontinuation of digoxin and titration of metoprolol. Restart oral anticoagulation with warfarin 03/04/2024. Continue prednisone taper as directed and colchicine daily for 3 months. Outpatient limited echocardiogram scheduled Monday03/08/2024 with cardiology follow-up. Pepito Bonner DO, [facility] Subjective Patient seen and examined. Chart, medications, and telemetry reviewed. Notes "a multitude of questions" which we discussed today. Feeling better overall. GI issues have improved some. No chest pain, shortness of breath, palpitations, orthopnea, PND, edema, subjective fevers, or chills Telemetry: Limited somewhat by artifact. Rate controlled atrial fibrillation primarily with heart rates currently in the 80s. Transient rapid ventricular response noted with activity Review of Systems Review of Systems: Complete Review of Systems is as stated above, negative, or noncontributory. Physical Exam Physical Exam: General: A&Ox3. NAD. Eyes: PER. Conjunctiva pink, sclera clear. HENT: Normocephalic. Atraumatic. Neck: No JVD Heart: Irregular irregular at 80 bpm. Lungs: Left basilar rales. No wheeze. Clear on the right. Abdomen: +BS. Soft. No tenderness. No organomegaly. Extremities: No edema. Limited neurological examination: No focal deficit. Results & Data Vital Signs (Past 12 Hours) Vital Signs Temp Pulse Resp BP Pulse Ox O2 Del Method 03/03/24 08:34 89 03/03/24 08:00 82 03/03/24 07:00 Room Air 03/03/24 06:00 64 17 98 03/03/24 06:00 138/83 03/03/24 06:00 138/83 03/03/24 05:30 79 16 96 03/03/24 05:06 76 15 96 03/03/24 04:45 82 17 96 03/03/24 04:00 36.6 C 03/03/24 04:00 143/98 H 03/03/24 04:00 73 8 L 97 03/03/24 03:03 73 16 96 03/03/24 03:00 124/88 03/03/24 02:57 73 14 95 03/03/24 02:06 74 16 95 03/03/24 02:00 127/73 03/03/24 01:45 79 15 96 03/03/24 01:00 77 14 98 03/03/24 01:00 132/81 03/03/24 01:00 132/81 03/03/24 00:36 82 15 95 03/03/24 00:15 78 13 97 03/03/24 00:00 36.6 C 03/03/24 00:00 127/81 03/02/24 23:42 83 10 L 95 03/02/24 23:33 93 H 28 H 95 03/02/24 23:00 83 18 96 03/02/24 23:00 125/78 03/02/24 23:00 125/78 03/02/24 22:42 89 18 94 03/02/24 22:15 113/83 03/02/24 22:15 113/83 03/02/24 22:15 113/83 03/02/24 22:06 96 H 16 95 03/02/24 22:00 81 16 96 03/02/24 21:42 82 22 94 03/02/24 21:21 87 22 97 03/02/24 21:00 128/86 03/02/24 20:45 98 H 19 97 Laboratory Results CBC 03/03/24 Range/Units 04:02 WBC 6.50 (4.8-10.8) K/ul RBC 3.29 L (4.20-5.40) M/uL Hgb 9.0 L (12.0-16.0) g/dl Hct 27.9 L (37.0-47.0) % Plt Count 324 (130-400) K/uL Comprehensive Metabolic Panel 03/03/24 Range/Units 04:02 Sodium 138 (136-145) mmol/L Potassium 4.1 (3.5-5.1) mmol/L Chloride 107 (98-107) mmol/L Carbon Dioxide 24 (21-32) mmol/L BUN 32 H (6-23) mg/dl Creatinine 1.08 (0.6-1.2) mg/dl Glucose 100 H (70-99(Fasting)) mg/dl Calcium 8.8 (8.6-10.3) mg/dl Intake and Output 03/02/24 03/03/24 03/03/24 22:59 06:59 14:59 Intake Total 300 / 660 0 / 660 Balance 300 / 459 0 / 459 Intake: Oral 300 / 660 0 Other: # Unmeasured Voids 1 1 Weight 86.9 kg Weight Measurement Method Built in [facility]
[2024-03-03] MEDS: METOPROLOL SUCC 50MG EXT REL TAB PO SCH (09:12)
--- NOTE | 2024-03-03 11:40 | Hospitalist Progress Note ---
Date of Service March 03, 2024 Assessment & Plan (1) Pericardial effusion: Plan: Symptomatic pericardial effusion with tamponade, unclear etiology Patient is now post pericardiocentesis with drainage of about 750cc of bloody fluid Pericardial drain has been removed on 03/01 Continue to hold warfarin per cardiology, resume upon discharge on Monday Post Procedure echo x2 showed minimal residual pericardial effusion with well- expanded right ventricle left ventricular size and function. Appreciate cardiology recs (2) Pleuritis: Plan: Patient admits to a hx of Lupus since she was 21 years old Has had pleuritis in the past Continue prednisone 40 mg daily, Taper Prednisone 40 mg/day x 7 days then 30 mg/day x 7 days then 20 mg/day x 7 days then 10 mg/day x 7 days then 5 mg/day x 7 days then stop Also colchicine 0.6mg BID, changed to daily on account of diarrhea (3) Atrial fibrillation with rapid ventricular response: Plan: Was Admitted with A-fib with RVR Now on metoprolol 100mg BID Digoxin has been discontinued Cardiology on consult, appreciate recommendation. Rate Now under better control Resume Coumadin on 03/04 per cardiology (4) Anemia: Plan: Chronic; Hgb 10.7 on arrival Clinically, no signs of active bleeding on physical exam Recheck a.m. 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 Physical Exam Physical Exam: The patient is awake, alert and oriented 3, well developed and well nourished, normocephalic and atraumatic, lying in bed and in no acute distress. HEENT--PERRL, EOMI, mucous membranes and oropharynx mildly dry Neck--supple. No JVD. No bruits. Thyroid normal, trachea midline, no adenopathy. Heart--normal S1 and S2. No murmurs, rubs or gallops. pericardial drain in situ Lungs--clear bilaterally, no respiratory distress, no accessory muscle use. Abdomen--normal bowel sounds and soft. Extremities--no cyanosis or clubbing. No edema. Dermatologic--normal skin turgor, normal color, no abnormal lymph nodes, no rash. Neurologic--cranial nerves II through XII grossly intact. Rheumatologic--normal range of motion. Psychiatric--normal affect. Results & Data Results & Data Vital Signs (Past 12 Hours) Vital Signs Temp Pulse Resp BP Pulse Ox O2 Del Method 03/03/24 09:48 98.1 F 03/03/24 09:45 78 22 121/81 97 03/03/24 09:03 97 H 14 03/03/24 08:34 89 03/03/24 08:00 87 16 97 03/03/24 08:00 143/105 H 03/03/24 08:00 143/105 H 03/03/24 08:00 82 03/03/24 07:09 62 16 96 03/03/24 07:00 Room Air 03/03/24 06:00 64 17 98 03/03/24 06:00 138/83 03/03/24 06:00 138/83 03/03/24 05:30 79 16 96 03/03/24 05:06 76 15 96 03/03/24 04:45 82 17 96 03/03/24 04:00 97.9 F 03/03/24 04:00 143/98 H 03/03/24 04:00 73 8 L 97 03/03/24 03:03 73 16 96 03/03/24 03:00 124/88 03/03/24 02:57 73 14 95 03/03/24 02:06 74 16 95 03/03/24 02:00 127/73 03/03/24 01:45 79 15 96 03/03/24 01:00 77 14 98 03/03/24 01:00 132/81 03/03/24 01:00 132/81 03/03/24 00:36 82 15 95 03/03/24 00:15 78 13 97 03/03/24 00:00 97.9 F 03/03/24 00:00 127/81 03/02/24 23:42 83 10 L 95 PG Care Time/CCT Total # of Minutes Spent Total Time Spent with Patient: Total time spent is greater than 50% in coordination of care (as documented) at patient's floor/unit and/or counseling patient: Coding Level of Care Code 00068 SUB INP/OBS CARE 2/35MIN Diagnoses Pericardial effusion I31.39 Pleuritis R09.1 Atrial fibrillation with rapid ventricular response I48.91 Anemia D64.9 Systemic lupus erythematosus M32.9 Status cardiac pacemaker Z95.0 RAINER on CPAP G47.33 Hypokalemia E87.6 Lower extremity edema R60.0 Tachy-jj syndrome I49.5 Time Spent (min) 35
[2024-03-03 17:16] VITALS: TEMP 98.4
--- NOTE | 2024-03-03 21:44 | XRay Report ---
SINGLE VIEW CHEST CLINICAL HISTORY: Dyspnea. FINDINGS: An AP, portable, upright chest radiograph is compared to study dated 02/29/2024 and correlat ed with chest CT dated 01/29/2024. The examination is degraded by portable technique and apical lordot ic positioning. A 2-lead cardiac pacemaker is unchanged in position and partially obscures the left m id chest. The pericardial drain seen previously is no longer visualized. The heart is enlarged. There is prominence of the pulmonary vasculature. There are left larger than right pleural effusions with dependent atelectasis. No pneumothorax is seen. The skeletal structures are osteopenic. The bony thor ax is grossly intact. Degenerative change is noted in the shoulders and spine. IMPRESSION: 1. Cardiomegaly and cardiac pacemaker with prominence of the pulmonary vasculature. Correlate clinica lly for evidence of mild fluid overload/congestive change. 2. Left larger than right pleural effusions with dependent atelectasis. 3. The pericardial drain seen previously is no longer visualized. ACT 112: Negative or not required by law. Electronically signed by: Jose Maria Joe M.D. 03/02/2024 9:57 AM
[2024-03-04 04:52] LABS: Hematocrit (blood only) 29.8 % (37.0-47.0); Hemoglobin 9.4 g/dl (12.0-16.0); Mean Corpuscular Hemoglobin 27.5 pg (25.0-34.0); Mean Corpuscular Hgb Conc 31.5 g/dL (32.0-36.0); Mean Corpuscular Volume 87.1 fL (80.0-100.0); Mean Platelet Volume 9.8 fL (9.4-12.4); Platelet Count 329 K/uL (130-400); RDW Coefficient of Variation 14.4 % (11.5-14.5); RDW Standard Deviation 45.2 fL (36.4-46.3); Red Blood Count 3.42 M/uL (4.20-5.40); White Blood Count 7.08 K/ul (4.8-10.8)
[2024-03-04 05:06] LABS: BUN Creatinine Ratio 26.9 (10-20); Calcium 8.9 mg/dl (8.6-10.3); Creatinine Clr Calc Pharmacy 36.6 ml/min; Est GFR (Non-African American) 37.1 ml/min; Potassium 3.8 mmol/L (3.5-5.1)
--- NOTE | 2024-03-04 10:18 | Cardiology Progress Note ---
Date of Service March 04, 2024 Assessment & Plan (1) Pericardial effusion: (2) Atrial fibrillation with rapid ventricular response: (3) Cardiac pacemaker in situ: (4) Tachy-jj syndrome: (5) Pleuritic chest pain: (6) CAD (coronary artery disease): Plan Chart history of systemic lupus erythematosus Hospitalization in early January 2024 with pleuritis Tachy-Jj Syndrome status post January 12, 2024 dual-chamber pacemaker implantation Persistent atrial fibrillation Admission on 02/26 with symptomatic pericardial effusion, pericarditis Status post February 29, 2024 successful ultrasound-guided pericardiocentesis with removal of 750 mL of bloody fluid TTE on 01/29 with a trivial loculated pericardial effusion adjacent to the right atrium with no echocardiographic indications of cardiac tamponade Pericardial drain removed in the afternoon of 03/01/2024 Minimal coronary atherosclerosis and no obstruction via August 2018 cardiac catheterization Longstanding labile hypertension, diastolic dysfunction Pulmonary hypertension, obstructive sleep apnea on CPAP supplementation since 1995 Chronic essential tremor, on Primidone Chronic renal insufficiency stage 3 Hypothyroidism Hyperlipidemia Recommendations: * Increase metoprolol succinate dosing to 100 mg twice a day * Discontinue digoxin * Resume anticoagulation with Coumadin, cautiously, on 03/04/2024 * Prednisone 40 mg/day x 7 days then 30 mg/day x 7 days then 20 mg/day x 7 days then 10 mg/day x 7 days then 5 mg/day x 7 days then stop * Continue Colchicine 0.6 mg once daily for at least 3 months * Rosuvastatin dosing decreased with addition of colchicine * Continue pantoprazole for GI prophylaxis * Limited TTE on March 08, 2024 at [facility] * Cardiology follow-up with Dr. Estrada on March 08, 2024 at 10:30 AM 03/04/2024 Assessment and plan as above. Patient doing well no adjustments further in medications with heart rate controlled on metoprolol succinate 100 mg twice per day. No concerns for bradycardia with pacemaker in place Tolerating anti-inflammatories with planned slow prednisone taper, continued colchicine Outpatient appointments already scheduled Admission and Anticipated Discharge Date Admission Date: February 27, 2024 Subjective Patient was seen and examined, chart, medications, telemetry reviewed Heart rates much better controlled Feels well ambulatory in room without acute complaints. No pleuritic discomfort. Blood pressure trending slightly higher with prednisone GI concerns have improved taking colchicine once per day Review of Systems Review of Systems: All systems reviewed & are unremarkable except as noted in Subjective Physical Exam Constitutional: WD/WN, vitals as above no acute distress Eyes: PERRL, conjunctivae normal, anicteric sclerae Neck: trachea midline, no thyromegaly Respiratory: normal respiratory effort, lungs clear to auscultation Cardiovascular: Rate/Rhythm: regular rate and + irregularly irregular Heart Sounds: normal S1 and normal S2; no cardiac rub Vessels: no JVD Extremities: no edema Pericardiocentesis access site bandage clean Chest (Breasts): Chest: + pacemaker Musculoskeletal: no cyanosis or clubbing, extremities motor strength 5/5 Results & Data Vital Signs (Past 12 Hours) Vital Signs Pulse Resp BP Pulse Ox Pulse Ox O2 Del Method O2 Del Method 03/04/24 07:00 146/94 H 03/04/24 07:00 74 18 97 Room Air 03/04/24 07:00 95 Room Air 03/04/24 06:00 130/78 03/04/24 05:00 70 15 133/88 97 CPAP 03/04/24 04:00 73 14 135/95 98 CPAP 03/04/24 04:00 77 17 135/95 98 CPAP 03/04/24 03:00 69 14 135/79 96 CPAP 03/04/24 02:00 73 16 133/87 96 CPAP 03/04/24 01:00 76 16 131/81 97 CPAP 03/04/24 00:00 75 12 133/90 95 CPAP 03/03/24 23:00 81 14 113/75 94 CPAP Laboratory Results Laboratory Results - last 24 hr 03/04/24 04:26 WBC 7.08 RBC 3.42 L Hgb 9.4 L Hct 29.8 L MCV 87.1 MCH 27.5 MCHC 31.5 L RDW Std Deviation 45.2 RDW Coeff of Mal 14.4 Plt Count 329 MPV 9.8 Sodium 138 Potassium 3.8 Chloride 106 Carbon Dioxide 23 Anion Gap 9 BUN 36 H Creatinine 1.34 H Est Cr Clr Drug Dosing 36.6 Est GFR ( Amer) 43.0 Est GFR (Non-Af Amer) 37.1 BUN/Creatinine Ratio 26.9 H Glucose 99 Calcium 8.9
[2024-03-04 10:42] VITALS: BP 133/94; PULSE 82; RESP 17; O2SAT 92
--- NOTE | 2024-03-04 11:33 | Discharge Summary ---
Discharge Summary Date of Service March 04, 2024 Principal Dx & Hospital Course #1 = Principal Diagnosis (1) Pericardial effusion: Symptomatic pericardial effusion with tamponade, unclear etiology Patient is now post pericardiocentesis with drainage of about 750cc of bloody fluid Pericardial drain has been removed on 03/01 Continue to hold warfarin per cardiology, resume upon discharge on Monday Post Procedure echo x2 showed minimal residual pericardial effusion with well- expanded right ventricle left ventricular size and function. Appreciate cardiology recs. Home today, March 04, on a prednisone tapering dose along with colchicine (2) Pleuritis: Patient admits to a hx of Lupus since she was 21 years old Has had pleuritis in the past Continue prednisone 40 mg daily, Taper Prednisone 40 mg/day x 7 days then 30 mg /day x 7 days then 20 mg/day x 7 days then 10 mg/day x 7 days then 5 mg/day x 7 days then stop Also colchicine 0.6mg BID, changed to daily on account of diarrhea (3) Atrial fibrillation with rapid ventricular response: Was Admitted with A-fib with RVR Now on metoprolol 100mg BID Digoxin has been discontinued Cardiology on consult, appreciate recommendation. 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 She will have a follow-up cardiac echo done tomorrow then follow-up with cardiology, Dr. Tito Estrada, on March 08 Admission HPI Per Admitting Provider Pam is an 83-year-old female with PMH of RAINER, SLE, CAD, HTN, Sjogren's, Raynaud's, tremor, and paroxysmal atrial fibrillation (on warfarin). She presented on 02/26 for chest tightness and SOB at rest. She is experiencing both SOB at rest and with exertion (worse with exertion). SOB at rest is new for her; so is conversational dyspnea. She also endorses significant orthopnea. She had significant difficulty sleeping last night, and reports that despite taking a double dose of Lasix yesterday, she has not been producing as much urine. She first noticed decreased urine production last Monday, but does note that the Lasix will occasionally kick in when she takes it. Patient took her regular morning medications today; she reports that there have been changes in her medication dosages (they have recently been titrating up on her rate control medications). Patient does not manage her own medicine at home; managed by the nursing office at [facility], [place]. She was told to hold her Coumadin yesterday after her INR came back at 6.1; she was also given 2 tablets of vitamin K yesterday. Patient uses a CPAP at night; no supplemental oxygen at baseline. No sick contacts. Patient reports that her legs are slightly swollen, and she has been experiencing significant lower extremity weakness. She describes her legs as "jelly worms" and reports that she can no longer walk. In regard to her shortness of breath, this has been ongoing, waxing/waning since her last admission in January. She does not have chest palpitations that signal her A-fib with RVR, but does report "night sweats" and difficulty breathing whenever she develops it at night. She reports a 12 pound weight gain over the past 2 weeks; has been taking her weight daily. No recent change in diet, and she does watch her salt intake, but she is concerned that there may be more salt in the [facility], [place] cafeteria than if she cooked at home. Other than Lasix, patient has not been taking additional medications or inhalers for her SOB; she has been trying breathing exercises/techniques without significant improvement. No history of DVT/PE. Patient denies smoking, tobacco use, recent alcohol use. She does have a home pulse ox, and reports that has been around 92 to 98% at home on room air. Patient is tachycardic at 123 bpm at time of admission; vitals otherwise stable. ED course: Potassium chloride 40mEq p.o. ROS: Patient endorses SOB at rest and with exertion, chest fullness/tightness (which patient attributes to a fib), night-sweats (which patient attributes to a fib at night), conversational dyspnea, orthopnea, dry cough, pleuritic CP (can not take deep breath in and out), nausea, and leg swelling at night. Patient denies fever, chills, chest pain, chest palpitations, hemoptysis, abdominal pain, vomitng, diarrhea, burning with urination, or blood in the urine/stool. Discharge Exam General-alert and oriented x3, no fever, no chills HEENT-head atraumatic and normocephalic, pupils equal and reactive to light, extraocular muscles intact Neck-no lymphadenopathy or thyromegaly, trachea midline Chest-clear to auscultation. No rales, wheezing or rhonchi Cardiac-irregular rhythm, controlled rate, rormal S1 and S2 Abdomen-normal bowel sounds, no hepatosplenomegaly Extremities-no cyanosis, clubbing, or edema Neuro-cranial nerves II through XII intact, motor and sensory function within normal limits, strength symmetrical, no focal deficits Psych-normal affect, normal mood Discharge Plan Discharge Items Patient Disposition: Home - Self-Care Reason For Visit: A FIB WITH RVR Discharge Diagnosis: Symptomatic pericardial effusion with tamponade Activity: Resume your previous activity Non-emergency contact: Primary Care Provider and Billing Control Clerk Call non-emergency contact if: you have any medication questions and your symptoms worsen Follow-up/Referrals: Horace Lopez MD [Primary Care Provider] - Diet: Regular and Heart Healthy Addtl Attending Provider Instructions: Take prednisone in a tapering dose fashion as directed. Take colchicine once daily. Get follow-up cardiac echo as scheduled and see Dr. Estrada in the office on March 08 Pending Studies at Discharge: No Stand-Alone Forms: My [facility] [employer] Smoking Cessation Medications and DC Order Prescriptions: New colchicine [Colcrys] 0.6 mg Tablet 0.6 mg PO DAILY Qty: 30 0RF prednisone 10 mg tablet See Rx Instructions .ROUTE .COMPLEX Qty: 74 0RF Rx Instructions: 10 mg orally 4 times a day for 1 week, then 10 mg 3 times a day for 1 week, then 10 mg twice a day for 1 week, then 10 mg once daily for 1 week, then 1/2 tablet daily until gone Continued digoxin 125 mcg (0.125 mg) tablet 125 mcg PO QAM montelukast 10 mg tablet 10 mg PO HS baclofen 10 mg tablet 10 mg PO BID levothyroxine 88 mcg capsule 88 mcg PO QAM warfarin 3 mg tablet 0 mg PO HS Rx Instructions: 02/25 - On hold until RTC on 03/01; (Not listed as on hold on AUG from SNF, but placed as on hold by other medical staff) Original Directions: 3mg by mouth at bedtime metoprolol succinate 100 mg tablet extended release 24 hr 100 mg PO QAM ferrous sulfate 325 mg (65 mg iron) tablet 325 mg PO QAM primidone 50 mg tablet 50 mg PO BID PreserVision AREDS [id number] Tablet 1 tab PO BID cholecalciferol (vitamin D3) [Vitamin D3] 25 mcg (1,000 unit) tablet 1,000 unit PO BID rosuvastatin 40 mg tablet 40 mg PO QAM pantoprazole 40 mg Tablet,Delayed Release (Dr/Ec) 40 mg PO QAM Qty: 30 0RF metoprolol succinate 50 mg Tablet Extended Release 24 Hr 50 mg PO HS magnesium 250 mg Tablet 250 mg PO HS cyanocobalamin (vitamin B-12) [Vitamin B-12] 2,000 mcg Tablet Extended Release 2,000 mcg PO HS psyllium husk [Fiber (psyllium husk)] 0.4 gram Capsule 0.4 g PO BID Centrum Adults 12 mcg Tablet,Chewable 1 tab PO QAM furosemide [Lasix] 20 mg tablet 20 mg PO QAM potassium chloride 20 mEq tablet extended release 20 meq PO QAM Discharge Orders: Discharge Order (Routine); Ordered 03/04/24 Ordered By: Kendrick Maloney Admission Data Admit Date/Time: 02/27/24 14:34 Attending Provider: Kendrick Maloney Admit Provider: Umesh Bean Primary Care Provider: Horace Lopez Other Providers: Pepito Bonner; Umesh Bean; [facility] Stay Data Consultations 02/27/24 13:54 Consult Cardiology Stat ED Decision to Admit Stat Procedures Performed Operation Date: 02/29/24 08:00 Actual Procedures p Pericardiocentesis Initial - Fernando Argueta MD Diagnostic Imagining Performed 02/29/24 06:49 CL Cath Imgs for PACS use only Routine Pending Results Patient Have Any Pending Studies at Discharge: No Discharge Instructions Given to Patient (Per Discharging Provider) Take prednisone in a tapering dose fashion as directed. Take colchicine once daily. Get follow-up cardiac echo as scheduled and see Dr. Estrada in the office on March 08 Total Time Total Time Spent Total Time Spent (In Minutes): 45 minutes Coding Level of Care Code 46755 INP/OBS DISCH >30 MIN Diagnoses Pericardial effusion I31.39 Pleuritis R09.1 Atrial fibrillation with rapid ventricular response I48.91 Anemia D64.9 Systemic lupus erythematosus M32.9 Status cardiac pacemaker Z95.0 RAINER on CPAP G47.33 Hypokalemia E87.6 Lower extremity edema R60.0 Tachy-jj syndrome I49.5
== END 2024-03-04 12:20 | disposition home or self-care (01) | DRG 315 ==
LOC: ED 09:47 → SUATTDRO 14:34 → 2S 14:34 → 1E 02-29 11:20

== ENCOUNTER 2024-07-01 11:16 | Inpatient (IN) ==
[2024-07-01 11:56] LABS: Basophils # (auto) 0.02 K/uL (0.00-0.20); Basophils % (auto) 0.3 %; Eosinophils # (auto) 0.01 K/uL (0.00-0.50); Eosinophils % (auto) 0.1 %; Hematocrit (blood only) 39.7 % (37.0-47.0); Hemoglobin 13.4 g/dl (12.0-16.0); Immature Granulocytes # (auto) 0.01 K/uL (0.01-0.20); Immature Granulocytes % (auto) 0.1 %; Lymphocytes # (auto) 0.81 K/uL (1.20-3.40); Lymphocytes % (auto) 11.2 %; Mean Corpuscular Hemoglobin 28.5 pg (25.0-34.0); Mean Corpuscular Hgb Conc 33.8 g/dL (32.0-36.0); Mean Corpuscular Volume 84.5 fL (80.0-100.0); Mean Platelet Volume 10.7 fL (9.4-12.4); Monocytes # (auto) 0.72 K/uL (0.11-0.59); Monocytes % (auto) 9.9 %; Neutrophils # (auto) 5.69 K/uL (1.40-6.50); Neutrophils % (auto) 78.4 %; Platelet Count 236 K/uL (130-400); RDW Coefficient of Variation 13.8 % (11.5-14.5); RDW Standard Deviation 42.5 fL (36.4-46.3); White Blood Count 7.26 K/ul (4.8-10.8)
--- NOTE | 2024-07-01 12:09 | XRay Report ---
XR chest 1V portable CLINICAL HISTORY: pleural effusion COMPARISON STUDY: 04/29/2024 FINDINGS: Patient has developed increased retrocardiac density in the left lower lobe as seen through the cardiac silhouette. This obliterates the medial aspect of the left hemidiaphragm is consistent w ith either partial atelectasis and/or pneumonia in the left lower lobe. There is also a small amount of increased opacity in the right cardiophrenic angle. Heart size is mildly enlarged. A dual-lead pac emaker is redemonstrated. IMPRESSION: Findings consistent with the left lower lobe pneumonia and/or partial left lower lobe at electasis. A small right medial basilar infiltrate is suspected as well. ACT 112: Negative or not required by law. Electronically signed by: Ewelina Meza M.D. 07/01/2024 12:07 PM
[2024-07-01 12:21] LABS: BUN Creatinine Ratio 17.8 (10-20); Calcium 9.7 mg/dl (8.6-10.3); Creatinine Clr Calc Pharmacy 48.4 ml/min; Potassium 3.8 mmol/L (3.5-5.1)
[2024-07-01 12:25] LABS: Troponin I High Sensitivity 7.4 pg/ml (0-14)
[2024-07-01 12:59] LABS: INR 2.2 (0.9-1.1); Prothrombin Time 22.6 Seconds (9.0-12.0)
--- NOTE | 2024-07-01 13:21 | Electrocardiogram Report ---
Test Reason : Blood Pressure : */* mmHG Vent. Rate : 126 BPM Atrial Rate : * BPM P-R Int : * ms QRS Dur : 124 ms QT Int : 364 ms P-R-T Axes : * 69 -86 degrees QTcB Int : 527 ms Atrial fibrillation with rapid ventricular response Right bundle branch block T wave abnormality, consider inferolateral ischemia Abnormal ECG When compared with ECG of 29-Feb-2024 09:52, Inverted T waves have replaced nonspecific T wave abnormality in Inferior leads Confirmed by Donald Heck ([id number]) on 07/01/2024 1:20:45 PM Referred By: Confirmed By: Donald Heck
[2024-07-01 13:42] LABS: Adenovirus PCR Not Detected (NotDetected); Bordetella parapertussis PCR Not Detected (NotDetected); Bordetella pertussis PCR Not Detected (NotDetected); Chlamydia pneumoniae PCR Not Detected (NotDetected); Coronavirus 229E PCR Not Detected (NotDetected); Coronavirus CoV-2 (COVID19)PCR Not Detected (NotDetected); Coronavirus HKU1 PCR Not Detected (NotDetected); Coronavirus NL63 PCR Not Detected (NotDetected); Coronavirus OC43PCR Not Detected (NotDetected); Human Metapneumovirus PCR Not Detected (NotDetected); Influenza A PCR Not Detected (NotDetected); Influenza B PCR Not Detected (NotDetected); Mycoplasma pneumoniae PCR Not Detected (NotDetected); Parainfluenza Virus 1 PCR Not Detected (NotDetected); Parainfluenza Virus 2 PCR Not Detected (NotDetected); Parainfluenza Virus 3 PCR Not Detected (NotDetected); Parainfluenza Virus 4 PCR Not Detected (NotDetected); Respiratory Syncytial VirusPCR Not Detected (NotDetected); Rhinovirus/Enterovirus PCR Not Detected (NotDetected)
--- NOTE | 2024-07-01 15:21 | Emergency Department Note ---
Impression & Plan Left lower lobe pneumonia, Atrial fibrillation with rapid ventricular response ED Provider Note NAME: DENNYS HILLIARD AGE: 83 SEX: F : 1940 ARRIVES VIA: Ambulance INFORMANT: Patient, ED PROVIDER(S): Skip Torres MD CHIEF COMPLAINT: A-fib, night sweats HPI: This is a 83-year-old female presenting for A-fib with RVR. Patient states that she has having night sweats with past 2-3 nights. She noticed chest tightness for the past 4 days. She notes possible fevers. She notes sweating through her sheets at night. She reports weakness. She reports some slight cough. She reports pain 3/10 in severity. Reports no shortness of breath. ROS: See above HPI for pertinent positives & negatives. A total of 10 systems reviewed and were otherwise negative. PAST MEDICAL HISTORY: See Below PAST SURGICAL HISTORY: See Below FAMILY HISTORY: See Below SOCIAL HISTORY: See Below HOME MEDICATIONS: See Below ALLERGIES: See Below VITALS: See Below PHYSICAL EXAMINATION: General: resting comfortably in no acute distress Head: Normocephalic and atraumatic Eyes: Normal inspection, extraocular muscles intact Ear, nose, throat: Normal external exam Neck: Normal range of motion Respiratory: lungs clear to auscultation bilaterally Cardiovascular: Regular rate/rhythm, no murmur GI: soft, nontender, no guarding or rebound Extremities: nontender, moves all extremities Neuro: The patient awake and alert, appropriately conversive, no focal deficits, symmetric faces Skin: Warm, dry, and intact MEDICAL DECISION MAKING: This is an 83-year-old female presenting for A-fib with RVR. Patient has had symptoms of fevers, chills and night sweats. Consider infectious etiology as a potential source for her current A-fib with RVR. Her rates are between 95 and 130 at this time. -No leukocytosis or anemia is noted at this time. Patient left lites are within normal limits. Troponin currently negative -Upper respiratory panel negative -Chest x-ray as Independently interpreted by me reveals a right lower and left middle lobe opacity. -Radiology report does show signs of pneumonia. -Will give ceftriaxone/doxycycline for pneumonia coverage. She is not hypoxic but is still he is currently in A-fib with RVR with rates between 95 and 120. -Did discuss admission versus discharge with patient with her A-fib RVR. She states she was sent here for the A-fib with RVR and the spells is not very comfortable with her in A-fib/high rates. -Patient still tachycardic, will admit for A-fib management as well as treatment of pneumonia Differential diagnosis: A-fib RVR, pneumonia, sepsis, UTI, dehydration Diagnostics interpreted by me: ECG: ECG independently interpreted by me with A-fib with RVR at a rate of 126, right bundle branch block, normal QTc, no ST segment elevations consistent with STEMI criteria Cardiac Monitoring: An order was placed for continuous cardiac monitoring. The monitor shows a rate of 122 with A-fib rhythm. 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 Pericardial effusion Hypokalemia Pleuritis Lupus Labile hypertension Nonobstructive atherosclerosis of coronary artery Atrial fibrillation with rapid ventricular response (Acute) Chest pain Routine gynecological examination Injury of ear canal Chronic anticoagulation (Chronic) Hyponatremia PAF (paroxysmal atrial fibrillation) Dizziness (Acute) Chest tightness (Acute) Acute hyponatremia (Acute) Atrial flutter with rapid ventricular response (Acute) Irritable bowel syndrome with diarrhea Tubular adenoma Diarrhea Encounter for pre-operative examination Kidney stones (Chronic) Hypothyroidism Palpitations (Acute) Vitamin D deficiency (Chronic) Hypertension (Chronic) Obstructive sleep apnea syndrome cpap Tremor (Acute) Gait disturbance Fall Balance problem Vitamin D deficiency (Acute) Chronic obstructive pulmonary disease Chronic kidney disease, stage II (mild) (Chronic) CAD (coronary artery disease) NONOBSTRUCTIVE Diagnostic cardiac catheterization August 2018 with minimal coronary atherosclerosis and no obstruction, elevated end-diastolic pressure HTN (hypertension) Chronic lumbar radiculopathy (Acute) Raynaud's disease (Chronic) Sjogren's syndrome (Chronic) Medical History Macular degeneration Muscle cramping SLE (systemic lupus erythematosus) Scoliosis Osteoporosis Osteoarthritis Hemangioma of liver Chronic back pain GERD (gastroesophageal reflux disease) Hypothyroid 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 Sewell PVC (premature ventricular contraction) Bundle branch block follow Dr Sewell Near syncope Left hip pain Surgical History History of esophagogastroduodenoscopy (EGD) History of colonoscopy S/P UVPP (uvulopalatopharyngoplasty) History of tonsillectomy History of brain surgery History of tubal ligation History of hysterectomy History of appendectomy Family History Aunt Family history of pseudocholinesterase deficiency PATERNAL Breast cancer Father Myocardial infarction Prostate cancer Brother Prostate cancer Denies family history of Ovarian cancer Colorectal cancer Social History Smoking Status: Former smoker Tobacco Type: Cigarettes Smoking End Date: 60 years ago; Second Hand Exposure: No; Do You Dip or Chew Tobacco: No; Tobacco Cessation Education Requested by Patient: No Hx Alcohol Use: No Hx Substance Use: No Preferred Language: Persian Communication Ability: Effective Lockstitch Hemmer Required: No Beliefs That Will Affect Care: None marital status: Current Living Situation: Personal Care Facility Current Living Situation Comment: [facility] current occupational status: retired Other Information That Helps Us Care for You: No Feels Safe at Home: Yes Safety Concerns: Feels Safe At This Time Childhood Exposure to Second-Hand Smoke: Yes Dental Care, Regularly: Yes Physical Activity Frequency: Daily Seatbelt Use: always Sunscreen Use: Yes Assistive Devices: Glasses, Hearing Aid - Bilateral and Walker Allergies Allergies Allergy/AdvReac Type Severity Reaction Status Date / Time hydroxychloroquine Allergy Intermediate TOXICITY Verified 07/01/24 15:34 OF THE RETINA ibuprofen Allergy Intermediate SWELLING Verified 07/01/24 15:34 atorvastatin AdvReac Mild "UNCOMFORTABLE" Verified 07/01/24 15:34 AND CREATININE INCREASED SLIGHTLY Home Meds Home Medications Medication Instructions Recorded Confirmed vitamins A,C,R-omxx-vziuoc 2,148 1 tab PO BID 06/25/18 07/01/24 mcg-113 mg-45 mg-17.4 mg tablet baclofen 10 mg tablet 10 mg PO BID 04/20/22 07/01/24 cholecalciferol (vitamin D3) 25 1,000 unit PO BID 02/16/24 07/01/24 mcg (1,000 unit) tablet (Vitamin D3) montelukast 10 mg tablet 10 mg PO HS 02/16/24 07/01/24 ferrous sulfate 325 mg (65 mg 325 mg PO QAM 02/22/24 07/01/24 iron) tablet cyanocobalamin (vitamin B-12) 2,000 mcg PO HS 02/27/24 07/01/24 2,000 mcg tablet,extended release (Vitamin B-12 ER) magnesium 250 mg tablet 250 mg PO HS 02/27/24 07/01/24 metoprolol succinate 100 mg 100 mg PO BID 03/15/24 07/01/24 tablet,extended release 24 hr digoxin 125 mcg (0.125 mg) tablet 0.125 mg PO DAILY 03/29/24 07/01/24 levothyroxine 100 mcg capsule 100 mcg PO DAILY 05/09/24 07/01/24 potassium chloride 20 mEq 40 meq PO QAM 05/09/24 07/01/24 tablet,extended release primidone 50 mg tablet 50 mg PO PM 05/09/24 07/01/24 primidone 50 mg tablet 75 mg PO QAM 05/09/24 07/01/24 warfarin 3 mg tablet See Rx Instructions PO UD 06/03/24 07/01/24 colchicine 0.6 mg tablet 0 mg PO M 07/01/24 07/01/24 furosemide 40 mg tablet 40 mg PO DAILY 07/01/24 07/01/24 hydroxychloroquine 200 mg tablet 200 mg PO DAILY 07/01/24 07/01/24 [id number] acid 0.4 1 tab PO QAM 07/01/24 07/01/24 mg-lycopene 300 mcg-lutein 250 mcg tablet ([facility]) psyllium husk 0.4 gram capsule 0.4 g PO BID 07/01/24 07/01/24 (Reguloid (psyllium husk)) rosuvastatin 40 mg tablet 40 mg PO DAILY 07/01/24 07/01/24 Results & Data (ED) Vital Signs Vital Signs - 24 hr 07/01/24 11:30 07/01/24 11:49 07/01/24 11:49 Temperature Temperature Source Pulse Rate 110 H Pulse Rate [Apical] Pulse Rate from SpO2 Sensor Pulse Rhythm Pulse Rhythm [Apical] Respiratory Rate Respiratory Effort / Characteristics Spontaneous Short of Breath Respiratory Depth Normal Respiratory Pattern Regular Blood Pressure Blood Pressure [Right Arm] Blood Pressure Mean Blood Pressure Mean [Right Arm] Blood Pressure Position [Right Arm] Pulse Oximetry 98 Oxygen Delivery Method Room Air Room Air Oxygen Flow Rate 0 Pulse Oximetry Post Tiitration 98 07/01/24 11:49 07/01/24 11:49 07/01/24 13:00 Temperature 37.0 C Temperature Source Oral Pulse Rate 112 H Pulse Rate [Apical] 117 H 97 H Pulse Rate from SpO2 Sensor Pulse Rhythm Irregular Pulse Rhythm [Apical] Irregular Irregular Respiratory Rate 20 20 21 Respiratory Effort / Characteristics Spontaneous Short of Breath Non-Labored Spontaneous Respiratory Depth Normal Respiratory Pattern Regular Blood Pressure Blood Pressure [Right Arm] 112/86 124/91 Blood Pressure Mean Blood Pressure Mean [Right Arm] 94 102 Blood Pressure Position [Right Arm] Sitting Sitting Pulse Oximetry 98 98 93 Oxygen Delivery Method Room Air Nasal Cannula Room Air Oxygen Flow Rate Pulse Oximetry Post Tiitration 07/01/24 13:09 07/01/24 15:00 07/01/24 15:25 Temperature Temperature Source Pulse Rate 111 H 106 H Pulse Rate [Apical] 124 H Pulse Rate from SpO2 Sensor 110 H Pulse Rhythm Pulse Rhythm [Apical] Respiratory Rate 24 20 18 Respiratory Effort / Characteristics Non-Labored Spontaneous Respiratory Depth Normal Respiratory Pattern Blood Pressure 124/91 Blood Pressure [Right Arm] 129/83 Blood Pressure Mean 102 Blood Pressure Mean [Right Arm] 98 Blood Pressure Position [Right Arm] Pulse Oximetry 93 93 Oxygen Delivery Method Room Air Oxygen Flow Rate Pulse Oximetry Post Tiitration 07/01/24 15:37 Temperature Temperature Source Pulse Rate 127 H Pulse Rate [Apical] Pulse Rate from SpO2 Sensor Pulse Rhythm Pulse Rhythm [Apical] Respiratory Rate Respiratory Effort / Characteristics Respiratory Depth Respiratory Pattern Blood Pressure Blood Pressure [Right Arm] Blood Pressure Mean Blood Pressure Mean [Right Arm] Blood Pressure Position [Right Arm] Pulse Oximetry Oxygen Delivery Method Oxygen Flow Rate Pulse Oximetry Post Tiitration Laboratory Data 07/02/24 05:59 07/02/24 05:59 Lab Results 07/01/24 07/01/24 07/01/24 Range/Units 11:35 12:21 12:46 WBC 7.26 (4.8-10.8) K/ul RBC 4.70 (4.20-5.40) M/uL Hgb 13.4 (12.0-16.0) g/dl Hct 39.7 (37.0-47.0) % MCV 84.5 (80.0-100.0) fL MCH 28.5 (25.0-34.0) pg MCHC 33.8 (32.0-36.0) g/dL RDW Std Deviation 42.5 (36.4-46.3) fL RDW Coeff of Mal 13.8 (11.5-14.5) % Plt Count 236 (130-400) K/uL MPV 10.7 (9.4-12.4) fL Immature Gran % (Auto) 0.1 % Neut % (Auto) 78.4 % Lymph % (Auto) 11.2 % Mcnairy % (Auto) 9.9 % Eos % (Auto) 0.1 % Baso % (Auto) 0.3 % Neut # (Auto) 5.69 (1.40-6.50) K/uL Lymph # (Auto) 0.81 L (1.20-3.40) K/uL Mcnairy # (Auto) 0.72 H (0.11-0.59) K/uL Eos # (Auto) 0.01 (0.00-0.50) K/uL Baso # (Auto) 0.02 (0.00-0.20) K/uL Immature Gran # (Auto) 0.01 (0.01-0.20) K/uL PT 22.6 H (9.0-12.0) Seconds INR 2.2 H (0.9-1.1) Sodium 137 (136-145) mmol/L Potassium 3.8 (3.5-5.1) mmol/L Chloride 100 (98-107) mmol/L Carbon Dioxide 30 (21-32) mmol/L Anion Gap 7 (3-11) BUN 18 (6-23) mg/dl Creatinine 1.01 (0.6-1.2) mg/dl Est Cr Clr Drug Dosing 48.4 ml/min eGFR 55.93 BUN/Creatinine Ratio 17.8 (10-20) Glucose 86 (70-99(Fasting)) mg/dl Calcium 9.7 (8.6-10.3) mg/dl Troponin I High Sens 7.4 (0-14) pg/ml Adenovirus (PCR) Not Detected (NotDetected) B. pertussis DNA (PCR) Not Detected (NotDetected) B.parapertussis DNA PCR Not Detected (NotDetected) C. pneumoniae DNA (PCR) Not Detected (NotDetected) Coronavirus OC43 (PCR) Not Detected (NotDetected) Coronavirus HKU1 (PCR) Not Detected (NotDetected) Coronavirus 229E (PCR) Not Detected (NotDetected) SARS-CoV-2 (PCR) Not Detected (NotDetected) Coronavirus NL63 (PCR) Not Detected (NotDetected) Human Metapneumovir PCR Not Detected (NotDetected) Influenza Type A (PCR) Not Detected (NotDetected) Influenza Type B (PCR) Not Detected (NotDetected) M. pneumoniae (PCR) Not Detected (NotDetected) Parainfluenza 1 (PCR) Not Detected (NotDetected) Parainfluenza 2 (PCR) Not Detected (NotDetected) Parainfluenza 3 (PCR) Not Detected (NotDetected) Parainfluenza 4 (PCR) Not Detected (NotDetected) RSV (PCR) Not Detected (NotDetected) Entero/Rhino (PCR) Not Detected (NotDetected) Administered Medications Acetaminophen (Acetaminophen 325 Mg Tab) 650 mg PO Q4H PRN PRN Reason: Pain or Fever Stop: 07/31/24 18:09 Last Admin: 07/02/24 08:01 Dose: 650 mg Documented By: MED Baclofen (Baclofen 10 Mg Tab) 10 mg PO BID [facility] Stop: 07/31/24 20:59 Last Admin: 07/02/24 08:44 Dose: 10 mg Documented By: heater operator helper: 07/01/24 20:12 Dose: 10 mg Documented By: KMF Colchicine (Colchicine 0.6 Mg Tab) 0.6 mg PO QAM [facility] Stop: 08/01/24 08:59 Last Admin: 07/02/24 08:45 Dose: 0.6 mg Documented By: MED Digoxin (Digoxin 0.125 Mg Tab) 0.125 mg PO DAILY [facility] Stop: 08/01/24 08:59 Last Admin: 07/02/24 08:48 Dose: 0.125 mg Documented By: MED Doxycycline Hyclate (Doxycycline Hyclate 100 Mg Cap) 100 mg PO BID [facility] Stop: 07/06/24 20:59 Last Admin: 07/02/24 08:44 Dose: 100 mg Documented By: heater operator helper: 07/01/24 20:12 Dose: 100 mg Documented By: SUMMER Ferrous Sulfate (Ferrous Sulfate 325 Mg Tab) 325 mg PO QA [facility] Stop: 08/01/24 08:59 Last Admin: 07/02/24 08:48 Dose: 325 mg Documented By: JESSICA Furosemide (Furosemide 40 Mg Tab) 40 mg PO DAILY [facility] Stop: 08/01/24 08:59 Last Admin: 07/02/24 08:48 Dose: 40 mg Documented By: MED Hydroxychloroquine Sulfate (Hydroxychloroquine Sulfate 200 Mg Tab) 200 mg PO DAILY [facility] Stop: 08/01/24 08:59 Last Admin: 07/02/24 08:47 Dose: 200 mg Documented By: JESSICA Levothyroxine Sodium (Levothyroxine Sodium 100 Mcg Tablet) 100 mcg PO DAILYBB [facility] Stop: 08/01/24 06:29 Last Admin: 07/02/24 06:06 Dose: 100 mcg Documented By: SUMMER Magnesium Oxide (Magnesium Oxide 400 Mg Tab) 400 mg PO [facility] Stop: 07/31/24 20:59 Last Admin: 07/01/24 20:15 Dose: 400 mg Documented By: SUMMER Metoprolol Succinate (Metoprolol Succ 50mg Ext Rel Tab) 100 mg PO BID [facility] Stop: 07/31/24 20:59 Last Admin: 07/02/24 08:47 Dose: 100 mg Documented By: heater operator helper: 07/01/24 20:15 Dose: 100 mg Documented By: SUMMER Montelukast Sodium (Montelukast Sodium 10 Mg Tablet) 10 mg PO [facility] Stop: 07/31/24 20:59 Last Admin: 07/01/24 20:16 Dose: 10 mg Documented By: SUMMER Potassium Chloride (Potassium Chloride Crtab 20 Meq Tabcr) 40 meq PO QAM [facility] Stop: 08/01/24 08:59 Last Admin: 07/02/24 08:44 Dose: 40 meq Documented By: JESSICA Primidone (Primidone 50 Mg Tab) 50 mg PO PM [facility] Stop: 07/31/24 20:59 Last Admin: 07/01/24 20:13 Dose: 50 mg Documented By: SUMMER Primidone (Primidone 50 Mg Tab) 75 mg PO QAM [facility] Stop: 08/01/24 08:59 Last Admin: 07/02/24 08:46 Dose: 75 mg Documented By: JESSICA Rosuvastatin Calcium (Rosuvastatin Calcium 20 Mg Tab) 40 mg PO DAILY [facility] Stop: 08/01/24 08:59 Last Admin: 07/02/24 08:46 Dose: 40 mg Documented By: JESSICA Discontinued Medications Doxycycline Hyclate (Doxycycline Hyclate 100 Mg Cap) 100 mg PO NOW STA Stop: 07/01/24 14:22 Last Admin: 07/01/24 15:35 Dose: 100 mg Documented By: NIYA Ceftriaxone Sodium (Rocephin) 2,000 mg in 50 mls @ 100 mls/hr IV NOW STA Stop: 07/01/24 14:50 Last Infusion: 07/01/24 16:10 Dose: Infused Documented By: Admin: 07/01/24 15:36 Dose: 100 mls/hr Documented By: NIYA Warfarin Sodium (Warfarin Sod 3 Mg Tab) 3 mg PO NOW STA Stop: 07/01/24 18:44 Last Admin: 07/01/24 20:11 Dose: 3 mg Documented By: SUMMER Imaging Data Radiologist's Impression: Chest X-Ray 07/01/24 11:30 XR chest 1V portable CLINICAL HISTORY: pleural effusion COMPARISON STUDY: 04/29/2024 FINDINGS: Patient has developed increased retrocardiac density in the left lower lobe as seen through the cardiac silhouette. This obliterates the medial aspect of the left hemidiaphragm is consistent with either partial atelectasis and/or pneumonia in the left lower lobe. There is also a small amount of increased opacity in the right cardiophrenic angle. Heart size is mildly enlarged. A dual- lead pacemaker is redemonstrated. IMPRESSION: Findings consistent with the left lower lobe pneumonia and/or partial left lower lobe atelectasis. A small right medial basilar infiltrate is suspected as well. ACT 112: Negative or not required by law. Electronically signed by: Ewelina Meza M.D. 07/01/2024 12:07 PM Discharge Plan Visit Data Chief Complaint: Arrhythmia/Palpitations Stated Complaint: CHEST SORNESS ED Provider: Skip Torres Discharge Problem: Left lower lobe pneumonia, Atrial fibrillation with rapid ventricular response Patient Disposition: Admitted As Inpatient Discharge Instructions Interventions: ED Discharge Assessment Last Done: 07/01/24 17:25
[2024-07-01] MEDS: DOXYCYCLINE HYCLATE 100 MG CAP PO STA (15:35)
[2024-07-01] MEDS: cefTRIAXone SODIUM 2,000 MG/50 ML BAG IV STA (15:36)
--- NOTE | 2024-07-01 15:41 | History & Physical Report ---
Date of Service July 01, 2024 Assessment & Plan (1) Left lower lobe pneumonia: (2) Atrial fibrillation with rapid ventricular response: (3) RAINER on CPAP: Plan Pam is a pleasant 83-year-old female with PMH of atrial flutter, paroxysmal atrial fibrillation (on warfarin), CAD, HTN, COPD, RAINER, Raynaud's disease, Sjogren's syndrome, and pericardial effusion. She presented on 07/01 for SOB/dyspnea that first developed on Wednesday 06/28. She endorses SOB both at rest and with exertion (but mainly with exertion). Additional symptoms include night sweats, productive cough, intermittent chest tightness/pain, and orthopnea. #Left lower lobe pneumonia CXR on arrival revealed LLL pneumonia No leukocytosis; afebrile on arrival; however, patient reports fever/sweating the past couple nights and productive cough BioFire negative Given remote history of pericardial effusion this fall, limited echo ordered Ceftriaxone 2000 mg IV q24h Doxycycline 100 mg p.o. BID Incentive spirometry, flutter valve Benzonatate as needed for cough Continuous pulse oximetry #Atrial fibrillation with RVR Continue digoxin, metoprolol A.m. digoxin level ordered Continue warfarin INR 2.2 on arrival; trend PT/INR #Chest tightness/pain Intermittent chest tightness/pain in the days leading up to admission; suspect may be secondary to pneumonia Troponin WNL on arrival, repeat pending Continuous court recording monitor for now #RAINER CPAP HS [facility] Full code Heart healthy diet VTE PPx: Warfarin History of Present Illness Chief Complaint: Arrhythmia/palpitations, SOB Primary Care Provider: Horace Lopez MD Pam is a pleasant 83-year-old female with PMH of atrial flutter, paroxysmal atrial fibrillation (on warfarin), CAD, HTN, COPD, RAINER, Raynaud's disease, Sjogren's syndrome, and pericardial effusion. She presented on 07/01 for SOB/dyspnea that first developed on Wednesday 06/28. She endorses SOB both at rest and with exertion (but mainly with exertion). Additional symptoms include night sweats, productive cough, intermittent chest tightness/pain, and orthopnea. While she did not take her temperature at home, she does believe she had a fever, and was soaking through multiple outfits at night. She reports her chest "tightness" comes and goes intermittently; can occur at rest or with exertion. Mainly substernal. She rates her chest tightness 4/10 at present; no radiation at this time, but will occasionally radiate to both her shoulders bilaterally. She has been taking Tylenol 500 mg tablets (3 to 4 tablets/day) as needed for the pain. She denies any recent injuries to her chest wall. She denies any rashes on her body. Patient took all of her regular morning medicines today; no recent change in in medications. She reports good compliance with taking her warfarin. She lives alone at [facility], but the nursing office helps to manage her medicine at home. Patient uses a CPAP at night; no other supplemental oxygen. No sick contacts to her knowledge. Patient has 2 dogs (Shaheed and Nga). Patient denies smoking, tobacco use, or recent alcohol use. Patient is tachycardic at 127 at time of admission; vitals otherwise stable. ED course: Ceftriaxone 2000 mg IV Doxycycline 100 mg p.o. ROS: Patient endorses fever, chills, night sweats, lightheadedness with standing, headache, SOB at rest and with exertion, chest tightness/pain, productive cough (clear sputum production), and pleuritic chest pain. Patient denies falls, syncope, rashes, tick bites, chest palpitations, abdominal pain, N/V/D, or changes in urinary/bowel habits. Allergies Allergy/AdvReac Type Severity Reaction Status Date / Time hydroxychloroquine Allergy Intermediate TOXICITY Verified 07/01/24 15:34 OF THE RETINA ibuprofen Allergy Intermediate SWELLING Verified 07/01/24 15:34 atorvastatin AdvReac Mild "UNCOMFORTABLE" Verified 07/01/24 15:34 AND CREATININE INCREASED SLIGHTLY Home Medications Medication Instructions Recorded Confirmed Type vitamins A,C,Z-ebaz-dlyjqg 2,148 1 tab PO BID 06/25/18 07/01/24 History mcg-113 mg-45 mg-17.4 mg tablet baclofen 10 mg tablet 10 mg PO BID 04/20/22 07/01/24 History cholecalciferol (vitamin D3) 25 1,000 unit PO BID 02/16/24 07/01/24 History mcg (1,000 unit) tablet (Vitamin D3) montelukast 10 mg tablet 10 mg PO HS 02/16/24 07/01/24 History ferrous sulfate 325 mg (65 mg 325 mg PO QAM 02/22/24 07/01/24 History iron) tablet cyanocobalamin (vitamin B-12) 2,000 mcg PO HS 02/27/24 07/01/24 History 2,000 mcg tablet,extended release (Vitamin B-12 ER) magnesium 250 mg tablet 250 mg PO HS 02/27/24 07/01/24 History metoprolol succinate 100 mg 100 mg PO BID 03/15/24 07/01/24 History tablet,extended release 24 hr digoxin 125 mcg (0.125 mg) tablet 0.125 mg PO DAILY 03/29/24 07/01/24 History levothyroxine 100 mcg capsule 100 mcg PO DAILY 05/09/24 07/01/24 History potassium chloride 20 mEq 40 meq PO QAM 05/09/24 07/01/24 History tablet,extended release primidone 50 mg tablet 50 mg PO PM 05/09/24 07/01/24 History primidone 50 mg tablet 75 mg PO QAM 05/09/24 07/01/24 History warfarin 3 mg tablet See Rx Instructions PO UD 06/03/24 07/01/24 History colchicine 0.6 mg tablet 0 mg PO QAM 07/01/24 07/01/24 History furosemide 40 mg tablet 40 mg PO DAILY 07/01/24 07/01/24 History hydroxychloroquine 200 mg tablet 200 mg PO DAILY 07/01/24 07/01/24 History ydzfpock-kda-fxpzq acid 0.4 1 tab PO QAM 07/01/24 07/01/24 History mg-lycopene 300 mcg-lutein [facility]cg [facility] psyllium husk 0.4 gram capsule 0.4 g PO BID 07/01/24 07/01/24 History (Reguloid (psyllium husk)) rosuvastatin 40 mg tablet 40 mg PO DAILY 07/01/24 07/01/24 History Past Med/Surg History Problem List (Updated 07/02/24 @ 11:28 by Skip Torers MD) Atrial fibrillation with rapid ventricular response (Acute) Left lower lobe pneumonia (Acute) RAINER on CPAP Pericardial effusion Hypokalemia Pleuritis Lupus Labile hypertension Nonobstructive atherosclerosis of coronary artery Atrial fibrillation with rapid ventricular response (Acute) Chest pain Routine gynecological examination Injury of ear canal Chronic anticoagulation (Chronic) Hyponatremia PAF (paroxysmal atrial fibrillation) Dizziness (Acute) Chest tightness (Acute) Acute hyponatremia (Acute) Atrial flutter with rapid ventricular response (Acute) Irritable bowel syndrome with diarrhea Tubular adenoma Diarrhea Encounter for pre-operative examination Kidney stones (Chronic) Hypothyroidism Palpitations (Acute) Vitamin D deficiency (Chronic) Hypertension (Chronic) Obstructive sleep apnea syndrome cpap Tremor (Acute) Gait disturbance Fall Balance problem Vitamin D deficiency (Acute) Chronic obstructive pulmonary disease Chronic kidney disease, stage II (mild) (Chronic) CAD (coronary artery disease) NONOBSTRUCTIVE Diagnostic cardiac catheterization August 2018 with minimal coronary atherosclerosis and no obstruction, elevated end-diastolic pressure HTN (hypertension) Chronic lumbar radiculopathy (Acute) Raynaud's disease (Chronic) Sjogren's syndrome (Chronic) Medical History Macular degeneration Muscle cramping SLE (systemic lupus erythematosus) Scoliosis Osteoporosis Osteoarthritis Hemangioma of liver Chronic back pain GERD (gastroesophageal reflux disease) Hypothyroid 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 Sewell PVC (premature ventricular contraction) Bundle branch block follow Dr Sewell Near syncope Left hip pain Surgical History History of esophagogastroduodenoscopy (EGD) History of colonoscopy S/P UVPP (uvulopalatopharyngoplasty) History of tonsillectomy History of brain surgery History of tubal ligation History of hysterectomy History of appendectomy Family History Aunt Family history of pseudocholinesterase deficiency PATERNAL Breast cancer Father Myocardial infarction Prostate cancer Brother Prostate cancer Denies family history of Ovarian cancer Colorectal cancer Social History Smoking Status: Former smoker Tobacco Type: Cigarettes Smoking End Date: 60 years ago; Second Hand Exposure: No; Do You Dip or Chew Tobacco: No; Tobacco Cessation Education Requested by Patient: No Hx Alcohol Use: No Hx Substance Use: No Preferred Language: Estonian Communication Ability: Effective Prints And Drawings Curator Required: No Beliefs That Will Affect Care: None marital status: Current Living Situation: Personal Care Facility Current Living Situation Comment: [facility] current occupational status: retired Other Information That Helps Us Care for You: No Feels Safe at Home: Yes Safety Concerns: Feels Safe At This Time Childhood Exposure to Second-Hand Smoke: Yes Dental Care, Regularly: Yes Physical Activity Frequency: Daily Seatbelt Use: always Sunscreen Use: Yes Assistive Devices: CPAP, Glasses and Walker Review of Systems Review of Systems: See HPI above Physical Exam Physical Exam: General: no acute distress; pleasant affect; non-toxic appearing; well- nourished; cooperative; SpO2 93% on RA HEENT: normocephalic, atraumatic; no scleral icterus; PERRLA; vision and hearing intact Neck: supple; no lymphadenopathy; trachea midline Skin: Cyanotic lips; warm, dry without signs of tenting; no rashes, bruising, lesions, or erythema noted CV: chest wall is mildly TTP substernally, as well as around the left flank/rib cage; no rashes appreciated; irregularly irregular rhythm tachycardic around 125 bpm; S1/S2 normal; no murmurs/rubs/gallops; pulses intact and symmetric at radial, DP, and PT Lungs: no acute respiratory distress; symmetrical chest wall expansion; clear breath sounds across all lung anderson w/o adventitious sounds; no wheezing ABD: Soft, NTP; BS present; no rebound/guarding; no distention MSK: no tics or fasciculations; no edema noted in the LEs b/l, nonerythematous Neuro: A&Ox3; normal mood and affect; fluent speech; no focal deficits; sensation intact and symmetric in the LEs b/l Results & Data Results & Data Vital Signs (Past 12 Hours) Vital Signs Temp Pulse Pulse Resp BP BP Pulse Ox 07/01/24 15:37 127 H 07/01/24 13:09 111 H 24 124/91 07/01/24 13:00 97 H 21 124/91 93 07/01/24 11:49 112 H 20 98 07/01/24 11:49 37.0 C 117 H 20 112/86 98 07/01/24 11:49 98 07/01/24 11:49 07/01/24 11:30 110 H 07/01/24 11:20 37.0 C 127 H 20 112/86 95 O2 Del Method O2 Flow Rate 07/01/24 15:37 07/01/24 13:09 07/01/24 13:00 Room Air 07/01/24 11:49 Nasal Cannula 07/01/24 11:49 Room Air 07/01/24 11:49 Room Air 0 07/01/24 11:49 Room Air 07/01/24 11:30 07/01/24 11:20 Room Air Laboratory Results Abnormal lab results 07/01/24 07/01/24 Range/Units 11:35 12:21 Lymph # (Auto) 0.81 L (1.20-3.40) K/uL Amador # (Auto) 0.72 H (0.11-0.59) K/uL PT 22.6 H (9.0-12.0) Seconds INR 2.2 H (0.9-1.1) Diagnostic Findings Chest X-Ray 07/01/24 11:30 XR chest 1V portable CLINICAL HISTORY: pleural effusion COMPARISON STUDY: 04/29/2024 FINDINGS: Patient has developed increased retrocardiac density in the left lower lobe as seen through the cardiac silhouette. This obliterates the medial aspect of the left hemidiaphragm is consistent with either partial atelectasis and/or pneumonia in the left lower lobe. There is also a small amount of increased opacity in the right cardiophrenic angle. Heart size is mildly enlarged. A dual- lead pacemaker is redemonstrated. IMPRESSION: Findings consistent with the left lower lobe pneumonia and/or partial left lower lobe atelectasis. A small right medial basilar infiltrate is suspected as well. ACT 112: Negative or not required by law. Electronically signed by: Ewelina Meza M.D. 07/01/2024 12:07 PM ECG Additional Comments: ECG revealed atrial fibrillation with RVR at 126 bpm; QTc 527 (caution use of QT prolonging agents where possible) Code Status & VTE Plan Code Status Full code VTE Prophylaxis Plan VTE Prophylaxis will be ordered: Yes Supervising Physician Co-Signing Physician Notes I personally saw and examined the patient. I independently reviewed the labs, EKG, imaging, problem list, medication list, past medical history and family history. I verified all murray points and agree with Andrés Miller PA-C with the following exceptions and/or additions: 83-year-old female presents to the ER with fever, chills, cough. On hydroxychloroquine therefore notes she usually does mount a WBC when she gets infections. O/E HS increased rate, irregular rhythm, no murmurs, Chest left lower lobe crackles, Abdo SNT A/P Left lower lobe pneumonia - IV ceftriaxone and PO doxycycline Shortness of breath - no recurrent in her pericardial effusion fortunately on limited echo PG Care Time/CCT Total # of Minutes Spent Total Time Spent with Patient: Total time spent is greater than 50% in coordination of care (as documented) at patient's floor/unit and/or counseling patient: Coding [place] [address] INT INP/OBS CARE 3/75MIN Patient Type Established Medical Decision Making High Complexity Diagnoses Left lower lobe pneumonia J18.9 Atrial fibrillation with rapid ventricular response I48.91 RAINER on CPAP G47.33
[2024-07-01] MEDS ORDERED: BENZONATATE 100 MG CAPSULE PO PRN (18:10)
[2024-07-01] MEDS: WARFARIN SOD 3 MG TAB PO STA (20:11)
[2024-07-01] MEDS: BACLOFEN 10 MG TAB PO SCH (20:12)
[2024-07-01] MEDS: DOXYCYCLINE HYCLATE 100 MG CAP PO SCH (20:12)
[2024-07-01] MEDS: PRIMIDONE 50 MG TAB PO SCH (20:13)
[2024-07-01] MEDS: METOPROLOL SUCC 50MG EXT REL TAB PO SCH (20:15)
[2024-07-01] MEDS: MAGNESIUM OXIDE 400 MG TAB PO SCH (20:15)
[2024-07-01] MEDS: MONTELUKAST SODIUM 10 MG TABLET PO SCH (20:16)
[2024-07-02] MEDS: LEVOTHYROXINE SODIUM 100 MCG TABLET PO SCH (06:06)
[2024-07-02 07:08] LABS: Basophils # (auto) 0.02 K/uL (0.00-0.20); Basophils % (auto) 0.4 %; Hematocrit (blood only) 37.2 % (37.0-47.0); Hemoglobin 12.7 g/dl (12.0-16.0); Immature Granulocytes # (auto) 0.02 K/uL (0.01-0.20); Immature Granulocytes % (auto) 0.4 %; Lymphocytes % (auto) 15.7 %; Mean Corpuscular Hemoglobin 28.4 pg (25.0-34.0); Mean Corpuscular Hgb Conc 34.1 g/dL (32.0-36.0); Mean Corpuscular Volume 83.2 fL (80.0-100.0); Mean Platelet Volume 10.8 fL (9.4-12.4); Monocytes # (auto) 0.58 K/uL (0.11-0.59); Monocytes % (auto) 11.4 %; Neutrophils # (auto) 3.68 K/uL (1.40-6.50); Neutrophils % (auto) 72.1 %; Platelet Count 242 K/uL (130-400); RDW Standard Deviation 42.3 fL (36.4-46.3); Red Blood Count 4.47 M/uL (4.20-5.40)
[2024-07-02 07:25] LABS: BUN Creatinine Ratio 21.1 (10-20); Calcium 9.2 mg/dl (8.6-10.3); Creatinine Clr Calc Pharmacy 52.3 ml/min; Potassium 3.4 mmol/L (3.5-5.1)
[2024-07-02 07:39] LABS: INR 2.3 (0.9-1.1); Prothrombin Time 23.6 Seconds (9.0-12.0)
[2024-07-02] MEDS: ACETAMINOPHEN 325 MG TAB PO PRN (08:01)
[2024-07-02] MEDS: POTASSIUM CHLORIDE CRTAB 20 MEQ TABCR PO SCH (08:44)
[2024-07-02] MEDS: COLCHICINE 0.6 MG TAB PO SCH (08:45)
[2024-07-02] MEDS: ROSUVASTATIN CALCIUM 20 MG TAB PO SCH (08:46)
[2024-07-02] MEDS: PRIMIDONE 50 MG TAB PO SCH (08:46)
[2024-07-02] MEDS: HYDROXYCHLOROQUINE SULFATE 200 MG TAB PO SCH (08:47)
[2024-07-02] MEDS: FUROSEMIDE 40 MG TAB PO SCH (08:48)
[2024-07-02] MEDS: DIGOXIN 0.125 MG TAB PO SCH (08:48)
[2024-07-02] MEDS: FERROUS SULFATE 325 MG TAB PO SCH (08:48)
--- NOTE | 2024-07-02 12:03 | Hospitalist Progress Note ---
Date of Service July 02, 2024 Assessment & Plan (1) Left lower lobe pneumonia: Plan: Pam is a pleasant 83-year-old female with PMH of atrial flutter, paroxysmal atrial fibrillation (on warfarin), CAD, HTN, COPD, RAINER, Raynaud's disease, Sjogren's syndrome, and pericardial effusion. She presented on 07/01 for SOB/dyspnea that first developed on Wednesday 06/28. She endorses SOB both at rest and with exertion (but mainly with exertion). Additional symptoms include night sweats, productive cough, intermittent chest tightness/pain, and orthopnea. CXR on arrival revealed LLL pneumonia No leukocytosis; afebrile on arrival; however, patient reports fever/sweating the past couple nights and productive cough BioFire negative Ceftriaxone 2000 mg IV q24h Doxycycline 100 mg p.o. BID Incentive spirometry, flutter valve Benzonatate as needed for cough Continuous pulse oximetry Feels better today (2) Atrial fibrillation with rapid ventricular response: Plan: Continue digoxin, metoprolol A.m. digoxin level slightly low, continue Digoxin Continue warfarin INR 2.2 on arrival; trend PT/INR (3) RAINER on CPAP: Plan: CPAP Plan Disposition: Hopefully d/c home in the next 24 hrs Full code Heart healthy diet VTE PPx: Warfarin Admission and Anticipated Discharge Date Admission Date: July 01, 2024 Subjective patient seen and examined, feels over all better, worried about her cats at home Review of Systems Review of Systems: All systems reviewed are negative, apart from the ones contained in the history. Physical Exam Physical Exam: The patient is awake, alert and oriented 3, well developed and well nourished, normocephalic and atraumatic, lying in bed and in no acute distress. HEENT--PERRL, EOMI, mucous membranes and oropharynx mildly dry Neck--supple. No JVD. No bruits. Thyroid normal, trachea midline, no adenopathy. Heart--normal S1 and S2. No murmurs, rubs or gallops. Lungs--clear bilaterally, no respiratory distress, no accessory muscle use. Abdomen--normal bowel sounds and soft. Extremities--no cyanosis or clubbing. No edema. Dermatologic--normal skin turgor, normal color, no abnormal lymph nodes, no rash. Neurologic--cranial nerves II through XII grossly intact. Rheumatologic--normal range of motion. Psychiatric--normal affect. Results & Data Results & Data Vital Signs (Past 12 Hours) Vital Signs Temp Pulse Pulse Resp BP BP Pulse Ox 07/02/24 11:45 98.2 F 92 H 16 106/74 93 07/02/24 10:34 07/02/24 08:48 91 H 07/02/24 07:36 97.7 F 91 H 16 114/77 93 07/02/24 05:52 85 07/02/24 03:00 97.5 F L 70 16 105/68 92 O2 Del Method 07/02/24 11:45 Room Air 07/02/24 10:34 Room Air 07/02/24 08:48 07/02/24 07:36 Room Air 07/02/24 05:52 07/02/24 03:00 Room Air PG Care Time/CCT Total # of Minutes Spent Total Time Spent with Patient: Total time spent is greater than 50% in coordination of care (as documented) at patient's floor/unit and/or counseling patient: Coding Level of Care Code 99799 SUB INP/OBS CARE 2/35MIN Diagnoses Left lower lobe pneumonia J18.9 Atrial fibrillation with rapid ventricular response I48.91 RAINER on CPAP G47.33 Time Spent (min) 35
[2024-07-02] MEDS: cefTRIAXone SODIUM 2,000 MG/50 ML BAG IV SCH (14:57)
[2024-07-02] MEDS: WARFARIN SOD 0.5 MG TAB PO SCH (16:04)
[2024-07-03 07:17] VITALS: PULSE 85; RESP 16; TEMP 97.7; O2SAT 93
[2024-07-03 09:50] VITALS: BP 106/74
--- NOTE | 2024-07-03 10:26 | Electrocardiogram Report ---
Test Reason : Blood Pressure : */* mmHG Vent. Rate : 86 BPM Atrial Rate : 98 BPM P-R Int : * ms QRS Dur : 130 ms QT Int : 412 ms P-R-T Axes : * 52 -71 degrees QTcB Int : 493 ms Atrial fibrillation Right bundle branch block T wave abnormality, consider lateral ischemia Abnormal ECG When compared with ECG of 01-Jul-2024 11:22, No significant change was found Confirmed by Donald Heck ([id number]) on 07/03/2024 10:26:27 AM Referred By: Horace Lopez Confirmed By: Donald Heck
--- NOTE | 2024-07-03 11:19 | Discharge Summary ---
Date of Service July 03, 2024 Admission HPI Per Admitting Provider Pam is a pleasant 83-year-old female with PMH of atrial flutter, paroxysmal atrial fibrillation (on warfarin), CAD, HTN, COPD, RAINER, Raynaud's disease, Sjogren's syndrome, and pericardial effusion. She presented on 07/01 for SOB/dyspnea that first developed on Wednesday 06/28. She endorses SOB both at rest and with exertion (but mainly with exertion). Additional symptoms include night sweats, productive cough, intermittent chest tightness/pain, and orthopnea. While she did not take her temperature at home, she does believe she had a fever, and was soaking through multiple outfits at night. She reports her chest "tightness" comes and goes intermittently; can occur at rest or with exertion. Mainly substernal. She rates her chest tightness 4/10 at present; no radiation at this time, but will occasionally radiate to both her shoulders bilaterally. She has been taking Tylenol 500 mg tablets (3 to 4 tablets/day) as needed for the pain. She denies any recent injuries to her chest wall. She denies any rashes on her body. Patient took all of her regular morning medicines today; no recent change in in medications. She reports good compliance with taking her warfarin. She lives alone at [facility], but the nursing office helps to manage her medicine at home. Patient uses a CPAP at night; no other supplemental oxygen. No sick contacts to her knowledge. Patient has 2 dogs (Shaheed and Nga). Patient denies smoking, tobacco use, or recent alcohol use. Patient is tachycardic at 127 at time of admission; vitals otherwise stable. ED course: Ceftriaxone 2000 mg IV Doxycycline 100 mg p.o. ROS: Patient endorses fever, chills, night sweats, lightheadedness with standing, headache, SOB at rest and with exertion, chest tightness/pain, productive cough (clear sputum production), and pleuritic chest pain. Patient denies falls, syncope, rashes, tick bites, chest palpitations, abdominal pain, N/V/D, or changes in urinary/bowel habits. Admission Exam (Per Admitting) Constitutional The patient is awake, alert and oriented 3, well developed and well nourished, normocephalic and atraumatic, lying in bed and in no acute distress. HEENT--PERRL, EOMI, mucous membranes and oropharynx mildly dry Neck--supple. No JVD. No bruits. Thyroid normal, trachea midline, no adenopathy. Heart--normal S1 and S2. No murmurs, rubs or gallops. Lungs--clear bilaterally, no respiratory distress, no accessory muscle use. Abdomen--normal bowel sounds and soft. Extremities--no cyanosis or clubbing. No edema. Dermatologic--normal skin turgor, normal color, no abnormal lymph nodes, no rash. Neurologic--cranial nerves II through XII grossly intact. Rheumatologic--normal range of motion. Psychiatric--normal affect. Discharge Data Consultations 07/01/24 16:38 ED Decision to Admit Stat Hospital Course (1) Left lower lobe pneumonia: (2) Atrial fibrillation with rapid ventricular response: (3) RAINER on CPAP: Fabien Orozco is a pleasant 83-year-old female with PMH of atrial flutter, paroxysmal atrial fibrillation (on warfarin), CAD, HTN, COPD, RAINER, Raynaud's disease, Sjogren's syndrome, and pericardial effusion. She presented on 07/01 for SOB/dyspnea that first developed on Wednesday 06/28. She endorses SOB both at rest and with exertion (but mainly with exertion). Additional symptoms include night sweats, productive cough, intermittent chest tightness/pain, and orthopnea. #Left lower lobe pneumonia CXR on arrival revealed LLL pneumonia No leukocytosis; afebrile on arrival; however, patient reports fever/sweating th e past couple nights and productive cough BioFire negative Given remote history of pericardial effusion this fall, limited echo ordered Ceftriaxone 2000 mg IV q24h Doxycycline 100 mg p.o. BID Incentive spirometry, flutter valve Benzonatate as needed for cough Continuous pulse oximetry Discharge home on PO Doxy and cefdnir for 5 days Cultures remained negative #Atrial fibrillation with RVR Continue digoxin, metoprolol A.m. 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
[2024-07-03] MEDS ORDERED: WARFARIN SOD 3 MG TAB PO SCH ×2 (16:00)
== END 2024-07-03 10:47 | disposition home or self-care (01) | DRG 195 ==
LOC: ED 11:16 → SUATTDRO 16:15 → 2W 16:15